=== PATIENT | male | born 1935 | race Caucasian/White ===

== ENCOUNTER → 2016-06-11 | Outpatient (CLI) | payer OTHER, MEDICARE ==
[~2016-06-11] MED LIST: AMLO2.5T PO; ASPCH81 PO; ASPI81TA28 PO; ATOR10TA82 PO; LOSA50TA6 PO; METO25TA56 PO; MULT-190 PO; MULT-506 PO; NTRGSL/4 UT; PRLSR20 PO; RANO500T PO
[2016-06-11 09:46] LABS: BASO % 0.3 %; BASO ABS # 0.02 K/uL (0-0.2); COMPLETE YES; EOS % 2.5 %; HEMATOCRIT 41.1 % (42-52); IG% 0.2 %; LYMPH % 32.2 %; LYMPH ABS # 2.05 K/uL (1.2-3.4); MEAN CELL VOLUME 92.4 fL (80-100); MEAN CORPUSCULAR HEMOGLOBIN 32.4 pg (25-34); MEAN PLATELET VOLUME 9.3 fL (7.4-10.4); MONO % 12.7 %; NEUT % 52.1 %; PLATELET COUNT 185 K/uL (130-400); RED BLOOD COUNT 4.45 M/uL (4.7-6.1); WHITE BLOOD COUNT 6.37 K/uL (4.8-10.8)
[2016-06-11 10:20] LABS: AST/SGOT 15 U/L (15-37); BLOOD UREA NITROGEN 14 mg/dl (7-18); BUN/CREATININE RATIO 14.7 (10-20); CALCIUM 8.8 mg/dl (8.5-10.1); CARBON DIOXIDE 28 mmol/L (21-32); CHLORIDE 103 mmol/L (98-107); CREATININE 0.96 mg/dl (0.60-1.40); GLUCOSE 106 mg/dl (70-99); POTASSIUM 3.8 mmol/L (3.5-5.1); SODIUM 138 mmol/L (136-145)
[2016-06-11 10:25] LABS: ALT/SGPT 24 U/L (12-78); CHOLESTEROL 110 mg/dl (0-200); CHOLESTEROL/HDL RATIO 2.1; HDL CHOLESTEROL 53 mg/dl; LDL CHOLESTEROL CALCULATED 33 mg/dl; TRIGLYCERIDES 120 mg/dl (0-150); VERY LOW DENSITY LIPOPROT CALC 24 mg/dl
--- NOTE | 2016-06-17 11:50 | CODING QUERY MEDICAL NECESSITY ---
SUPPORTING DIAGNOSIS NEEDED A supporting diagnosis is required for the test/procedure performed on this patient in order for us to be reimbursed by the patient's insurance. Please provide a supporting diagnosis for the following test/procedure listed below next to the test name along with your signature. *If there is no additional diagnosis for this patient that would support the following test/procedure please document that below next to the test/procedure. Test(s)/Procedure(s) that require a supporting diagnosis: DOS 06/11 * PSA DIAGNOSIS: Provider Signature: Date: Thank you Amanda Orellana Health Information Management Once completed, please kindly fax back to [phone] For questions please call [phone]
== END | disposition home or self-care (01) ==
LOC: C.LAB 07:56
PROVIDERS: ATTEND Urology
DX: R39.9 Unspecified symptoms and signs involving the genitourinary system (principal); K22.70 Barrett's esophagus without dysplasia; E78.00 Pure hypercholesterolemia, unspecified; R73.9 Hyperglycemia, unspecified; N40.1 Benign prostatic hyperplasia with lower urinary tract symptoms; R97.20 Elevated prostate specific antigen [PSA]

== ENCOUNTER → 2016-12-06 | Outpatient (CLI) | payer OTHER, MEDICARE ==
[~2016-12-06] MED LIST changes: -ASPI81TA28 PO; -ATOR10TA82 PO; +ATOR10TA88 PO; -RANO500T PO
== END | disposition home or self-care (01) ==
LOC: C.LAB1850 12:28
PROVIDERS: ATTEND Urology
DX: R39.9 Unspecified symptoms and signs involving the genitourinary system (principal)

== ENCOUNTER → 2016-12-07 | Outpatient (CLI) | payer OTHER, MEDICARE ==
[2016-12-07 09:11] LABS: BASO % 0.3 %; BASO ABS # 0.02 K/uL (0-0.2); COMPLETE YES; EOS % 2.3 %; HEMATOCRIT 42.5 % (42-52); IG% 0.2 %; LYMPH % 31.4 %; LYMPH ABS # 2.05 K/uL (1.2-3.4); MEAN CELL VOLUME 91.8 fL (80-100); MEAN CORPUSCULAR HGB CONC 34.8 g/dl (32-36); MONO % 10.4 %; NEUT % 55.4 %; PLATELET COUNT 174 K/uL (130-400); RED BLOOD COUNT 4.63 M/uL (4.7-6.1); WHITE BLOOD COUNT 6.53 K/uL (4.8-10.8)
[2016-12-07 09:41] LABS: ALT/SGPT 21 U/L (12-78); AST/SGOT 16 U/L (15-37); BLOOD UREA NITROGEN 10 mg/dl (7-18); BUN/CREATININE RATIO 10.6 (10-20); CALCIUM 8.9 mg/dl (8.5-10.1); CARBON DIOXIDE 28 mmol/L (21-32); CHLORIDE 104 mmol/L (98-107); CHOLESTEROL 108 mg/dl (0-200); CREATININE 0.95 mg/dl (0.60-1.40); GLUCOSE 106 mg/dl (70-99); POTASSIUM 4.1 mmol/L (3.5-5.1); SODIUM 138 mmol/L (136-145); TRIGLYCERIDES 156 mg/dl (0-150); VERY LOW DENSITY LIPOPROT CALC 31 mg/dl
[2016-12-07 09:45] LABS: CHOLESTEROL/HDL RATIO 2.4; HDL CHOLESTEROL 45 mg/dl; LDL CHOLESTEROL CALCULATED 32 mg/dl
== END | disposition home or self-care (01) ==
LOC: C.LAB 08:18
PROVIDERS: ATTEND Internal Medicine Cardiovascular Disease
DX: K22.70 Barrett's esophagus without dysplasia (principal); R73.9 Hyperglycemia, unspecified; I25.10 Atherosclerotic heart disease of native coronary artery without angina pectoris

== ENCOUNTER → 2017-03-06 | Outpatient (CLI) | payer OTHER, MEDICARE ==
[~2017-03-06] MED LIST changes: -AMLO2.5T PO; -ASPCH81 PO; +ASPI81TA28 PO; +ATOR10TA82 PO; -ATOR10TA88 PO; +RANO500T PO
== END | disposition home or self-care (01) ==
LOC: C.PATHSPEC 17:10
PROVIDERS: ATTEND Urology
DX: C61 Malignant neoplasm of prostate (principal)

== ENCOUNTER → 2017-03-27 | Outpatient (CLI) | payer OTHER, MEDICARE ==
--- NOTE | 2017-03-27 13:43 | DIAGNOSTIC IMAGING REPORT ---
WHOLE BODY BONE SCAN HISTORY: Abnormal prostate MRI. C61 Malignant neoplasm of prostate RADIOTRACER: 26.9 mCi Tc-99m MDP STUDY/IMAGES: Planar anterior and posterior whole body imaging was performed 3 hours following the intravenous administration of radiotracer. COMPARISON: Prostate MRI 12/25/2016. Left femur radiograph 06/29/2015. FINDINGS: Mild radiotracer uptake seen at the shoulders, sternoclavicular joints, left wrist, hips, lumbosacral junction and right knee favor degenerative change. Mild radiotracer uptake seen within the distal right fibula and tibia which may be due to old trauma. No suspicious areas of radiotracer uptake seen within the axial or appendicular skeleton to suggest metastatic disease. Specifically, no abnormal radiotracer uptake seen within the left ischial tuberosity. IMPRESSION: No suspicious areas of radiotracer uptake seen within the axial or appendicular skeleton to suggest metastatic disease. Electronically signed by: Cirilo Suarez M.D. 03/27/2017 1:41 PM Dictated Date/Time: 03/27/2017 1:37 PM
== END | disposition home or self-care (01) ==
LOC: C.NUCL 09:31
PROVIDERS: ATTEND Urology
DX: C61 Malignant neoplasm of prostate (principal)

== ENCOUNTER → 2017-04-29 | Outpatient (CLI) | payer OTHER, MEDICARE ==
[2017-04-29 09:41] LABS: ALT/SGPT 26 U/L (12-78); AST/SGOT 18 U/L (15-37); BLOOD UREA NITROGEN 11 mg/dl (7-18); CALCIUM 8.7 mg/dl (8.5-10.1); CARBON DIOXIDE 28 mmol/L (21-32); CHOLESTEROL 94 mg/dl (0-200); CREATININE 1.01 mg/dl (0.60-1.40); GLUCOSE 102 mg/dl (70-99); POTASSIUM 3.8 mmol/L (3.5-5.1); SODIUM 136 mmol/L (136-145)
[2017-04-29 09:45] LABS: LDL CHOLESTEROL CALCULATED 30 mg/dl
[2017-04-29 10:30] LABS: HEMOGLOBIN A1C 5.4 % (4.5-5.6)
== END | disposition home or self-care (01) ==
LOC: C.LAB 08:10
PROVIDERS: ATTEND Internal Medicine
DX: E78.00 Pure hypercholesterolemia, unspecified (principal); R73.9 Hyperglycemia, unspecified

== ENCOUNTER → 2017-06-24 | Outpatient (CLI) | payer OTHER, MEDICARE ==
[~2017-06-24] MED LIST changes: +CALC500C70 PO
[2017-06-24 09:52] LABS: ALT/SGPT 29 U/L (12-78); AST/SGOT 21 U/L (15-37); BLOOD UREA NITROGEN 15 mg/dl (7-18); CALCIUM 8.5 mg/dl (8.5-10.1); CARBON DIOXIDE 28 mmol/L (21-32); CHOLESTEROL 118 mg/dl (0-200); CREATININE 0.95 mg/dl (0.60-1.40); GLUCOSE 101 mg/dl (70-99); SODIUM 135 mmol/L (136-145)
[2017-06-24 09:56] LABS: LDL CHOLESTEROL CALCULATED 44 mg/dl
[2017-06-24 10:07] LABS: HEMOGLOBIN A1C 5.7 % (4.5-5.6)
== END | disposition home or self-care (01) ==
LOC: C.LAB 08:23
PROVIDERS: ATTEND Internal Medicine Cardiovascular Disease
DX: I25.10 Atherosclerotic heart disease of native coronary artery without angina pectoris (principal); R73.9 Hyperglycemia, unspecified

== ENCOUNTER → 2017-09-25 | Outpatient (CLI) | payer OTHER, MEDICARE ==
[~2017-09-25] MED LIST changes: +CPR500 PO; +LEUP1INJ15 INJ; +TAMS0.4C38 PO
[2017-09-25 10:22] LABS: ALT/SGPT 33 U/L (12-78); AST/SGOT 27 U/L (15-37); BLOOD UREA NITROGEN 16 mg/dl (7-18); CARBON DIOXIDE 27 mmol/L (21-32); CHOLESTEROL 130 mg/dl (0-200); CREATININE 0.87 mg/dl (0.60-1.40); GLUCOSE 91 mg/dl (70-99); LDL CHOLESTEROL CALCULATED 54 mg/dl; POTASSIUM 3.9 mmol/L (3.5-5.1); SODIUM 135 mmol/L (136-145)
== END | disposition home or self-care (01) ==
LOC: C.LAB 08:01
PROVIDERS: ATTEND Internal Medicine
DX: C61 Malignant neoplasm of prostate (principal)

== ENCOUNTER → 2017-09-26 | Outpatient (CLI) | payer OTHER, MEDICARE ==
[2017-09-26 10:59] VITALS: BP 128/64; PULSE 60; TEMP 36.7; O2SAT 96
--- NOTE | 2017-10-20 10:09 | CODING QUERY NO DIAGNOSIS ---
: 1935 TREATMENT RENDERED WITHOUT A DIAGNOSIS To promote full compliance with coding requirements relating to patient care, physician participation is requested in all cases of special education educational assistant uncertainty. Please assist us with providing a diagnosis/symptom for the test(s) below: A diagnosis/symptom was not documented on your Order. A valid diagnosis/symptom is required to bill all insurances. Please remember that we are unable to code a diagnosis of rule out, probable, possible, questionable, or suspected. Tests that require a diagnosis due to no documentation in [facility] DOS: 09/26/17 Est patient visit DIAGNOSIS: Provider Signature: Date: Thank you Vanessa Escamilla [facility] Health Information Management Once completed, please kindly fax back to [phone] For questions please call [phone]
== END | disposition home or self-care (01) ==
LOC: C.ONC 10:36
PROVIDERS: ATTEND Physician Assistant Medical
DX: C61 Malignant neoplasm of prostate (principal)

== ENCOUNTER → 2017-10-09 | Outpatient (CLI) | payer OTHER, MEDICARE ==
[~2017-10-09] MED LIST changes: -CPR500 PO; +GADAVIST IV PRN; -TAMS0.4C38 PO
--- NOTE | 2017-10-09 08:46 | DIAGNOSTIC IMAGING REPORT ---
BRAIN COMBO CLINICAL HISTORY: R25.1 [id number] COMPARISON STUDY: No previous studies for comparison. TECHNIQUE: Utilizing a 1.5 Glo magnet and dedicated coil, multiplanar, multiecho imaging of the brain was performed pre and postcontrast administration. IV administration of 8 mL of Gadavist contrast was uneventful. FINDINGS: Diffusion images are considered negative for an acute ischemic insult. Findings of generalized cerebellar as well as cerebral atrophy. There are findings of chronic small vessel change throughout both cerebral hemispheres. There is a small dural based nodule consistent with a meningioma overlying the right frontoparietal region. This creates no significant mass effect is of doubtful significance. Is considered an incidental finding. Sella and parasellar regions are unremarkable. No abnormal parenchymal enhancement. The internal artery canals are symmetric. IMPRESSION: 1. Atrophy. 2. Moderate chronic small vessel change. 3. 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 4. No acute process. The above report was generated using voice recognition software. It may contain grammatical, syntax or spelling errors. Electronically signed by: Keyshawn Begum M.D. 10/09/2017 8:44 AM Dictated Date/Time: 10/09/2017 8:37 AM
== END | disposition home or self-care (01) ==
LOC: C.MRI 07:37
PROVIDERS: ATTEND Physician Assistant
DX: G20 Parkinson's disease (principal); G25.1 Drug-induced tremor; G31.9 Degenerative disease of nervous system, unspecified

== ENCOUNTER 2020-08-14 19:05 | Inpatient (IN) ==
--- NOTE | 2020-08-14 19:01 | Emergency Department Note ---
Impression & Plan Stroke-like symptoms, Hyponatremia ED Provider Note NAME: JOÃO BAIG AGE: 85 SEX: M : 1935 ARRIVES VIA: Ambulance INFORMANT: Patient, ED PROVIDER(S): Roly Pop MD Chief Complaint: Strokelike symptoms HPI: I did receive a prehospital phone call due to concern for strokelike symptoms. The patient reportedly last seen well around 2 PM as the patient stated "he did not feel quite right." The noticed that he had some slurred slurred speech and some left-sided facial droop that began between 5 and 6 PM. Patient has had no recent falls or trauma. Patient denies any fevers chills. The patient has had some difficulty with speech. No known falls. Patient had a normal BSG and vitals prior to arrival. No prior history of stroke. The patient states he does occasionally drink beer but none recently. No tobacco use. Patient does have prior history of carotid endarterectomy. Denies any chest pains or shortness of breath. Patient not had any nausea or vomiting. ROS: See HPI for pertinent positives and negatives. A total of 10 systems were reviewed and otherwise negative. Past medical history: See below Surgical history: See below Social history: See below Physical Exam: GENERAL: Well appearing, well nourished, NAD, non-toxic. EYE EXAM: Normal conjunctiva. PERRL, no anisocoria and EOM's grossly intact w/o pain. OROPHARYNX: Moist mucus membranes. Grossly normal dentition. No exudate, posterior pharynx is clear, no tonsillar/uvular deviation or swelling. No cervical adenopathy, no submental, submandibular, or sublingual swelling. NECK: Supple, no nuchal rigidity, no adenopathy, non-tender. No signs of meningismus. FROM of the neck with good chin to chest and neck extension. No stridor. LUNGS: Clear to auscultation. Normal chest wall mechanics. HEART: NSR, no MRG. ABDOMEN: Abdomen soft, non-tender, normo-active bowel sounds, no masses, no rebound or guarding. BACK: No CVA TTP. SKIN: No rashes and no bruising. UPPER EXTREMITIES: Upper extremities are grossly normal. LOWER EXTREMITIES: Grossly normal, no edema. NEURO EXAM: A&O x3, cranial nerves II-XII grossly intact with exception of dysarthria, slurred speech, moves all 4 extremities on command w/o issue. [id number], no drift, no sensory deficits. Differential diagnoses: Infection, dehydration, metabolic abnormality, hypo/hyperglycemia, electrolyte disturbance, anemia, hypoxia, cardiac sources, intracerebral event, toxicologic, neurologic, as well as other pathologies. Course: Patient was seen and evaluated the bedside. Full history physical exam was performed. EKG interpreted by me Normal sinus rhythm, rate of 73, normal intervals, normal axis, no ST changes or T WI. Imaging Studies: See below Cardiac monitoring: An order was placed for continuous cardiac monitoring. The monitor shows a rate of 73 with sinus rhythm. MDM: Patient was seen due to concern for strokelike symptoms. Blood work was obtained and a code stroke was initiated. I did convey the initial exam to Dr. Galindo with telestroke. Dr. Galindo also noted after the assessment that the patient was having difficulty with writing complete sentences and did have trouble with basic arithmetic. His symptoms did seem to wax and wane.He was evaluated by telestroke. Recommendations were to keep head of bed at 30 degrees or lower, Plavix load 300 mg along with baby aspirin and subsequent 75 daily Plavix. Also recommended 2 g of mag and IV fluids. MRI was ordered. EKG unremarkable. Blood work unremarkable. CT head and CT angiography's of the head neck negative. Very slight hyponatremia and hypocalcemia. Covid negative. The patient's last known well was 2:00 after discussion with the on-call [facility] neurologist. No TPA given. I did speak the on-call hospitalist and patient was admitted to the medicine service by Dr. Graf. Past Med/Surg History Medical History (Updated 08/14/20 @ 23:12 by Roly Pop MD) Arteriosclerosis of carotid artery Barretts esophagus Benign prostatic hyperplasia with elevated prostate specific antigen (PSA) HTN (hypertension) Hypercholesterolemia Parkinsons disease Parotiditis Prediabetes Right knee pain Tremor Surgical History History of surgery Cyst/tumor removal on neck S/P hemorrhoidectomy Family History Father Heart disease Hypertension Myocardial infarction Mother Heart disease Cancer Breast cancer Brother Diabetes Prostate cancer Denies family history of Ovarian cancer Colorectal cancer Social History Smoking Status: Unknown if ever smoked Hx Alcohol Use: Yes Hx Substance Use: No Preferred Language: Pashto marital status: Current Living Situation: Spouse current occupational status: retired Feels Safe at Home: Yes Dental Care, Regularly: Yes Physical Activity Frequency: 5-6 Times per Week Physical Activity Frequency Comment: walk Seatbelt Use: always Sunscreen Use: Yes Allergies Allergies Allergy/AdvReac Type Severity Reaction Status Date / Time No Known Allergies Allergy Verified 08/14/20 19:33 Home Meds Home Medications Medication Instructions Recorded Confirmed multivitamin 1 tab PO DAILY 08/21/18 08/14/20 psyllium seed (sugar) oral powder 1.5 tsp PO DAILY gm 09/16/18 08/14/20 calcium carbonate 600 mg calcium 1,200 mg PO DAILY tab 12/22/18 08/14/20 (1,500 mg) tablet cholecalciferol (vitamin D3) 50 2,000 units PO DAILY cap 12/22/18 08/14/20 mcg (2,000 unit) capsule nitroglycerin 0.4 mg sublingual 0.4 mg SL Q5M PRN #1 tab 12/22/18 08/14/20 tablet aspirin 81 mg PO DAILY 08/14/20 08/14/20 diclofenac sodium 2 g TOPICAL BID 08/14/20 08/14/20 metoprolol tartrate 12.5 mg PO BID 08/14/20 08/14/20 Previous Rx's Medication Instructions Recorded omeprazole 20 mg capsule,delayed 20 mg PO DAILY #90 cap 02/26/19 release valsartan 80 mg tablet 80 mg PO DAILY #90 tab 10/19/19 atorvastatin 10 mg tablet 10 mg PO QPM #90 tab 10/25/19 carbidopa 25 mg-levodopa 100 mg 1.5 tab PO TID 90 Days #405 tab 04/10/20 tablet celecoxib 100 mg capsule 100 mg PO DAILY #30 cap 08/10/20 doxycycline monohydrate 100 mg 100 mg PO BID #42 tab 08/14/20 tablet Results & Data (ED) Vital Signs Vital Signs - 24 hr 08/14/20 19:15 08/14/20 19:24 08/14/20 19:30 Temperature 36.5 C Temperature Source Oral Pulse Rate 74 74 Pulse Rate from SpO2 Sensor 73 73 Respiratory Rate 20 17 Respiratory Effort / Characteristics Non-Labored Spontaneous Respiratory Depth Normal Blood Pressure 174/90 H 179/93 H Blood Pressure Mean 118 121 Pulse Oximetry 96 94 97 Oxygen Delivery Method Room Air Room Air Room Air Sepsis Recent Fever Within 48 Hours No Sepsis New/Unexplained Change in Mental Status Yes Sepsis Action Taken by Nursing No Action Required 08/14/20 19:42 08/14/20 20:00 08/14/20 20:15 Temperature Temperature Source Pulse Rate 74 73 74 Pulse Rate from SpO2 Sensor 74 72 74 Respiratory Rate 16 21 17 Respiratory Effort / Characteristics Respiratory Depth Blood Pressure 172/83 H 186/80 H 174/96 H Blood Pressure Mean 112 115 122 Pulse Oximetry 98 98 97 Oxygen Delivery Method Room Air Room Air Room Air Sepsis Recent Fever Within 48 Hours Sepsis New/Unexplained Change in Mental Status Sepsis Action Taken by Nursing 08/14/20 20:30 08/14/20 20:45 08/14/20 22:24 Temperature Temperature Source Pulse Rate 70 71 71 Pulse Rate from SpO2 Sensor 70 72 71 Respiratory Rate 19 16 17 Respiratory Effort / Characteristics Respiratory Depth Blood Pressure 170/79 H 174/98 H 171/88 H Blood Pressure Mean 109 123 115 Pulse Oximetry 98 96 99 Oxygen Delivery Method Room Air Room Air Room Air Sepsis Recent Fever Within 48 Hours Sepsis New/Unexplained Change in Mental Status Sepsis Action Taken by Nursing 08/14/20 22:30 08/14/20 22:48 Temperature Temperature Source Pulse Rate 72 79 Pulse Rate from SpO2 Sensor 72 79 Respiratory Rate 19 16 Respiratory Effort / Characteristics Respiratory Depth Blood Pressure 170/96 H 163/62 H Blood Pressure Mean 120 95 Pulse Oximetry 97 98 Oxygen Delivery Method Room Air Room Air Sepsis Recent Fever Within 48 Hours Sepsis New/Unexplained Change in Mental Status Sepsis Action Taken by Skilled Nursing Medications Current Medication List: was personally reviewed by me Laboratory Data Attestation: I reviewed the patient's lab results. Result diagrams: 08/14/20 19:28 08/14/20 19:28 Lab Results 08/14/20 08/14/20 08/14/20 Range/Units 19:28 19:28 19:28 WBC 4.92 (4.8-10.8) K/uL RBC 3.94 L (4.7-6.1) M/uL Hgb 12.1 L (14.0-18.0) g/dL Hct 35.5 L (42-52) % MCV 90.1 (80-100) fL MCH 30.7 (25-34) pg MCHC 34.1 (32-36) g/dL RDW Std Deviation 44.6 (36.4-46.3) fL RDW Coeff of Peyton 13.5 (11.5-14.5) % Plt Count 174 (130-400) K/uL MPV 8.4 (7.4-10.4) fL Immature Gran % (Auto) 0.0 % Neut % (Auto) 59.8 % Lymph % (Auto) 25.6 % Pope % (Auto) 12.0 % Eos % (Auto) 2.4 % Baso % (Auto) 0.2 % Neut # (Auto) 2.94 (1.4-6.5) K/uL Lymph # (Auto) 1.26 (1.2-3.4) K/uL Pope # (Auto) 0.59 (0.11-0.59) K/uL Eos # (Auto) 0.12 (0-0.5) K/uL Baso # (Auto) 0.01 (0-0.2) K/uL Immature Gran # (Auto) 0.00 (0.00-0.02) K/uL PT 10.9 (9.0-12.0) Seconds INR 1.1 (0.9-1.1) APTT 25.6 (21.0-31.0) Seconds PTT Ratio 1.0 Sodium 135 L (136-145) mmol/L Potassium 3.8 (3.5-5.1) mmol/L Chloride 101 (98-107) mmol/L Carbon Dioxide 27 (21-32) mmol/L Anion Gap 7.0 (3-11) BUN 13 (7-18) mg/dl Creatinine 0.81 (0.6-1.4) mg/dl Est Cr Clr Drug Dosing 62.1 ml/min Est GFR ( Amer) 94.6 ml/min Est GFR (Non-Af Amer) 81.6 ml/min BUN/Creatinine Ratio 15.8 (10-20) Glucose 88 (70-99) mg/dl Calcium 8.4 L (8.5-10.1) mg/dl Magnesium 2.2 (1.8-2.4) mg/dl Total Bilirubin 0.6 (0.2-1) mg/dl AST 15 (15-37) U/L ALT 12 (12-78) U/L Alkaline Phosphatase 77 (45-117) U/L Troponin I < 0.015 (0-0.045) ng/ml Total Protein 7.5 (6.4-8.2) gm/dl Albumin 3.4 (3.4-5.0) gm/dl Globulin 4.1 H (2.5-4.0) gm/dl Albumin/Globulin Ratio 0.8 L (0.9-2) COVID-19 Eval Order SARS-CoV-2 (PCR) (Negative) 08/14/20 08/14/20 Range/Units 20:55 20:55 WBC (4.8-10.8) K/uL RBC (4.7-6.1) M/uL Hgb (14.0-18.0) g/dL Hct (42-52) % MCV (80-100) fL MCH (25-34) pg MCHC (32-36) g/dL RDW Std Deviation (36.4-46.3) fL RDW Coeff of Peyton (11.5-14.5) % Plt Count (130-400) K/uL MPV (7.4-10.4) fL Immature Gran % (Auto) % Neut % (Auto) % Lymph % (Auto) % Pope % (Auto) % Eos % (Auto) % Baso % (Auto) % Neut # (Auto) (1.4-6.5) K/uL Lymph # (Auto) (1.2-3.4) K/uL Pope # (Auto) (0.11-0.59) K/uL Eos # (Auto) (0-0.5) K/uL Baso # (Auto) (0-0.2) K/uL Immature Gran # (Auto) (0.00-0.02) K/uL PT (9.0-12.0) Seconds INR (0.9-1.1) APTT (21.0-31.0) Seconds PTT Ratio Sodium (136-145) mmol/L Potassium (3.5-5.1) mmol/L Chloride (98-107) mmol/L Carbon Dioxide (21-32) mmol/L Anion Gap (3-11) BUN (7-18) mg/dl Creatinine (0.6-1.4) mg/dl Est Cr Clr Drug Dosing ml/min Est GFR ( Amer) ml/min Est GFR (Non-Af Amer) ml/min BUN/Creatinine Ratio (10-20) Glucose (70-99) mg/dl Calcium (8.5-10.1) mg/dl Magnesium (1.8-2.4) mg/dl Total Bilirubin (0.2-1) mg/dl AST (15-37) U/L ALT (12-78) U/L Alkaline Phosphatase (45-117) U/L Troponin I (0-0.045) ng/ml Total Protein (6.4-8.2) gm/dl Albumin (3.4-5.0) gm/dl Globulin (2.5-4.0) gm/dl Albumin/Globulin Ratio (0.9-2) COVID-19 Eval Order Covid19 at [facility] SARS-CoV-2 (PCR) NEGATIVE (Negative) Administered Medications Discontinued Medications Clopidogrel Bisulfate (Clopidogrel Bisulfate 300 Mg Tab) 300 mg PO NOW STA Stop: 08/14/20 20:36 Last Admin: 08/14/20 20:55 Dose: 300 mg Documented by: [id number] Magnesium Sulfate/Dextrose (Magnesium Sulfate / D5w) 1 gm in 100 mls @ 50 mls/hr IV Q2H STA Stop: 08/14/20 22:34 Last Admin: 08/14/20 21:40 Dose: 50 mls/hr Documented by: [id number] Infusion: 08/14/20 21:40 Dose: 0 mls/hr Documented by: [id number] Admin: 08/14/20 19:51 Dose: 50 mls/hr Documented by: [id number] Magnesium Sulfate/Dextrose (Magnesium Sulfate 1gm / D5w Bag) Confirm Administered Dose 1 gm IV .[employer] ONE Stop: 08/14/20 19:51 Last Admin: 08/14/20 21:25 Dose: Not Given Documented by: [id number] Imaging Data Radiologist's Impression: Head CT 08/14/20 18:59 CT SCAN OF THE BRAIN WITHOUT IV CONTRAST CLINICAL HISTORY: Strokelike symptoms. COMPARISON STUDY: MRI of the brain dated 10/09/2017. TECHNIQUE: Unenhanced axial CT scan of the brain is performed from the vertex to the skull base. A dose lowering technique was utilized adhering to the principles of ALARA. FINDINGS: Brain parenchyma: There are age-related involutional changes noting mild subcortical and periventricular microangiopathic change. There is no hemorrhage, mass effect, or evidence of acute territorial ischemia by CT criteria. A 9 mm meningioma along the right convexity seen on image #24 is unchanged from 2018. Rojo-white matter differentiation is preserved. No extra-axial fluid collection is seen. Ventricles, sulci, cisterns: Prominent secondary to involutional change. Intracranial vasculature: There is atherosclerotic calcification of the cavernous carotid arteries. Calvarium: Unremarkable. Sinuses and mastoids: The paranasal sinuses are clear. The mastoid air cells are well pneumatized. Orbits: The bony orbits are grossly intact. There are bilateral ocular lens implants. IMPRESSION: There is no hemorrhage, mass effect, or evidence of acute territorial ischemia by CT criteria. ACT 112: Negative or not required by law. Electronically signed by: Madhav Hernandez M.D. 08/14/2020 7:19 PM Head CTA 08/14/20 18:59 CT ANGIOGRAM OF THE BRAIN; CT ANGIOGRAM OF THE NECK CLINICAL HISTORY: Strokelike symptoms. COMPARISON STUDY: Unenhanced CT of the brain performed concurrently on 08/14/2020. MRI of the brain dated 10/09/2017. TECHNIQUE: Following the IV administration of 119 of Optiray 320, CT angiogram of the head and neck was performed from the aortic arch to the vertex. Images are reviewed in the axial, sagittal, and coronal planes. 3-D MIPS images are created and assessed. IV contrast was administered without complication. All measurements were calculated based on NASCET criteria. A dose lowering technique was utilized adhering to the principles of ALARA. CT DOSE: 1218.93 mGy.cm FINDINGS: Brain parenchyma: There is age-related involutional changes noting mild subcortical and periventricular microangiopathic disease. There is no hemorrhage, mass effect, or evidence of acute territorial ischemia by CT criteria. A 9 mm meningioma along the right convexity is unchanged dating back to 2018. No additional enhancing lesion is suggested on these angiographic phase images. The ventricles, sulci, and cisterns are prominent secondary to involutional change. Rojo-white matter differentiation is preserved. No extra- axial fluid collection is seen. Thoracic aorta: There is atherosclerotic calcification of the thoracic aorta. Visualized portions of the thoracic aorta are normal in caliber. The aortic arch demonstrates standard 3-vessel anatomy. Right carotid arterial system: The right common carotid artery is widely patent, as are the right internal and external carotid arteries. Mild plaque is noted in the carotid bulb. Left carotid arterial system: The left common carotid artery is widely patent, as are the left internal and external carotid arteries. Minimal plaque is seen in the carotid bulb. Vertebral arteries: The vertebral arteries are widely patent bilaterally and codominant. Subclavian arteries: Widely patent bilaterally. Intracranial vasculature: There is atherosclerotic calcification of the cavernous carotid arteries. The internal carotid arteries are patent at the skull base, as are the anterior and middle cerebral arteries bilaterally. The vertebrobasilar system and posterior cerebral arteries are widely patent. The vertebral arteries are codominant. There is no aneurysm, high-grade stenosis, or focal vessel cut off seen throughout the intracranial circulation. Jugular veins: Patent bilaterally. Dural sinuses: Patent. Lung apices: Partially visualized upper lobe lung parenchyma appears clear. Soft tissues: The visualized pharyngeal soft tissues are normal in appearance noting angiographic phase technique. The oropharyngeal airway appears widely patent. The salivary and thyroid glands are normal in appearance. No cervical lymphadenopathy is seen. Skeletal structures: The skeletal structures are osteopenic. The calvarium appears intact. The cervical spine is maintained noting multilevel spondylosis. No lytic or blastic lesion is seen. Hemangiomas are noted in the bodies of T1 and T3. Orbits: The bony orbits are intact. There are bilateral ocular lens implants. Postoperative change is noted in the right orbit. Sinuses and mastoids: A subcentimeter retention cyst is noted in the left maxillary antrum. Trace mucosal thickening within the right maxillary sinus. The remaining paranasal sinuses are clear. The mastoid air cells are well pneumatized. IMPRESSION: 1. There is no evidence of hemorrhage, mass effect, or evidence of acute t erritorial ischemia noting angiographic phase technique. 2. Unremarkable CT angiogram of the brain. 3. Unremarkable CT angiogram of the neck. ACT 112: Negative or not required by law. Electronically signed by: Madhav Hernandez M.D. 08/14/2020 7:41 PM Neck CTA 08/14/20 18:59 CT ANGIOGRAM OF THE BRAIN; CT ANGIOGRAM OF THE NECK CLINICAL HISTORY: Strokelike symptoms. COMPARISON STUDY: Unenhanced CT of the brain performed concurrently on 08/14/2020. MRI of the brain dated 10/09/2017. TECHNIQUE: Following the IV administration of 119 of Optiray 320, CT angiogram of the head and neck was performed from the aortic arch to the vertex. Images are reviewed in the axial, sagittal, and coronal planes. 3-D MIPS images are created and assessed. IV contrast was administered without complication. All measurements were calculated based on NASCET criteria. A dose lowering technique was utilized adhering to the principles of ALARA. CT DOSE: 1218.93 mGy.cm FINDINGS: Brain parenchyma: There is age-related involutional changes noting mild subcortical and periventricular microangiopathic disease. There is no hemorrhage, mass effect, or evidence of acute territorial ischemia by CT criteria. A 9 mm meningioma along the right convexity is unchanged dating back to 2018. No additional enhancing lesion is suggested on these angiographic phase images. The ventricles, sulci, and cisterns are prominent secondary to involutional change. Rojo-white matter differentiation is preserved. No extra- axial fluid collection is seen. Thoracic aorta: There is atherosclerotic calcification of the thoracic aorta. Vi sualized portions of the thoracic aorta are normal in caliber. The aortic arch demonstrates standard 3-vessel anatomy. Right carotid arterial system: The right common carotid artery is widely patent, as are the right internal and external carotid arteries. Mild plaque is noted in the carotid bulb. Left carotid arterial system: The left common carotid artery is widely patent, as are the left internal and external carotid arteries. Minimal plaque is seen in the carotid bulb. Vertebral arteries: The vertebral arteries are widely patent bilaterally and codominant. Subclavian arteries: Widely patent bilaterally. Intracranial vasculature: There is atherosclerotic calcification of the cavernous carotid arteries. The internal carotid arteries are patent at the skull base, as are the anterior and middle cerebral arteries bilaterally. The vertebrobasilar system and posterior cerebral arteries are widely patent. The vertebral arteries are codominant. There is no aneurysm, high-grade stenosis, or focal vessel cut off seen throughout the intracranial circulation. Jugular veins: Patent bilaterally. Dural sinuses: Patent. Lung apices: Partially visualized upper lobe lung parenchyma appears clear. Soft tissues: The visualized pharyngeal soft tissues are normal in appearance noting angiographic phase technique. The oropharyngeal airway appears widely patent. The salivary and thyroid glands are normal in appearance. No cervical lymphadenopathy is seen. Skeletal structures: The skeletal structures are osteopenic. The calvarium appears intact. The cervical spine is maintained noting multilevel spondylosis. No lytic or blastic lesion is seen. Hemangiomas are noted in the bodies of T1 and T3. Orbits: The bony orbits are intact. There are bilateral ocular lens implants. Postoperative change is noted in the right orbit. Sinuses and mastoids: A subcentimeter retention cyst is noted in the left maxillary antrum. Trace mucosal thickening within the right maxillary sinus. The remaining paranasal sinuses are clear. The mastoid air cells are well pneumatized. IMPRESSION: 1. There is no evidence of hemorrhage, mass effect, or evidence of acute territorial ischemia noting angiographic phase technique. 2. Unremarkable CT angiogram of the brain. 3. Unremarkable CT angiogram of the neck. ACT 112: Negative or not required by law. Electronically signed by: Madhav Hernandez M.D. 08/14/2020 7:41 PM Discharge Plan Visit Data Chief Complaint: Stroke Alert Stated Complaint: STROKE ED Provider: Roly Pop Discharge Problem: Stroke-like symptoms, Hyponatremia Forms Stand Alone Forms: My [facility] [employer] Prescriptions Prescriptions: No Action Metamucil (sugar) powder 1.5 tsp PO DAILY RF: 0 omeprazole 20 mg capsule,delayed release(DR/EC) 20 mg PO DAILY Qty: 90 RF: 3 valsartan 80 mg tablet 80 mg PO DAILY Qty: 90 RF: 3 atorvastatin 10 mg tablet 10 mg PO QPM Qty: 90 RF: 3 carbidopa-levodopa 25-100 mg tablet 1.5 tab PO TID 90 Days Qty: 405 RF: 1 doxycycline monohydrate 100 mg tablet 100 mg PO BID Qty: 42 RF: 0 celecoxib [Celebrex] 100 mg capsule 100 mg PO DAILY Qty: 30 RF: 1 multivitamin tablet 1 tab PO DAILY RF: 0 calcium carbonate 600 mg calcium (1,500 mg) tablet 1,200 mg PO DAILY RF: 0 cholecalciferol (vitamin D3) 2,000 unit capsule 2,000 units PO DAILY RF: 0 nitroglycerin 0.4 mg tablet, sublingual 0.4 mg SL Q5M PRN (Reason: chest pain) Qty: 1 RF: 0 aspirin 81 mg Tablet,Delayed Release (Dr/Ec) 81 mg PO DAILY RF: 0 metoprolol tartrate 25 mg tablet 12.5 mg PO BID RF: 0 diclofenac sodium 1 % gel 2 g topical BID RF: 0
--- NOTE | 2020-08-14 19:21 | CT Scan Report ---
CT SCAN OF THE BRAIN WITHOUT IV CONTRAST CLINICAL HISTORY: Strokelike symptoms. COMPARISON STUDY: MRI of the brain dated 10/09/2017. TECHNIQUE: Unenhanced axial CT scan of the brain is performed from the vertex to the skull base. A do se lowering technique was utilized adhering to the principles of ALARA. FINDINGS: Brain parenchyma: There are age-related involutional changes noting mild subcortical and periventric ular microangiopathic change. There is no hemorrhage, mass effect, or evidence of acute territorial i schemia by CT criteria. A 9 mm meningioma along the right convexity seen on image #24 is unchanged fr om 2018. Rojo-white matter differentiation is preserved. No extra-axial fluid collection is seen. Ventricles, sulci, cisterns: Prominent secondary to involutional change. Intracranial vasculature: There is atherosclerotic calcification of the cavernous carotid arteries. Calvarium: Unremarkable. Sinuses and mastoids: The paranasal sinuses are clear. The mastoid air cells are well pneumatized. Orbits: The bony orbits are grossly intact. There are bilateral ocular lens implants. IMPRESSION: There is no hemorrhage, mass effect, or evidence of acute territorial ischemia by CT crit noel. ACT 112: Negative or not required by law. Electronically signed by: Madhav Hernandez M.D. 08/14/2020 7:19 PM
[2020-08-14 19:36] LABS: Basophils # (auto) 0.01 K/uL (0-0.2); Basophils % (auto) 0.2 %; Eosinophils # (auto) 0.12 K/uL (0-0.5); Eosinophils % (auto) 2.4 %; Hematocrit (blood only) 35.5 % (42-52); Hemoglobin 12.1 g/dL (14.0-18.0); Lymphocytes # (auto) 1.26 K/uL (1.2-3.4); Lymphocytes % (auto) 25.6 %; Mean Corpuscular Hemoglobin 30.7 pg (25-34); Mean Corpuscular Hgb Conc 34.1 g/dL (32-36); Mean Corpuscular Volume 90.1 fL (80-100); Mean Platelet Volume 8.4 fL (7.4-10.4); Monocytes # (auto) 0.59 K/uL (0.11-0.59); Neutrophils # (auto) 2.94 K/uL (1.4-6.5); Neutrophils % (auto) 59.8 %; Platelet Count 174 K/uL (130-400); RDW Coefficient of Variation 13.5 % (11.5-14.5); RDW Standard Deviation 44.6 fL (36.4-46.3); Red Blood Count 3.94 M/uL (4.7-6.1); White Blood Count 4.92 K/uL (4.8-10.8)
--- NOTE | 2020-08-14 19:42 | CT Scan Report ---
CT ANGIOGRAM OF THE BRAIN; CT ANGIOGRAM OF THE NECK CLINICAL HISTORY: Strokelike symptoms. COMPARISON STUDY: Unenhanced CT of the brain performed concurrently on 08/14/2020. MRI of the brain d ated 10/09/2017. TECHNIQUE: Following the IV administration of 119 of Optiray 320, CT angiogram of the head and neck w as performed from the aortic arch to the vertex. Images are reviewed in the axial, sagittal, and mahin nal planes. 3-D MIPS images are created and assessed. IV contrast was administered without complicati on. All measurements were calculated based on NASCET criteria. A dose lowering technique was utilize d adhering to the principles of ALARA. CT DOSE: 1218.93 mGy.cm FINDINGS: Brain parenchyma: There is age-related involutional changes noting mild subcortical and periventricul ar microangiopathic disease. There is no hemorrhage, mass effect, or evidence of acute territorial is chemia by CT criteria. A 9 mm meningioma along the right convexity is unchanged dating back to 2018. No additional enhancing lesion is suggested on these angiographic phase images. The ventricles, sulci , and cisterns are prominent secondary to involutional change. Rojo-white matter differentiation is p reserved. No extra-axial fluid collection is seen. Thoracic aorta: There is atherosclerotic calcification of the thoracic aorta. Visualized portions of the thoracic aorta are normal in caliber. The aortic arch demonstrates standard 3-vessel anatomy. Right carotid arterial system: The right common carotid artery is widely patent, as are the right int ernal and external carotid arteries. Mild plaque is noted in the carotid bulb. Left carotid arterial system: The left common carotid artery is widely patent, as are the left undergraduate internship al and external carotid arteries. Minimal plaque is seen in the carotid bulb. Vertebral arteries: The vertebral arteries are widely patent bilaterally and codominant. Subclavian arteries: Widely patent bilaterally. Intracranial vasculature: There is atherosclerotic calcification of the cavernous carotid arteries. T he internal carotid arteries are patent at the skull base, as are the anterior and middle cerebral ar teries bilaterally. The vertebrobasilar system and posterior cerebral arteries are widely patent. The vertebral arteries are codominant. There is no aneurysm, high-grade stenosis, or focal vessel cut of f seen throughout the intracranial circulation. Jugular veins: Patent bilaterally. Dural sinuses: Patent. Lung apices: Partially visualized upper lobe lung parenchyma appears clear. Soft tissues: The visualized pharyngeal soft tissues are normal in appearance noting angiographic pha se technique. The oropharyngeal airway appears widely patent. The salivary and thyroid glands are nor mal in appearance. No cervical lymphadenopathy is seen. Skeletal structures: The skeletal structures are osteopenic. The calvarium appears intact. The cervic al spine is maintained noting multilevel spondylosis. No lytic or blastic lesion is seen. Hemangiomas are noted in the bodies of T1 and T3. Orbits: The bony orbits are intact. There are bilateral ocular lens implants. Postoperative change is noted in the right orbit. Sinuses and mastoids: A subcentimeter retention cyst is noted in the left maxillary antrum. Trace muc osal thickening within the right maxillary sinus. The remaining paranasal sinuses are clear. The mast oid air cells are well pneumatized. IMPRESSION: 1. There is no evidence of hemorrhage, mass effect, or evidence of acute territorial ischemia noting angiographic phase technique. 2. Unremarkable CT angiogram of the brain. 3. Unremarkable CT angiogram of the neck. ACT 112: Negative or not required by law. Electronically signed by: Madhav Hernandez M.D. 08/14/2020 7:41 PM
[2020-08-14 19:48] LABS: INR 1.1 (0.9-1.1); Partial Thromboplastin Time 25.6 Seconds (21.0-31.0); Prothrombin Time 10.9 Seconds (9.0-12.0)
[2020-08-14] MEDS ORDERED: MAGNESIUM SULFATE 1GM / D5W BAG IV ONE (19:50)
[2020-08-14] MEDS: MAGNESIUM SULFATE / D5W 1 GM/100 ML BAG IV STA ×2 (19:51→21:40)
[2020-08-14 19:58] LABS: Alanine Aminotransferase 12 U/L (12-78); Albumin Level 3.4 gm/dl (3.4-5.0); Aspartate Aminotransferase 15 U/L (15-37); BUN Creatinine Ratio 15.8 (10-20); Blood Urea Nitrogen 13 mg/dl (7-18); Calcium 8.4 mg/dl (8.5-10.1); Carbon Dioxide 27 mmol/L (21-32); Chloride 101 mmol/L (98-107); Creatinine Clr Calc Pharmacy 62.1 ml/min; Est GFR (African American) 94.6 ml/min; Est GFR (Non-African American) 81.6 ml/min; Glucose 88 mg/dl (70-99); Magnesium 2.2 mg/dl (1.8-2.4); Potassium 3.8 mmol/L (3.5-5.1); Sodium 135 mmol/L (136-145)
[2020-08-14 20:03] LABS: Albumin Globulin Ratio 0.8 (0.9-2); Alkaline Phosphatase 77 U/L (45-117); Bilirubin,Total 0.6 mg/dl (0.2-1); Globulin 4.1 gm/dl (2.5-4.0); Total Protein 7.5 gm/dl (6.4-8.2); Troponin I < 0.015 ng/ml (0-0.045)
[2020-08-14] MEDS ORDERED: CLOPIDOGREL BISULFATE 300 MG TAB PO STA (20:35)
--- NOTE | 2020-08-14 22:52 | History & Physical Report ---
Date of Service August 14, 2020 Assessment & Plan Admission and Anticipated Discharge Date Admission Date: 85 yo M w/ pMHx. of atherosclerosis of carotid arteries, Cordova esophagus, prostate cancer, congenital hearing loss and Parkinson disease presents with slurred speech and expressive aphagia. admit med/surg with telemetry Stroke like symptoms with expressive aphasia, word finding difficulty Was evaluated for lyme although this presentation does not seem consistent with neuro lyme (encephalopathy) and testing was negative on western blot testing (the testing indicates that potentially other spirochetes triggering the initial + IgG titer) CT head: no hemorrhage, mass effect or acute tertiary ischemia CTA head and neck: with no ischemia or mass effect seen MRI head w/o contrast: with imaging with mass consistent with meningioma ([id number]) no acute infarction, does have chronic microvascular ischemic changes EKG: with PAC's and incomplete RBBB - stroke protocol initiated, telestroke from [facility] saw the patient - loaded with Plavix 300mg and will continue with ASA and Plavix 75 mg going forward - HOB elevated to 30 degrees - given 2 g magnesium - NSAID's held - switched Omeprazole to Famotidine - Atorvastatin increased from 10 mg - 40 mg - neuro consult placed - allow for permissive hypertension - held antihypertensives - will check A1c with AM labs HTN - Metoprolol and Valsartan held to allow for permissive HTN - consider restarting BP medications as we transition to a normotensive goal Parkinson disease, mild progressive Follows with Dr. Jeronimo - continue home Carbidopa - levodopa CAD ecg with RBB and new PAC's - ECHO ordered - on telemetry Cordova esophagus - held Omeprazole in the setting of plavix - ordered Famotidine BID IV Code: DNR/DNI Diet: passed dysphagia screen, diet added DVT: SCD's History of Present Illness Chief Complaint: slurring speech Primary Care Provider: Kiet Mabry MD [place] is a 85-year-old male with a past medical history of HTN, HLD, atherosclerosis of the carotid artery s/p bilateral endarterectomy Jan 2010, non obstructive CAD with 30-40% at mid and distal LAD, prostate cancer, Parkinson disease, congenital hearing deficit of the left ear here for stroke like symptoms. His helped to give the story. They had family visiting from [place] and his last known well was 2PM. he was somewhat confused and "absent" with guests at that time. At 5PM he called his primary doctor and she ( and provider on the phone) noted that he was slurring his speech, this is an addendum on her note in the chart. The called the ambulance and they were transported to the ER. A stroke alert was called and telehealth had seen the patient. He has a history of cigar use in the past no current tobacco use. He has not had any fall or trauma recently. He had previously had swelling of his hands along with some redness that was evaluated for lyme disease. Initial titers were IgG positive IgM negative, with follow up western blot showing negative IgG and IgM with some reactive bands. This could indicate an early infection with the IgM reactive bands or another spirochete infection per the western blot results. His Etta noted that he was still having some trouble with speaking. Ramy walton Allergy/AdvReac Type Severity Reaction Status Date / Time No Known Allergies Allergy Verified 08/14/20 19:33 Home Medications Medication Instructions Recorded Confirmed Type multivitamin 1 tab PO DAILY 08/21/18 08/14/20 History psyllium seed (sugar) oral powder 1.5 tsp PO DAILY gm 09/16/18 08/14/20 History calcium carbonate 600 mg calcium 1,200 mg PO DAILY tab 12/22/18 08/14/20 History (1,500 mg) tablet cholecalciferol (vitamin D3) 50 2,000 units PO DAILY cap 12/22/18 08/14/20 History mcg (2,000 unit) capsule nitroglycerin 0.4 mg sublingual 0.4 mg SL Q5M PRN #1 tab 12/22/18 08/14/20 History tablet valsartan 80 mg tablet 80 mg PO DAILY #90 tab 10/19/19 08/14/20 Rx carbidopa 25 mg-levodopa 100 mg 1.5 tab PO TID 90 Days #405 tab 04/10/20 08/14/20 Rx tablet celecoxib 100 mg capsule 100 mg PO DAILY #30 cap 08/10/20 08/14/20 Rx aspirin 81 mg PO DAILY 08/14/20 08/14/20 History diclofenac sodium 2 g TOPICAL BID 08/14/20 08/14/20 History metoprolol tartrate 12.5 mg PO BID 08/14/20 08/14/20 History atorvastatin 40 mg PO QAM 30 Days #30 tab 08/15/20 Rx clopidogrel 75 mg PO QAM 30 Days #30 tab 08/15/20 Rx doxycycline hyclate 100 mg PO BID 28 Days #56 tab 08/15/20 Rx Past Med/Surg History Medical History (Updated 08/15/20 @ 15:02 by Antoinette Billy DO) Arteriosclerosis of carotid artery Barretts esophagus Benign prostatic hyperplasia with elevated prostate specific antigen (PSA) HTN (hypertension) Hypercholesterolemia Parkinsons disease Parotiditis Prediabetes Right knee pain TIA (transient ischemic attack) Tremor Surgical History History of surgery Cyst/tumor removal on neck S/P hemorrhoidectomy Family History Father Heart disease Hypertension Myocardial infarction Mother Heart disease Cancer Breast cancer Brother Diabetes Prostate cancer Denies family history of Ovarian cancer Colorectal cancer Social History Smoking Status: Former smoker Second Hand Exposure: No; Hx Alcohol Use: Yes Alcohol type: beer and wine Hx Substance Use: No Preferred Language: [place] Communication Ability: Effective 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 Beliefs That Will Affect Care: None marital status: Current Living Situation: Spouse current occupational status: retired Feels Safe at Home: Yes Dental Care, Regularly: Yes Physical Activity Frequency: 5-6 Times per Week Physical Activity Frequency Comment: walk Seatbelt Use: always Sunscreen Use: Yes Assistive Devices: Glasses and Hearing Aid - Left Review of Systems Review of Systems: Constitutional: denies fevers, chills, nausea, vomiting admit fatigue, weight loss Head: denies trauma, vision changes recently admits some confusion Neuro.: denies focal weakness admits slurring of speech ENT: denies stuffiness, sneezing, sore throat Cardiac: denies chest pain, palpitations Pulm.: denies chest pain, palpitations GI: admits some diarrhea : denies urgency, dysuria, frequency Physical Exam Constitutional: well developed and well nourished; no acute distress Eyes: PERRL, conjunctivae normal, anicteric sclerae ENMT: Ears: + hearing impairment (- right sided congenital hearing deficit) Nose: + external nose abnormality Mouth: no lip abnormality Throat: uvula midline Neck: normal visual inspection Respiratory: normal respiratory effort, lungs clear to auscultation Cardiovascular: RRR, no murmur, no edema Gastrointestinal (Abdomen): Inspection/Auscultation: abdomen normal to inspection and normal bowel sounds; abdomen not distended Musculoskeletal: no cyanosis or clubbing, extremities motor strength 5/5 Skin: no rashes, warm and dry Neurologic: CN's II-XI intact bilaterally (- with the exception of hearing deficit in right ear that is congenital) Speech / Cognition: + expressive aphasia (- word finding difficulty) Motor/Sensory: no tremor Psychiatric: Orientation: alert Eye Contact: good eye contact Speech: no pressured speech Affect: euthymic affect Results & Data Results & Data ([facility]) Vital Signs (Past 12 Hours) Vital Signs Temp Pulse Resp BP Pulse Ox 08/14/20 22:24 71 17 171/88 H 99 08/14/20 20:45 71 16 174/98 H 96 08/14/20 20:30 70 19 170/79 H 98 08/14/20 20:15 74 17 174/96 H 97 08/14/20 20:00 73 21 186/80 H 98 08/14/20 19:42 74 16 172/83 H 98 08/14/20 19:30 74 17 179/93 H 97 08/14/20 19:24 74 20 174/90 H 94 08/14/20 19:15 36.5 C 96 CBC Results Results Complete Blood Count Results: RBC 4.10 M/uL (4.7-6.1) L 08/15/20 WBC 6.23 K/uL (4.8-10.8) 08/15/20 Hgb 12.4 g/dL (14.0-18.0) L 08/15/20 Hct 37.7 % (42-52) L 08/15/20 Plt Count 200 K/uL (130-400) 08/15/20 Chemistry (BMP) Results BMP Results: Sodium 136 mmol/L (136-145) 08/15/20 Potassium 3.8 mmol/L (3.5-5.1) 08/15/20 Chloride 105 mmol/L (98-107) 08/15/20 BUN 8 mg/dl (7-18) 08/15/20 Creatinine 0.74 mg/dl (0.6-1.4) 08/15/20 Glucose 102 mg/dl (70-99) H 08/15/20 Supervising Physician Co-Signing Physician Notes Attending addendum: I have physically seen this patient, have supervised the medical residents activities, and agree with the H&P unless as otherwise noted. Assessment and Plan: CVA/expressive aphasia/word finding difficulty- Stroke without TPA protocol order set [facility] [place] recommending Plavix 300 mg loading dose and aspirin 81 mg and Plavix 75 mg daily going forward Holding NSAIDs and omeprazole Change atorvastatin from 10 to 40 mg daily for high-dose statin benefit Consult PT/OT/speech/neurology Order complete echocardiogram Permissive hypertension Check hemoglobin A1c and fasting lipid panel CAD/hypertension- Hold for losartan and adjust dose of metoprolol to allow for permissive hypertension Remaining orders and notations as noted Resident Activity Tracking Resident Involvement: Resident Care Provided Care Provided: Adult Hospital Medicine
[2020-08-14] MEDS ORDERED: PHARMACIST DISCHARGE MED REC CONSULT PRN (23:34)
[2020-08-14] MEDS ORDERED: POLYETHYLENE (MIRALAX) 17 GM PACK PO PRN (23:34)
[2020-08-14] MEDS: ACETAMINOPHEN 325 MG TAB PO PRN (23:56)
--- NOTE | 2020-08-15 06:55 | Magnetic Resonance Report ---
MRI OF THE BRAIN WITHOUT CONTRAST CLINICAL HISTORY: stroke like symptoms SLURRED SPEECH. COMPARISON STUDY: Noncontrast head CT dated 08/14/2020, MRI the brain dated 10/09/2017 FINDINGS: Sagittal T1, axial diffusion, proton density and T2 weighted axial, coronal FLAIR, and axial T1-weigh uday images were acquired. There is a 1 cm right frontal convexity extra-axial mass consistent with a small meningioma. This rem ain similar to the prior study. Axial diffusion-weighted images reveal no evidence of acute or subacute infarction. There is no evidence of ventricular dilatation. Proton density T2-weighted and FLAIR images reveal scattered foci of increased T2 signal within the w fina matter, likely on a small vessel basis. There is stable increased T2 and FLAIR signal within the posterior aspect of the corpus callosum. There are no abnormal flow voids. IMPRESSION: 1. No acute intracranial findings 2. No evidence of acute or subacute infarction 3. Right frontal convexity 1 cm extra-axial dural based mass consistent with a meningioma ACT 112: Negative or not required by law. Electronically signed by: Daron Uriostegui M.D. 08/15/2020 6:54 AM
[2020-08-15] MEDS: CARBIDOPA/LEVODOPA 25/100MG TAB PO SCH ×2 (08:29→14:17)
[2020-08-15] MEDS: ACETAMINOPHEN 325 MG TAB PO PRN (08:35)
[2020-08-15 08:48] LABS: Basophils # (auto) 0.02 K/uL (0-0.2); Basophils % (auto) 0.3 %; Eosinophils % (auto) 1.6 %; Hematocrit (blood only) 37.7 % (42-52); Hemoglobin 12.4 g/dL (14.0-18.0); Lymphocytes % (auto) 17.7 %; Mean Corpuscular Hemoglobin 30.2 pg (25-34); Mean Corpuscular Hgb Conc 32.9 g/dL (32-36); Mean Platelet Volume 8.4 fL (7.4-10.4); Monocytes # (auto) 0.77 K/uL (0.11-0.59); Monocytes % (auto) 12.4 %; Neutrophils # (auto) 4.24 K/uL (1.4-6.5); Platelet Count 200 K/uL (130-400); RDW Coefficient of Variation 13.7 % (11.5-14.5); RDW Standard Deviation 46.2 fL (36.4-46.3); White Blood Count 6.23 K/uL (4.8-10.8)
[2020-08-15] MEDS ORDERED: FAMOTIDINE 20 MG in SYRINGE 3 ML IV SCH (09:00)
[2020-08-15] MEDS ORDERED: ATORVASTATIN 40 MG TAB PO SCH (09:00)
[2020-08-15] MEDS ORDERED: ASPIRIN 81 MG ECTAB PO SCH (09:00)
[2020-08-15] MEDS ORDERED: CLOPIDOGREL BISULFATE 75 MG TAB PO SCH (09:00)
[2020-08-15 09:16] LABS: BUN Creatinine Ratio 11.3 (10-20); Calcium 8.2 mg/dl (8.5-10.1); Creatinine Clr Calc Pharmacy 64.5 ml/min; Est GFR (African American) 98.2 ml/min; Est GFR (Non-African American) 84.7 ml/min; Potassium 3.8 mmol/L (3.5-5.1)
--- NOTE | 2020-08-15 09:45 | Neurology Consultation ---
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 He does have some subtle difficulty with speech fluency this morning but is not grossly aphasic or dysarthric. Thorough neuro imaging including CT of the head, CT angiography of the head and neck, and brain MRI are negative for any acute process or significant vascular lesion. He does have a chronic right frontal meningioma which is likely incidental. At this point, I agree with the addition of Plavix 75 mg to this patient's medication regimen. May continue aspirin 81 mg/day for the next 3 weeks but would then discontinue at that time in favor of Plavix monotherapy. However, patient symptoms are not clearly related to stroke or TIA. Stroke would seem to be excluded on the basis of his unremarkable brain MRI. Given the multiple positive IgG and single positive IgM bands on Lyme Western blot I think it would be reasonable to treat this patient for presumed early Lyme disease. Would consider giving him a few doses of IV Rocephin followed by standard doxycycline therapy. Consider evaluation for Lyme coinfection organisms as well. 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 Would not recommend a lumbar puncture at this time. History of Present Illness Reason for Consultation: Stroke symptoms Requesting Physician: Lance Jc MD Attending Physician: Moreno Lowe DO History of Present Illness The patient is an 85-year-old male who has been following with me in neurology clinic for mild to moderate idiopathic left twila-Parkinson's disease which began about 3 years ago. I did not make any adjustments to his Sinemet at his last appointment with me this past February. He presented to the emergency department yesterday for further evaluation of slurred speech and left facial droop that began last night between 5 and 6 PM. He did have a telestroke consultation with a specialist at [facility] who noted some mild cognitive difficulties including sentence completion and completion and trouble with simple arithmetic. Symptoms seem to wax and wane. He was loaded with Plavix and subsequently prescribed Plavix 75 mg/day. TPA was not administered. A CT of the head was negative for hemorrhage or acute process. CT angiography of the head and neck were unremarkable. A follow-up brain MRI was negative for acute findings, no evidence of acute or subacute stroke. There is an incidental right frontal convexity meningioma measuring about 1 cm in size which have been noted on previous imaging from 2018 as well. I reviewed the images as well as the radiologist's interpretation of these tests and agree. The patient was taking aspirin 81 mg/day and atorvastatin 10 mg/day as an outpatient. Low-dose aspirin has been continued in addition to Plavix 75 mg/day (recently added). The atorvastatin dosage has been increased to 40 mg/day. He has been complaining of some joint pain and swelling affecting the hands. A recent Lyme Western blot was potentially consistent with early Lyme, not conclusive. Patient's PCP had contacted the patient last night to discuss his Lyme results with plan to potentially start him on doxycycline. He was noted to be jumbling his words at that time and his was instructed to contact 911 to have the patient evaluated urgently in the emergency department. Allergies Allergy/AdvReac Type Severity Reaction Status Date / Time No Known Allergies Allergy Verified 08/14/20 19:33 Home Medications Medication Instructions Recorded Confirmed Type multivitamin 1 tab PO DAILY 08/21/18 08/14/20 History psyllium seed (sugar) oral powder 1.5 tsp PO DAILY gm 09/16/18 08/14/20 History calcium carbonate 600 mg calcium 1,200 mg PO DAILY tab 12/22/18 08/14/20 History (1,500 mg) tablet cholecalciferol (vitamin D3) 50 2,000 units PO DAILY cap 12/22/18 08/14/20 History mcg (2,000 unit) capsule nitroglycerin 0.4 mg sublingual 0.4 mg SL Q5M PRN #1 tab 12/22/18 08/14/20 History tablet omeprazole 20 mg capsule,delayed 20 mg PO DAILY #90 cap 02/26/19 08/14/20 Rx release valsartan 80 mg tablet 80 mg PO DAILY #90 tab 10/19/19 08/14/20 Rx atorvastatin 10 mg tablet 10 mg PO QPM #90 tab 10/25/19 08/14/20 Rx carbidopa 25 mg-levodopa 100 mg 1.5 tab PO TID 90 Days #405 tab 04/10/20 08/14/20 Rx tablet celecoxib 100 mg capsule 100 mg PO DAILY #30 cap 08/10/20 08/14/20 Rx aspirin 81 mg PO DAILY 08/14/20 08/14/20 History diclofenac sodium 2 g TOPICAL BID 08/14/20 08/14/20 History doxycycline monohydrate 100 mg 100 mg PO BID #42 tab 08/14/20 08/14/20 Rx tablet metoprolol tartrate 12.5 mg PO BID 08/14/20 08/14/20 History Patient History Medical History Arteriosclerosis of carotid artery Barretts esophagus Benign prostatic hyperplasia with elevated prostate specific antigen (PSA) HTN (hypertension) Hypercholesterolemia Parkinsons disease Parotiditis Prediabetes Right knee pain Tremor Surgical History History of surgery Cyst/tumor removal on neck S/P hemorrhoidectomy Family History Father Heart disease Hypertension Myocardial infarction Mother Heart disease Cancer Breast cancer Brother Diabetes Prostate cancer Denies family history of Ovarian cancer Colorectal cancer Social History Smoking Status: Former smoker Second Hand Exposure: No; Do You Dip or Chew Tobacco: No; Hx Alcohol Use: Yes Alcohol type: beer and wine Hx Substance Use: No Preferred Language: Sinhala Communication Ability: Effective 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 Beliefs That Will Affect Care: None marital status: Current Living Situation: Spouse current occupational status: retired Other Information That Helps Us Care for You: No Feels Safe at Home: Yes Safety Concerns: Feels Safe At This Time Dental Care, Regularly: Yes Physical Activity Frequency: 5-6 Times per Week Physical Activity Frequency Comment: walk Seatbelt Use: always Sunscreen Use: Yes Assistive Devices: Glasses and Hearing Aid - Left Review of Systems Constitutional: no fever and no chills Eyes: no blind spots and no diplopia Ear, Nose, Mouth, Throat: no hearing loss Respiratory: no cough and no dyspnea Cardiovascular: no chest pain and no palpitations Gastrointestinal: no nausea and no vomiting Genitourinary: no dysuria Musculoskeletal: + joint pain Integumentary: no rash and no lesions Neurologic: as per Subjective / HPI Psychiatric: no depression and no anxiety Hematologic / Lymphatic: no easy bleeding and no easy bruising Exam (Neuro) Constitutional: well developed and well nourished; no acute distress Eyes: normal visual leo by confrontation, PERRL, normal accommodation and EOM intact bilaterally; no fundoscopic abnormality, no nystagmus and no papilledema Cardiovascular: Vessels: normal carotid upstroke; no carotid bruit Neurologic: Oriented to:: Person, Place and Time Memory: Short Term Intact and Remote Intact Attention: Span Intact and Concentration Intact Language: Naming Objects and Repeating Phrases Speech Fluency: Dysfluency; negative Dysarthria Speech Aphasia: negative Aphasia Fund of Knowledge: Current Events, Past History and Vocabulary Cranial Nerves: Normal II (Visual leo full to confrontation, visual acuity normal), III, IV, (Pupils equal round reactive to light and accommodation, eye movements normal), V (Facial sensation intact), VII (There is no facial droop or weakness), VIII (Hearing intact), IX, X (Palate elevates to midline), XI (Shoulder shrug intact) and XII (Tongue protrudes to midline) Motor Strength: Normal Lower Extremities and Normal Upper Extremities; negative Pronator Drift Motor Tone: Normal Lower Extremities and Normal Upper Extremities Muscle Bulk/Involuntary Movements: Pill Rolling Tremor and Action Tremor; negative Muscle Atrophy Sensation: Light Touch Intact, Pain/Temperature Intact, Vibration Intact and Proprioception Intact Coordination: Normal; negative Dysdiadochokinesia, Finger-Nose Abnormal and Heel-Gramajo Abnormal Deep Tendon Reflexes: Rt Triceps: 2+, Lt Triceps: 2+, Rt Biceps: 2+, Lt Biceps: 2+, Rt Brachioradialis: 2+, Lt Brachioradialis: 2+, Rt Patellar: 2+, Lt Patellar: 2+, Rt Ankle: 1+ and Lt Ankle : 1+ Special Tests: negative Babinski Present Details: Gait not tested in context of patient's current neurological status. Results & Data ([facility]) Vital Signs (Past 12 Hours) Vital Signs Temp Pulse Pulse Resp BP BP BP 08/15/20 07:43 37.2 C 63 18 155/65 H 08/15/20 03:26 37 C 62 16 157/72 H 08/15/20 00:41 71 06/22/21 00:17 37.1 C 71 18 187/84 H 08/14/20 23:45 37.1 C 71 18 187/84 H 08/14/20 22:48 79 16 163/62 H 08/14/20 22:30 72 19 170/96 H 08/14/20 22:24 71 17 171/88 H Pulse Ox 08/15/20 07:43 97 08/15/20 03:26 97 08/15/20 00:41 08/15/20 00:17 99 08/14/20 23:45 99 08/14/20 22:48 98 08/14/20 22:30 97 08/14/20 22:24 99 Laboratory Results WBC 6.23, hemoglobin 12.4, hematocrit 37.7, platelet count 200, sodium 136, potassium 3.8, BUN 8, creatinine 0.74, glucose 102, calcium 8.2, magnesium 2.2, AST 15, ALT 12, troponin less than 0.015, triglycerides 85, cholesterol 93, LDL 23, VLDL 17, HDL 53, vitamin B12 297, vitamin D 36.0, TSH 1.480, Lyme Western blot reveals 3 reactive IgG bands and 1 reactive IgM band. Diagnostic Findings CT of the head, CT angiography of the head and neck, and brain MRI are as described in history of present illness. I reviewed the images as well as the radiologist's interpretation of these tests. Coding Level of Care Code 47207 Initial In Care Lvl 3 Diagnoses Stroke-like symptoms R29.90 Parkinsons disease G20 Lyme disease A69.20
[2020-08-15 10:50] LABS: Estimated Average Glucose 114 mg/dl; Hemoglobin A1C 5.6 % (4.5-5.6)
--- NOTE | 2020-08-15 14:33 | XCELERA ---
[id number]
[2020-08-15 15:01] VITALS: TEMP 97.7; O2SAT 99
--- NOTE | 2020-08-15 15:06 | Discharge Summary ---
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 His helped to give the story. They had family visiting from [place] and his last known well was 2PM. he was somewhat confused and "absent" with guests at that time. At 5PM he called his primary doctor and she ( and provider on the phone) noted that he was slurring his speech, this is an addendum on her note in the chart. The called the ambulance and they were transported to the ER. A stroke alert was called and telehealth had seen the patient. He has a history of cigar use in the past no current tobacco use. He has not had any fall or trauma recently. He had previously had swelling of his hands along with some redness that was evaluated for lyme disease. Initial titers were IgG positive IgM negative, with follow up western blot showing negative IgG and IgM with some reactive bands. This could indicate an early infection with the IgM reactive bands or another spirochete infection per the western blot results. His Etta noted that he was still having some trouble with speaking. Admission Exam Per Admitting Provider Constitutional: well developed and well nourished; no acute distress Eyes: PERRL, conjunctivae normal, anicteric sclerae ENMT: Ears: + hearing impairment (- right sided congenital hearing deficit) Nose: + external nose abnormality Mouth: no lip abnormality Throat: uvula midline Neck: normal visual inspection Respiratory: normal respiratory effort, lungs clear to auscultation Cardiovascular: RRR, no murmur, no edema Gastrointestinal (Abdomen): Inspection/Auscultation: abdomen normal to inspection and normal bowel sounds; abdomen not distended Musculoskeletal: no cyanosis or clubbing, extremities motor strength 5/5 Skin: no rashes, warm and dry Neurologic: CN's II-XI intact bilaterally (- with the exception of hearing deficit in right ear that is congenital) Speech / Cognition: + expressive aphasia (- word finding difficulty) Motor/Sensory: no tremor Psychiatric: Orientation: alert Eye Contact: good eye contact Speech: no pressured speech Affect: euthymic affect Principal Diagnosis TIA Discharge Exam GENERAL: No acute distress. Vital signs reviewed as above. EYES: PERRLA. EOMI. Anicteric sclerae. HENT: Moist mucous membranes. RESPIRATORY: Clear to auscultation bilaterally. No wheezing, rales, or rhonchi. CARDIOVASCULAR: Regular rate and rhythm. No murmurs. ABDOMEN: Soft, non-tender and non-distended. Normal bowel sounds. EXTREMITIES: No edema. Non-tender. SKIN: Warm, dry. No rashes or lesions. NEUROLOGIC: A/O x3. No focal neurological deficits. CN II-XII grossly intact. PSYCHIATRIC: Cooperative. Appropriate mood and affect. Discharge Data Allergies Allergy/AdvReac Type Severity Reaction Status Date / Time No Known Allergies Allergy Verified 08/14/20 19:33 Consultations 08/14/20 21:16 ED Decision to Admit Stat 08/14/20 23:34 Consult Neurology Routine Ordered Studies 08/14/20 18:59 CT angio head w con Stat CT angio neck with con Stat CT head/brain wo con Stat 08/14/20 20:35 MR brain wo con Stat Hospital Course (1) TIA (transient ischemic attack): 85 yo M w/ pMHx. of atherosclerosis of carotid arteries, Cordova esophagus, prostate cancer, congenital hearing loss and Parkinson disease presents with slurred speech and expressive aphasia. TIA - Presented with slurred speech; symptoms now resolved - CT head: no hemorrhage, mass effect or acute tertiary ischemia - CTA head and neck: with no ischemia or mass effect seen - MRI head w/o contrast: with imaging with mass consistent with meningioma ([id number]) no acute infarction, does have chronic microvascular ischemic changes - EKG: with PAC's and incomplete RBBB - Stroke protocol initiated, telestroke from [facility] saw the patient - Patient loaded with Plavix 300mg in ED and will continue with ASA and Plavix 75 mg going forward. Recommend ASA and Plavix x3 weeks, then Plavix as monotherapy. - Received 2 g Mag - Atorvastatin increased from 10 mg to 40 mg. Continue Atorvastatin 40mg po qAM as outpatient. 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 Jeronimo - continue home Carbidopa - levodopa CAD - ecg with RBB and new PAC's - ECHO 08/15: LVEF 60-65%; no regional wall motion abnormalities; mild tricuspid regurgitation; injection of contrast documented no interatrial shunt Cordova esophagus - held Omeprazole in the setting of plavix; switched to famotidine (2) Lyme disease: (3) HTN (hypertension): (4) Parkinsons disease: (5) Barretts esophagus: Total Time Total Time Spent Total Time Spent (In Minutes): >30 Discharge Plan Discharge Items Patient Disposition: Home - Self-Care Reason For Visit: STROKE SYMPTOMS Discharge Diagnosis: TIA Activity: Resume your previous activity Non-emergency contact: Primary Care Provider Call non-emergency contact if: you have any medication questions Follow-up/Referrals: Kiet Mabry MD [Primary Care Provider] - 08/25/20 11:20 am () Diet: Regular Addtl Attending Provider Instructions: You were admitted after an episode of difficulty with speech. You have been diagnosed with a TIA (transient ischemic attack), which is a mini-stroke. You have done well and your symptoms have improved. Additionally, you were evaluated by a neurologist during your hospitalization. The following changes have been made to your medication regimen: 1. While in the hospital, you were started on an antiplatelet called Plavix. Continue Plavix 75mg by mouth once a day. 2. Continue the Aspirin 81mg by mouth once a day for the next 3 weeks. You can then stop taking the Aspirin (09/05/20). 3. Your cholesterol medication, atorvastatin, has been increased to Atorvastatin 40mg by mouth every morning. Due to the testing for Lyme disease and your joint pain in the hands, we are starting you on treatment for Lyme disease. Please take the doxycycline 100mg by mouth twice a day for 4 weeks. You should follow up with your primary care doctor in 2-3 days. Return to the ED if you have any worsening symptoms including CP, SOB, difficulty with speech, weakness, or facial droop. Pending Studies at Discharge: No Stand-Alone Forms: My [employer], Smoking Cessation Medications and DC Order Prescriptions: New clopidogrel 75 mg Tablet 75 mg PO QAM 30 Days Qty: 30 RF: 0 atorvastatin 40 mg Tablet 40 mg PO QAM 30 Days Qty: 30 RF: 0 doxycycline hyclate 100 mg tablet 100 mg PO BID 28 Days Qty: 56 RF: 0 Continued Metamucil (sugar) powder 1.5 tsp PO DAILY RF: 0 valsartan 80 mg tablet 80 mg PO DAILY Qty: 90 RF: 3 carbidopa-levodopa 25-100 mg tablet 1.5 tab PO TID 90 Days Qty: 405 RF: 1 celecoxib [Celebrex] 100 mg capsule 100 mg PO DAILY Qty: 30 RF: 1 multivitamin tablet 1 tab PO DAILY RF: 0 calcium carbonate 600 mg calcium (1,500 mg) tablet 1,200 mg PO DAILY RF: 0 cholecalciferol (vitamin D3) 2,000 unit capsule 2,000 units PO DAILY RF: 0 nitroglycerin 0.4 mg tablet, sublingual 0.4 mg SL Q5M PRN (Reason: chest pain) Qty: 1 RF: 0 aspirin 81 mg Tablet,Delayed Release (Dr/Ec) 81 mg PO DAILY RF: 0 metoprolol tartrate 25 mg tablet 12.5 mg PO BID RF: 0 diclofenac sodium 1 % gel 2 g topical BID RF: 0 Discontinued atorvastatin 10 mg tablet 10 mg PO QPM Qty: 90 RF: 3 doxycycline monohydrate 100 mg tablet 100 mg PO BID Qty: 42 RF: 0 Discharge Orders: Discharge Order (Routine); Ordered 08/15/20 Ordered By: Romulo Garcia Admission Data Admit Date/Time: 08/14/20 22:49 Attending Provider: Moreno Lowe Admit Provider: Lance Jc Primary Care Provider: Kiet Mabry Other Providers: Ramsey Lock ; Arden Jeronimo Other Interventions: Discharge Summary Assessment (RN) Last Done: 08/15/20 15:47 Supervising Physician Co-Signing Physician Notes I personally examined the patient and verified all villa points of history and exam, discussed case, and agree with decision making with Dr Bilyl. Speech better, feeling back to basically normal, notes that he has some ongoing memory issues, but on further questioning it sounds like these been going on for months if not longer. His hands first started bothering him back in April. Vitals noted, in general he is awake and alert pleasant no distress. HEENT normocephalic atraumatic mucous membranes moist. Breathing unlabored no accessory muscle use good effort. Skin no rashes no pallor or icterus. Neuro shows no focal deficits. Strokelike symptomsslurred speech that has now resolved. Certainly has high risk for intracranial vascular diseaseagree with aspirin and Plavix overlap for 3 weeks and then Plavix alone. Increase atorvastatin to at least moderate intensity statin dosing (40 mg), stable for discharge to home. Lifestyle change outlined extensivelyit seems that he exercises quite well, but eating habits could be improved on a good bit according to the . Hand/knuckle swellinghis timeline of when his symptoms started would make his Lyme screen possibly a true positivecertainly the IgM bands would not indicate any kind of acute Lyme at this point, but given that his symptoms started about 3 months ago, one would not expect much residual IgM at this point anyway. Discussed with him that it is not extremely clear that he has Lyme arthritis, but given that [place] in an endemic area it is certainly quite plausible. After shared decision-making discussions, we opted to to treat as though this is Lyme arthritis empiricallydoxycycline risks benefits side effects outlined. 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 Stable for home, otherwise as above. Resident Activity Tracking Resident Involvement: Resident Care Provided Care Provided: Adult Hospital Medicine
--- NOTE | 2020-08-15 15:11 | Electrocardiogram Report ---
Test Reason : Blood Pressure : / mmHG Vent. Rate : 073 BPM Atrial Rate : 073 BPM P-R Int : 182 ms QRS Dur : 108 ms QT Int : 402 ms P-R-T Axes : 061 045 037 degrees QTc Int : 442 ms Sinus rhythm with Premature atrial complexes Incomplete right bundle branch block Borderline ECG When compared with ECG of 14-AUG-2017 16:03, Premature atrial complexes are now Present Confirmed by Kiet Herrmann ([id number]) on 08/15/2020 3:11:24 PM Referred By: Klalie Vasquez Confirmed By:Kiet Herrmann
[2020-08-15] MEDS ORDERED: STROKE PATIENT DISCHARGE STA (15:43)
[2020-08-15 15:50] VITALS: BP 187/84; PULSE 65
--- NOTE | 2020-08-15 16:46 | Pharmacy Report ---
Pharmacist Stroke Counseling - Date of Service August 15, 2020 - Scope: Pharmacy has been consulted to provide medication discharge counseling for this patient admitted with [ischemic stroke] [hemorrhagic stroke] [transient ischemic attack] as per the Pharmacist Discharge Counseling for Stroke Patients Herman quintanilla - Medications on Discharge: Home Medications Medication Instructions Recorded Confirmed multivitamin 1 tab PO DAILY 08/21/18 08/14/20 psyllium seed (sugar) oral powder 1.5 tsp PO DAILY gm 09/16/18 08/14/20 calcium carbonate 600 mg calcium 1,200 mg PO DAILY tab 12/22/18 08/14/20 (1,500 mg) tablet cholecalciferol (vitamin D3) 50 2,000 units PO DAILY cap 12/22/18 08/14/20 mcg (2,000 unit) capsule nitroglycerin 0.4 mg sublingual 0.4 mg SL Q5M PRN #1 tab 12/22/18 08/14/20 tablet aspirin 81 mg PO DAILY 08/14/20 08/14/20 diclofenac sodium 2 g TOPICAL BID 08/14/20 08/14/20 metoprolol tartrate 12.5 mg PO BID 08/14/20 08/14/20 Medication Instructions Recorded valsartan 80 mg tablet 80 mg PO DAILY #90 tab 10/19/19 carbidopa 25 mg-levodopa 100 mg 1.5 tab PO TID 90 Days #405 tab 04/10/20 tablet celecoxib 100 mg capsule 100 mg PO DAILY #30 cap 08/10/20 atorvastatin 40 mg PO QAM 30 Days #30 tab 08/15/20 clopidogrel 75 mg PO QAM 30 Days #30 tab 08/15/20 doxycycline hyclate 100 mg PO BID 28 Days #56 tab 08/15/20 - Action: The above medications, specifically ones for stroke treatment/prophylaxis, have been reviewed in detail with the patient and/or patient client representative(s) prior to discharge. This includes indication, common adverse reactions, drug interactions, and medication administration. Medication counseling has been employed using the teach-back method to ensure understanding. - Outcome: The patient and/or patient client representative(s) have demonstrated understanding of the medications. Additional comments: Spoke with patient regarding medication changes on discharge. Reviewed that atorvastatin dose will be increasing to 40 mg daily, and that plavix and doxycycline were added to medication list. Talked about monitoring for any increase in bruising/bleeding with plavix. Patient aware to continue aspirin/plavix combo x 3 weeks then stop aspirin. Reports only taking celebrex daily as needed. He reports no longer taking omeprazole. I will take off medication on home list. Told him if he were to start new medications OTC to consult [facility] for drug interactions. No other questions from patient. Thank you for allowing pharmacy to be involved in the care of this patient. Pl ease call [phone] with any additional questions
--- NOTE | 2020-08-15 18:19 | Billing Data ---
Date of Service August 15, 2020 Coding Level of Care Code D/C Day Management >30 mins
--- NOTE | 2020-08-15 21:01 | Billing Data ---
Date of Service August 15, 2020 Coding Level of Care Code 30608 Initial Inpt Care Lvl 3
== END 2020-08-15 17:23 | disposition home or self-care (01) | DRG 69 ==
LOC: ED 19:05 → 2N 22:49 → SUATTDRO 22:49 → 2N 23:13
DX: F80.1 Expressive language disorder; K22.70 Barrett's esophagus without dysplasia; I49.1 Atrial premature depolarization; R29.810 Facial weakness; G45.9 Transient cerebral ischemic attack, unspecified; I10 Essential (primary) hypertension; Z66 Do not resuscitate; A69.23 Arthritis due to Lyme disease; I25.10 Atherosclerotic heart disease of native coronary artery without angina pectoris; G20 Parkinson's disease; E78.5 Hyperlipidemia, unspecified; Z87.891 Personal history of nicotine dependence; I45.10 Unspecified right bundle-branch block; H90.5 Unspecified sensorineural hearing loss; R47.81 Slurred speech; Z79.82 Long term (current) use of aspirin; Z79.899 Other long term (current) drug therapy

== ENCOUNTER 2021-07-01 07:37 | Inpatient (IN) ==
[2021-07-01] MEDS ORDERED: SODIUM CHLORIDE 0.9% 1000ML 1,000 ML IV ONE ×2 (07:45)
--- NOTE | 2021-07-01 07:49 | Emergency Department Note ---
Impression & Plan Severe sepsis, Left upper lobe pneumonia, Altered mental status ED Provider Note Name: JOÃO BAIG Age: 86 Sex: M Arrives Via: Ambulance Informant: Patient (poor historian) EMS and nursing ED Provider : Bartolo Kaur MD Chief Complaint: Weakness Impression: As per impressions above Medical Decision Makin-year-old gentleman arrives to the hospital for evaluation of altered mental status. Patient with a history of Parkinson's with those usually ambulatory and interactive. Rapid worsening over the last 24 hours of mental status. On arrival he is quite septic appearing and is febrile. He is dry dehydrated and altered. Lungs are quite poor he has no abdominal tenderness to palpation and he is dehydrated. Septic work-up initiated with blood cultures and lactic acid obtained and then empiric antibiotics. Given his previous issues he was given Zosyn and Vanco with concern that this is pulmonary related. Chest x-ray does reveal some left upper lobe infiltrates which may be the cause of this. Initial white blood cell count is normal with a moderately elevated CRP. Findings consistent for severe sepsis without septic shock. He was given 2 L IV fluids for resuscitation with improvement in his appearance and some improvement in his mental status. He is not quite to his baseline though. Repeat vital exams no improvement in hydration vitals stable. Hospitalist was consulted for further management. Patient without any reported falls or trauma has no evidence of injury to his head neck or other areas. I not think neuroimaging is indicated emergently may be required for further work-up depending on patient's course. Prior Medical Record and Triage/Nursing Notes reviewed by Me Additional history obtained from chart Differentials:Viral syndrome, otitis, pharyngitis, pneumonia, influenza, meningitis, urinary tract infection, sepsis, bacteremia, as well as other pathologies. Vital Signs: reviewed and remarkable for no significant abnormalities Interventions: Normal saline 2 L bolus IV, Zosyn 4.5 g IV, Vanco IV, Tylenol IV Labs:Reviewed and remarkable for elevated CRP, mildly elevated troponin Imagin view chest x-ray left upper lobe infiltrate as per radiologist read see below EKG:Per My Interpretation: Indication sepsis: NSR 89bpm, qtc 438. No Ectopy. No Ischemia. Compared to EKG 08/14/2020, no significant changes. Cardiac/Tele Monitoring: Cardiac Monitoring: An Order was placed for continuous cardiac monitoring. The monitor shows a rate of 80with a normal sinus rhythm. Consults:Hospitalist Plan: Disposition:Hospitalization. Condition: Fair History of Present Illness:86-year-old gentleman arrives via EMS for worsening confusion. Patient usually awake and ambulates without difficulty though over the last 24 hours seemed more tired than usual. This morning he was essentially unresponsive for . She notes his Parkinson's tremor had worsened. Called EMS for evaluation and they brought him here for management. Vitals in route were stable. Patient was given no medications prior to arrival. No further information available as patient is confused and altered. ROS: Unable to obtain due to altered mental status Past Medical History:See Below Past Surgical History:See Below Family History:See Below Social History:See Below Home Medications:See Below Allergies:No known drug allergies Vitals:Blood Pressure: 164/77, Pulse 90, RR 20, T 38.8 C, O2 97% on RA Physical Exam: GENERAL: Patient is unwell and septic appearing EYES: No scleral icterus, unremarkable pupils. ENT: Mucous membranes dry, no nasal congestion. NECK: No masses appreciated, nomeningismus, trachea is midline. RESPIRATORY: Lung sounds bilaterally, tachypnea CARDIOVASCULAR: Tachycardia.No murmurs, rubs, gallops appreciated. GASTROINTESTINAL: Abdomen soft, non-tender, no peritonitis.Bowel sounds positive.No masses appreciated. BACK: No midline tenderness, no CVA tenderness EXTREMITIES: Cachectic, tremulous moving all extremities NEUROLOGIC: Alert and oriented, no acute motor or sensory deficits, no focal weakness, cranial nerves grossly intact. SKIN: Dehydrated poor turgor skin. No rash, no jaundice, no diaphoresis. GCS: 13 ED Course: Times/Reassessments: Patient arrived to ER via EMS altered and sent appearing. Septic work-up initiated with labs and and cultures obtained. He was given 2 L IV fluids for bolus and is quite dehydrated and for septic management. He was given empiric antibiotics. Patient admitted to hospitalist for further management. Critical Care: I have personally spent 37 minutes of critical care time in the direct management of this patient. Acute septicemia requiring resuscitation and rapid management. This was a life/limb threatening event. This 37 minutes is in excess of all separately billable procedures. Bartolo Kaur MD Past Med/Surg History Medical History Arteriosclerosis of carotid artery Barretts esophagus Benign prostatic hyperplasia with elevated prostate specific antigen (PSA) HTN (hypertension) Hypercholesterolemia Parkinsons disease Parotiditis Prediabetes Right knee pain TIA (transient ischemic attack) Tremor Surgical History History of surgery S/P hemorrhoidectomy Family History Father Heart disease Hypertension Myocardial infarction Mother Heart disease Cancer Breast cancer Brother Diabetes Prostate cancer Denies family history of Ovarian cancer Colorectal cancer Social History Smoking Status: Unknown if ever smoked Second Hand Exposure: No; Hx Alcohol Use: Yes Alcohol type: beer and wine Hx Substance Use: No Preferred Language: Cymraes Communication Ability: Effective Visual Impairment: No Limitations Hearing Ability: Use of Hearing Aid Cell Lead Required: No Beliefs That Will Affect Care: None marital status: Current Living Situation: Spouse current occupational status: retired Feels Safe at Home: Yes Childhood Exposure to Second-Hand Smoke: No Dental Care, Regularly: Yes Physical Activity Frequency: Daily Physical Activity Frequency Comment: walk Seatbelt Use: always Sunscreen Use: Yes Assistive Devices: None Allergies Allergies Allergy/AdvReac Type Severity Reaction Status Date / Time No Known Allergies Allergy Verified 06/21/21 08:50 Home Meds Home Medications Medication Instructions Recorded Confirmed multivitamin 1 tab PO DAILY 08/21/18 06/21/21 psyllium seed (sugar) oral powder 1.5 tsp PO DAILY gm 09/16/18 06/21/21 (Metamucil (sugar)) calcium carbonate 600 mg calcium 1,200 mg PO DAILY tab 12/22/18 06/21/21 (1,500 mg) tablet prednisone 5 mg tablet 5 mg PO DAILY tab 04/10/21 06/21/21 Previous Rx's Medication Instructions Recorded metoprolol tartrate 25 mg tablet 12.5 mg PO BID #90 tab 12/18/20 nitroglycerin 0.4 mg sublingual 0.4 mg SL Q5M PRN #1 tab 12/19/20 tablet atorvastatin 40 mg tablet 40 mg PO QAM 30 Days #90 tab 01/22/21 clopidogrel 75 mg tablet 75 mg PO QAM #90 tab 01/29/21 carbidopa 25 mg-levodopa 100 mg 1.5 tab PO TID 90 Days #405 tab 03/02/21 tablet valsartan 80 mg tablet 80 mg PO DAILY #90 tab 06/11/21 Results & Data (ED) Laboratory Data Result diagrams: 07/03/21 07:07 07/03/21 07:07 Lab Results 07/01/21 07/01/21 07/01/21 Range/Units 08:07 08:07 08:07 WBC 6.12 (4.8-10.8) K/uL RBC 4.25 L (4.7-6.1) M/uL Hgb 13.8 L (14.0-18.0) g/dL Hct 40.3 L (42-52) % MCV 94.8 (80-100) fL MCH 32.5 (25-34) pg MCHC 34.2 (32-36) g/dL RDW Std Deviation 45.6 (36.4-46.3) fL RDW Coeff of [place] 13.1 (11.5-14.5) % Plt Count 111 L (130-400) K/uL MPV 9.0 (7.4-10.4) fL Immature Gran % (Auto) 0.2 % Neut % (Auto) 81.7 % Lymph % (Auto) 9.6 % [place] % (Auto) 8.3 % Eos % (Auto) 0.0 % Baso % (Auto) 0.2 % Neut # (Auto) 5.00 (1.4-6.5) K/uL Lymph # (Auto) 0.59 L (1.2-3.4) K/uL [place] # (Auto) 0.51 (0.11-0.59) K/uL Eos # (Auto) 0.00 (0-0.5) K/uL Baso # (Auto) 0.01 (0-0.2) K/uL Immature Gran # (Auto) 0.01 (0.00-0.02) K/uL Sodium 132 L (136-145) mmol/L Potassium 3.9 (3.5-5.1) mmol/L Chloride 98 (98-107) mmol/L Carbon Dioxide 26 (21-32) mmol/L Anion Gap 8 (3-11) BUN 14 (6-23) mg/dl Creatinine 0.83 (0.6-1.4) mg/dl Est Cr Clr Drug Dosing 57.4 ml/min Est GFR ( Amer) 93.0 ml/min Est GFR (Non-Af Amer) 80.2 ml/min BUN/Creatinine Ratio 16.9 (10-20) Glucose 127 H (70-99(Fasting)) mg/dl Lactate (0.4-2.0) mmol/L Calcium 8.8 (8.5-10.1) mg/dl Magnesium 1.9 (1.7-2.4) mg/dl Total Bilirubin 1.4 H (0.2-1.0) mg/dl Direct Bilirubin 0.2 (0-0.2) mg/dl AST 27 (13-39) U/L ALT 26 (7-52) U/L Alkaline Phosphatase 51 (34-104) U/L Troponin I High Sens 31.6 H (0-20) pg/ml C-Reactive Protein (0-0.5) mg/dl Total Protein 7.2 (6.0-8.3) gm/dl Albumin 4.2 (3.4-5.0) gm/dl Lipase 7 L (11-82) U/L Procalcitonin 0.05 (0-0.5) ng/ml Urine Color Urine Appearance (Clear) Urine pH (4.5-7.5) Ur Specific [place] (1.000-1.030) Urine Protein (Negative) Urine Glucose (UA) (Negative) Urine Ketones (Negative) Urine Blood (Negative) Urine Nitrite (Negative) Urine Bilirubin (Negative) Urine Urobilinogen (Negative) Ur Leukocyte Esterase (Negative) Urine WBC (Auto) (0-5) /hpf Urine RBC (Auto) (0-4) /hpf U Hyaline Cast (Auto) (0-5) /lpf U Epithel Cells (Auto) (0-5) /lpf Urine Bacteria (Auto) (Negative) SARS-CoV-2 (PCR) (Negative) Influenza Type A (PCR) (Neg) Influenza Type B (PCR) (Neg) RSV (RT-PCR) (Neg) 07/01/21 07/01/21 07/01/21 Range/Units 08:07 08:07 08:31 WBC (4.8-10.8) K/uL RBC (4.7-6.1) M/uL Hgb (14.0-18.0) g/dL Hct (42-52) % MCV (80-100) fL MCH (25-34) pg MCHC (32-36) g/dL RDW Std Deviation (36.4-46.3) fL RDW Coeff of [place]ey[place] (11.5-14.5) % Plt Count (130-400) K/uL MPV (7.4-10.4) fL Immature Gran % (Auto) % Neut % (Auto) % Lymph % (Auto) % [place] % (Auto) % Eos % (Auto) % Baso % (Auto) % Neut # (Auto) (1.4-6.5) K/uL Lymph # (Auto) (1.2-3.4) K/uL [place] # (Auto) (0.11-0.59) K/uL Eos # (Auto) (0-0.5) K/uL Baso # (Auto) (0-0.2) K/uL Immature Gran # (Auto) (0.00-0.02) K/uL Sodium (136-145) mmol/L Potassium (3.5-5.1) mmol/L Chloride (98-107) mmol/L Carbon Dioxide (21-32) mmol/L Anion Gap (3-11) BUN (6-23) mg/dl Creatinine (0.6-1.4) mg/dl Est Cr Clr Drug Dosing ml/min Est GFR ( Amer) ml/min Est GFR (Non-Af Amer) ml/min BUN/Creatinine Ratio (10-20) Glucose (70-99(Fasting)) mg/dl Lactate 1.2 (0.4-2.0) mmol/L Calcium (8.5-10.1) mg/dl Magnesium (1.7-2.4) mg/dl Total Bilirubin (0.2-1.0) mg/dl Direct Bilirubin (0-0.2) mg/dl AST (13-39) U/L ALT (7-52) U/L Alkaline Phosphatase (34-104) U/L Troponin I High Sens (0-20) pg/ml C-Reactive Protein 2.48 H (0-0.5) mg/dl Total Protein (6.0-8.3) gm/dl Albumin (3.4-5.0) gm/dl Lipase (11-82) U/L Procalcitonin (0-0.5) ng/ml Urine Color Yellow Urine Appearance Clear (Clear) Urine pH 8.0 H (4.5-7.5) Ur Specific [place] 1.017 (1.000-1.030) Urine Protein Trace H (Negative) Urine Glucose (UA) Negative (Negative) Urine Ketones 1+ H (Negative) Urine Blood 2+ H (Negative) Urine Nitrite Negative (Negative) Urine Bilirubin Negative (Negative) Urine Urobilinogen Negative (Negative) Ur Leukocyte Esterase Negative (Negative) Urine WBC (Auto) 0 (0-5) /hpf Urine RBC (Auto) >30 H (0-4) /hpf U Hyaline Cast (Auto) 0 (0-5) /lpf U Epithel Cells (Auto) 5-10 H (0-5) /lpf Urine Bacteria (Auto) Negative (Negative) SARS-CoV-2 (PCR) (Negative) Influenza Type A (PCR) (Neg) Influenza Type B (PCR) (Neg) RSV (RT-PCR) (Neg) 07/01/21 Range/Units 09:05 WBC (4.8-10.8) K/uL RBC (4.7-6.1) M/uL Hgb (14.0-18.0) g/dL Hct (42-52) % MCV (80-100) fL MCH (25-34) pg MCHC (32-36) g/dL RDW Std Deviation (36.4-46.3) fL RDW Coeff of [place]ey[place] (11.5-14.5) % Plt Count (130-400) K/uL MPV (7.4-10.4) fL Immature Gran % (Auto) % Neut % (Auto) % Lymph % (Auto) % [place] % (Auto) % Eos % (Auto) % Baso % (Auto) % Neut # (Auto) (1.4-6.5) K/uL Lymph # (Auto) (1.2-3.4) K/uL [place] # (Auto) (0.11-0.59) K/uL Eos # (Auto) (0-0.5) K/uL Baso # (Auto) (0-0.2) K/uL Immature Gran # (Auto) (0.00-0.02) K/uL Sodium (136-145) mmol/L Potassium (3.5-5.1) mmol/L Chloride (98-107) mmol/L Carbon Dioxide (21-32) mmol/L Anion Gap (3-11) BUN (6-23) mg/dl Creatinine (0.6-1.4) mg/dl Est Cr Clr Drug Dosing ml/min Est GFR ( Amer) ml/min Est GFR (Non-Af Amer) ml/min BUN/Creatinine Ratio (10-20) Glucose (70-99(Fasting)) mg/dl Lactate (0.4-2.0) mmol/L Calcium (8.5-10.1) mg/dl Magnesium (1.7-2.4) mg/dl Total Bilirubin (0.2-1.0) mg/dl Direct Bilirubin (0-0.2) mg/dl AST (13-39) U/L ALT (7-52) U/L Alkaline Phosphatase (34-104) U/L Troponin I High Sens (0-20) pg/ml C-Reactive Protein (0-0.5) mg/dl Total Protein (6.0-8.3) gm/dl Albumin (3.4-5.0) gm/dl Lipase (11-82) U/L Procalcitonin (0-0.5) ng/ml Urine Color Urine Appearance (Clear) Urine pH (4.5-7.5) Ur Specific [place] (1.000-1.030) Urine Protein (Negative) Urine Glucose (UA) (Negative) Urine Ketones (Negative) Urine Blood (Negative) Urine Nitrite (Negative) Urine Bilirubin (Negative) Urine Urobilinogen (Negative) Ur Leukocyte Esterase (Negative) Urine WBC (Auto) (0-5) /hpf Urine RBC (Auto) (0-4) /hpf U Hyaline Cast (Auto) (0-5) /lpf U Epithel Cells (Auto) (0-5) /lpf Urine Bacteria (Auto) (Negative) SARS-CoV-2 (PCR) NEGATIVE (Negative) Influenza Type A (PCR) Negative (Neg) Influenza Type B (PCR) Negative (Neg) RSV (RT-PCR) Negative (Neg) Administered Medications Alprazolam (Alprazolam 0.25 Mg Tablet) 0.25 mg PO Q8H PRN PRN Reason: shaking or anxiety Stop: 08/01/21 10:21 Last Admin: 07/02/21 10:47 Dose: 0.25 mg Documented by: [id number] Carbidopa/Levodopa (Carbidopa/Levodopa 25/100mg Tab) 1.5 tab PO TID [facility] Stop: 07/31/21 13:59 Last Admin: 07/03/21 09:51 Dose: 1.5 tab Documented by: [id number] Admin: 07/02/21 20:22 Dose: 1.5 tab Documented by: [id number] Admin: 07/02/21 13:48 Dose: 1.5 tab Documented by: [id number] Admin: 07/02/21 08:08 Dose: 1.5 tab Documented by: [id number] Admin: 07/01/21 20:00 Dose: 1.5 tab Documented by: [id number] Admin: 07/01/21 15:10 Dose: 1.5 tab Documented by: [id number] Clopidogrel Bisulfate (Clopidogrel Bisulfate 75 Mg Tab) 75 mg PO QAM [facility] Stop: 08/01/21 08:59 Last Admin: 07/03/21 09:52 Dose: 75 mg Documented by: [id number] Admin: 07/02/21 08:09 Dose: 75 mg Documented by: [id number] Heparin Sodium (Porcine) (Heparin Sod 5,000 Unit/0.5 Ml Vial) 5,000 units SQ Q12 [facility] Stop: 07/31/21 20:59 Last Admin: 07/01/21 20:00 Dose: 5,000 units Documented by: [id number] Doxycycline Hyclate 100 mg/ (Dextrose) 110 mls @ 50 mls/hr IV Q12 [facility]; Protocol Stop: 07/16/21 10:44 Last Infusion: 07/03/21 13:16 Dose: 0 mls/hr Documented by: [id number] Admin: 07/03/21 10:45 Dose: 50 mls/hr Documented by: [id number] Infusion: 07/02/21 22:32 Dose: 0 mls/hr Documented by: [id number] Admin: 07/02/21 20:22 Dose: 50 mls/hr Documented by: [id number] Infusion: 07/02/21 12:52 Dose: 0 mls/hr Documented by: [id number] Admin: 07/02/21 10:47 Dose: 50 mls/hr Documented by: [id number] Metoprolol Tartrate (Metoprolol Tartrate 25 Mg Tab) 12.5 mg PO BID NIR Stop: 07/31/21 11:23 Last Admin: 07/03/21 09:52 Dose: 12.5 mg Documented by: [id number] Admin: 07/02/21 20:23 Dose: 12.5 mg Documented by: [id number] Admin: 07/02/21 08:09 Dose: 12.5 mg Documented by: [id number] Admin: 07/01/21 20:00 Dose: 12.5 mg Documented by: [id number] Admin: 07/01/21 13:41 Dose: Not Given Documented by: [id number] Prednisone (Prednisone 10 Mg Tablet) 10 mg PO DAILY NIR Stop: 08/02/21 08:59 Last Admin: 07/03/21 09:53 Dose: 10 mg Documented by: [id number] Psyllium Hydrophilic Mucilloid (Psyllium 58.6% Powder Packet) 1 pkt PO DAILY NIR Stop: 07/31/21 12:29 Last Admin: 07/03/21 09:53 Dose: 1 pkt Documented by: [id number] Admin: 07/02/21 08:10 Dose: 1 pkt Documented by: [id number] Admin: 07/01/21 13:42 Dose: Not Given Documented by: [id number] Valsartan (Valsartan 80 Mg Tab) 80 mg PO QAM NIR Stop: 08/01/21 10:44 Last Admin: 07/03/21 09:53 Dose: 80 mg Documented by: [id number] Admin: 07/02/21 10:47 Dose: 80 mg Documented by: [id number] Discontinued Medications Hydrocortisone Sodium Succinate (Hydrocortisone Sod Succinate 100 Mg/2 Ml Vial) 100 mg IV NOW STA Stop: 07/01/21 09:50 Last Admin: 07/01/21 10:15 Dose: 100 mg Documented by: [id number] Sodium Chloride (Nss 1000ml) 1,000 mls @ 999 mls/hr IV .Q1H1M ONE Stop: 07/01/21 08:45 Last Infusion: 07/01/21 09:26 Dose: 0 mls/hr Documented by: [id number] Admin: 07/01/21 08:13 Dose: 999 mls/hr Documented by: [id number] Sodium Chloride (Nss 1000ml) 1,000 mls @ 999 mls/hr IV .Q1H1M ONE Stop: 07/01/21 08:45 Last Infusion: 07/01/21 09:26 Dose: 0 mls/hr Documented by: [id number] Admin: 07/01/21 08:13 Dose: 999 mls/hr Documented by: [id number] Acetaminophen (Ofirmev) 1,000 mg in 100 mls @ 400 mls/hr IV NOW STA Stop: 07/01/21 08:18 Last Infusion: 07/01/21 08:28 Dose: 0 mls/hr Documented by: [id number] Admin: 07/01/21 08:13 Dose: 400 mls/hr Documented by: [id number] Piperacillin Sod/Tazobactam Sod (Zosyn) 4.5 gm in 120 mls @ 240 mls/hr IV NOW ONE Stop: 07/01/21 09:16 Last Infusion: 07/01/21 09:27 Dose: 0 mls/hr Documented by: [id number] Admin: 07/01/21 08:56 Dose: 240 mls/hr Documented by: [id number] Vancomycin HCl 1,250 mg/ (Sodium Chloride) 525 mls @ 200 mls/hr IV NOW ONE Stop: 07/01/21 11:24 Last Infusion: 07/01/21 12:18 Dose: 0 mls/hr Documented by: [id number] Admin: 07/01/21 09:03 Dose: 200 mls/hr Documented by: [id number] Ceftriaxone Sodium 2,000 mg/ (Dextrose) 70 mls @ 100 mls/hr IV DAILY NIR; Protocol Stop: 07/04/21 08:59 Last Infusion: 07/02/21 09:20 Dose: 0 mls/hr Documented by: [id number] Admin: 07/02/21 08:38 Dose: 100 mls/hr Documented by: [id number] Lactated Ringer's (Lr) 1,000 mls @ 100 mls/hr IV .Q10H NIR Stop: 07/01/21 21:23 Last Infusion: 07/01/21 22:59 Dose: 0 mls/hr Documented by: [id number] Admin: 07/01/21 12:58 Dose: 100 mls/hr Documented by: [id number] Hydrocortisone Sodium (Succinate 50 mg/ Syringe) 1 mls @ 4 mls/min IV Q8H NIR Stop: 07/03/21 02:00 Last Admin: 07/03/21 01:01 Dose: 4 mls/min Documented by: [id number] Admin: 07/02/21 17:35 Dose: 4 mls/min Documented by: [id number] Admin: 07/02/21 10:47 Dose: 4 mls/min Documented by: [id number] Admin: 07/02/21 01:25 Dose: 4 mls/min Documented by: [id number] Admin: 07/01/21 17:25 Dose: 4 mls/min Documented by: [id number] Potassium Chloride (Potassium Chloride Crtab 20 Meq Tabcr) 40 meq PO NOW STA Stop: 07/02/21 08:02 Last Admin: 07/02/21 08:39 Dose: 40 meq Documented by: [id number] Discharge Plan Visit Data Chief Complaint: Fever ED Provider: Bartolo Kuar Discharge Problem: Severe sepsis, Left upper lobe pneumonia, Altered mental status Patient Disposition: Admitted As Inpatient Discharge Instructions Interventions: ED Discharge Assessment Last Done: 07/01/21 10:55
[2021-07-01] MEDS ORDERED: ACETAMINOPHEN 1,000 MG/100 ML VIAL IV STA (08:04)
--- NOTE | 2021-07-01 08:22 | XRay Report ---
XR chest 1V portable CLINICAL HISTORY: fever, confusion, weakness COMPARISON STUDY: Chest radiograph August 14, 2018. FINDINGS: Lung volumes are mildly diminished. No pneumothorax or pleural effusion is noted. Mild biba silar opacities are present. There may be minimal left upper lung opacity. No evidence for pulmonary edema. Cardiomediastinal silhouette is unremarkable. IMPRESSION: Mild bibasilar opacities and possible mild left upper lung opacity. The findings may ref lect an infectious process. Radiographic follow-up is recommended to ensure resolution ACT 112: Negative or not required by law. Electronically signed by: Sree Monterroso M.D. 07/01/2021 8:21 AM
[2021-07-01 08:35] LABS: Basophils # (auto) 0.01 K/uL (0-0.2); Basophils % (auto) 0.2 %; Hematocrit (blood only) 40.3 % (42-52); Hemoglobin 13.8 g/dL (14.0-18.0); Immature Granulocytes # (auto) 0.01 K/uL (0.00-0.02); Immature Granulocytes % (auto) 0.2 %; Lymphocytes # (auto) 0.59 K/uL (1.2-3.4); Lymphocytes % (auto) 9.6 %; Mean Corpuscular Hemoglobin 32.5 pg (25-34); Mean Corpuscular Hgb Conc 34.2 g/dL (32-36); Mean Corpuscular Volume 94.8 fL (80-100); Monocytes # (auto) 0.51 K/uL (0.11-0.59); Monocytes % (auto) 8.3 %; Neutrophils % (auto) 81.7 %; Platelet Count 111 K/uL (130-400); RDW Coefficient of Variation 13.1 % (11.5-14.5); RDW Standard Deviation 45.6 fL (36.4-46.3); Red Blood Count 4.25 M/uL (4.7-6.1); White Blood Count 6.12 K/uL (4.8-10.8)
[2021-07-01 08:47] LABS: Albumin Level 4.2 gm/dl (3.4-5.0); BUN Creatinine Ratio 16.9 (10-20); Bilirubin Direct 0.2 mg/dl (0-0.2); Bilirubin,Total 1.4 mg/dl (0.2-1.0); Calcium 8.8 mg/dl (8.5-10.1); Creatinine Clr Calc Pharmacy 57.4 ml/min; Est GFR (Non-African American) 80.2 ml/min; Magnesium 1.9 mg/dl (1.7-2.4); Potassium 3.9 mmol/L (3.5-5.1); Total Protein 7.2 gm/dl (6.0-8.3)
[2021-07-01] MEDS ORDERED: VANCOMYCIN CONSULT ACTIVE PRN (08:47)
[2021-07-01] MEDS ORDERED: PIPERACILLIN/TAZOBACTAM 4.5 GM/120 ML BAG IV ONE (08:47)
[2021-07-01] MEDS ORDERED: VANCOMYCIN HCL 1,250 MG in SODIUM CHLORIDE 0.9% 500 ML IV ONE (08:47)
[2021-07-01] MEDS ORDERED: PIPERACILL/TAZOBAC CONSULT ACTIVE PRN (08:47)
[2021-07-01 08:50] LABS: Appearance Urine Clear (Clear); Bacteria Urine Automated Negative (Negative); Bilirubin Urine Negative (Negative); Blood Urine 2+ (Negative); Cast Urine Automated 0 /lpf (0-5); Color Urine Yellow; Glucose Urine UA Negative (Negative); Ketones Urine 1+ (Negative); Leukocyte Esterase Urine Negative (Negative); Nitrite Urine Negative (Negative); RBC Urine Automated >30 /hpf (0-4); Specific Gravity Urine 1.017 (1.000-1.030); Urobilinogen Urine Negative (Negative); WBC Urine Automated 0 /hpf (0-5)
[2021-07-01 08:50] LABS: Troponin I High Sensitivity 31.6 pg/ml (0-20)
[2021-07-01 08:54] LABS: Protein Urine Trace (Negative)
[2021-07-01] MEDS ORDERED: HYDROCORTISONE SOD SUCCINATE 100 MG/2 ML VIAL IV STA (09:49)
[2021-07-01 10:06] LABS: Influenza A virus by PCR Negative (Neg); Influenza B virus by PCR Negative (Neg); RSV by PCR Negative (Neg); SARS CoV2 RNA(COVID-19) InHosp NEGATIVE (Negative)
--- NOTE | 2021-07-01 10:20 | History & Physical Report ---
Date of Service July 01, 2021 Assessment & Plan (1) Metabolic encephalopathy: Plan: Patient presents in an altered state we can only describe this may be an infectious etiology due to the rapid onset. There are some minor changes on chest x-ray and initially he was described as pneumonia however he does not have leukocytosis or productive cough nor an abnormal auscultative exam. Subsequently we will check a urine culture blood cultures are obtained we will de-escalate antibiotics to Rocephin. Patient does have a distant history of Lyme. Additionally the patient does take steroids he could be in a steroid deficient state he will be given pulse dose hydrocortisone. Patient also has a history of meningioma that was discovered during a TIA work- up in 2020 an MRI scan of his brain will be repeated as the meningioma cannot be seen on CT Once these etiologies are evaluated the patient likely will be screened for PT OT and speech. We will have the nurses do a bedside screening exam however he was able to speak to me and had normal palate elevation during oral examination I believe he can take medications at likely diet (2) Parkinsons disease: Plan: Patient be continued on the Sinemet (3) HTN (hypertension): Plan: Patient be continued on his metoprolol his valsartan will be held (4) Hyponatremia: Plan: Patient has mild hyponatremia will see if this persists he has been given large volume of crystalloid here in the ER he does have a history of the same I do not believe is significant enough to cause his mental status changes (5) DVT prophylaxis: Plan: Heparin abuse for DVT prevention Plan: Patient is a DNR History of Present Illness Primary Care Provider: Kiet Mabry MD 86-year-old male who is a history of parkinsonism and recently had a TIA evaluation in 2020. Reportedly is in his normal state of health when this morning he was slightly more confused and less responsive to his . Patient typically administers his own medications and can do his own activities of daily living according to the . This morning he was incontinent of stool was confused and lethargic was brought into the emergency department. Initial concern was possibly of an infectious etiology he was volume resuscitated with crystalloid and given vancomycin and Zosyn therapy. On my evaluation the patient was lethargic but was able to speak he does exhibit physical signs and symptoms of Parkinson's disease with classic facies stiff movements and difficulty speaking. Despite his difficulty speaking the says he typically does not have any swallowing issues at home however he did miss his Parkinson medication this morning which may explain some of his behavior to me. Emergency physicians felt he may have pneumonia however he does not have a leukocytosis and his x-ray is only with very mild changes a dditionally he has no coughing and his pulmonary examination is not consistent with pneumonia. Patient has a history of a meningioma that was discovered during his last TIA evaluation we will proceed with collecting additional urine cultures to the blood cultures that were sent COVID influenza and RSV are pending patient will be transition from the above antibiotics to Rocephin once a day for 48 hours until we get cultures back. Patient is chronically on steroids he will be given stress dose hydrocortisone and additional liter of fluid. I spoke to the and she confirms he is a DNR at this time Allergies Allergy/AdvReac Type Severity Reaction Status Date / Time No Known Allergies Allergy Verified 06/21/21 08:50 Home Medications Medication Instructions Recorded Confirmed Type multivitamin 1 tab PO DAILY 08/21/18 06/21/21 History psyllium seed (sugar) oral powder 1.5 tsp PO DAILY gm 09/16/18 06/21/21 History (Metamucil (sugar)) calcium carbonate 600 mg calcium 1,200 mg PO DAILY tab 12/22/18 06/21/21 History (1,500 mg) tablet metoprolol tartrate 25 mg tablet 12.5 mg PO BID #90 tab 12/18/20 06/21/21 Rx nitroglycerin 0.4 mg sublingual 0.4 mg SL Q5M PRN #1 tab 12/19/20 06/21/21 Rx tablet atorvastatin 40 mg tablet 40 mg PO QAM 30 Days #90 tab 01/22/21 06/21/21 Rx clopidogrel 75 mg tablet 75 mg PO QAM #90 tab 01/29/21 06/21/21 Rx carbidopa 25 mg-levodopa 100 mg 1.5 tab PO TID 90 Days #405 tab 03/02/21 06/21/21 Rx tablet prednisone 5 mg tablet 5 mg PO DAILY tab 04/10/21 06/21/21 History valsartan 80 mg tablet 80 mg PO DAILY #90 tab 06/11/21 06/21/21 Rx Past Med/Surg History Medical History (Updated 07/01/21 @ 10:17 by Franki Schneider MD) Arteriosclerosis of carotid artery Barretts esophagus Benign prostatic hyperplasia with elevated prostate specific antigen (PSA) HTN (hypertension) Hypercholesterolemia Parkinsons disease Parotiditis Prediabetes Right knee pain TIA (transient ischemic attack) Tremor Surgical History History of surgery Cyst/tumor removal on neck S/P hemorrhoidectomy Family History Father Heart disease Hypertension Myocardial infarction Mother Heart disease Cancer Breast cancer Brother Diabetes Prostate cancer Denies family history of Ovarian cancer Colorectal cancer Social History Smoking Status: Never smoker Second Hand Exposure: No; Hx Alcohol Use: Yes Alcohol type: beer and wine Hx Substance Use: No Preferred Language: Indonesian Communication Ability: Effective Visual Impairment: No Limitations Hearing Ability: 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 Beliefs That Will Affect Care: None marital status: Current Living Situation: Spouse current occupational status: retired Feels Safe at Home: Yes Childhood Exposure to Second-Hand Smoke: No Dental Care, Regularly: Yes Physical Activity Frequency: Daily Physical Activity Frequency Comment: walk Seatbelt Use: always Sunscreen Use: Yes Assistive Devices: Glasses and Hearing Aid - Left Review of Systems Review of Systems: Mild distress and fatigue patient falls asleep easily no headache, no visual changes no speech or swallowing issues exhibit some pressured speech but according to no choking or coughing when eating no chest pain, pressure or palpitations no shortness of breath, cough or wheezes no abdominal pain, nausea or vomiting, has some incontinence of stool no dysuria, hematuria or frequency no focal joint pain or swelling no back pain, CVA tenderness or radicular pain no bruising, bleeding or rashes no focal signs of weakness or numbness or altered sensation does have some rigidity to movement and expressionless facies consistent with Parkinson's disease no complaints of anxiety or depression.. Physical Exam Physical Exam: The patient appeared well nourished and normally developed.he has a demarcus complexion Vital signs as documented. Head exam is normocephalic atraumatic Neck is without JVD, thyromegaly, or carotid bruits. Lungs are clear to auscultation, no focal loss of breath sounds Cardiac exam, Rhythm is regular.. No murmurs, rubs or gallops. Abdominal exam reveals normal bowel sounds, soft non tender, no masses Extremities are nonedematous and both pedal pulses are present Neurologic exam is alert and oriented, does have pressured speech and rigidity of movement Skin is without bruises or rashes Psychologically is without concerns for anxiety or depression.. Results & Data Results & Data ([facility]) Vital Signs (Past 12 Hours) Vital Signs Temp Pulse Resp BP Pulse Ox 07/01/21 09:30 73 14 113/58 L 98 07/01/21 09:07 99.1 F 07/01/21 09:00 78 22 136/65 99 07/01/21 08:34 85 22 142/85 H 100 07/01/21 07:50 101.8 F H 97 H 20 164/77 H 97 Diagnostic Findings Chest X-Ray 07/01/21 07:45 XR chest 1V portable CLINICAL HISTORY: fever, confusion, weakness COMPARISON STUDY: Chest radiograph August 14, 2018. FINDINGS: Lung volumes are mildly diminished. No pneumothorax or pleural effusion is noted. Mild bibasilar opacities are present. There may be minimal left upper lung opacity. No evidence for pulmonary edema. Cardiomediastinal silhouette is unremarkable. IMPRESSION: Mild bibasilar opacities and possible mild left upper lung opacity. The findings may reflect an infectious process. Radiographic follow-up is recommended to ensure resolution ACT 112: Negative or not required by law. Electronically signed by: Sree Monterroso M.D. 07/01/2021 8:21 AM ECG Additional Comments: Normal sinus rhythm without acute ST or T wave changes Code Status & VTE Plan Code Status DNR according to VTE Prophylaxis Plan VTE Prophylaxis will be ordered: Yes PG Care Time/CCT Total # of Minutes Spent Total Time Spent with Patient: Total time spent is greater than 50% in coordination of care (as documented) at patient's floor/unit and/or counseling patient: Coding Level of Care Code 53727 Initial Inpt Care Lvl 3 Diagnoses Parkinsons disease G20 HTN (hypertension) I10 Hyponatremia E87.1 Metabolic encephalopathy G93.41 DVT prophylaxis Z29.9
[2021-07-01] MEDS ORDERED: ONDANSETRON INJ 2 MG/ML 2 ML VIAL IV PRN (11:24)
[2021-07-01] MEDS ORDERED: LACTATED RINGER'S 1,000 ML IV SCH (11:24)
--- NOTE | 2021-07-01 12:08 | Magnetic Resonance Report ---
MRI OF THE BRAIN WITHOUT CONTRAST CLINICAL HISTORY: Altered mental status h/o tia and frontal meningioma COMPARISON STUDY: Head CT, CTA of the head and MRI of the brain August 14, 2020. TECHNIQUE: Utilizing a 1.5 Glo magnet and dedicated coil, multiplanar, multiecho imaging of the bra in was performed without IV contrast. FINDINGS: There are no foci of restricted diffusion to suggest acute infarct. No acute intracranial h emorrhage, midline shift or mass effect is present. A 1 cm extra-axial lesion overlying the right fro ntal lobe is unchanged since prior MRI of August 14, 2020. Appearance of the brain is unchanged. Modera te atrophy is noted. Mild white matter T2 hyperintense foci are unchanged and suggest small vessel di sease. Calvarial signal is normal. There are tiny air-fluid levels within the bilateral maxillary sin uses as well as mild mucosal thickening within the ethmoid and sphenoid sinuses. No acute orbital abn ormality is identified. There is no mastoid fluid. IMPRESSION: 1. No acute intracranial findings. 2. No change in appearance of the brain since MRI of August 14, 2020. Moderate atrophy and mild small v essel disease. 3. No change in a 1 cm meningioma overlying the right frontal lobe. ACT 112: Negative or not required by law. Electronically signed by: Sere Monterroso M.D. 07/01/2021 12:06 PM
[2021-07-01] MEDS: METOPROLOL TARTRATE 25 MG TAB PO SCH ×2 (13:41→20:00)
[2021-07-01] MEDS: PSYLLIUM or GUAR GUM FIBER POWDER PACKET PO SCH (13:42)
[2021-07-01] MEDS: CARBIDOPA/LEVODOPA 25/100MG TAB PO SCH ×2 (15:10→20:00)
[2021-07-01] MEDS: HYDROCORTISONE SOD 50 MG in SYRINGE 0 ML IV SCH (17:25)
[2021-07-01] MEDS ORDERED: HYDROCORTISONE SOD SUCCINATE 100 MG/2 ML VIAL IV SCH (18:00)
[2021-07-01] MEDS ORDERED: HEPARIN SOD 5,000 UNIT/0.5 ML VIAL SQ SCH (21:00)
[2021-07-02] MEDS: HYDROCORTISONE SOD 50 MG in SYRINGE 0 ML IV SCH ×3 (01:25→17:35)
--- NOTE | 2021-07-02 06:09 | Electrocardiogram Report ---
Test Reason : Blood Pressure : / mmHG Vent. Rate : 089 BPM Atrial Rate : 089 BPM P-R Int : 182 ms QRS Dur : 090 ms QT Int : 360 ms P-R-T Axes : 065 061 056 degrees QTc Int : 438 ms Poor data quality, interpretation may be adversely affected Normal sinus rhythm Normal ECG When compared with ECG of 14-AUG-2020 19:32, Premature atrial complexes are no longer Present Confirmed by Loc Robertson ([id number]) on 07/02/2021 6:09:37 AM Referred By: REFERRED SELF Confirmed By:Loc Robertson
[2021-07-02 07:37] LABS: Hematocrit (blood only) 39.3 % (42-52); Hemoglobin 13.5 g/dL (14.0-18.0); Mean Corpuscular Hemoglobin 32.4 pg (25-34); Mean Corpuscular Hgb Conc 34.4 g/dL (32-36); Mean Corpuscular Volume 94.2 fL (80-100); RDW Coefficient of Variation 13.2 % (11.5-14.5); RDW Standard Deviation 45.6 fL (36.4-46.3); Red Blood Count 4.17 M/uL (4.7-6.1); White Blood Count 4.42 K/uL (4.8-10.8)
[2021-07-02 07:57] LABS: BUN Creatinine Ratio 21.9 (10-20); Calcium 8.3 mg/dl (8.5-10.1); Est GFR (Non-African American) 84.6 ml/min; Potassium 3.4 mmol/L (3.5-5.1)
[2021-07-02] MEDS ORDERED: POTASSIUM CHLORIDE CRTAB 20 MEQ TABCR PO STA (08:01)
--- NOTE | 2021-07-02 08:01 | Hospitalist Progress Note ---
Date of Service July 02, 2021 Assessment & Plan (1) Metabolic encephalopathy: Plan: Patient presents in an altered state we can only describe this may be an infectious etiology due to the rapid onset. There are some minor changes on chest x-ray and initially he was described as pneumonia however he does not have leukocytosis or productive cough nor an abnormal auscultative exam. Patient does have a distant history of Lyme. On admission antibiotics changed to Doxycycline as now with dropping wbc and platelets did test for anaplasmosis and babesia, and preliminary showing inclusions consistent wtih anaplasmosis urine culture and blood cultures pending Additionally the patient does take chronic daily steroids currently on pulse dose hydrocortisone. now improved will transition po prednisone 07/03/21 Patient also has a history of meningioma that was discovered during a TIA work- up in 2020 an MRI scan of his brain shows no change, progression or new findings Once improved will consult PT OT and speech. (2) Parkinsons disease: Plan: Patient be continued on the Sinemet (3) HTN (hypertension): Plan: Patient be continued on his metoprolol his valsartan will be restarted (4) Hyponatremia: Plan: Patient has mild hyponatremia will see if this persists he has been given large volume of crystalloid here in the ER he does have a history of the same I do not believe is significant enough to cause his mental status changes (5) DVT prophylaxis: Plan: due to low platelets will hold heparin sc Plan: Patient is a DNR Admission and Anticipated Discharge Date Admission Date: July 01, 2021 Subjective pt is more awake and alert, he is more shakey, was found to have leukocytosis and thrombocytopenia, 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 Review of Systems Review of Systems: Mild distress and fatigue patient falls asleep easily no headache, no visual changes no speech or swallowing issues exhibit some pressured speech but according to no choking or coughing when eating no chest pain, pressure or palpitations no shortness of breath, cough or wheezes no abdominal pain, nausea or vomiting, has some incontinence of stool no dysuria, hematuria or frequency no focal joint pain or swelling no back pain, CVA tenderness or radicular pain no bruising, bleeding or rashes no focal signs of weakness or numbness or altered sensation does have some rigidity to movement and expressionless facies consistent with Parkinson's disease no complaints of anxiety or depression.. Physical Exam Physical Exam: The patient appeared well nourished and normally developed.he has a demarcus complexion Vital signs as documented. Head exam is normocephalic atraumatic Neck is without JVD, thyromegaly, or carotid bruits. Lungs are clear to auscultation, no focal loss of breath sounds Cardiac exam, Rhythm is regular.. No murmurs, rubs or gallops. Abdominal exam reveals normal bowel sounds, soft non tender, no masses Extremities are nonedematous and both pedal pulses are present Neurologic exam is alert and oriented, does have pressured speech and rigidity of movement Skin is without bruises or rashes Psychologically is without concerns for anxiety or depression.. Results & Data Results & Data ([facility]) Vital Signs (Past 12 Hours) Vital Signs Temp Pulse Pulse Resp BP Pulse Ox 07/02/21 07:07 71 07/02/21 06:43 99.1 F 72 20 171/82 H 96 07/02/21 03:14 98.2 F 73 20 172/82 H 96 07/01/21 22:56 97.9 F 68 20 158/77 H 97 07/01/21 22:18 66 PG Care Time/CCT Total # of Minutes Spent Total Time Spent with Patient: Total time spent is greater than 50% in coordination of care (as documented) at patient's floor/unit and/or counseling patient: Coding Level of Care Code 17618 Subseq Hosp Care Lvl 3 Diagnoses Metabolic encephalopathy G93.41 Parkinsons disease G20 HTN (hypertension) I10 Hyponatremia E87.1 DVT prophylaxis Z29.9
[2021-07-02 08:04] LABS: Platelet Count 70 K/uL (130-400); Platelet Estimate Decreased (Normal)
[2021-07-02] MEDS: CARBIDOPA/LEVODOPA 25/100MG TAB PO SCH ×3 (08:08→20:22)
[2021-07-02] MEDS: CLOPIDOGREL BISULFATE 75 MG TAB PO SCH (08:09)
[2021-07-02] MEDS: METOPROLOL TARTRATE 25 MG TAB PO SCH ×2 (08:09→20:23)
[2021-07-02] MEDS: PSYLLIUM or GUAR GUM FIBER POWDER PACKET PO SCH (08:10)
[2021-07-02] MEDS ORDERED: cefTRIAXone SODIUM 2,000 MG in DEXTROSE 5% 50 ML IV SCH (09:00)
[2021-07-02 09:54] LABS: Lyme Ab IgG w/WB Rflx Positive (Negative); Lyme Ab IgM w/WB Rflx Equivocal (Negative)
[2021-07-02] MEDS ORDERED: ALPRAZolam 0.25 MG TABLET PO PRN (10:22)
[2021-07-02 10:27] LABS: Anaplasmosis Smear(Rpt to DOH) Pos for Anaplasma
[2021-07-02] MEDS: VALSARTAN 80 MG TAB PO SCH (10:47)
[2021-07-02] MEDS: DOXYCYCLINE HYCLATE 100 MG in DEXTROSE 5% 100 ML IV SCH ×2 (10:47→20:22)
[2021-07-03] MEDS: HYDROCORTISONE SOD 50 MG in SYRINGE 0 ML IV SCH (01:01)
[2021-07-03 07:58] LABS: Hematocrit (blood only) 36.4 % (42-52); Hemoglobin 12.4 g/dL (14.0-18.0); Mean Corpuscular Hemoglobin 31.9 pg (25-34); Mean Corpuscular Hgb Conc 34.1 g/dL (32-36); Mean Corpuscular Volume 93.6 fL (80-100); RDW Coefficient of Variation 13.3 % (11.5-14.5); RDW Standard Deviation 45.3 fL (36.4-46.3); Red Blood Count 3.89 M/uL (4.7-6.1); White Blood Count 3.11 K/uL (4.8-10.8)
[2021-07-03 08:19] LABS: Mean Platelet Volume 10.7 fL (7.4-10.4); Platelet Count 51 K/uL (130-400)
[2021-07-03 09:13] LABS: BUN Creatinine Ratio 23.6 (10-20); Calcium 8.2 mg/dl (8.5-10.1); Creatinine Clr Calc Pharmacy 66.9 ml/min; Est GFR (African American) 98.6 ml/min; Est GFR (Non-African American) 85.1 ml/min; Potassium 3.6 mmol/L (3.5-5.1)
[2021-07-03] MEDS: CARBIDOPA/LEVODOPA 25/100MG TAB PO SCH ×3 (09:51→20:04)
[2021-07-03] MEDS: CLOPIDOGREL BISULFATE 75 MG TAB PO SCH (09:52)
[2021-07-03] MEDS: METOPROLOL TARTRATE 25 MG TAB PO SCH ×2 (09:52→20:04)
[2021-07-03] MEDS: PSYLLIUM or GUAR GUM FIBER POWDER PACKET PO SCH (09:53)
[2021-07-03] MEDS: VALSARTAN 80 MG TAB PO SCH (09:53)
[2021-07-03] MEDS: predniSONE 10 MG TABLET PO SCH (09:53)
[2021-07-03] MEDS: DOXYCYCLINE HYCLATE 100 MG in DEXTROSE 5% 100 ML IV SCH (10:45)
[2021-07-03] MEDS: DOXYCYCLINE HYCLATE 100 MG CAP PO SCH (20:04)
--- NOTE | 2021-07-03 20:13 | Hospitalist Progress Note ---
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 Cont doxy - convert IV to PO. Total 14 days of Rx. Lyme screen +; awaiting Western Blot results. Overall he is doing much better. Gave [facility] handout. Discussed tick prevention in detail. Anticipate low platelets & low wbc will resolve next 2-3 days with doxycycline. (2) Leukopenia: Plan: 2nd #1. CBC am. (3) Thrombocytopenia: Plan: 2nd to #1. Should resolve next few days. CBC am. (4) Metabolic encephalopathy: Plan: 2nd to #1. Resolved. MS back to baseline. MRI brain neg for acute CVA or other process. (5) Parkinsons disease: Plan: No issues. Cont sinemet. (6) HTN (hypertension): Plan: Cont metoprolol. Can resume valsartan at d/c. (7) Hyponatremia: Plan: 132 at presentation. Improved s/p IV fluids. repeat bmp am. (8) DVT prophylaxis: Plan: due to low platelets will hold heparin SC (9) Meningioma: Plan: 1cm. no change in size from previous MRI. f/u with neurology for routine surveillance. Plan: chronic prednisone use -- specific dx for such?? updated pt's by phone passed PT eval home next 1-2 days Admission and Anticipated Discharge Date Admission Date: July 01, 2021 Subjective patient "feeling great" asks when he can go home appetite is normal energy is normal did well with PT today has no headache, myalgias, or fevers/chills Review of Systems Review of Systems: gen - no fevers, chills, anorexia, malaise cv - no cp pulm - no cough or dyspnea GI - no nausea or emesis Physical Exam Physical Exam: gen - looks great, sitting in chair, telling stories about his jobs over the years mouth - geographic tongue, MMM neck - no JVD heart - RRR, s1 s2, no murmur lungs - CTA b/l abd - soft NT ND BS+; no HSM ext - no edema, pulses 2+ b/l Results & Data Results & Data ([facility]) Vital Signs (Past 12 Hours) Vital Signs Temp Pulse Pulse Resp BP Pulse Ox 07/03/21 19:21 36.7 C 67 18 132/67 99 07/03/21 16:06 36.4 C L 66 17 138/57 L 99 07/03/21 15:27 66 07/03/21 11:20 36.5 C 75 19 127/66 98 Laboratory Results Laboratory Results - last 24 hr 07/03/21 07/03/21 07:07 07:07 WBC 3.11 L RBC 3.89 L Hgb 12.4 L Hct 36.4 L MCV 93.6 MCH 31.9 MCHC 34.1 RDW Std Deviation 45.3 RDW Coeff of Peyton 13.3 Plt Count 51 L MPV 10.7 H Sodium 134 L Potassium 3.6 Chloride 101 Carbon Dioxide 25 Anion Gap 8 BUN 17 Creatinine 0.72 Est Cr Clr Drug Dosing 66.9 Est GFR ( Amer) 98.6 Est GFR (Non-Af Amer) 85.1 BUN/Creatinine Ratio 23.6 H Glucose 117 H Calcium 8.2 L PG Care Time/CCT Total # of Minutes Spent Total Time Spent with Patient: Total time spent is greater than 50% in coordination of care (as documented) at patient's floor/unit and/or counseling patient: Coding Level of Care Code 81974 Subseq Hosp Care Lvl 2 Diagnoses Metabolic encephalopathy G93.41 Parkinsons disease G20 HTN (hypertension) I10 Hyponatremia E87.1 DVT prophylaxis Z29.9 Anaplasmosis A77.49 Leukopenia D72.819 Thrombocytopenia D69.6 Meningioma D32.9
[2021-07-04 03:11] LABS: 18KDIGG Band REACTIVE; 23KDIGG Band NON-REACTIVE; 23KDIGM Band REACTIVE; 28KDIGG Band NON-REACTIVE; 30KDIGG Band NON-REACTIVE; 39KDIGG Band REACTIVE; 39KDIGM Band NON-REACTIVE; 41KDIGG Band REACTIVE; 41KDIGM Band NON-REACTIVE; 45KDIGG Band NON-REACTIVE; 58KDIGG Band REACTIVE; 66KDIGG Band NON-REACTIVE; 93KDIGG Band NON-REACTIVE; Lyme Antibodies, WB IgG NEGATIVE (NEGATIVE); Lyme Antibodies, WB IgM NEGATIVE (NEGATIVE)
[2021-07-04 06:00] LABS: Hematocrit (blood only) 37.3 % (42-52); Hemoglobin 12.8 g/dL (14.0-18.0); Mean Corpuscular Hemoglobin 31.8 pg (25-34); Mean Corpuscular Hgb Conc 34.3 g/dL (32-36); Mean Corpuscular Volume 92.6 fL (80-100); Mean Platelet Volume 10.1 fL (7.4-10.4); Platelet Count 67 K/uL (130-400); RDW Coefficient of Variation 13.1 % (11.5-14.5); RDW Standard Deviation 44.9 fL (36.4-46.3); Red Blood Count 4.03 M/uL (4.7-6.1); White Blood Count 4.97 K/uL (4.8-10.8)
[2021-07-04 06:23] LABS: Calcium 8.1 mg/dl (8.5-10.1); Creatinine Clr Calc Pharmacy 70.7 ml/min; Est GFR (African American) 100.9 ml/min; Est GFR (Non-African American) 87.1 ml/min; Potassium 3.3 mmol/L (3.5-5.1)
[2021-07-04] MEDS ORDERED: POTASSIUM CHLORIDE CRTAB 20 MEQ TABCR PO STA (07:11)
[2021-07-04 07:54] VITALS: TEMP 98.1
[2021-07-04] MEDS: CLOPIDOGREL BISULFATE 75 MG TAB PO SCH (08:53)
[2021-07-04] MEDS: CARBIDOPA/LEVODOPA 25/100MG TAB PO SCH ×2 (08:53→14:16)
[2021-07-04] MEDS: DOXYCYCLINE HYCLATE 100 MG CAP PO SCH (08:54)
[2021-07-04] MEDS: METOPROLOL TARTRATE 25 MG TAB PO SCH (08:54)
[2021-07-04] MEDS: VALSARTAN 80 MG TAB PO SCH (08:55)
[2021-07-04] MEDS: PSYLLIUM or GUAR GUM FIBER POWDER PACKET PO SCH (08:55)
[2021-07-04] MEDS: predniSONE 10 MG TABLET PO SCH (08:55)
--- NOTE | 2021-07-04 11:39 | Discharge Summary ---
Date of Service date of admission - July 01, 2021 date of discharge - July 04, 2021 Admission HPI Per Admitting Provider 86-year-old male who is a history of parkinsonism and recently had a TIA evaluation in 2020. Reportedly is in his normal state of health when this morning he was slightly more confused and less responsive to his . Patient typically administers his own medications and can do his own activities of daily living according to the . This morning he was incontinent of stool was confused and lethargic was brought into the emergency department. Initial concern was possibly of an infectious etiology he was volume resuscitated with crystalloid and given vancomycin and Zosyn therapy. On my evaluation the patient was lethargic but was able to speak he does exhibit physical signs and symptoms of Parkinson's disease with classic facies stiff movements and difficulty speaking. Despite his difficulty speaking the says he typically does not have any swallowing issues at home however he did miss his Parkinson medication this morning which may explain some of his behavior to me. Emergency physicians felt he may have pneumonia however he does not have a leukocytosis and his x-ray is only with very mild changes additionally he has no coughing and his pulmonary examination is not consistent with pneumonia. Patient has a history of a meningioma that was discovered during his last TIA evaluation we will proceed with collecting additional urine cultures to the blood cultures that were sent COVID influenza and RSV are pending patient will be transition from the above antibiotics to Rocephin once a day for 48 hours until we get cultures back. Patient is chronically on steroids he will be given stress dose hydrocortisone and additional liter of fluid. I spoke to the and she confirms he is a DNR at this time. Principal Diagnosis Anaplasmosis Tick-borne Infection Metabolic Encephalopathy 2nd to Anaplasmosis Discharge Exam gen - looks great, sitting in chair mouth - geographic tongue, MMM neck - no JVD heart - RRR, s1 s2, no murmur lungs - CTA b/l abd - soft NT ND BS+; no HSM ext - no edema, pulses 2+ b/l Discharge Data Allergies Allergy/AdvReac Type Severity Reaction Status Date / Time No Known Allergies Allergy Verified 06/21/21 08:50 Consultations PT, OT Ordered Studies Chest X-Ray 07/01/21 07:45 XR chest 1V portable CLINICAL HISTORY: fever, confusion, weakness COMPARISON STUDY: Chest radiograph August 14, 2018. FINDINGS: Lung volumes are mildly diminished. No pneumothorax or pleural effusion is noted. Mild bibasilar opacities are present. There may be minimal left upper lung opacity. No evidence for pulmonary edema. Cardiomediastinal silhouette is unremarkable. IMPRESSION: Mild bibasilar opacities and possible mild left upper lung opacity. The findings may reflect an infectious process. Radiographic follow-up is recommended to ensure resolution ACT 112: Negative or not required by law. Electronically signed by: Sree Monterroso M.D. 07/01/2021 8:21 AM Brain MRI 07/01/21 10:04 MRI OF THE BRAIN WITHOUT CONTRAST CLINICAL HISTORY: Altered mental status h/o tia and frontal meningioma COMPARISON STUDY: Head CT, CTA of the head and MRI of the brain August 14, 2020. TECHNIQUE: Utilizing a 1.5 Glo magnet and dedicated coil, multiplanar, multiecho imaging of the brain was performed without IV contrast. FINDINGS: There are no foci of restricted diffusion to suggest acute infarct. No acute intracranial hemorrhage, midline shift or mass effect is present. A 1 cm extra-axial lesion overlying the right frontal lobe is unchanged since prior MRI of August 14, 2020. Appearance of the brain is unchanged. Moderate atrophy is noted. Mild white matter T2 hyperintense foci are unchanged and suggest small vessel disease. Calvarial signal is normal. There are tiny air-fluid levels within the bilateral maxillary sinuses as well as mild mucosal thickening within the ethmoid and sphenoid sinuses. No acute orbital abnormality is identified. There is no mastoid fluid. IMPRESSION: 1. No acute intracranial findings. 2. No change in appearance of the brain since MRI of August 14, 2020. Moderate atrophy and mild small vessel disease. 3. No change in a 1 cm meningioma overlying the right frontal lobe. ACT 112: Negative or not required by law. Electronically signed by: Sree Monterroso M.D. 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 His clinical presentation & labs were also consistent with Anaplasmosis infection. Last documented fever was on day of admission, 07/01/21. He was treated with IV then PO doxycycline with clinical improvement and resolution of his fever. He will receive a total 14-day course of doxycycline. Leukopenia resolved prior to discharge. He had moderate-severe thrombocytopenia with lowest platelet level of ~50 from his infection. Platelet count ajay to 67 on day of discharge. He never had transaminitis. Prior to discharge he was eating well, drinking adequately, and ambulating independently. Gave [facility] handout on Anaplasmosis. Discussed tick prevention in detail. Anticipate low platelets will resolve within the next 2-3 days with doxycycline. I recommended a repeat CBC with diff and BMP in 48 hours post-discharge to ensure ongoing normalization of labs. (2) Positive Lyme disease serology: Lyme screen was positive. Western blot was dispatched & returned with positive IgG and 4 IgG sub-bands positive. I suspect this is reflective of old Lyme infection as he has had previous Lyme disease. If there is some element of chronic Lyme, however, the 14-day course of doxycycline for Anaplasmosis should be adequate. But, again, I suspect he does not have active Lyme disease at this time. (3) Leukopenia: 2nd #1. Resolved prior to discharge. (4) Thrombocytopenia: 2nd to #1. Should resolve next few days after discharge. CBC to be checked 48 hours post-discharge. Discharge platelet level was 67. I did NOT discontinue his plavix but advised NO USE of NSAIDs at home. (5) Metabolic encephalopathy: 2nd to #1. Resolved. Mental status returned back to baseline with Rx of his tick-borne infection. MRI brain negative for acute CVA or other process. (6) Parkinsons disease: No issues while here. Cont sinemet. Ambulating without difficulty at time of discharge. (7) HTN (hypertension): Cont metoprolol. Cont valsartan. (8) Hyponatremia: 132 at presentation. Improved s/p IV fluids. Na level was 135 on day of discharge. (9) Meningioma: 1cm. no change in size from previous MRI. f/u with [facility] neurology for routine surveillance. (10) Inflammatory arthropathy: Follows with [facility], [facility]. On chronic prednisone for such 5mg/day. Received stress-dose steroids while here but will resume his usual 5mg/day at discharge. (11) Cognitive impairment: Patient's voiced concerns that he has developed such in the last year. He has scheduled follow-up with [facility]rology in July 2021 for his Parkinson's. The memory issue can be addressed then. He may be developing cognitive impairment in the setting of his Parkinson's. passed PT evaluation and cleared for home with his Total Time Total Time Spent Total Time Spent (In Minutes): 40 Discharge Plan Discharge Items Patient Disposition: Home - Self-Care Reason For Visit: Confusion Discharge Diagnosis: 1. Anaplasmosis Tick-borne Infection - improving 2. Confusion due to #1 - resolved 3. Low platelets - due to #1 - improving 4. Low white blood cell count - due to #1 - resolved Activity: As commented below Activity Comment: Gradually increase your activities over the next 3-5 days Non-emergency contact: Primary Care Provider Call non-emergency contact if: you have any medication questions, your symptoms worsen and you have a fever Follow-up/Referrals: Kiet Mabry MD [Primary Care Provider] - (Due to staffing shortages, your appointment is being made with Dr. Whitehead at [facility].) Adeel Whitehead DO [Physician] - 07/11/21 9:20 am Diet: Regular Ambulatory Orders: Basic Metabolic Panel (Routine) Timeframe: 20210706 Location: Determined by Patient Ordered By: Kamran Zhong Complete Blood Count with Diff (Timed) Timeframe: 20210706 Location: Determined by Patient Ordered By: Kamran Zhong Addtl Attending Provider Instructions: Mr Light, You were hospitalized at [facility] after developing confusion at your home. Upon arrival to [facility] you were dehydrated and there was concern for infection. It ultimately was discovered that you had a tick-borne illness called "Anaplasmosis." It is NOT the same as Lyme disease. MRI brain did NOT show a stroke. You have a small, benign growth in the brain called a "meningioma." It is 1cm in size. Dr Jeronimo can continue to follow this. Anaplasmosis is easily treated with doxycycline antibiotic and symptoms begin to resolve within 2-3 days of start of the antibiotic. This illness clears fully and does not lead to chronic illness or long-term side effects. It is transmitted by the same type of tick as Lyme disease ("deer ticks"). Many individuals develop low platelets and low white blood cell count from Anaplasmosis. As the illness resolves the platelets return to normal and the white count normalizes. Your white count has normalized and your platelets are rising as expected. Recommendations - 1. see handouts on Anaplasmosis and "tick facts" 2. antibiotic - * doxycycline 100mg twice daily for 23 more doses (11.5 days) * take your first dose TONIGHT * doxycycline can cause heartburn; thus, I am prescribing a 2-week course of antacid (see below) * doxycycline can also cause a rash if you get a lot of sun exposure while taking the antibiotic; thus, over the next 2 weeks, please use sunscreen liberally and cover up while outside 3. your lyme testing shows evidence of OLD lyme infection 4. to help protect your stomach from the doxycycline antibiotic take pantoprazole 40mg once daily for 14 days; start this TODAY 5. continue your prednisone 5mg daily as previous; start this back TOMORROW 6. after spending time in your yard be sure to do a full head to toe "tick check". This is important to avoid future infections from ticks. Be sure to look at your scalp, behind the ears, groin, armpits, etc. The smallest ticks (the size of a pencil tip) tend to have the greatest risk of carryinig infection. When spending long periods of time outside try to wear long sleeves and pants. 7. you will need repeat blood work THIS 07/06/21, to recheck your platelets. You can have this blood work drawn at the [facility] office for your convenience. 8. Ok to take tylenol for aches/pains. HOWEVER, while your platelets are low, please do NOT take aspirin, motrin, ibuprofen, naprosyn, or alleve. 9. ok to take walks but avoid activities that increase your chances of bleeding (while the platelets are mildly low). Avoid use of power tools, climbing ladders, etc. The platelets should normalize over the next few days as the anaplasmosis infection fully resolves. Follow-up - see Dr Mabry ~[address] Jeronimo, your neurologist, on 08/15/21 as previously scheduled Return to [facility] if - * you have fevers over 100 degrees * you have recurrent confusion * you have severe diarrhea * you develop rash * you have bleeding from any location * any other concerns It was our pleasure to care for you at [facility]! Continue to feel better, Dr Zhong Pending Studies at Discharge: No Stand-Alone Forms: [facility] [employer], Smoking Cessation Medications and DC Order Prescriptions: New doxycycline hyclate 100 mg Capsule 100 mg PO BID Qty: 23 RF: 0 pantoprazole [Protonix] 40 mg tablet,delayed release (DR/EC) 40 mg PO QAM 14 Days Qty: 14 RF: 0 Continued Metamucil (sugar) powder 1.5 tsp PO DAILY RF: 0 metoprolol tartrate 25 mg tablet 12.5 mg PO BID Qty: 90 RF: 3 atorvastatin 40 mg tablet 40 mg PO QAM 30 Days Qty: 90 RF: 3 clopidogrel 75 mg tablet 75 mg PO QAM Qty: 90 RF: 3 valsartan 80 mg tablet 80 mg PO DAILY Qty: 90 RF: 3 nitroglycerin 0.4 mg tablet, sublingual 0.4 mg SL Q5M PRN (Reason: chest pain) Qty: 1 RF: 0 carbidopa-levodopa 25-100 mg tablet 1.5 tab PO TID 90 Days Qty: 405 RF: 1 multivitamin tablet 1 tab PO DAILY RF: 0 calcium carbonate 600 mg calcium (1,500 mg) tablet 1,200 mg PO DAILY RF: 0 prednisone 5 mg tablet 5 mg PO DAILY RF: 0 Discharge Orders: Discharge Order (Routine); Ordered 07/04/21 Ordered By: Kamran Huizar/Other Patient Handouts: Anaplasmosis, ED Tick Facts Admission Data Admit Date/Time: 07/01/21 09:47 Attending Provider: Kamran Zhong Admit Provider: Franki Schneider Primary Care Provider: Kiet Mabry Other Providers: Franki Schneider Other Interventions: Discharge Summary Assessment (RN) Last Done: 07/04/21 15:34 Coding Level of Care Code D/C DAY MANAGEMENT >30 MINS Diagnoses Anaplasmosis A77.49 Leukopenia D72.819 Thrombocytopenia D69.6 Metabolic encephalopathy G93.41 Parkinsons disease G20 HTN (hypertension) I10 Hyponatremia E87.1 Meningioma D32.9 Positive Lyme disease serology R76.8 Inflammatory arthropathy M19.90 Cognitive impairment R41.89
[2021-07-04 11:43] VITALS: O2SAT 100
[2021-07-04 16:13] VITALS: BP 146/70; PULSE 70
[2021-07-04 17:36] LABS: Babesia microti DNA Not Detected (Not Detected)
== END 2021-07-04 16:36 | disposition home or self-care (01) | DRG 867 ==
LOC: ED 07:37 → SUATTDRO 09:47 → 2W 09:47

== ENCOUNTER 2022-09-21 16:57 | Inpatient (IN) ==
--- NOTE | 2022-09-21 18:12 | Emergency Department Note ---
Impression & Plan Generalized weakness, Lyme borreliosis, Acute febrile illness, Thrombocytopenia ED Provider Note Name: JOÃO BAIG Age: 87 Sex: M Arrives Via: Walk-In Informant: Patient, ED Provider: Bartolo Kaur MD Chief Complaint: Weakness Impression: As per impressions above Medical Decision Making: Pleasant 87-year-old gentleman with a history of Parkinson's arrives for migue luation of gradually worsening weakness over the last 5 days. On arrival he is having either rigors or his significant worsening of his Parkinson's. As he looks ill blood cultures lactate and sepsis work-up was initiated. Laboratory work-up remarkable for mildly low white blood cell count, mildly low platelets mildly elevated bilirubin and positive IgG and equivocal IgM for Lyme disease. He also is having some left hip pain with unremarkable x-rays of the left hip. He has full range of motion of the hip no evidence of erythema over it and I do not suspect it is septic at this time. Patient was empirically given IV Rocephin along with some IV fluids. I will note he is not severe sepsis or septic shock at time of hospitalization. His lactic acid is good he is not hypotensive. Patient does appear much improved after some IV fluids however given his generalized weakness his risk of fall and then developing further fevers I do feel that hospitalization would be indicated. and he are on board with this plan. Hospitalist consulted for further management. After discussion with hospitalist they will add in doxycycline for possible anaplasmosis coverage given his history. Patient has a soft abdomen I do not suspect we need to do a CT abdomen/pelvis at this time. He has no neurodeficits other than just generalized weakness and with infectious findings I do not feel that neuroimaging is necessary at this time. He has no headache or nuchal rigidity or findings of meningitis thus we will hold off on LP. Prior Medical Record and Triage/Nursing Notes reviewed by Me External chart reviewed including previous hospitalization discharge summary records Differentials:Viral syndrome, Lyme, anaplasmosis, tickborne NOS, COVID, pneumonia, influenza, meningitis, urinary tract infection, sepsis, bacteremia, as well as other pathologies. Vital Signs: reviewed and remarkable for febrile Interventions: Normal saline bolus 1 L IV, Rocephin 2 g IV Labs:Reviewed and remarkable for as per MDM. Labs in ER reviewed by me Imagin view chest x-ray as per my interpretation no infiltrate, no effusion, no enlarged cardiac border. 2 view left hip with 1 view pelvis x-ray as per my interpretation no fracture, no dislocation. There is some arthritic changes throughout. EKG:As per my interpretation indication sepsis. Patient with a sinus rhythm at 86 bpm and a first-degree AV block with a VT of 224. He has a right bundle branch block. There is no ectopy or overt ischemia. When compared to July 01, 2021 EKG no significant changes. Cardiac/Tele Monitoring: Cardiac Monitoring: An Order was placed for continuous cardiac monitoring. The monitor shows a rate of 80 with a normal sinus rhythm. Consults:Reviewed with Dr. Hernandez of hospitalist who will bring in for further management Plan: Disposition:Hospitalization. Condition: Fair History of Present Illness:87-year-old gentleman arrives for evaluation of fatigue and weakness. Over the last week he has had progressive weakness. He has been unable to ambulate for the last few days. He usually walks for several hours a day but has been too tired and exhausted to do so. Over the last week he is also developed worsening left hip discomfort. He has multiple joint pains and aches but the left hip is most prominent. He denies any recent falls, trauma, injuries. Denies any nausea, vomiting, chest pain, shortness of breath, abdominal pain, back pain, urinary/bowel symptoms or other concerning signs or symptoms. notes that he seems a bit more confused than his baseline but he does have some Parkinson's and mild dementia. No recent antibiotics. He had some mild loose stool earlier today but this resolved. No known tick bites but does spend significant mount of times outside. Past History:TIA, cognitive decline, Parkinson's, CAD, hypertension, hypercholesterolemia, prostate cancer post surgery, prediabetes Home Medications:See Below Allergies:See Below Vitals:Blood Pressure: 157/76, Pulse 78, RR 20, T 37.2C, O2 99% on RA Physical Exam: GENERAL: Patient is tired and unwell appearing and in moderate distress. Patient is mildly confused but answering all questions EYES: No scleral icterus, unremarkable pupils. ENT: Mucous membranes dry, no nasal congestion. RESPIRATORY: No dyspnea. Clear to auscultation and equal bilaterally. No wheeze, no rhonchi. CARDIOVASCULAR: Regular rate and rhythm.No murmurs, rubs, gallops appreciated. GASTROINTESTINAL: Abdomen soft, non-tender, no peritonitis.Bowel sounds positive.No masses appreciated. EXTREMITIES: Normal motion all extremities, no cyanosis, no edema. Vague anterior left hip tenderness to palpation no pain with range of motion of the left hip. NEUROLOGIC: Alert and oriented, no focal neurologic deficits. He has diffuse tremors querry Parkinson's versus rigors. SKIN: No rash, no jaundice, no diaphoresis. PSYCH: Appropriate GCS: 15 ED Course: Times/Reassessments: Multiple repeat evaluations of patient throughout his stay. Blood pressure remained stable and he does not appear overtly septic. He did appear to improve with some IV fluids however given generalized weakness I feel hospitalization is indicated especially given the development of fever while here Bartolo Kaur MD Past Med/Surg History Medical History Arteriosclerosis of carotid artery Barretts esophagus Benign prostatic hyperplasia with elevated prostate specific antigen (PSA) HTN (hypertension) Hypercholesterolemia Parkinsons disease Parotiditis Prediabetes Right knee pain Severe sepsis Thrombocytopenia TIA (transient ischemic attack) Tremor Surgical History History of surgery S/P hemorrhoidectomy Family History Father Heart disease Hypertension Myocardial infarction Mother Heart disease Cancer Breast cancer Brother Diabetes Prostate cancer Denies family history of Ovarian cancer Colorectal cancer Social History Smoking Status: Former smoker Second Hand Exposure: No; Do You Dip or Chew Tobacco: No; Hx Alcohol Use: Yes Alcohol type: beer and wine Alcohol Intake Frequency: 4 or More x per/Week Alcohol Intake Frequency Comment: 1 drink per day Hx Substance Use: No Preferred Language: Croatian Communication Ability: Effective Visual Impairment: No Limitations Hearing Ability: Use of Hearing Aid Airplane Rental Clerk Required: No Beliefs That Will Affect Care: None marital status: Current Living Situation: Spouse current occupational status: retired 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 Feels Safe at Home: Yes Childhood Exposure to Second-Hand Smoke: No Diet: regular Dental Care, Regularly: Yes Physical Activity Frequency: Daily Physical Activity Frequency Comment: walk Seatbelt Use: always Sunscreen Use: Yes Assistive Devices: Glasses and Hearing Aid - Left Allergies Allergies Allergy/AdvReac Type Severity Reaction Status Date / Time No Known Allergies Allergy Verified 09/21/22 18:02 Home Meds Home Medications Medication Instructions Recorded Confirmed multivitamin 1 tab PO DAILY 08/21/18 09/21/22 psyllium seed (sugar) oral powder 1.5 tsp PO DAILY 09/16/18 09/21/22 (Metamucil (sugar) oral powder) calcium carbonate 600 mg calcium 1,200 mg PO DAILY 12/22/18 09/21/22 (1,500 mg) tablet omega-3 fatty acids 1,000 mg 2,000 mg PO DAILY 09/21/22 09/21/22 capsule vitamins A,C,F-flie-qaskzo 2,148 1 tab PO DAILY 09/21/22 09/21/22 mcg-113 mg-45 mg-17.4 mg tablet (PreserVision AREDS) Previous Rx's Medication Instructions Recorded nitroglycerin 0.4 mg sublingual 0.4 mg sublingual Q5M PRN chest 12/19/20 tablet pain #1 tab clopidogrel 75 mg tablet 75 mg PO QAM #90 tabs 12/24/21 atorvastatin 40 mg tablet 40 mg PO QAM 30 days #90 tabs 02/08/22 metoprolol tartrate 25 mg tablet 12.5 mg PO BID #90 tabs 03/11/22 prednisone 5 mg tablet 5 mg PO DAILY #90 tabs 04/01/22 valsartan 80 mg tablet 80 mg PO DAILY #90 tabs 07/08/22 carbidopa 25 mg-levodopa 100 mg 1.5 tab PO QID 90 days #540 tabs 08/15/22 tablet Results & Data (ED) Vital Signs Vital Signs - 24 hr 09/21/22 17:06 09/21/22 17:34 09/21/22 19:31 Temperature 37.2 C Temperature Source Temporal Artery Scan Pulse Rate 77 78 76 Pulse Rate [Apical] Pulse Rate from SpO2 Sensor Pulse Rhythm Regular Pulse Rhythm [Apical] Pulse Strength [Apical] Respiratory Rate 20 22 Respiratory Effort / Characteristics Non-Labored Spontaneous Respiratory Depth Normal Blood Pressure 157/76 H Blood Pressure [Right Arm] Blood Pressure Mean 103 Blood Pressure Mean [Right Arm] Pulse Oximetry 99 96 Oxygen Delivery Method Room Air Room Air Sepsis Recent Fever Within 48 Hours No Sepsis New/Unexplained Change in Mental Status N/A Sepsis Action Taken by Nursing No Action Required 09/21/22 19:31 09/21/22 21:59 09/21/22 19:00 Temperature 38.7 C H Temperature Source Oral Pulse Rate 83 Pulse Rate [Apical] 77 Pulse Rate from SpO2 Sensor Pulse Rhythm Pulse Rhythm [Apical] Regular Pulse Strength [Apical] Normal Respiratory Rate 22 22 Respiratory Effort / Characteristics Non-Labored Respiratory Depth Normal Blood Pressure Blood Pressure [Right Arm] 157/76 H Blood Pressure Mean Blood Pressure Mean [Right Arm] 103 Pulse Oximetry 96 Oxygen Delivery Method Room Air Sepsis Recent Fever Within 48 Hours Sepsis New/Unexplained Change in Mental Status Sepsis Action Taken by Nursing 09/21/22 19:30 09/21/22 20:00 09/21/22 20:30 Temperature Temperature Source Pulse Rate 76 83 93 H Pulse Rate [Apical] Pulse Rate from SpO2 Sensor 82 Pulse Rhythm Pulse Rhythm [Apical] Pulse Strength [Apical] Respiratory Rate 20 22 22 Respiratory Effort / Characteristics Respiratory Depth Blood Pressure 157/76 H Blood Pressure [Right Arm] Blood Pressure Mean 103 Blood Pressure Mean [Right Arm] Pulse Oximetry 96 96 97 Oxygen Delivery Method Sepsis Recent Fever Within 48 Hours Sepsis New/Unexplained Change in Mental Status Sepsis Action Taken by Nursing 09/21/22 21:00 09/21/22 21:30 09/21/22 22:00 Temperature Temperature Source Pulse Rate 90 90 99 H Pulse Rate [Apical] Pulse Rate from SpO2 Sensor Pulse Rhythm Pulse Rhythm [Apical] Pulse Strength [Apical] Respiratory Rate 17 16 16 Respiratory Effort / Characteristics Respiratory Depth Blood Pressure Blood Pressure [Right Arm] Blood Pressure Mean Blood Pressure Mean [Right Arm] Pulse Oximetry 97 96 Oxygen Delivery Method Sepsis Recent Fever Within 48 Hours Sepsis New/Unexplained Change in Mental Status Sepsis Action Taken by Nursing 09/21/22 22:30 09/21/22 23:00 09/21/22 23:30 Temperature Temperature Source Pulse Rate 93 H 84 74 Pulse Rate [Apical] Pulse Rate from SpO2 Sensor 93 H Pulse Rhythm Pulse Rhythm [Apical] Pulse Strength [Apical] Respiratory Rate 19 20 22 Respiratory Effort / Characteristics Respiratory Depth Blood Pressure Blood Pressure [Right Arm] Blood Pressure Mean Blood Pressure Mean [Right Arm] Pulse Oximetry 97 Oxygen Delivery Method Sepsis Recent Fever Within 48 Hours Sepsis New/Unexplained Change in Mental Status Sepsis Action Taken by Nursing 09/22/22 00:00 Temperature Temperature Source Pulse Rate 72 Pulse Rate [Apical] Pulse Rate from SpO2 Sensor Pulse Rhythm Pulse Rhythm [Apical] Pulse Strength [Apical] Respiratory Rate Respiratory Effort / Characteristics Respiratory Depth Blood Pressure Blood Pressure [Right Arm] Blood Pressure Mean Blood Pressure Mean [Right Arm] Pulse Oximetry Oxygen Delivery Method Sepsis Recent Fever Within 48 Hours Sepsis New/Unexplained Change in Mental Status Sepsis Action Taken by Nursing Laboratory Data 09/21/22 18:21 09/21/22 18:21 Lab Results 09/21/22 09/21/22 09/21/22 Range/Units 18:21 18:21 18:21 WBC 4.25 L (4.8-10.8) K/ul RBC 4.37 L (4.70-6.10) M/uL Hgb 14.1 (14.0-18.0) g/dl Hct 40.5 L (42.0-52.0) % MCV 92.7 (80.0-100.0) fL MCH 32.3 (25.0-34.0) pg MCHC 34.8 (32.0-36.0) g/dL RDW Std Deviation 43.1 (36.4-46.3) fL RDW Coeff of [place]ey[place] 12.7 (11.5-14.5) % Plt Count 112 L (130-400) K/uL MPV 8.8 L (9.4-12.4) fL Immature Gran % (Auto) 0.2 % Neut % (Auto) 75.6 % Lymph % (Auto) 9.2 % Dare % (Auto) 14.8 % Eos % (Auto) 0.0 % Baso % (Auto) 0.2 % Neut # (Auto) 3.21 (1.40-6.50) K/uL Lymph # (Auto) 0.39 L (1.2-3.4) K/uL Dare # (Auto) 0.63 H (0.11-0.59) K/uL Eos # (Auto) 0.00 (0-0.50) K/uL Baso # (Auto) 0.01 (0-0.2) K/uL Immature Gran # (Auto) 0.01 (0.01-0.20) K/uL Sodium 132 L (136-145) mmol/L Potassium 4.3 (3.5-5.1) mmol/L Chloride 98 (98-107) mmol/L Carbon Dioxide 26 (21-32) mmol/L Anion Gap 8 (3-11) BUN 17 (6-23) mg/dl Creatinine 1.00 (0.6-1.4) mg/dl Est Cr Clr Drug Dosing Not Reportable Est GFR ( Amer) 78.6 ml/min Est GFR (Non-Af Amer) 67.8 ml/min BUN/Creatinine Ratio 17.0 (10-20) Glucose 105 H (70-99(Fasting)) mg/dl POC Glucose (70-99) mg/dl Lactate (0.4-2.0) mmol/L Calcium 9.1 (8.6-10.3) mg/dl Magnesium 2.0 (1.7-2.4) mg/dl Total Bilirubin 1.2 H (0.2-1.0) mg/dl Direct Bilirubin 0.2 (0-0.2) mg/dl AST 20 (13-39) U/L ALT 5 L (7-52) U/L Alkaline Phosphatase 51 (34-104) U/L Troponin I High Sens 9.1 (0-20) pg/ml Total Protein 7.8 (6.0-8.3) gm/dl Albumin 4.5 (3.4-5.0) gm/dl Procalcitonin 0.07 (0-0.5) ng/ml Urine Color Urine Appearance (Clear) Urine pH (4.5-7.5) Ur Specific [place] (1.000-1.030) Urine Protein (Negative) Urine Glucose (UA) (Negative) Urine Ketones (Negative) Urine Blood (Negative) Urine Nitrite (Negative) Urine Bilirubin (Negative) Urine Urobilinogen (Negative) Ur Leukocyte Esterase (Negative) Urine WBC (Auto) (0-5) /hpf Urine RBC (Auto) (0-4) /hpf U Hyaline Cast (Auto) (0-5) /lpf U Epithel Cells (Auto) (0-5) /lpf Urine Bacteria (Auto) (Negative) Anaplasma Smear See Comment Lyme Disease IgG Ab (Negative) Lyme Disease IgM Ab (Negative) SARS-CoV-2, RNA, NAAT (NEGATIVE) 09/21/22 09/21/22 09/21/22 Range/Units 18:21 19:25 19:36 WBC (4.8-10.8) K/ul RBC (4.70-6.10) M/uL Hgb (14.0-18.0) g/dl Hct (42.0-52.0) % MCV (80.0-100.0) fL MCH (25.0-34.0) pg MCHC (32.0-36.0) g/dL RDW Std Deviation (36.4-46.3) fL RDW Coeff of Peyton (11.5-14.5) % Plt Count (130-400) K/uL MPV (9.4-12.4) fL Immature Gran % (Auto) % Neut % (Auto) % Lymph % (Auto) % Dare % (Auto) % Eos % (Auto) % Baso % (Auto) % Neut # (Auto) (1.40-6.50) K/uL Lymph # (Auto) (1.2-3.4) K/uL Dare # (Auto) (0.11-0.59) K/uL Eos # (Auto) (0-0.50) K/uL Baso # (Auto) (0-0.2) K/uL Immature Gran # (Auto) (0.01-0.20) K/uL Sodium (136-145) mmol/L Potassium (3.5-5.1) mmol/L Chloride (98-107) mmol/L Carbon Dioxide (21-32) mmol/L Anion Gap (3-11) BUN (6-23) mg/dl Creatinine (0.6-1.4) mg/dl Est Cr Clr Drug Dosing Est GFR ( Amer) ml/min Est GFR (Non-Af Amer) ml/min BUN/Creatinine Ratio (10-20) Glucose (70-99(Fasting)) mg/dl POC Glucose 96 (70-99) mg/dl Lactate (0.4-2.0) mmol/L Calcium (8.6-10.3) mg/dl Magnesium (1.7-2.4) mg/dl Total Bilirubin (0.2-1.0) mg/dl Direct Bilirubin (0-0.2) mg/dl AST (13-39) U/L ALT (7-52) U/L Alkaline Phosphatase (34-104) U/L Troponin I High Sens (0-20) pg/ml Total Protein (6.0-8.3) gm/dl Albumin (3.4-5.0) gm/dl Procalcitonin (0-0.5) ng/ml Urine Color Urine Appearance (Clear) Urine pH (4.5-7.5) Ur Specific [place] (1.000-1.030) Urine Protein (Negative) Urine Glucose (UA) (Negative) Urine Ketones (Negative) Urine Blood (Negative) Urine Nitrite (Negative) Urine Bilirubin (Negative) Urine Urobilinogen (Negative) Ur Leukocyte Esterase (Negative) Urine WBC (Auto) (0-5) /hpf Urine RBC (Auto) (0-4) /hpf U Hyaline Cast (Auto) (0-5) /lpf U Epithel Cells (Auto) (0-5) /lpf Urine Bacteria (Auto) (Negative) Anaplasma Smear Lyme Disease IgG Ab Positive A (Negative) Lyme Disease IgM Ab Equivocal A (Negative) SARS-CoV-2, RNA, NAAT NEGATIVE (NEGATIVE) 09/21/22 09/21/22 Range/Units 19:37 20:09 WBC (4.8-10.8) K/ul RBC (4.70-6.10) M/uL Hgb (14.0-18.0) g/dl Hct (42.0-52.0) % MCV (80.0-100.0) fL MCH (25.0-34.0) pg MCHC (32.0-36.0) g/dL RDW Std Deviation (36.4-46.3) fL RDW Coeff of Peyton (11.5-14.5) % Plt Count (130-400) K/uL MPV (9.4-12.4) fL Immature Gran % (Auto) % Neut % (Auto) % Lymph % (Auto) % Dare % (Auto) % Eos % (Auto) % Baso % (Auto) % Neut # (Auto) (1.40-6.50) K/uL Lymph # (Auto) (1.2-3.4) K/uL Dare # (Auto) (0.11-0.59) K/uL Eos # (Auto) (0-0.50) K/uL Baso # (Auto) (0-0.2) K/uL Immature Gran # (Auto) (0.01-0.20) K/uL Sodium (136-145) mmol/L Potassium (3.5-5.1) mmol/L Chloride (98-107) mmol/L Carbon Dioxide (21-32) mmol/L Anion Gap (3-11) BUN (6-23) mg/dl Creatinine (0.6-1.4) mg/dl Est Cr Clr Drug Dosing Est GFR ( Amer) ml/min Est GFR (Non-Af Amer) ml/min BUN/Creatinine Ratio (10-20) Glucose (70-99(Fasting)) mg/dl POC Glucose (70-99) mg/dl Lactate 1.0 (0.4-2.0) mmol/L Calcium (8.6-10.3) mg/dl Magnesium (1.7-2.4) mg/dl Total Bilirubin (0.2-1.0) mg/dl Direct Bilirubin (0-0.2) mg/dl AST (13-39) U/L ALT (7-52) U/L Alkaline Phosphatase (34-104) U/L Troponin I High Sens (0-20) pg/ml Total Protein (6.0-8.3) gm/dl Albumin (3.4-5.0) gm/dl Procalcitonin (0-0.5) ng/ml Urine Color Yellow Urine Appearance Clear (Clear) Urine pH 7.5 (4.5-7.5) Ur Specific [place] 1.017 (1.000-1.030) Urine Protein Negative (Negative) Urine Glucose (UA) Negative (Negative) Urine Ketones Trace H (Negative) Urine Blood Trace H (Negative) Urine Nitrite Negative (Negative) Urine Bilirubin Negative (Negative) Urine Urobilinogen Negative (Negative) Ur Leukocyte Esterase Negative (Negative) Urine WBC (Auto) 1-5 (0-5) /hpf Urine RBC (Auto) 10-30 H (0-4) /hpf U Hyaline Cast (Auto) 0 (0-5) /lpf U Epithel Cells (Auto) 10-20 H (0-5) /lpf Urine Bacteria (Auto) Negative (Negative) Anaplasma Smear Lyme Disease IgG Ab (Negative) Lyme Disease IgM Ab (Negative) SARS-CoV-2, RNA, NAAT (NEGATIVE) Administered Medications Doxycycline Hyclate 100 mg/ (Dextrose) 110 mls @ 50 mls/hr IV ONE STA Stop: 09/22/22 01:19 Last Admin: 09/21/22 23:35 Dose: 50 mls/hr Documented By: LASHONDA Discontinued Medications Acetaminophen (Acetaminophen 500 Mg Tab) 1,000 mg PO NOW STA Stop: 09/21/22 22:00 Last Admin: 09/21/22 22:15 Dose: 1,000 mg Documented By: CASSIE Sodium Chloride (Nss 1000ml) 1,000 mls @ 999 mls/hr IV .Q1H1M NIR Stop: 09/21/22 19:15 Last Infusion: 09/21/22 21:49 Dose: 0 mls/hr Documented By: Admin: 09/21/22 20:14 Dose: 999 mls/hr Documented By: CASSIE Ceftriaxone Sodium (Rocephin) 2,000 mg in 70 mls @ 140 mls/hr IV NOW STA Stop: 09/21/22 21:02 Last Infusion: 09/21/22 21:48 Dose: 0 mls/hr Documented By: Admin: 09/21/22 21:10 Dose: 140 mls/hr Documented By: CASSIE Imaging Data Radiologist's Impression: Chest X-Ray 09/21/22 18:08 SINGLE VIEW CHEST CLINICAL HISTORY: Sepsis. FINDINGS: 2 AP, portable, upright chest radiographs are compared to study dated 07/01/2021. The examination is degraded by portable technique and patient rotation. The heart is mildly enlarged noting atherosclerotic calcification of the thoracic aorta. The pulmonary vasculature is noncongested. Chronic interstitial thickening is similar to previous. There are left basilar opacities. No large pleural effusion or pneumothorax is seen. The skeletal structures are osteopenic. The bony thorax is grossly intact. IMPRESSION: 1. Cardiomegaly without radiographic evidence of congestive failure. 2. Left basilar opacities could represent scarring/atelectasis versus a mild pneumonitis. Clinical correlation will be required and radiographic follow-up to resolution is recommended. ACT 112: Negative or not required by law. Electronically signed by: Madhav Hernandez M.D. 09/21/2022 7:33 PM Hip/Pelvis X-Ray 09/21/22 18:08 SINGLE VIEW PELVIS; 2 VIEWS LEFT HIP CLINICAL HISTORY: Left hip pain. FINDINGS: An AP view of the pelvis with AP and frog-leg views of the left hip are obtained. Comparison is made to study dated 06/29/2015. The skeletal structures are osteopenic. There is no radiographic evidence of acute fracture involving the hips or bony pelvis. Mild arthritic change is seen in the hips. There is mild degenerative sclerosis of the sacroiliac joints. Enthesophytes arise from the anterior superior iliac spines. Lumbosacral spondylosis is partially imaged. Metallic implants are noted in the prostate gland. Phleboliths are seen in the pelvis. There is advanced atherosclerotic calcification of the femoral arteries. IMPRESSION: No acute bony abnormality is identified. Electronically signed by: Madhav Hernandez M.D. 09/21/2022 7:39 PM Discharge Plan Visit Data Chief Complaint: Altered Mental Status Stated Complaint: PAIN LEFT HIP, INCREASED CONFUSION ED Provider: Bartolo Kaur Discharge Problem: Generalized weakness, Lyme borreliosis, Acute febrile illness, Thrombocytopenia Forms Stand Alone Forms: [facility] [place] Prescriptions Prescriptions: No Action Metamucil (sugar) powder 1.5 tsp PO DAILY clopidogrel 75 mg tablet 75 mg PO QAM Qty: 90 3RF atorvastatin 40 mg tablet 40 mg PO QAM 30 Days Qty: 90 3RF metoprolol tartrate 25 mg tablet 12.5 mg PO BID Qty: 90 3RF Rx Instructions: TAKE ONE-HALF TABLET BY MOUTH 2 TIMES DAILY prednisone 5 mg tablet 5 mg PO DAILY Qty: 90 1RF valsartan 80 mg tablet 80 mg PO DAILY Qty: 90 3RF nitroglycerin 0.4 mg tablet, sublingual 0.4 mg SL Q5M PRN (Reason: chest pain) Qty: 1 0RF multivitamin tablet 1 tab PO DAILY calcium carbonate 600 mg calcium (1,500 mg) tablet 1,200 mg PO DAILY carbidopa-levodopa 25-100 mg tablet 1.5 tab PO QID 90 Days Qty: 540 3RF omega-3 fatty acids 1,000 mg Capsule 2,000 mg PO DAILY PreserVision AREDS 2,148 mcg-113 mg-45 mg-17.4mg Tablet 1 tab PO DAILY Referrals Referrals: ProKiet MD [Primary Care Provider] -
[2022-09-21] MEDS ORDERED: SODIUM CHLORIDE 0.9% 1000ML 1,000 ML IV SCH (18:15)
[2022-09-21 19:03] LABS: Basophils # (auto) 0.01 K/uL (0-0.2); Basophils % (auto) 0.2 %; Hematocrit (blood only) 40.5 % (42.0-52.0); Hemoglobin 14.1 g/dl (14.0-18.0); Immature Granulocytes # (auto) 0.01 K/uL (0.01-0.20); Immature Granulocytes % (auto) 0.2 %; Lymphocytes # (auto) 0.39 K/uL (1.2-3.4); Lymphocytes % (auto) 9.2 %; Mean Corpuscular Hemoglobin 32.3 pg (25.0-34.0); Mean Corpuscular Hgb Conc 34.8 g/dL (32.0-36.0); Mean Corpuscular Volume 92.7 fL (80.0-100.0); Mean Platelet Volume 8.8 fL (9.4-12.4); Monocytes # (auto) 0.63 K/uL (0.11-0.59); Monocytes % (auto) 14.8 %; Neutrophils # (auto) 3.21 K/uL (1.40-6.50); Neutrophils % (auto) 75.6 %; Platelet Count 112 K/uL (130-400); RDW Coefficient of Variation 12.7 % (11.5-14.5); RDW Standard Deviation 43.1 fL (36.4-46.3); Red Blood Count 4.37 M/uL (4.70-6.10); White Blood Count 4.25 K/ul (4.8-10.8)
[2022-09-21 19:11] LABS: Alanine Aminotransferase 5 U/L (7-52); Albumin Level 4.5 gm/dl (3.4-5.0); Alkaline Phosphatase 51 U/L (34-104); Anion Gap 8 (3-11); Aspartate Aminotransferase 20 U/L (13-39); Bilirubin Direct 0.2 mg/dl (0-0.2); Bilirubin,Total 1.2 mg/dl (0.2-1.0); Blood Urea Nitrogen 17 mg/dl (6-23); Calcium 9.1 mg/dl (8.6-10.3); Carbon Dioxide 26 mmol/L (21-32); Chloride 98 mmol/L (98-107); Est GFR (African American) 78.6 ml/min; Est GFR (Non-African American) 67.8 ml/min; Glucose 105 mg/dl (70-99(Fasting)); Potassium 4.3 mmol/L (3.5-5.1); Sodium 132 mmol/L (136-145); Total Protein 7.8 gm/dl (6.0-8.3)
[2022-09-21 19:17] LABS: Troponin I High Sensitivity 9.1 pg/ml (0-20)
--- NOTE | 2022-09-21 19:34 | XRay Report ---
SINGLE VIEW CHEST CLINICAL HISTORY: Sepsis. FINDINGS: 2 AP, portable, upright chest radiographs are compared to study dated 07/01/2021. The examina tion is degraded by portable technique and patient rotation. The heart is mildly enlarged noting ath erosclerotic calcification of the thoracic aorta. The pulmonary vasculature is noncongested. Chronic interstitial thickening is similar to previous. There are left basilar opacities. No large pleural ef fusion or pneumothorax is seen. The skeletal structures are osteopenic. The bony thorax is grossly in tact. IMPRESSION: 1. Cardiomegaly without radiographic evidence of congestive failure. 2. Left basilar opacities could represent scarring/atelectasis versus a mild pneumonitis. Clinical co rrelation will be required and radiographic follow-up to resolution is recommended. ACT 112: Negative or not required by law. Electronically signed by: Madhav Hernandez M.D. 09/21/2022 7:33 PM
--- NOTE | 2022-09-21 19:40 | XRay Report ---
SINGLE VIEW PELVIS; 2 VIEWS LEFT HIP CLINICAL HISTORY: Left hip pain. FINDINGS: An AP view of the pelvis with AP and frog-leg views of the left hip are obtained. Compariso n is made to study dated 06/29/2015. The skeletal structures are osteopenic. There is no radiographic e vidence of acute fracture involving the hips or bony pelvis. Mild arthritic change is seen in the hip s. There is mild degenerative sclerosis of the sacroiliac joints. Enthesophytes arise from the anteri or superior iliac spines. Lumbosacral spondylosis is partially imaged. Metallic implants are noted in the prostate gland. Phleboliths are seen in the pelvis. There is advanced atherosclerotic calcificat ion of the femoral arteries. IMPRESSION: No acute bony abnormality is identified. Electronically signed by: Madhav Hernandez M.D. 09/21/2022 7:39 PM
[2022-09-21 20:05] LABS: Lyme Ab IgG w/WB Rflx Positive (Negative); Lyme Ab IgM w/WB Rflx Equivocal (Negative)
[2022-09-21 20:18] LABS: Appearance Urine Clear (Clear); Bacteria Urine Automated Negative (Negative); Bilirubin Urine Negative (Negative); Blood Urine Trace (Negative); Cast Urine Automated 0 /lpf (0-5); Color Urine Yellow; Glucose Urine UA Negative (Negative); Ketones Urine Trace (Negative); Leukocyte Esterase Urine Negative (Negative); Nitrite Urine Negative (Negative); Protein Urine Negative (Negative); Specific Gravity Urine 1.017 (1.000-1.030); Urobilinogen Urine Negative (Negative); pH Urine 7.5 (4.5-7.5)
[2022-09-21] MEDS ORDERED: cefTRIAXone SODIUM 2,000 MG/70 ML BAG IV STA (20:33)
--- NOTE | 2022-09-21 21:53 | History & Physical Report ---
Date of Service September 21, 2022 Assessment & Plan (1) Tick-borne disease: Plan: 87 yo male with PMHx parkinsons, HLD, CVA, HTN, inflammatory arthritis, and prostate cancer presents with fatigue and weakness. #Tick borne illness #1st degree heart block -presented with 1 wk worsening fatigue and weakness. Patient did spike a fever shortly after admission. Labs with leukopenia and thrombocytopenia. Anaplasmosis smear negative, DNA pending. Lyme IgG positive, IgM equivocal, western blot pending. EKG with new onset 1st degree heart block. Highly suspicious for anaplasmosis. Cannot exclude coinciding lyme especially with EKG findings. -CXR: left basilar opacities, may represent scarring/atelectasis versus a mild pneumonitis; procal neg -received rocephin in ED. Will switch to IV doxycycline. -blood cx pending -daily EKGs, monitor on tele -echo pending -monitor fever curve, tylenol prn -PT/OT #L hip pain, acute on chronic -Hip/pelvis XR: neg fx, mild arthritis changes in hips, mild degenerative sclerosis of SI joints -increased pain possibly 2/2 infection #Hyponatremia -Na 132 on admission. Suspect due to hypovolemia. Received 1L NSS in ED. Recheck bmp in am. #Blood in urine #Prostate cancer -urine RBC elevated however appears chronic. Without urinary symptoms. -follows with heme/onc and urology #Inflammatory arthritis, chronic -chronically on prednisone, alternates 2.5mg and 5mg daily -will stress dose prednisone 20mg daily for a few days with subsequent ween back to home dose #Parkinsons -cont. home sinemet #H/o CVA -cont. home plavix #HLD -cont. home statin #HTN -cont. home metoprolol, valsartan DVT ppx: lovenox FEN/GI: HH Code Status: conditional ([facility] only) Dispo: PCU (2) Parkinsons disease: (3) Prostate cancer: (4) HTN (hypertension): (5) Hypercholesterolemia: (6) Inflammatory arthropathy: (7) Cognitive impairment: History of Present Illness Chief Complaint: fatigue, weakness Primary Care Provider: Kiet Mabry MD 87 yo male with PMHx parkinsons, HLD, CVA, HTN, inflammatory arthritis, and prostate cancer presents with fatigue and weakness. at bedside. 1 week ago patient started developing worsening fatigue and generalized weakness most specifically in his left hip. Denies fevers, headache, chest pain, shortness of breath, abdominal pain, nausea, vomiting, diarrhea, constipation, dysuria. He is typically very active despite his Parkinson's and walks daily around his neighborhood but has had some difficulty over the past week. 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 does note a potential tick site behind his left ear however denies any obvious rashes or erythema migrans. Allergies Allergy/AdvReac Type Severity Reaction Status Date / Time No Known Allergies Allergy Verified 09/21/22 18:02 Home Medications Medication Instructions Recorded Confirmed Type multivitamin 1 tab PO DAILY 08/21/18 09/21/22 History psyllium seed (sugar) oral powder 1.5 tsp PO DAILY 09/16/18 09/21/22 History (Metamucil (sugar) oral powder) calcium carbonate 600 mg calcium 1,200 mg PO DAILY 12/22/18 09/21/22 History (1,500 mg) tablet nitroglycerin 0.4 mg sublingual 0.4 mg sublingual Q5M PRN chest 12/19/20 09/21/22 Rx tablet pain #1 tab clopidogrel 75 mg tablet 75 mg PO QAM #90 tabs 12/24/21 09/21/22 Rx atorvastatin 40 mg tablet 40 mg PO QAM 30 days #90 tabs 02/08/22 09/21/22 Rx metoprolol tartrate 25 mg tablet 12.5 mg PO BID #90 tabs 03/11/22 09/21/22 Rx prednisone 5 mg tablet 5 mg PO DAILY #90 tabs 04/01/22 09/21/22 Rx valsartan 80 mg tablet 80 mg PO DAILY #90 tabs 07/08/22 09/21/22 Rx carbidopa 25 mg-levodopa 100 mg 1.5 tab PO QID 90 days #540 tabs 08/15/22 09/21/22 Rx tablet omega-3 fatty acids 1,000 mg 2,000 mg PO DAILY 09/21/22 09/21/22 History capsule vitamins A,C,I-rqew-hvfhhu 2,148 1 tab PO DAILY 09/21/22 09/21/22 History mcg-113 mg-45 mg-17.4 mg tablet (PreserVision AREDS) Past Med/Surg History Medical History Arteriosclerosis of carotid artery Barretts esophagus Benign prostatic hyperplasia with elevated prostate specific antigen (PSA) HTN (hypertension) Hypercholesterolemia Parkinsons disease Parotiditis Prediabetes Right knee pain Severe sepsis Thrombocytopenia TIA (transient ischemic attack) Tremor Surgical History History of surgery S/P hemorrhoidectomy Family History Father Heart disease Hypertension Myocardial infarction Mother Heart disease Cancer Breast cancer Brother Diabetes Prostate cancer Denies family history of Ovarian cancer Colorectal cancer Social History Smoking Status: Former smoker Second Hand Exposure: No; Do You Dip or Chew Tobacco: No; Hx Alcohol Use: Yes Alcohol type: beer and wine Alcohol Intake Frequency: 4 or More x per/Week Alcohol Intake Frequency Comment: 1 drink per day Hx Substance Use: No Preferred Language: Serbian Communication Ability: Effective Visual Impairment: No Limitations Hearing Ability: Use of Hearing Aid Citrus [employer] Packer Required: No Beliefs That Will Affect Care: None marital status: Current Living Situation: Spouse current occupational status: retired 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 AOx3. Baseline mild dementia. Slow speaking. Vitals as above. HEENT: No scleral injection or discharge. Moist mucous membranes. Neck: Supple without lymphadenopathy or thyromegaly. Trachea midline. Lungs: Clear to auscultation bilaterally with good effort. No wheezes/rales/rhonchi. Cardiac: Regular rate and rhythm. No murmurs. No extremity edema. 2+ distal peripheral pulses. Abdomen: Bowel sounds present. Soft, nontender, and nondistended.No guarding. No hepatosplenomegaly. MSK: No cyanosis or clubbing. Extremities motor strength 5/5. Skin: No abnormal rashes, warm, dry. Possible tick bite site behind left ear without presence of erythema migrans. Neurologic: no focal deficits. PERRL. Results & Data Results & Data Vital Signs (Past 12 Hours) Vital Signs Temp Pulse Pulse Resp BP BP Pulse Ox 09/21/22 19:31 77 22 157/76 H 96 09/21/22 19:31 76 22 96 09/21/22 17:34 78 09/21/22 17:06 37.2 C 77 20 157/76 H 99 O2 Del Method 09/21/22 19:31 Room Air 09/21/22 19:31 Room Air 09/21/22 17:34 09/21/22 17:06 Room Air Laboratory Results Laboratory Results WBC 4.25 K/ul (4.8-10.8) L 09/21/22 18:21 RBC 4.37 M/uL (4.70-6.10) L 09/21/22 18:21 Hgb 14.1 g/dl (14.0-18.0) 09/21/22 18:21 Hct 40.5 % (42.0-52.0) L 09/21/22 18:21 MCV 92.7 fL (80.0-100.0) 09/21/22 18:21 MCH 32.3 pg (25.0-34.0) 09/21/22 18:21 MCHC 34.8 g/dL (32.0-36.0) 09/21/22 18:21 RDW Std Deviation 43.1 fL (36.4-46.3) 09/21/22 18:21 RDW Coeff of Peyton 12.7 % (11.5-14.5) 09/21/22 18:21 Plt Count 112 K/uL (130-400) L 09/21/22 18:21 MPV 8.8 fL (9.4-12.4) L 09/21/22 18:21 Immature Gran % (Auto) 0.2 % 09/21/22 18:21 Neut % (Auto) 75.6 % 09/21/22 18:21 Lymph % (Auto) 9.2 % 09/21/22 18:21 [place] % (Auto) 14.8 % 09/21/22 18:21 Eos % (Auto) 0.0 % 09/21/22 18:21 Baso % (Auto) 0.2 % 09/21/22 18:21 Neut # (Auto) 3.21 K/uL (1.40-6.50) 09/21/22 18:21 Lymph # (Auto) 0.39 K/uL (1.2-3.4) L 09/21/22 18:21 [place] # (Auto) 0.63 K/uL (0.11-0.59) H 09/21/22 18:21 Eos # (Auto) 0.00 K/uL (0-0.50) 09/21/22 18:21 Baso # (Auto) 0.01 K/uL (0-0.2) 09/21/22 18:21 Immature Gran # (Auto) 0.01 K/uL (0.01-0.20) 09/21/22 18:21 Sodium 132 mmol/L (136-145) L 09/21/22 18:21 Potassium 4.3 mmol/L (3.5-5.1) 09/21/22 18:21 Chloride 98 mmol/L (98-107) 09/21/22 18:21 Carbon Dioxide 26 mmol/L (21-32) 09/21/22 18:21 Anion Gap 8 (3-11) 09/21/22 18:21 BUN 17 mg/dl (6-23) 09/21/22 18:21 Creatinine 1.00 mg/dl (0.6-1.4) 09/21/22 18:21 Est Cr Clr Drug Dosing Not Reportable 09/21/22 18:21 Est GFR ( Amer) 78.6 ml/min 09/21/22 18:21 Est GFR (Non-Af Amer) 67.8 ml/min 09/21/22 18:21 BUN/Creatinine Ratio 17.0 (10-20) 09/21/22 18:21 Glucose 105 mg/dl (70-99(Fasting)) H 09/21/22 18:21 POC Glucose 96 mg/dl (70-99) 09/21/22 19:25 Lactate 1.0 mmol/L (0.4-2.0) 09/21/22 19:37 Calcium 9.1 mg/dl (8.6-10.3) 09/21/22 18:21 Magnesium 2.0 mg/dl (1.7-2.4) 09/21/22 18:21 Total Bilirubin 1.2 mg/dl (0.2-1.0) H 09/21/22 18:21 Direct Bilirubin 0.2 mg/dl (0-0.2) 09/21/22 18:21 AST 20 U/L (13-39) 09/21/22 18:21 ALT 5 U/L (7-52) L 09/21/22 18:21 Alkaline Phosphatase 51 U/L (34-104) 09/21/22 18:21 Troponin I High Sens 9.1 pg/ml (0-20) 09/21/22 18:21 Total Protein 7.8 gm/dl (6.0-8.3) 09/21/22 18:21 Albumin 4.5 gm/dl (3.4-5.0) 09/21/22 18:21 Procalcitonin 0.07 ng/ml (0-0.5) 09/21/22 18:21 Urine Color Yellow 09/21/22 20:09 Urine Appearance Clear (Clear) 09/21/22 20:09 Urine pH 7.5 (4.5-7.5) 09/21/22 20:09 Ur Specific Thayne 1.017 (1.000-1.030) 09/21/22 20:09 Urine Protein Negative (Negative) 09/21/22 20:09 Urine Glucose (UA) Negative (Negative) 09/21/22 20:09 Urine Ketones Trace (Negative) H 09/21/22 20:09 Urine Blood Trace (Negative) H 09/21/22 20:09 Urine Nitrite Negative (Negative) 09/21/22 20:09 Urine Bilirubin Negative (Negative) 09/21/22 20:09 Urine Urobilinogen Negative (Negative) 09/21/22 20:09 Ur Leukocyte Esterase Negative (Negative) 09/21/22 20:09 Urine WBC (Auto) 1-5 /hpf (0-5) 09/21/22 20:09 Urine RBC (Auto) 10-30 /hpf (0-4) H 09/21/22 20:09 U Hyaline Cast (Auto) 0 /lpf (0-5) 09/21/22 20:09 U Epithel Cells (Auto) 10-20 /lpf (0-5) H 09/21/22 20:09 Urine Bacteria (Auto) Negative (Negative) 09/21/22 20:09 Anaplasma Smear See Comment 09/21/22 18:21 Lyme Disease IgG Ab Positive (Negative) A 09/21/22 18:21 Lyme Disease IgM Ab Equivocal (Negative) A 09/21/22 18:21 SARS-CoV-2, RNA, NAAT NEGATIVE (NEGATIVE) 09/21/22 19:36 Impressions Chest X-Ray 09/21/22 18:08 SINGLE VIEW CHEST CLINICAL HISTORY: Sepsis. FINDINGS: 2 AP, portable, upright chest radiographs are compared to study dated 07/01/2021. The examination is degraded by portable technique and patient rotation. The heart is mildly enlarged noting atherosclerotic calcification of the thoracic aorta. The pulmonary vasculature is noncongested. Chronic interstitial thickening is similar to previous. There are left basilar opacities. No large pleural effusion or pneumothorax is seen. The skeletal structures are osteopenic. The bony thorax is grossly intact. IMPRESSION: 1. Cardiomegaly without radiographic evidence of congestive failure. 2. Left basilar opacities could represent scarring/atelectasis versus a mild pneumonitis. Clinical correlation will be required and radiographic follow-up to resolution is recommended. ACT 112: Negative or not required by law. Electronically signed by: Madhav Hernandez M.D. 09/21/2022 7:33 PM Hip/Pelvis X-Ray 09/21/22 18:08 SINGLE VIEW PELVIS; 2 VIEWS LEFT HIP CLINICAL HISTORY: Left hip pain. FINDINGS: An AP view of the pelvis with AP and frog-leg views of the left hip are obtained. Comparison is made to study dated 06/29/2015. The skeletal structures are osteopenic. There is no radiographic evidence of acute fracture involving the hips or bony pelvis. Mild arthritic change is seen in the hips. There is mild degenerative sclerosis of the sacroiliac joints. Enthesophytes arise from the anterior superior iliac spines. Lumbosacral spondylosis is partially imaged. Metallic implants are noted in the prostate gland. Phleboliths are seen in the pelvis. There is advanced atherosclerotic calcification of the femoral arteries. IMPRESSION: No acute bony abnormality is identified. Electronically signed by: Madhav Hernandez M.D. 09/21/2022 7:39 PM Code Status & VTE Plan VTE Prophylaxis Plan VTE Prophylaxis will be ordered: Yes Supervising Physician Co-Signing Physician Notes I personally examined the patient and verified all villa points of history and exam, discussed case, and agree with decision making with Dr. Phan with the following additions/exceptions: S-this patient is an 87-year-old male who presents to the ER with 1 week of fatigue, left hip pain, and generalized weakness. Found to again be positive for Lyme IgG and equivocal for Lyme IgM. Also with leukopenia and thrombocytopenia. He had a fever in the ER and was dehydrated. History and ROS reviewed otherwise as above O- Vitals reviewed Gen: Drowsy but wakes up and answers questions appropriately, NAD HEENT: Anicteric sclerae, EOMI CV: RRR no mgr nl S1S2 Pulm: Positive rhonchi left middle lung field, cleared with deep inspiration, otherwise clear Abd: +BS soft NT ND no masses or hernias Ext: No edema, 2+ DP pulses Skin: No rashes, warm/dry Neuro: Full strength throughout CBC, CMP, magnesium, troponin, procalcitonin, urinalysis all reviewed Anaplasma smear and Lyme titer reviewed ECG reviewed with first-degree AV block X-rays of hip and chest reviewed [id number] male here with tickborne infection and fever with generalized weakness and left hip pain, likely Lyme disease +/- anaplasmosis given thrombocytopenia and leukopenia along with fevers and positive Lyme titer -Admit and start on doxycycline -Echocardiogram ordered given new first-degree AV block and Lyme disease -Continue other home medications as before Plan otherwise outlined as above Resident Activity Tracking Resident Involvement: Resident Care Provided Care Provided: Adult Hospital Medicine
[2022-09-21] MEDS ORDERED: ACETAMINOPHEN 500 MG TAB PO STA (21:59)
[2022-09-21] MEDS ORDERED: DOXYCYCLINE HYCLATE 100 MG in DEXTROSE 5% 100 ML IV STA (23:08)
[2022-09-22] MEDS ORDERED: CARBIDOPA/LEVODOPA 25/100MG TAB PO ONE (00:54)
[2022-09-22] MEDS ORDERED: predniSONE 20 MG TAB PO STA (00:57)
--- NOTE | 2022-09-22 01:56 | Billing Data ---
Date of Service September 21, 2022 Coding Level of Care Code 25150 INT INP/OBS CARE
[2022-09-22] MEDS ORDERED: ONDANSETRON 4 MG OD TAB PO PRN (02:18)
[2022-09-22] MEDS ORDERED: POLYETHYLENE (MIRALAX) 17 GM PACK PO PRN (02:18)
[2022-09-22] MEDS ORDERED: ACETAMINOPHEN 325 MG TAB PO PRN (02:18)
[2022-09-22] MEDS ORDERED: NITROGLYCERIN SL 0.4 MG/TAB TAB SL PRN (02:18)
[2022-09-22] MEDS: ENOXAPARIN INJ 40 MG/0.4 ML SYR SQ SCH (03:52)
[2022-09-22 06:00] LABS: Basophils # (auto) 0.01 K/uL (0-0.2); Basophils % (auto) 0.2 %; Hematocrit (blood only) 40.5 % (42.0-52.0); Hemoglobin 14.1 g/dl (14.0-18.0); Immature Granulocytes # (auto) 0.02 K/uL (0.01-0.20); Immature Granulocytes % (auto) 0.4 %; Lymphocytes # (auto) 0.34 K/uL (1.2-3.4); Lymphocytes % (auto) 7.3 %; Mean Corpuscular Hemoglobin 31.8 pg (25.0-34.0); Mean Corpuscular Hgb Conc 34.8 g/dL (32.0-36.0); Mean Corpuscular Volume 91.2 fL (80.0-100.0); Monocytes # (auto) 0.42 K/uL (0.11-0.59); Neutrophils # (auto) 3.88 K/uL (1.40-6.50); Neutrophils % (auto) 83.1 %; Platelet Count 102 K/uL (130-400); RDW Coefficient of Variation 12.6 % (11.5-14.5); RDW Standard Deviation 41.5 fL (36.4-46.3); Red Blood Count 4.44 M/uL (4.70-6.10); White Blood Count 4.67 K/ul (4.8-10.8)
[2022-09-22 06:10] LABS: Albumin Globulin Ratio 1.2 (0.9-2); Albumin Level 4.1 gm/dl (3.4-5.0); BUN Creatinine Ratio 16.3 (10-20); C Reactive Protein 1.88 mg/dl (0-0.5); Calcium 8.7 mg/dl (8.6-10.3); Est GFR (African American) 93.8 ml/min; Est GFR (Non-African American) 80.9 ml/min; Globulin 3.4 gm/dl (2.5-4.0); Total Protein 7.5 gm/dl (6.0-8.3)
[2022-09-22] MEDS ORDERED: NON-FORMULARY MEDICATION (Vitamins A,C,E-Zinc-Copper [Preservision Areds] 2,148 mcg-113 mg PO SCH (09:00)
[2022-09-22] MEDS: CARBIDOPA/LEVODOPA 25/100MG TAB PO SCH ×4 (09:54→20:35)
[2022-09-22] MEDS: ATORVASTATIN 40 MG TAB PO SCH (09:55)
[2022-09-22] MEDS: VALSARTAN 80 MG TAB PO SCH (09:55)
[2022-09-22] MEDS: METOPROLOL TARTRATE 25 MG TAB PO SCH ×2 (09:55→20:34)
[2022-09-22] MEDS: predniSONE 20 MG TAB PO SCH (09:55)
[2022-09-22] MEDS: CLOPIDOGREL BISULFATE 75 MG TAB PO SCH (09:55)
[2022-09-22] MEDS: CALCIUM CARBONATE 1250MG TAB PO SCH (09:55)
[2022-09-22] MEDS: CEROVITE ADV FORMULA TAB PO SCH (09:56)
[2022-09-22] MEDS: OMEGA-3 (PURIFIED FISH OIL) 1 GM CAP PO SCH (09:56)
[2022-09-22] MEDS: PSYLLIUM or GUAR GUM FIBER POWDER PACKET PO SCH (09:56)
--- NOTE | 2022-09-22 11:14 | Electrocardiogram Report ---
Test Reason : Blood Pressure : / mmHG Vent. Rate : 086 BPM Atrial Rate : 086 BPM P-R Int : 224 ms QRS Dur : 110 ms QT Int : 354 ms P-R-T Axes : 094 063 049 degrees QTc Int : 423 ms Sinus rhythm with 1st degree A-V block Incomplete right bundle branch block Borderline ECG When compared with ECG of 01-JUL-2021 07:50, [place] interval has increased Incomplete right bundle branch block is present Confirmed by Chester Lopez ([id number]) on 09/22/2022 11:14:22 AM Referred By: REFERRED SELF Confirmed By:Chester Lopez
[2022-09-22] MEDS: DOXYCYCLINE HYCLATE 100 MG in DEXTROSE 5% 100 ML IV SCH (11:28)
--- NOTE | 2022-09-22 12:58 | Hospitalist Progress Note ---
Date of Service September 22, 2022 Assessment & Plan (1) Tick-borne disease: Plan: clinical presentation, labs, etc concerning for tick-borne disease and in particular anaplasmosis. other possibility is that of a viral process given the mild leukopenia and mild thrombocytopenia. 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 anaplasmosis DNA test is pending. Lyme Western Blot is pending. while awaiting confirmatory testing continue empiric doxycycline IV. can likely change to PO formulation tomorrow. if WBC count, platelet count, or clinical status worsen consider adding additional serologies including ehrlichia titer, mono/CMV/parvo testing, etc. repeat CBC in am. cont supportive care. 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) typically on alternating doses of prednisone 2.5mg and 5mg day to day at home currently on a small amount of stress dosing with prednisone 20mg daily cont 20mg/day today/tomorrow, then begin weaning thereafter no evidence of any inflammatory arthropathy flare at this time (7) Cognitive impairment: Plan: known diagnosis mental status intact today (8) Positive Lyme disease serology: Plan: patient has had Lyme disease in the past at this time it is unclear if he has recurrent Lyme infection or if Lyme screen positivity is indicative of old infection await Western blot he will continue on doxycycline for #1 regardless (9) Leukopenia: Plan: likely 2nd to #1 repeat cbc am (10) Thrombocytopenia: Plan: likely 2nd to #1 repeat cbc am (11) History of TIA (transient ischemic attack): Plan: noted cont plavix for secondary prevention (12) DVT prophylaxis: Plan: lovenox once daily (13) Hyponatremia: Plan: 2nd to volume depletion from infection improved s/p IV fluids he is now eating/drinking well stop IV fluids presenting Na level was 132 now 133 repeat BMP am cont stress dose steroids as noted above (14) Constipation: Plan: add miralax daily to his usual fiber supplement Plan updated by phone this evening await PT/OT gwendolyn suspect he will be ready for d/c in the next 1-2 days Admission and Anticipated Discharge Date Admission Date: September 21, 2022 Subjective patient feeling much better today body aches are improved no fever today no chills appetite improved energy increasing asks when he can go home feels a little constipated despite use of his daily fiber supplement denies cough or dyspnea tele overnight wnl staff report no major concerns he is fairly steady on his feet and his walking is quite good Review of Systems Review of Systems: gen - no further fever; no chills cv - no chest pain pulm - no dyspnea, no REYNA GI - no nausea/emesis/abd pain musculo - myalgias improved; left shoulder and left hip pain - chronic - pain is at baseline Physical Exam Physical Exam: gen - eating his meal, looks well mouth - MMM neck - no JVD heart - RRR, s1 s2, no murmur lungs - CTA b/l abd - soft NT ND BS+; no HSM ext - no edema, pulses 2+ b/l psych - a/o x 3 musculo - no active synovitis of any small or large joint; left hip with decreased passive ROM; left shoulder with mild crepitus with passive ROM Results & Data Results & Data Vital Signs (Past 12 Hours) Vital Signs Temp Pulse Pulse Pulse Resp BP Pulse Ox 09/22/22 11:01 36.7 C 77 18 161/72 H 99 09/22/22 08:03 69 09/22/22 07:22 36.9 C 74 22 150/72 H 96 09/22/22 03:44 36.6 C 67 18 133/64 98 09/22/22 02:28 37 C 69 18 127/60 98 O2 Del Method 09/22/22 11:01 Room Air 09/22/22 08:03 09/22/22 07:22 Room Air 09/22/22 03:44 Room Air 09/22/22 02:28 Room Air Laboratory Results Laboratory Results - last 24 hr 09/21/22 09/21/22 09/21/22 18:21 18:21 18:21 WBC 4.25 L RBC 4.37 L Hgb 14.1 Hct 40.5 L MCV 92.7 MCH 32.3 MCHC 34.8 RDW Std Deviation 43.1 RDW Coeff of Peyton 12.7 Plt Count 112 L MPV 8.8 L Immature Gran % (Auto) 0.2 Neut % (Auto) 75.6 Lymph % (Auto) 9.2 Lake % (Auto) 14.8 Eos % (Auto) 0.0 Baso % (Auto) 0.2 Neut # (Auto) 3.21 Lymph # (Auto) 0.39 L Lake # (Auto) 0.63 H Eos # (Auto) 0.00 Baso # (Auto) 0.01 Immature Gran # (Auto) 0.01 ESR Sodium 132 L Potassium 4.3 Chloride 98 Carbon Dioxide 26 Anion Gap 8 BUN 17 Creatinine 1.00 Est Cr Clr Drug Dosing Not Reportable Est GFR ( Amer) 78.6 Est GFR (Non-Af Amer) 67.8 BUN/Creatinine Ratio 17.0 Glucose 105 H POC Glucose Lactate Calcium 9.1 Magnesium 2.0 Total Bilirubin 1.2 H Direct Bilirubin 0.2 AST 20 ALT 5 L Alkaline Phosphatase 51 Total Creatine Kinase Troponin I High Sens 9.1 C-Reactive Protein Total Protein 7.8 Albumin 4.5 Globulin Albumin/Globulin Ratio Procalcitonin 0.07 TSH Urine Color Urine Appearance Urine pH Ur Specific [place] Urine Protein Urine Glucose (UA) Urine Ketones Urine Blood Urine Nitrite Urine Bilirubin Urine Urobilinogen Ur Leukocyte Esterase Urine WBC (Auto) Urine RBC (Auto) U Hyaline Cast (Auto) U Epithel Cells (Auto) Urine Bacteria (Auto) Anaplasma Smear See Comment A. phagocytophilum DNA Lyme Disease IgG Ab Lyme IgG (Western Blot) Lyme IgG 18 kDa Band Lyme IgG 23 kDa Band Lyme IgG 28 kDa Band Lyme IgG 30 kDa Band Lyme IgG 39 kDa Band Lyme IgG 41 kDa Band Lyme IgG 45 kDa Band Lyme IgG 58 kDa Band Lyme IgG 66 kDa Band Lyme IgG 93 kDa Band Lyme IgM Ab (WB) Lyme Disease IgM Ab Lyme IgM 23 kDa Band Lyme IgM 39 kDa Band Lyme IgM 41 kDa Band SARS-CoV-2, RNA, NAAT 09/21/22 09/21/22 09/21/22 18:21 18:21 19:25 WBC RBC Hgb Hct MCV MCH MCHC RDW Std Deviation RDW Coeff of Peyton Plt Count MPV Immature Gran % (Auto) Neut % (Auto) Lymph % (Auto) Lake % (Auto) Eos % (Auto) Baso % (Auto) Neut # (Auto) Lymph # (Auto) Lake # (Auto) Eos # (Auto) Baso # (Auto) Immature Gran # (Auto) ESR Sodium Potassium Chloride Carbon Dioxide Anion Gap BUN Creatinine Est Cr Clr Drug Dosing Est GFR ( Amer) Est GFR (Non-Af Amer) BUN/Creatinine Ratio Glucose POC Glucose 96 Lactate Calcium Magnesium Total Bilirubin Direct Bilirubin AST ALT Alkaline Phosphatase Total Creatine Kinase Troponin I High Sens C-Reactive Protein Total Protein Albumin Globulin Albumin/Globulin Ratio Procalcitonin TSH Urine Color Urine Appearance Urine pH Ur Specific [place] Urine Protein Urine Glucose (UA) Urine Ketones Urine Blood Urine Nitrite Urine Bilirubin Urine Urobilinogen Ur Leukocyte Esterase Urine WBC (Auto) Urine RBC (Auto) U Hyaline Cast (Auto) U Epithel Cells (Auto) Urine Bacteria (Auto) Anaplasma Smear A. phagocytophilum DNA Lyme Disease IgG Ab Positive A Lyme IgG (Western Blot) Pending Lyme IgG 18 kDa Band Pending Lyme IgG 23 kDa Band Pending Lyme IgG 28 kDa Band Pending Lyme IgG 30 kDa Band Pending Lyme IgG 39 kDa Band Pending Lyme IgG 41 kDa Band Pending Lyme IgG 45 kDa Band Pending Lyme IgG 58 kDa Band Pending Lyme IgG 66 kDa Band Pending Lyme IgG 93 kDa Band Pending Lyme IgM Ab (WB) Pending Lyme Disease IgM Ab Equivocal A Lyme IgM 23 kDa Band Pending Lyme IgM 39 kDa Band Pending Lyme IgM 41 kDa Band Pending SARS-CoV-2, RNA, NAAT 09/21/22 09/21/22 09/21/22 19:36 19:37 20:09 WBC RBC Hgb Hct MCV MCH MCHC RDW Std Deviation RDW Coeff of Peyton Plt Count MPV Immature Gran % (Auto) Neut % (Auto) Lymph % (Auto) Lake % (Auto) Eos % (Auto) Baso % (Auto) Neut # (Auto) Lymph # (Auto) Lake # (Auto) Eos # (Auto) Baso # (Auto) Immature Gran # (Auto) ESR Sodium Potassium Chloride Carbon Dioxide Anion Gap BUN Creatinine Est Cr Clr Drug Dosing Est GFR ( Amer) Est GFR (Non-Af Amer) BUN/Creatinine Ratio Glucose POC Glucose Lactate 1.0 Calcium Magnesium Total Bilirubin Direct Bilirubin AST ALT Alkaline Phosphatase Total Creatine Kinase Troponin I High Sens C-Reactive Protein Total Protein Albumin Globulin Albumin/Globulin Ratio Procalcitonin TSH Urine Color Yellow Urine Appearance Clear Urine pH 7.5 Ur Specific [place] 1.017 Urine Protein Negative Urine Glucose (UA) Negative Urine Ketones Trace H Urine Blood Trace H Urine Nitrite Negative Urine Bilirubin Negative Urine Urobilinogen Negative Ur Leukocyte Esterase Negative Urine WBC (Auto) 1-5 Urine RBC (Auto) 10-30 H U Hyaline Cast (Auto) 0 U Epithel Cells (Auto) 10-20 H Urine Bacteria (Auto) Negative Anaplasma Smear A. phagocytophilum DNA Lyme Disease IgG Ab Lyme IgG (Western Blot) Lyme IgG 18 kDa Band Lyme IgG 23 kDa Band Lyme IgG 28 kDa Band Lyme IgG 30 kDa Band Lyme IgG 39 kDa Band Lyme IgG 41 kDa Band Lyme IgG 45 kDa Band Lyme IgG 58 kDa Band Lyme IgG 66 kDa Band Lyme IgG 93 kDa Band Lyme IgM Ab (WB) Lyme Disease IgM Ab Lyme IgM 23 kDa Band Lyme IgM 39 kDa Band Lyme IgM 41 kDa Band SARS-CoV-2, RNA, NAAT NEGATIVE 09/22/22 09/22/22 09/22/22 04:57 04:57 04:57 WBC 4.67 L RBC 4.44 L Hgb 14.1 Hct 40.5 L MCV 91.2 MCH 31.8 MCHC 34.8 RDW Std Deviation 41.5 RDW Coeff of Peyton 12.6 Plt Count 102 L MPV 9.0 L Immature Gran % (Auto) 0.4 Neut % (Auto) 83.1 Lymph % (Auto) 7.3 Lake % (Auto) 9.0 Eos % (Auto) 0.0 Baso % (Auto) 0.2 Neut # (Auto) 3.88 Lymph # (Auto) 0.34 L Lake # (Auto) 0.42 Eos # (Auto) 0.00 Baso # (Auto) 0.01 Immature Gran # (Auto) 0.02 ESR 21 H Sodium Potassium Chloride Carbon Dioxide Anion Gap BUN Creatinine Est Cr Clr Drug Dosing Est GFR ( Amer) Est GFR (Non-Af Amer) BUN/Creatinine Ratio Glucose POC Glucose Lactate Calcium Magnesium Total Bilirubin Direct Bilirubin AST ALT Alkaline Phosphatase Total Creatine Kinase Troponin I High Sens C-Reactive Protein Total Protein Albumin Globulin Albumin/Globulin Ratio Procalcitonin TSH Urine Color Urine Appearance Urine pH Ur Specific [place] Urine Protein Urine Glucose (UA) Urine Ketones Urine Blood Urine Nitrite Urine Bilirubin Urine Urobilinogen Ur Leukocyte Esterase Urine WBC (Auto) Urine RBC (Auto) U Hyaline Cast (Auto) U Epithel Cells (Auto) Urine Bacteria (Auto) Anaplasma Smear A. phagocytophilum DNA Pending Lyme Disease IgG Ab Lyme IgG (Western Blot) Lyme IgG 18 kDa Band Lyme IgG 23 kDa Band Lyme IgG 28 kDa Band Lyme IgG 30 kDa Band Lyme IgG 39 kDa Band Lyme IgG 41 kDa Band Lyme IgG 45 kDa Band Lyme IgG 58 kDa Band Lyme IgG 66 kDa Band Lyme IgG 93 kDa Band Lyme IgM Ab (WB) Lyme Disease IgM Ab Lyme IgM 23 kDa Band Lyme IgM 39 kDa Band Lyme IgM 41 kDa Band SARS-CoV-2, RNA, NAAT 09/22/22 09/22/22 04:57 04:57 WBC RBC Hgb Hct MCV MCH MCHC RDW Std Deviation RDW Coeff of Peyton Plt Count MPV Immature Gran % (Auto) Neut % (Auto) Lymph % (Auto) Lake % (Auto) Eos % (Auto) Baso % (Auto) Neut # (Auto) Lymph # (Auto) Lake # (Auto) Eos # (Auto) Baso # (Auto) Immature Gran # (Auto) ESR Sodium 133 L Potassium 4.0 Chloride 101 Carbon Dioxide 23 Anion Gap 9 BUN 13 Creatinine 0.80 Est Cr Clr Drug Dosing 62.0 Est GFR ( Amer) 93.8 Est GFR (Non-Af Amer) 80.9 BUN/Creatinine Ratio 16.3 Glucose 138 H POC Glucose Lactate Calcium 8.7 Magnesium 2.0 Total Bilirubin 1.0 Direct Bilirubin AST 20 ALT 4 L Alkaline Phosphatase 46 Total Creatine Kinase 54 Troponin I High Sens C-Reactive Protein 1.88 H Total Protein 7.5 Albumin 4.1 Globulin 3.4 Albumin/Globulin Ratio 1.2 Procalcitonin TSH 0.747 Urine Color Urine Appearance Urine pH Ur Specific [place] Urine Protein Urine Glucose (UA) Urine Ketones Urine Blood Urine Nitrite Urine Bilirubin Urine Urobilinogen Ur Leukocyte Esterase Urine WBC (Auto) Urine RBC (Auto) U Hyaline Cast (Auto) U Epithel Cells (Auto) Urine Bacteria (Auto) Anaplasma Smear A. phagocytophilum DNA Lyme Disease IgG Ab Lyme IgG (Western Blot) Lyme IgG 18 kDa Band Lyme IgG 23 kDa Band Lyme IgG 28 kDa Band Lyme IgG 30 kDa Band Lyme IgG 39 kDa Band Lyme IgG 41 kDa Band Lyme IgG 45 kDa Band Lyme IgG 58 kDa Band Lyme IgG 66 kDa Band Lyme IgG 93 kDa Band Lyme IgM Ab (WB) Lyme Disease IgM Ab Lyme IgM 23 kDa Band Lyme IgM 39 kDa Band Lyme IgM 41 kDa Band SARS-CoV-2, RNA, NAAT PG Care Time/CCT Total # of Minutes Spent Total Time Spent with Patient: Total time spent is greater than 50% in coordination of care (as documented) at patient's floor/unit and/or counseling patient: Coding Level of Care Code 83344 SUB INP/OBS CARE 3/50MIN Diagnoses Tick-borne disease B88.2 Parkinsons disease G20 Prostate cancer C61 HTN (hypertension) I10 Hypercholesterolemia E78.00 Inflammatory arthropathy M19.90 Cognitive impairment R41.89 Positive Lyme disease serology R76.8 Leukopenia D72.819 Thrombocytopenia D69.6 History of TIA (transient ischemic attack) Z86.73 DVT prophylaxis Z29.9 Hyponatremia E87.1 Constipation K59.00
[2022-09-23] MEDS: DOXYCYCLINE HYCLATE 100 MG in DEXTROSE 5% 100 ML IV SCH ×2 (00:13→11:27)
[2022-09-23] MEDS: ENOXAPARIN INJ 40 MG/0.4 ML SYR SQ SCH (06:16)
[2022-09-23 06:30] LABS: Basophils # (auto) 0.01 K/uL (0-0.2); Basophils % (auto) 0.2 %; Eosinophils # (auto) 0.01 K/uL (0-0.50); Eosinophils % (auto) 0.2 %; Hematocrit (blood only) 37.3 % (42.0-52.0); Immature Granulocytes # (auto) 0.02 K/uL (0.01-0.20); Immature Granulocytes % (auto) 0.3 %; Mean Corpuscular Hemoglobin 31.9 pg (25.0-34.0); Mean Corpuscular Hgb Conc 34.9 g/dL (32.0-36.0); Mean Corpuscular Volume 91.4 fL (80.0-100.0); Mean Platelet Volume 9.1 fL (9.4-12.4); Monocytes # (auto) 1.21 K/uL (0.11-0.59); Monocytes % (auto) 19.5 %; Neutrophils # (auto) 3.64 K/uL (1.40-6.50); Neutrophils % (auto) 58.8 %; Platelet Count 125 K/uL (130-400); RDW Coefficient of Variation 12.6 % (11.5-14.5); Red Blood Count 4.08 M/uL (4.70-6.10); White Blood Count 6.19 K/ul (4.8-10.8)
[2022-09-23 06:43] LABS: BUN Creatinine Ratio 23.9 (10-20); Creatinine Clr Calc Pharmacy 50.4 ml/min; Est GFR (African American) 90.1 ml/min; Est GFR (Non-African American) 77.8 ml/min
[2022-09-23] MEDS: ATORVASTATIN 40 MG TAB PO SCH (08:55)
[2022-09-23] MEDS: CARBIDOPA/LEVODOPA 25/100MG TAB PO SCH ×3 (08:56→16:24)
[2022-09-23] MEDS: CLOPIDOGREL BISULFATE 75 MG TAB PO SCH (08:56)
[2022-09-23] MEDS: CALCIUM CARBONATE 1250MG TAB PO SCH (08:56)
[2022-09-23] MEDS: OMEGA-3 (PURIFIED FISH OIL) 1 GM CAP PO SCH (08:57)
[2022-09-23] MEDS: CEROVITE ADV FORMULA TAB PO SCH (08:57)
[2022-09-23] MEDS: METOPROLOL TARTRATE 25 MG TAB PO SCH (08:57)
[2022-09-23] MEDS: PSYLLIUM or GUAR GUM FIBER POWDER PACKET PO SCH (08:58)
[2022-09-23] MEDS: VALSARTAN 80 MG TAB PO SCH (08:58)
[2022-09-23] MEDS: predniSONE 20 MG TAB PO SCH (08:58)
[2022-09-23] MEDS ORDERED: POLYETHYLENE (MIRALAX) 17 GM PACK PO SCH (09:00)
[2022-09-23 12:14] VITALS: BP 93/53; TEMP 97.9; O2SAT 98
--- NOTE | 2022-09-23 16:42 | Discharge Summary ---
Date of Service September 23, 2022 Admission HPI Per Admitting Provider 87 yo male with PMHx parkinsons, HLD, CVA, HTN, inflammatory arthritis, and prostate cancer presents with fatigue and weakness. at bedside. 1 week ago patient started developing worsening fatigue and generalized weakness most specifically in his left hip. Denies fevers, headache, chest pain, shortness of breath, abdominal pain, nausea, vomiting, diarrhea, constipation, dysuria. He is typically very active despite his Parkinson's and walks daily around his neighborhood but has had some difficulty over the past week. 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 does note a potential tick site behind his left ear however denies any obvious rashes or erythema migrans. Principal Diagnosis weakness, possible lyme disease Discharge Exam The patient is awake, alert and oriented 3, well developed and well nourished, normocephalic and atraumatic, lying in bed and in no acute distress. HEENT--PERRL, EOMI, mucous membranes and oropharynx mildly dry Neck--supple. No JVD. No bruits. Thyroid normal, trachea midline, no ad enopathy. Heart--normal S1 and S2. No murmurs, rubs or gallops. Lungs--clear bilaterally, no respiratory distress, no accessory muscle use. Abdomen--normal bowel sounds and soft. Mild epigastric and left sided abdominal pain Extremities--no cyanosis or clubbing. No edema. Dermatologic--normal skin turgor, normal color, no abnormal lymph nodes, no rash. Neurologic--cranial nerves II through XII grossly intact. Rheumatologic--normal range of motion. Psychiatric--normal affect. Discharge Data Allergies Allergy/AdvReac Type Severity Reaction Status Date / Time No Known Allergies Allergy Verified 09/21/22 18:02 Hospital Course (1) Tick-borne disease: clinical presentation, labs, etc concerning for tick-borne disease and in particular anaplasmosis. other possibility is that of a viral process given the mild leukopenia and mild thrombocytopenia. 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 anaplasmosis DNA test is pending. Lyme Western Blot is pending. 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) typically on alternating doses of prednisone 2.5mg and 5mg day to day at home currently on a small amount of stress dosing with prednisone 20mg daily cont 20mg/day today/tomorrow, then begin weaning thereafter no evidence of any inflammatory arthropathy flare at this time (7) Cognitive impairment: known diagnosis mental status intact today (8) Positive Lyme disease serology: patient has had Lyme disease in the past at this time it is unclear if he has recurrent Lyme infection or if Lyme screen positivity is indicative of old infection await Western blot he will continue on doxycycline for #1 regardless (9) Leukopenia: likely 2nd to #1 repeat cbc am (10) Thrombocytopenia: likely 2nd to #1 repeat cbc am (11) History of TIA (transient ischemic attack): noted cont plavix for secondary prevention (12) DVT prophylaxis: lovenox once daily (13) Hyponatremia: 2nd to volume depletion from infection improved s/p IV fluids he is now eating/drinking well stop IV fluids presenting Na level was 132 now 133 repeat BMP am cont stress dose steroids as noted above (14) Constipation: add miralax daily to his usual fiber supplement Plan d/c home Total Time Total Time Spent Total Time Spent (In Minutes): 35 Discharge Plan Discharge Items Patient Disposition: Home - Self-Care Reason For Visit: FATIGUE, WEAKNESS Discharge Diagnosis: Fatigue, possible lyme disease Activity: Resume your previous activity Non-emergency contact: Primary Care Provider Call non-emergency contact if: you have any medication questions Follow-up/Referrals: Kiet Mabry MD [Primary Care Provider] - Diet: Regular Addtl Attending Provider Instructions: please follow up with your reguar PCP Pending Studies at Discharge: Yes Studies:: lyme western blot, anaplasmosis Stand-Alone Forms: [employer], Smoking Cessation Medications and DC Order Prescriptions: New doxycycline monohydrate 100 mg capsule 100 mg PO BID 10 Days Qty: 20 0RF Continued Metamucil (sugar) powder 1.5 tsp PO DAILY clopidogrel 75 mg tablet 75 mg PO QAM Qty: 90 3RF atorvastatin 40 mg tablet 40 mg PO QAM 30 Days Qty: 90 3RF metoprolol tartrate 25 mg tablet 12.5 mg PO BID Qty: 90 3RF Rx Instructions: TAKE ONE-HALF TABLET BY MOUTH 2 TIMES DAILY prednisone 5 mg tablet 5 mg PO DAILY Qty: 90 1RF valsartan 80 mg tablet 80 mg PO DAILY Qty: 90 3RF nitroglycerin 0.4 mg tablet, sublingual 0.4 mg SL Q5M PRN (Reason: chest pain) Qty: 1 0RF multivitamin tablet 1 tab PO DAILY calcium carbonate 600 mg calcium (1,500 mg) tablet 1,200 mg PO DAILY carbidopa-levodopa 25-100 mg tablet 1.5 tab PO QID 90 Days Qty: 540 3RF omega-3 fatty acids 1,000 mg Capsule 2,000 mg PO DAILY PreserVision AREDS 2,148 mcg-113 mg-45 mg-17.4mg Tablet 1 tab PO DAILY Discharge Orders: Discharge Order (Routine); Ordered 09/23/22 Ordered By: Tammy Wills Admission Data Admit Date/Time: 09/21/22 22:40 Attending Provider: Tammy Wills Admit Provider: Jh Phan Primary Care Provider: Kiet Mabry Coding Level of Care Code 72123 INP/OBS DISCH >30 MIN Diagnoses Tick-borne disease B88.2 Parkinsons disease G20 Prostate cancer C61 HTN (hypertension) I10 Hypercholesterolemia E78.00 Inflammatory arthropathy M19.90 Cognitive impairment R41.89 Positive Lyme disease serology R76.8 Leukopenia D72.819 Thrombocytopenia D69.6 History of TIA (transient ischemic attack) Z86.73 DVT prophylaxis Z29.9 Hyponatremia E87.1 Constipation K59.00 Time Spent (min) 35
[2022-09-23 16:46] VITALS: PULSE 69
--- NOTE | 2022-09-23 22:38 | Electrocardiogram Report ---
Test Reason : Blood Pressure : / mmHG Vent. Rate : 078 BPM Atrial Rate : 078 BPM P-R Int : 216 ms QRS Dur : 108 ms QT Int : 390 ms P-R-T Axes : 056 047 035 degrees QTc Int : 444 ms Sinus rhythm with 1st degree A-V block Premature atrial complexes Incomplete right bundle branch block Borderline ECG When compared with ECG of 21-SEP-2022 18:20, Premature atrial complexes are now Present Confirmed by Loc Robertson ([id number]) on 09/23/2022 10:37:42 PM Referred By: REFERRED SELF Confirmed By:Loc Robertson
[2022-09-24 17:13] LABS: 18KDIGG Band REACTIVE; 23KDIGG Band NON-REACTIVE; 23KDIGM Band REACTIVE; 28KDIGG Band NON-REACTIVE; 30KDIGG Band NON-REACTIVE; 39KDIGG Band REACTIVE; 39KDIGM Band NON-REACTIVE; 41KDIGG Band NON-REACTIVE; 41KDIGM Band NON-REACTIVE; 45KDIGG Band NON-REACTIVE; 58KDIGG Band REACTIVE; 66KDIGG Band NON-REACTIVE; 93KDIGG Band NON-REACTIVE; Lyme Antibodies, WB IgG NEGATIVE (NEGATIVE); Lyme Antibodies, WB IgM NEGATIVE (NEGATIVE)
--- NOTE | 2022-09-25 05:38 | Electrocardiogram Report ---
Test Reason : Blood Pressure : / mmHG Vent. Rate : 066 BPM Atrial Rate : 066 BPM P-R Int : 222 ms QRS Dur : 108 ms QT Int : 414 ms P-R-T Axes : 057 040 037 degrees QTc Int : 434 ms Sinus rhythm with 1st degree A-V block Incomplete right bundle branch block Borderline ECG When compared with ECG of 22-SEP-2022 09:06, Premature atrial complexes are no longer Present Confirmed by Loc Robertson ([id number] on 09/25/2022 5:38:07 AM Referred By: REFERRED SELF Confirmed By:Loc Robertson
== END 2022-09-23 18:16 | disposition home or self-care (01) | DRG 868 ==
LOC: ED 16:57 → SUATTDRO 22:40 → 4W 22:40
DX: Z86.73 Personal history of transient ischemic attack (TIA), and cerebral infarction without residual deficits; I10 Essential (primary) hypertension; Z85.46 Personal history of malignant neoplasm of prostate; A69.20 Lyme disease, unspecified; Z79.899 Other long term (current) drug therapy; E78.00 Pure hypercholesterolemia, unspecified; R31.9 Hematuria, unspecified; G89.29 Other chronic pain; G20 Parkinson's disease; Z97.4 Presence of external hearing-aid; Z79.02 Long term (current) use of antithrombotics/antiplatelets; K59.00 Constipation, unspecified; I44.0 Atrioventricular block, first degree; M25.552 Pain in left hip; Z87.891 Personal history of nicotine dependence; M00.9 Pyogenic arthritis, unspecified; E87.1 Hypo-osmolality and hyponatremia

== ENCOUNTER 2023-03-28 09:33 | Observation (INO) ==
--- NOTE | 2023-02-28 10:29 | PAT Medication Instructions ---
Medication Instructions Date of Service February 28, 2023 Home Medications Medication Instructions Recorded nitroglycerin 0.4 mg sublingual 0.4 mg sublingual Q5M PRN chest 12/19/20 tablet pain #1 tab carbidopa 25 mg-levodopa 100 mg 1.5 tab PO QID 90 days #540 tabs 08/15/22 tablet clopidogrel 75 mg tablet 75 mg PO QAM #90 tabs 11/26/22 atorvastatin 40 mg tablet 40 mg PO QAM 90 days #90 tabs 12/17/22 metoprolol tartrate 25 mg tablet 12.5 mg (1/2 x 25 mg) PO BID #90 01/28/23 tabs psyllium seed (sugar) oral powder (Metamucil (sugar) oral powder) 1.5 tsp PO DAILY nitroglycerin 0.4 mg sublingual tablet 0.4 mg sublingual Q5M PRN carbidopa 25 mg-levodopa 100 mg tablet 1.5 tab PO QID omega-3 fatty acids 1,000 mg capsule 2,000 mg PO QAM vitamins A,C,J-tfty-adyvdt 2,148 mcg-113 mg-45 mg-17.4 mg tablet (PreserVision AREDS) 1 tab PO QAM acetaminophen 325 mg capsule (Tylenol) 325 mg PO QID PRN clopidogrel 75 mg tablet 75 mg PO QAM atorvastatin 40 mg tablet 40 mg PO QAM denosumab 60 mg/mL subcutaneous syringe (Prolia) 60 mg subcut UD metoprolol tartrate 25 mg tablet 12.5 mg (1/2 x 25 mg) PO BID prednisone 5 mg tablet 5 mg PO QAM valsartan 40 mg tablet 40 mg PO QAM Continue as directed nitroglycerin 0.4 mg sublingual tablet 0.4 mg sublingual Q5M PRN(if needed) ASK your prescriber and surgeon denosumab 60 mg/mL subcutaneous syringe (Prolia) 60 mg subcut UD clopidogrel 75 mg tablet 75 mg PO QAM(in order for spinal or epidural anesthesia, Plavix needs to be stopped 7 days before surgery. Please check if okay with doctor that prescribes this to you) STOP taking 2 weeks before surgery (or as soon as possible if surgery is within 2 weeks) omega-3 fatty acids 1,000 mg capsule 2,000 mg PO QAM vitamins A,C,A-hnut-dxtbbe 2,148 mcg-113 mg-45 mg-17.4 mg tablet (PreserVision AREDS) 1 tab PO QAM DO NOT take the morning of surgery psyllium seed (sugar) oral powder (Metamucil (sugar) oral powder) 1.5 tsp PO DAILY valsartan 40 mg tablet 40 mg PO QAM Take morning of surgery With a small sip of water, OTHERWISE NOTHING TO EAT OR DRINK AFTER MIDNIGHT: carbidopa 25 mg-levodopa 100 mg tablet 1.5 tab PO QID acetaminophen 325 mg capsule (Tylenol) 325 mg PO QID PRN(if needed) atorvastatin 40 mg tablet 40 mg PO QAM metoprolol tartrate 25 mg tablet 12.5 mg (1/2 x 25 mg) PO BID prednisone 5 mg tablet 5 mg PO QAM Take evening before surgery carbidopa 25 mg-levodopa 100 mg tablet 1.5 tab PO QID metoprolol tartrate 25 mg tablet 12.5 mg (1/2 x 25 mg) PO BID acetaminophen 325 mg capsule (Tylenol) 325 mg PO QID PRN(if needed) Other Notes If you have any questions please call us at [phone] or [phone] or [phone] or [phone]
--- NOTE | 2023-03-04 09:50 | Anesthesiology Consultation ---
Date of Service March 04, 2023 Assessment & Plan (1) Encounter for pre-operative examination: Chart Review Chart Review: Acceptable Risk for Surgery (pending routine neuro appt ) and Patient seen in Pre Admission Testing - Awaiting routine neuro appt 03/26/23 ([place]) - Patient is NOT an OPJ candidate due to age and comorbidities (currently scheduled as 23 hour obs) - Patient stopping Plavix 7 days prior to surgery (approved by prescriber per patient) Per PAT appt on 03/04/23, no recent illness/disease exposures, illness related symptoms, or recent illness/disease positive tests. Will leave to surgeon's di scretion if preop Covid testing needed Patient seen by cardio 09/24/22= seen for follow up. Since last visit- patient stable. The patient is stable from cardiovascular standpoint. He demonstrates excellent control of his blood pressure and cholesterol values. He was commended on his walking program. Fortunately, his nonobstructive coronary artery disease remains quiescent his current medical regimen. Continue current meds- follow up in six months Teaching & Discussion Pre-Anesthesia Teaching/Discussion Notes: Instructed NPO after midnight before surgery,except medications with 15 cc of water. Medication instructions provided according to the PAT guidelines. History Surgery Operation Date: 03/28/23 11:00 Proposed Procedures p Left Anterior Total Hip Arthroplasty - Arden Rodriges DO Height/Weight Height: 5 ft 7 in Weight: 62.1 kg Allergies Allergy/AdvReac Type Severity Reaction Status Date / Time No Known Allergies Allergy Verified 02/27/23 15:03 Medications Home Medications Medication Instructions Recorded Confirmed Last Taken psyllium seed (sugar) oral powder 1.5 tsp PO DAILY 09/16/18 02/27/23 09/21/22 (Metamucil (sugar) oral powder) nitroglycerin 0.4 mg sublingual 0.4 mg sublingual Q5M PRN chest 12/19/20 02/27/23 Unknown tablet pain #1 tab carbidopa 25 mg-levodopa 100 mg 1.5 tab PO QID 90 days #540 tabs 08/15/22 02/27/23 09/21/22 12:00 tablet omega-3 fatty acids 1,000 mg 2,000 mg PO QAM 09/21/22 02/27/23 09/21/22 capsule vitamins A,C,S-hlhb-afrmsv 2,148 1 tab PO QAM 09/21/22 02/27/23 09/21/22 mcg-113 mg-45 mg-17.4 mg tablet (PreserVision AREDS) acetaminophen 325 mg capsule 325 mg PO QID PRN Pain 10/03/22 02/27/23 Unknown (Tylenol) clopidogrel 75 mg tablet 75 mg PO QAM #90 tabs 11/26/22 02/27/23 Unknown atorvastatin 40 mg tablet 40 mg PO QAM 90 days #90 tabs 12/17/22 02/27/23 Unknown denosumab 60 mg/mL subcutaneous 60 mg subcut UD 01/06/23 02/27/23 Unknown syringe (Prolia) metoprolol tartrate 25 mg tablet 12.5 mg (1/2 x 25 mg) PO BID #90 01/28/23 02/27/23 Unknown tabs prednisone 5 mg tablet 5 mg PO QAM 02/27/23 02/27/23 Unknown valsartan 40 mg tablet 40 mg PO QAM 02/27/23 02/27/23 Unknown Past Medical History Medical History (Updated 03/04/23 @ 12:47 by Yolis Rivera PA-C) Coronary artery arteriosclerosis Nonobstructive CAD (30-40% stenosis of mid and distal LAD) per 09/2022 cardio note Prostate cancer (~2006) s/p XRT Slow to wake up after anesthesia after one surgery TIA (transient ischemic attack) July 2020- TIA/CVA- hospitalized for 1 day for disorientation>no residual effects Arteriosclerosis of carotid artery - S/p staged right and left CEA Jan 2010 - Per 06/2022 carotid doppler- No evidence for a hemodynamically significant stenosis. Mild atherosclerotic plaque. 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 wallace History of esophagogastroduodenoscopy (EGD) Hx of colonoscopy Hx of bilateral cataract extraction History of tonsillectomy and adenoidectomy History of surgery Cyst/tumor removal on neck S/P hemorrhoidectomy Past Anesthesia History No Hx of Anesthesia Complications (with remote history of slow to wake with first CEA- no issues with subsequent surgeries ) and No Family Hx of Anesthesia Complications History of PONV No Hx of PONV and No Hx of Motion Sickness Social History Smoking Status: Former smoker tobacco type: cigars Do You Dip or Chew Tobacco: No Smoking End Date: over 30 years ago Hx Alcohol Use: Yes Alcohol type: beer and wine alcohol intake frequency: 0-2 drinks per day (1-2 glasses/day) Hx Substance Use: No substance use type: does not use Review of Systems - Unsure of snoring- no hx of sleep study Patient denies chest pain, shortness of breath, dyspnea on exertion, reflux, cough, wheezing, palpitations. No hx of seizures, MO. No hx of blood clots or blood transfusions Physical Exam Vital Signs VITALS BP 159/71 P 79 TEMP 97.9 SP02 98% RESP 16 Constitutional no acute distress ENMT Mouth: no TMJ clicking Thyromental Distance: > or= 3.5 Finger Breadths (3.5) Mallampati Class: I Removable bottom bridge Neck + limited neck extension (significant) Respiratory normal respiratory effort; no respiratory distress Auscultation: lungs clear to auscultation bilaterally; no wheezes Cardiovascular Rate/Rhythm: regular rate and regular rhythm Heart Sounds: no murmur Vessels: no carotid bruit Musculoskeletal Spine: no pain with cervical ROM Extremities: extremities normal to inspection Psychiatric Orientation: alert Lab Results Anesthesia Preop Results Results Anesthesia Widget: WBC 6.81 K/ul (4.8-10.8) 03/04/23 Hgb 12.9 g/dl (14.0-18.0) L 03/04/23 Hct 39.7 % (42.0-52.0) L 03/04/23 Plt 191 K/uL (130-400) 03/04/23 Na 137 mmol/L (136-145) 03/04/23 K 4.3 mmol/L (3.5-5.1) 03/04/23 Cl 103 mmol/L (98-107) 03/04/23 CO2 29 mmol/L (21-32) 03/04/23 BUN 17 mg/dl (6-23) 03/04/23 Creat 0.74 mg/dl (0.6-1.4) 03/04/23 Glucose Level 96 mg/dl (70-99(Fasting)) 03/04/23 PT 11.2 Seconds (9.0-12.0) 03/04/23 PTT 26 Seconds (21-31) 03/04/23 INR 1.0 (0.9-1.1) 03/04/23 Blood Type O Positive 03/04/23 Antibody Screen NEGATIVE 03/04/23 Testing Electrocardiogram Date: 09/23/22 Sinus rhythm with first-degree AV block at 66 bpm Incomplete right bundle branch block Chest X-Ray Date: 03/04/23 Findings: + NAD FINDINGS: No lines and tubes are seen. Calcified aortic knob is seen. The lungs are clear. No evidence of pleural effusion or pneumothorax. Echocardiogram Date: 09/22/22 EF: 60-65% LV Function: normal RWMA: + none Other Findings: + LVH (Mild/concentric) and + diastolic dysfunction (Grade 1) RVSP is normal Other Testing Carotid doppler 07/12/22= Antegrade flow is seen in the vertebral arteries. The external carotid arteries are patent. No evidence for a hemodynamically significant stenosis. Mild atherosclerotic plaque. Brain MRI 07/01/21= No acute intracranial findings. No change in appearance of the brain since MRI of August 14, 2020. Moderate atrophy and mild small vessel disease. No change in a 1 cm meningioma overlying the right frontal lobe. Neck/Head CTA 08/14/20= There is no evidence of hemorrhage, mass effect, or evidence of acute territorial ischemia noting angiographic phase technique. Unremarkable CT angiogram of the brain. Unremarkable CT angiogram of the neck.
--- NOTE | 2023-03-26 07:21 | History & Physical Report ---
Date of Service March 26, 2023 Assessment & Plan (1) Hip arthritis: We will proceed with a left anterior total of arthroplasty. Postoperatively he will be started on aspirin and Plavix for DVT prophylaxis. He will be kept overnight in the hospital for postop medical management. He plans to have fit for play at home upon discharge. History of Present Illness Chief Complaint: Osteoarthritis of the left hip. Primary Care Provider: Kiet Mabry MD Sincere is a pleasant 88-year-old male who has been dealing with chronic increasing left hip pain. 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 He has had injections of his left hip with no relief. He is really struggling with it. He lives in a house with his . He is unable to do yard work or simple work around the house. It is really debilitating for him. After failing extensive conservative treatment, he has elected to proceed with a left anterior total of arthroplasty. Allergies Allergy/AdvReac Type Severity Reaction Status Date / Time No Known Allergies Allergy Verified 02/27/23 15:03 Home Medications Medication Instructions Recorded Confirmed Type psyllium seed (sugar) oral powder 1.5 tsp PO DAILY 09/16/18 02/27/23 History (Metamucil (sugar) oral powder) nitroglycerin 0.4 mg sublingual 0.4 mg sublingual Q5M PRN chest 12/19/20 02/27/23 Rx tablet pain #1 tab carbidopa 25 mg-levodopa 100 mg 1.5 tab PO QID 90 days #540 tabs 08/15/22 02/27/23 Rx tablet omega-3 fatty acids 1,000 mg 2,000 mg PO QAM 09/21/22 02/27/23 History capsule vitamins A,C,Z-ciok-vtultr 2,148 1 tab PO QAM 09/21/22 02/27/23 History mcg-113 mg-45 mg-17.4 mg tablet (PreserVision AREDS) acetaminophen 325 mg capsule 325 mg PO QID PRN Pain 10/03/22 02/27/23 History (Tylenol) clopidogrel 75 mg tablet 75 mg PO QAM #90 tabs 11/26/22 02/27/23 Rx atorvastatin 40 mg tablet 40 mg PO QAM 90 days #90 tabs 12/17/22 02/27/23 Rx denosumab 60 mg/mL subcutaneous 60 mg subcut UD 01/06/23 02/27/23 History syringe (Prolia) metoprolol tartrate 25 mg tablet 12.5 mg (1/2 x 25 mg) PO BID #90 01/28/23 02/27/23 Rx tabs prednisone 5 mg tablet 5 mg PO QAM 02/27/23 02/27/23 History valsartan 40 mg tablet 40 mg PO QAM 02/27/23 02/27/23 History Past Med/Surg History Medical History Coronary artery arteriosclerosis Nonobstructive CAD (30-40% stenosis of mid and distal LAD) per 09/2022 cardio note Prostate cancer (~2006) s/p XRT Slow to wake up after anesthesia after one surgery TIA (transient ischemic attack) July 2020- TIA/CVA- hospitalized for 1 day for disorientation>no residual effects Arteriosclerosis of carotid artery - S/p staged right and left CEA Jan 2010 - Per 06/2022 carotid doppler- No evidence for a hemodynamically significant stenosis. Mild atherosclerotic plaque. 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 wallace History of esophagogastroduodenoscopy (EGD) Hx of colonoscopy Hx of bilateral cataract extraction History of tonsillectomy and adenoidectomy History of surgery Cyst/tumor removal on neck S/P hemorrhoidectomy Family History Father Heart disease Hypertension Myocardial infarction Mother Heart disease Cancer Breast cancer Brother Diabetes Prostate cancer Denies family history of Ovarian cancer Colorectal cancer Social History Smoking Status: Former smoker Tobacco Type: Cigars Second Hand Exposure: Yes (hx as child); Do You Dip or Chew Tobacco: No; Hx Alcohol Use: Yes Alcohol type: beer and wine Alcohol Intake Frequency: 4 or More x per/Week Alcohol Intake Frequency Comment: 1 drink per day Hx Substance Use: No Preferred Language: Maldivian Communication Ability: Effective Visual Impairment: No Limitations Hearing Ability: Use of Hearing Aid Byproducts Operator Required: No Beliefs That Will Affect Care: None marital status: Current Living Situation: Spouse current occupational status: retired 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 Physical Exam Physical examination of the left hip shows decreased range of motion. He has pain with forced internal and external rotation. Most of his pain is located in his groin. Constitutional WD/WN, vitals as above Eyes PERRL, conjunctivae normal, anicteric sclerae ENMT external ear and nose normal, oropharynx normal Neck trachea midline, no thyromegaly Respiratory normal respiratory effort Cardiovascular RRR, no murmur, no edema Gastrointestinal (Abdomen) normal bowel sounds, soft, nontender, no hepatosplenomegaly Psychiatric A+Ox3, euthymic affect Results & Data Results & Data Laboratory Results . Diagnostic Findings X-rays of the left hip and pelvis show advanced osteoarthritis with joint space narrowing, osteophyte formation, and jikg-sm-mugm articulation. PG Care Time/CCT Total # of Minutes Spent Total Time Spent with Patient: Total time spent is greater than 50% in coordination of care (as documented) at patient's floor/unit and/or counseling patient: Coding Level of Care Code None Diagnoses Hip arthritis M16.10
[~2023-03-28 09:33] MED LIST changes: -ASPI81TA28 PO; -ATOR10TA82 PO; +BUPIVACAINE 0.5 % 5 MG/1 ML PF 10ML VIAL ONE; -CALC500C70 PO; -GADAVIST IV PRN; -LEUP1INJ15 INJ; -LOSA50TA6 PO; -METO25TA56 PO; -MULT-190 PO; -MULT-506 PO; -NTRGSL/4 UT; -PRLSR20 PO; -RANO500T PO
[2023-03-28] MEDS: LR 500ML BOLUS, THEN 15ML/HR IV SCH (10:19)
[2023-03-28] MEDS: FAMOTIDINE 20 MG TAB PO SCH (10:20)
[2023-03-28] MEDS: ACETAMINOPHEN 500 MG TAB PO SCH ×2 (10:20→15:55)
[2023-03-28] MEDS: GABAPENTIN 300 MG CAP PO SCH (10:20)
[2023-03-28] MEDS: dexAMETHasone**PF** 10 MG/ML VIAL IV SCH (10:21)
[2023-03-28] MEDS: LR 60ML/HR IV SCH (10:21)
[2023-03-28] MEDS ORDERED: ATROPINE SULFATE 0.1 MG/ML 10ML SYR IV PRN (10:27)
[2023-03-28] MEDS ORDERED: ePHEDrine sulfate 50 MG/ML AMP IV PRN (10:27)
[2023-03-28] MEDS ORDERED: ONDANSETRON INJ 2 MG/ML 2 ML VIAL IV PRN ×2 (10:27→15:03)
[2023-03-28] MEDS ORDERED: fentaNYL citrate PF 100 MCG/2 ML VIAL IV PRN (10:27)
--- NOTE | 2023-03-28 10:28 | History & Physical Bridge Note ---
Date of Service March 28, 2023 History & Physical Bridge Note I have examined the patient, reviewed the History & Physical and in the interval since the performance of the History & Physical I have noted the following changes of clinical significance: no changes noted
[2023-03-28] MEDS ORDERED: MIDAZOLAM HCL 1 MG/ML 2ML VIAL ONE (11:11)
[2023-03-28] MEDS ORDERED: fentaNYL citrate PF 100 MCG/2 ML VIAL ONE (11:11)
[2023-03-28] MEDS: TRANEXAMIC ACID 1,000 MG **IV Pre-op IV SCH (11:21)
[2023-03-28] MEDS: ceFAZolin 2000MG 2,000 MG/15 ML SYR IV SCH ×2 (11:29→17:53)
[2023-03-28] MEDS: ROPIV 0.5% 246mg, Ketorolac 30mg, EPINEPHrine 0.5mg in NSS INFIL SCH (12:32)
--- NOTE | 2023-03-28 12:41 | Operative Report ---
PG Post Operative Report Pre & Post Diagnosis Operation Date: 03/28/23 11:00 Preoperative diagnosis: Primary osteoarthritis of the left hip Postoperative diagnosis: Primary osteoarthritis of the left hip I identified the patient and participated in the time-out.: Yes Procedure Operation Date: 03/28/23 11:00 Procedure: Left total hip arthroplasty Surgeon Arden Rodriges DO [employer] Technician Arden Díaz PA-C Estimated Blood Loss 200 Findings Consistent with Post-Op Diagnosis Specimens Left femoral head Description of Procedure Implants used I used a ZimmerBiomet total hip arthroplasty system with a size 5 standard offset Avenir Complete stem, a 52 mm G7 cup with a 25mm screw, an E1 polyethylene liner, a 36 mm ceramic head with a 0 neck. Sincere arrived at the hospital for the above procedure. He was seen in the preoperative holding area and the operative extremity was identified and signed. He was given a spinal anesthetic, a preoperative antibiotic, and TXA. He was then taken back to the operating room and laid on the table in the supine position. He was given basic sedation. The operative leg was secured to a Puristst leg positioner. The hip was then prepped and draped in sterile fashion. A timeout was done and the patient and the operative extremity was properly identified. An anterior approach was used. Dissection was taken down through the fascia and the tensor muscle belly was retracted laterally and the rectus was retracted medially. The circumflex vessels were identified and ligated. The capsule was then incised and tagged for later repair. The femoral neck was then cut and the femoral head was removed. The acetabulum was exposed. Time was spent doing a complete circumferential labral release. Sequential reaming of the acetabulum up to a size 51 reamer was done. Final reamings were done under fluoroscopy to ensure appropriate version. A Biomet 52 mm G7 cup was then impacted into place. A single 25 mm screw was placed. The E1 polyethylene liner was then snapped into place. Surrounding soft tissues were then injected with 100 cc of an orthopedic pain control cocktail. The proximal femur was then exposed. Sequential broaching up to a size 5 broach was done. Off that broach a size 36 head with a 0 neck was trialed. The hip was reduced and fluoroscopic images showed anatomic alignment of the implants in acceptable length. The broach was removed. The final size 5 standard offset Avenir Complete stem was then impacted into place. A ceramic 36 mm head with a 0 neck was then impacted onto the stem and the hip was reduced. Final fluoroscopic images showed anatomic alignment of the hip. The capsule was then closed with #1 Vicryl suture. A dilute betadyne lavage was then done for 3 minutes. The joint was then irrigated with normal saline solution. The fascia was closed with #1 PDS suture. Skin was closed with 2-0 Vicryl, feliciano, and a Silverlon dressing. He was then transferred to a hospital bed and taken to the post anesthesia care unit in stable condition. He tolerated the procedure well. Arden Díaz PA-C, was present for the entire procedure. He was critical for patient positioning, prepping, draping, retraction exposure, wound closure and application of sterile dressing. I attest to the content of the Intraoperative Record and any orders documented therein. Any exceptions are noted below.
--- NOTE | 2023-03-28 12:49 | Fluoroscopy Report ---
FL hip LT 1V CLINICAL HISTORY: Left anterior hip replacement. COMPARISON STUDY: None. FLUOROSCOPY TIME: 17 seconds FLUOROSCOPY IMAGES: 1 Ka,r: 1.0 mGy FINDINGS: There is a left total hip arthroplasty. Hardware appears intact. No fracture or dislocation . IMPRESSION: Fluoroscopic assistance as above. ACT 112: Negative or not required by law. Electronically signed by: Cirilo Suarez M.D. 03/28/2023 12:48 PM
[2023-03-28] MEDS ORDERED: PROPOFOL IV EMULSION 10 MG/ML 20 ML VIAL IV ONE (12:56)
[2023-03-28] MEDS ORDERED: LIDOCAINE 2% 2 ML VIAL/AMP(20MG/ML) INFIL ONE (12:56)
--- NOTE | 2023-03-28 13:25 | XRay Report ---
XR hip 1V LT w pelvis CLINICAL HISTORY: IN PACU - Post Surgical TECHNIQUE: 1 view of the left hip and single frontal view of the pelvis were obtained. Comparison: Comparison is made to hip radiograph 09/21/2022 FINDINGS: Patient is status post total hip arthroplasty with expected postsurgical changes including soft tissu e swelling and subcutaneous emphysema. IMPRESSION: Expected postoperative appearance status post placement of total hip arthroplasty. ACT 112: Negative or not required by law. Electronically signed by: Gunner Amezquita M.D. 03/28/2023 1:23 PM
[2023-03-28] MEDS: ORTHO JOINT ANESTHETIC ONE (13:45)
[2023-03-28] MEDS: TRANEXAMIC ACID 1,000 MG **IV Intra-op IV SCH (13:45)
--- NOTE | 2023-03-28 14:26 | Anesthesiology Progress Note ---
Date of Service March 28, 2023 Anesthesia Post Procedure Vital Signs Vital Signs: Temp Pulse Pulse Resp BP Pulse Ox O2 Del Method 03/28/23 14:25 71 13 143/74 H 98 Room Air 03/28/23 14:10 36.2 C L 74 12 125/73 98 Room Air 03/28/23 14:00 77 15 124/65 98 Room Air 03/28/23 13:50 76 20 108/63 99 Room Air 03/28/23 13:40 77 14 140/69 97 Room Air 03/28/23 13:30 76 13 130/64 99 Room Air 03/28/23 13:20 78 20 131/57 L 100 Oxymask 03/28/23 13:10 78 13 118/57 L 100 Oxymask 03/28/23 13:02 36.3 C L 80 19 106/53 L 100 Oxymask 03/28/23 10:03 36.4 C L 77 20 144/71 H 100 Room Air O2 Flow Rate 03/28/23 14:25 03/28/23 14:10 03/28/23 14:00 03/28/23 13:50 03/28/23 13:40 03/28/23 13:30 03/28/23 13:20 3 03/28/23 13:10 13 03/28/23 13:02 13 03/28/23 10:03 Pain Intensity Left Hip: Pain Intensity: 3 Transfer of Care Handoff Completed per policy Notes Mental Status: alert / awake / arousable Patient Amnestic to Procedure: Yes Nausea / Vomiting: adequately controlled Pain: adequately controlled Airway Patency, RR, SpO2: stable & adequate BP & HR: stable & adequate Hydration State: stable & adequate Neuraxial Anesthesia: was administered and sensory block is resolving Anesthetic Complications: no major complications apparent and Pt Satisfied with anesthetic care
[2023-03-28] MEDS ORDERED: HYDROmorphone INJ 0.5 MG/0.5 ML SYR IV PRN (15:03)
[2023-03-28] MEDS ORDERED: MAGNESIUM HYDROXIDE SUSP 30 ML UDC PO PRN (15:03)
[2023-03-28] MEDS ORDERED: METOCLOPRAMIDE HCL INJ 5 MG/ML 2 ML VIAL IV PRN (15:03)
[2023-03-28] MEDS ORDERED: NITROGLYCERIN SL 0.4 MG/TAB TAB SL PRN (15:03)
[2023-03-28] MEDS ORDERED: oxyCODONE HCL IR 5 MG TAB (IMMEDIATE RELEASE) PO PRN (15:03)
[2023-03-28] MEDS ORDERED: NALOXONE HCL 0.4 MG/1 ML VIAL/CARP IV PRN (15:03)
[2023-03-28] MEDS ORDERED: bisacodyL 10 MG SUPP PR PRN (15:03)
[2023-03-28] MEDS: SODIUM CHLORIDE 0.9% 1,000 ML IV SCH (15:13)
[2023-03-28] MEDS: CARBIDOPA/LEVODOPA 25/100MG TAB PO SCH ×2 (15:52→23:45)
[2023-03-28] MEDS: DOCUSATE SODIUM 100 MG CAP PO SCH (22:05)
[2023-03-28] MEDS: METOPROLOL TARTRATE 25 MG TAB PO SCH (22:05)
[2023-03-28] MEDS: SENNA 8.6 MG TAB PO SCH (22:08)
--- NOTE | 2023-03-29 07:51 | Orthopedic Progress Note ---
Date of Service March 29, 2023 Assessment & Plan (1) Status post left hip replacement: Overall he is doing fairly well. Will see how he does today with therapy when he gets out of bed for the first time. He is on aspirin for DVT prophylaxis. He is scheduled to have fit for play, there was house for home physical therapy. Case management will see him today. I spoke with the nurse. If he is slow with physical therapy and if the family wants an extra day in the hospital I am happy to keep him overnight tonight if necessary. If case management feels he would be better for discharge to a rehab facility then we can consider that as well. Will see how he does today with therapy and go from there. Subjective Sincere was seen and examined at bedside this morning. Overall he seems to be doing okay. He was a little bit forgetful this morning. He is not having much pain in the left hip. He has not been out of bed yet. He had no acute events overnight and has no other complaints.. Review of Systems All systems reviewed & are unremarkable except as noted in HPI & below. Physical Exam On physical examination of his left hip, the dressing is clean and dry. His leg is out full extension. He has active dorsiflexion plantarflexion of his left ankle.. Results & Data Results & Data Laboratory Results . Diagnostic Findings Postoperative x-rays of the left hip show the prosthesis to be in anatomic alignment without any evidence of fracture complication, or loosening.. PG Care Time/CCT Total # of Minutes Spent Total Time Spent with Patient: Total time spent is greater than 50% in coordination of care (as documented) at patient's floor/unit and/or counseling patient: Coding Level of Care Code 88342 Post Operative Follow-Up Diagnoses Status post left hip replacement Z96.642
[2023-03-29] MEDS: MULTIVITAMIN TAB PO SCH (08:10)
[2023-03-29] MEDS: ATORVASTATIN 40 MG TAB PO SCH (08:10)
[2023-03-29] MEDS: CEROVITE ADV FORMULA TAB PO SCH (08:11)
[2023-03-29] MEDS: CLOPIDOGREL BISULFATE 75 MG TAB PO SCH (08:11)
[2023-03-29] MEDS: predniSONE 5 MG TAB PO SCH (08:44)
[2023-03-29] MEDS: VALSARTAN 80 MG TAB PO SCH (08:44)
[2023-03-29] MEDS: ASPIRIN 81 MG ECTAB PO SCH (08:44)
--- NOTE | 2023-03-30 06:23 | Orthopedic Progress Note ---
Date of Service March 30, 2023 Assessment & Plan (1) Status post left hip replacement: Overall he is doing fairly well. He will be seen by physical therapy today for ambulation and range of motion exercises. If his cognitive his ability is improved today then he can be discharged home. If not, then we will keep him for an extra day. He is on aspirin for DVT prophylaxis. Major Post was seen and examined at bedside this morning. Overall is doing fairly well. Is not having much pain in the left hip. He did well yesterday with physical therapy but the therapist was a little concerned about his cognitive ability. His did not feel safe sending him home yesterday. He decided to stay an extra day. He is feeling much better today. He is hoping to return home with help from his neighbors.. Review of Systems All systems reviewed & are unremarkable except as noted in HPI & below. Physical Exam On physical examination of the left hip, the dressing is clean and dry. His legs out full extension. He has active dorsiflexion plantarflexion of his left ankle.. Results & Data Results & Data Laboratory Results . Diagnostic Findings . PG Care Time/CCT Total # of Minutes Spent Total Time Spent with Patient: Total time spent is greater than 50% in coordination of care (as documented) at patient's floor/unit and/or counseling patient: Coding Level of Care Code 62534 Post Operative Follow-Up Diagnoses Status post left hip replacement Z96.642
--- NOTE | 2023-03-30 06:25 | Discharge Summary ---
Date of Service March 30, 2023 Admission HPI (Per Admitting) Sincere is a pleasant 88-year-old male who has been dealing with chronic increasing left hip pain. 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 He has had injections of his left hip with no relief. He is really struggling with it. He lives in a house with his . He is unable to do yard work or simple work around the house. It is really debilitating for him. After failing extensive conservative treatment, he has elected to proceed with a left anterior total of arthroplasty. Admission Exam (Per Admitting) Physical examination of the left hip shows decreased range of motion. He has pain with forced internal and external rotation. Most of his pain is located in his groin. Principal Diagnosis Same as "Discharge Diagnosis" noted below under Discharge Instructions. Discharge Exam On physical examination of the left hip, the dressing is clean and dry. His legs out full extension. He has active dorsiflexion plantarflexion of his left ankle.. Discharge Data Procedures Performed Operation Date: 03/28/23 11:00 Actual Procedures p Left Anterior Total Hip Arthroplasty(Left) - Arden Rodriges DO Ordered Studies 03/28/23 FL hip LT 1V Routine Hospital Course (1) Status post left hip replacement: On March 28, 2023 Sincere arrived at [facility] and underwent a left hip replaced without complication. He had a spinal anesthetic. Postoperatively he was started on aspirin for DVT prophylaxis and transferred to the general orthopedic floors. His hospital course was uneventful. On postop day #1, his vital signs were stable and his pain was well-controlled. He was able to participate fairly well with physical therapy but there was a little concerned about his cognitive ability returning home. His did not feel safe taking care of him. On postop day #2 he improved. He worked well once again with physical therapy. He had therapy set up to come to his house. His neighbors could help him if he returns home. He did not want to go to a rehab facility. He was then discharged home. He will follow-up orthopedics in 2 weeks. PG Care Time/CCT Total # of Minutes Spent Total Time Spent with Patient: Total time spent is greater than 50% in coordination of care (as documented) at patient's floor/unit and/or counseling patient: Discharge Plan Discharge Items Patient Disposition: Home - Self-Care Reason For Visit: DJD Left Hip Discharge Diagnosis: Status post left hip replacement Activity: Per Instructions section Non-emergency contact: Surgeon Call non-emergency contact if: your wound has increased redness and your wound has increased drainage Follow-up/Referrals: Kiet Mabry MD [Primary Care Provider] - Diet: Regular Addtl Attending Provider Instructions: Activity and Therapy Recommendations: * If you are using [facility] then therapy will be provided at your home until they feel you have accomplished all of your goals. * If you are using [facility] then Physical Therapy will be provided until they feel you are ready to start Outpatient Physical Therapy. * If you are not using home therapy then Outpatient Physical Therapy should start about 3-5 days from your day of surgery. Therapy will last about 6-10 weeks * You were shown a series of exercises in the hospital. Do these exercises three times each day including the exercises you were shown in physical therapy. * Get up and walk several times each day.~ For the first four weeks, try not to stand or walk for more than one hour at a time. If you do stand or walk for more than one hour, you will not hurt anything, but your leg will likely swell.~~ * As you feel comfortable, you may change from the walker or crutches to a cane and~then to independent walking. Medications: * Narcotic You will likely be sent home from the hospital with a prescription for the narcotic pain medication that worked best throughout your stay. * Cefadroxil -take the antibiotic twice a day for 10 days to help prevent infection. * Aspirin Most patients will be required to take Aspirin 81mg twice a day for 6 weeks after surgery. This is obtained [id number] and a prescription is not necessary. Please take the aspirin twice a day in conjunction with the Plavix. * Other medications may be prescribed for specific circumstances. If you have any questions, please call the office at . * Resume previous home medications unless otherwise instructed TEDs/Elastic Stockings: The white elastic stockings help limit swelling and prevent blood clots from forming in your legs. The more you wear them, the more they work. Wear them for six weeks. Dressing Care: Leave the Silverlon dressing in place for 7 days. After 7 days you may remove the dressing. If the incision is not draining then you may leave the feliciano open to air. If there is a little bit of drainage or if the feliciano are getting stuck on your clothing then cover the incision with a dry dressing. The feliciano will be removed at your 2 week follow-up appointment. Showering: You may shower with the Silverlon dressing in place. Do not let the shower spray hit the dressing directly. Pat the Silverlon dressing dry. If the dressing becomes wet underneath, then simply remove the dressing. Keep the incision dry until you are 7 days out from the day of surgery. After 7 days you may remove the Silverlon dressing and shower with the feliciano exposed. Let soapy water run over the feliciano and pat them dry. Do not scrub or soak the incision. Things To Watch For: * Drainage from the incision site that occurs more than one week after your surgery. * Increased redness at the incision site. * Fever above 102 degrees Fahrenheit. * Unusual chest pain or shortness of breath. * Call [facility] at with any of the above problems Follow-Up Visit: Follow-up with Dr. Rodriges's PA (Arden Díaz) 2-3 weeks after your day of surgery. He will remove your feliciano and answer any questions. If you have any additional questions or concerns, Dr Rodriges is usually in the office at the same time and will be available An appointment was probably scheduled when you signed-up for surgery in the office. If you have any questions call Office Instructions: More detailed instructions as well as Frequently Asked Questions were provided in a folder by our office when you signed-up for surgery. Please review these instructions when you get home. If you have any further questions or concerns, please feel free to call the office at [phone] Pending Studies at Discharge: No Stand-Alone Forms: My [facility] Medications and DC Order Prescriptions: New aspirin [Adult Aspirin Regimen] 81 mg tablet,delayed release (DR/EC) 81 mg PO BID Qty: 84 0RF cefadroxil 500 mg capsule 500 mg PO BID 10 Days Qty: 20 0RF tramadol 50 mg tablet 50 mg PO Q6H PRN (Reason: pain) Qty: 30 0RF Continued Metamucil (sugar) powder 1.5 tsp PO DAILY clopidogrel 75 mg tablet 75 mg PO QAM Qty: 90 3RF atorvastatin 40 mg tablet 40 mg PO QAM 90 Days Qty: 90 3RF metoprolol tartrate 25 mg tablet 12.5 mg PO BID Qty: 90 3RF Rx Instructions: TAKE ONE-HALF TABLET BY MOUTH 2 TIMES DAILY nitroglycerin 0.4 mg tablet, sublingual 0.4 mg SL Q5M PRN (Reason: chest pain) Qty: 1 0RF Prolia 60 mg/mL syringe 60 mg subcut UD Patient Comments: Rx Instructions: every 6 months acetaminophen [Tylenol] 325 mg capsule 325 mg PO QID PRN (Reason: Pain) carbidopa-levodopa 25-100 mg tablet 1.5 tab PO QID 90 Days Qty: 540 3RF omega-3 fatty acids 1,000 mg Capsule 2,000 mg PO QAM PreserVision AREDS 2,148 mcg-113 mg-45 mg-17.4mg Tablet 1 tab PO QAM prednisone 5 mg tablet 5 mg PO QAM valsartan 40 mg tablet 40 mg PO QAM Discharge Orders: Discharge Order (Routine); Ordered 03/30/23 Ordered By: Arden Rodriges Admission Data Admit Date/Time: 03/28/23 13:01 Attending Provider: Arden Rodriges Admit Provider: Arden Rodriges Primary Care Provider: Kiet Mabry
[2023-03-30 07:55] VITALS: PULSE 74; RESP 16; TEMP 97.2; O2SAT 97
[2023-03-30 13:01] VITALS: BP 104/53
== END 2023-03-30 13:47 | disposition home or self-care (01) ==
LOC: ASU 09:33 → 3E 09:33

== ENCOUNTER 2023-06-10 11:40 | Inpatient (IN) ==
[2023-06-10] MEDS ORDERED: RAPID SEQUENCE INDUCTION BAG ONE (11:44)
--- NOTE | 2023-06-10 11:49 | Emergency Department Note ---
Impression & Plan Sepsis, Pneumonia, Acute hypoxemic respiratory failure, Leukocytosis, Non-ST elevation MN (NSTEMI), Elevated lactic acid level, Elevated procalcitonin, Elevated CK ED Provider Note HISTORY OF PRESENT ILLNESS: Patient is an 88-year-old male presenting with confusion and hypoxia. Patient's home health care nurse had called police for a welfare check, as they had not heard from the patient in a number of days. Police found the patient down on the ground laying on his back and right side. Patient was very confused and they called 911. On EMS arrival, the patient had fingerstick glucose of 109. His saturations were in the mid 80s on room air. He was placed on 15 L nonrebreather with saturations improving to the low 90s. On arrival to the ER, the patient is alert but confused. Unable to provide much in terms of history. ROS: as above PHYSICAL EXAM: Constitutional: Patient appears in no acute distress. HENT: Head: Normocephalic and atraumatic. Eyes: EOMI, PERRL Mouth/Throat: Mucous membranes moist. Neck: Trachea midline. Neck supple. Cardiovascular: Tachycardic with regular rhythm. No murmurs, rubs or gallops. Intact distal pulses. Pulmonary/Chest: Patient is tachypneic. Coarse breath sounds bilaterally. He is on 15 L nonrebreather. Abdominal: Abdomen soft, no tenderness, rebound or guarding. Back: No midline spinal tenderness, no paraspinal tenderness, no CVA tenderness. Musculoskeletal: No edema, tenderness or deformity noted. Skin: Warm and dry. Patient has beginnings of skin breakdown in his mid back and sacral region. Neurological: Alert but not answering questions. CN II-XII grossly intact MDM: - Vitals signs showed-hypoxia and tachycardia. Patient was placed on Karen hugger to warm him up. - History obtained via EMS, given patient's confusion. History as above. - Chronic conditions affecting care: HTN; HLD; BPH; Parkinson's disease; prostate cancer - Differential diagnoses include, but are not limited to: pneumonia; UTI; viral syndrome; PE; intra-abdominal traumatic injury; intracranial hemorrhage; CVA - Order placed for continuous cardiac monitoring. At this time, monitor showed rate of 94 bpm with normal sinus rhythm, per my interpretation. - External medical records reviewed. Orthopedics visit note dated 05/21/2023 was reviewed. Patient recently had a left hip replacement and was at the clinic for a follow-up appointment. - EKG interpreted by myself showed normal sinus rhythm. Rate tachycardic at 101 bpm. QT 382. No acute ischemic changes. - Laboratory workup interpreted by myself showed leukocytosis (WBC 16.27) with left shift; elevated troponin (43.3); stable electrolytes; elevated anion gap (12); elevated lactate (3.6 --> 2.8); elevated CK (2122); elevated procalcitonin (0.59) - Blood cultures obtained - CXR negative for pulmonary edema, per my interpretation. Radiology notes retrocardiac airspace opacity. - VBG shows respiratory acidosis (pH 7.25; PCO2 59) - CT head wo contrast negative for acute pathology. CT cervical spine wo contrast negative for acute injury - CT chest/abdomen/pelvis with IV contrast showed multifocal airspace consolidation, greatest in the left lung concerning for pneumonia. Noted to have a large amount of stool within the rectum. - Patient given 1L NS in ER. Given IV zosyn for empiric coverage. - I called and spoke with patient's son, as patient is very confused unable to answer his CODE STATUS. Son reports that patient is full code as of now until he can get patient's paperwork from the patient's house that expresses his wishes. - Patient was suctioned by respiratory therapist and had significant output of white-colored mucus. He was transition to high flow nasal cannula with saturations of 100%. - Discussion was had with case operator about patient's case and need for admission - Hospitalist consulted for admission [facility] and [facility]. ASSESSMENT AND PLAN: Diagnosis: sepsis; pneumonia; acute hypoxic respiratory failure; NSTEMI; elevated lactic acid; elevated CK; elevated procalcitonin; leukocytosis Plan: admit Past Med/Surg History Medical History Caregiver has difficulty performing caretaking Coronary artery arteriosclerosis Prostate cancer (~2006) Slow to wake up after anesthesia TIA (transient ischemic attack) Arteriosclerosis of carotid artery Barretts esophagus Benign prostatic hyperplasia with elevated prostate specific antigen (PSA) Hypercholesterolemia Parkinsons disease Tremor HTN (hypertension) Surgical History History of carotid endarterectomy History of esophagogastroduodenoscopy (EGD) Hx of colonoscopy Hx of bilateral cataract extraction History of tonsillectomy and adenoidectomy History of surgery S/P hemorrhoidectomy Family History Father Heart disease Hypertension Myocardial infarction Mother Heart disease Cancer Breast cancer Brother Diabetes Prostate cancer Denies family history of Ovarian cancer Colorectal cancer Social History Smoking Status: Unknown if ever smoked Tobacco Type: Cigars Second Hand Exposure: Yes (hx as child); Do You Dip or Chew Tobacco: No; Hx Alcohol Use: Yes Alcohol type: beer and wine Alcohol Intake Frequency: 4 or More x per/Week Alcohol Intake Frequency Comment: 1 drink per day Hx Substance Use: No Preferred Language: Macedonian Communication Ability: Effective Visual Impairment: No Limitations Hearing Ability: Use of Hearing Aid Addiction Medicine Physician Required: No Beliefs That Will Affect Care: None marital status: Current Living Situation: Spouse current occupational status: retired 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 Feels Safe at Home: Yes Childhood Exposure to Second-Hand Smoke: No Diet: regular Dental Care, Regularly: Yes Physical Activity Frequency: Daily Physical Activity Frequency Comment: walk Seatbelt Use: always Sunscreen Use: Yes Assistive Devices: Cane and Walker Allergies Allergies Allergy/AdvReac Type Severity Reaction Status Date / Time No Known Allergies Allergy Verified 06/10/23 13:32 Home Meds Home Medications Medication Instructions Recorded Confirmed psyllium seed (sugar) oral powder 1.5 tsp PO DAILY 09/16/18 06/10/23 (Metamucil (sugar) oral powder) omega-3 fatty acids 1,000 mg 2,000 mg PO QAM 09/21/22 06/10/23 capsule vitamins A,C,P-[id number]-[id number] 2,148 1 tab PO QAM 09/21/22 06/10/23 mcg-113 mg-45 mg-17.4 mg tablet (PreserVision AREDS) acetaminophen 325 mg capsule 325 mg PO QID PRN Pain 10/03/22 06/10/23 (Tylenol) denosumab 60 mg/mL subcutaneous 60 mg subcut UD 01/06/23 06/10/23 syringe (Prolia) prednisone 5 mg tablet 5 mg PO QAM 02/27/23 06/10/23 valsartan 40 mg tablet 40 mg PO QAM 02/27/23 06/10/23 Previous Rx's Medication Instructions Recorded nitroglycerin 0.4 mg sublingual 0.4 mg sublingual Q5M PRN chest 12/19/20 tablet pain #1 tab clopidogrel 75 mg tablet 75 mg PO QAM #90 tabs 11/26/22 atorvastatin 40 mg tablet 40 mg PO QAM 90 days #90 tabs 12/17/22 metoprolol tartrate 25 mg tablet 12.5 mg (1/2 x 25 mg) PO BID #90 01/28/23 tabs aspirin 81 mg tablet,delayed 81 mg PO BID #84 tabs 03/29/23 release (Adult Aspirin Regimen) tramadol 50 mg tablet 50 mg PO Q6H PRN pain #30 tabs 03/30/23 tramadol 50 mg tablet 50 mg PO Q6H PRN pain #30 tabs 04/18/23 carbidopa ER 50 mg-levodopa 200 mg 1 tab PO TID 90 days #270 tabs 05/29/23 tablet,extended release Results & Data (ED) Vital Signs Vital Signs - 24 hr 06/10/23 11:45 06/10/23 11:45 06/10/23 11:48 Temperature 34.0 C L Temperature Source Rectal Pulse Rate 99 H 109 H Pulse Rate [Forehead] Pulse Rate from SpO2 Sensor 99 H Respiratory Rate 22 27 H Respiratory Effort / Characteristics Non-Labored Respiratory Depth Normal Respiratory Pattern Regular Blood Pressure 106/75 Blood Pressure Mean 85 Pulse Oximetry 97 97 95 Oxygen Delivery Method Non-rebreather Non-rebreather Oxygen Flow Rate 15 15 Fraction of Inspired Oxygen Sepsis Recent Fever Within 48 Hours No Sepsis New/Unexplained Change in Mental Status N/A Sepsis Action Taken by Nursing Physician Notified 06/10/23 11:49 06/10/23 11:50 06/10/23 11:51 Temperature Temperature Source Mack Cath ( Temp Sensing) Pulse Rate 112 H Pulse Rate [Forehead] Pulse Rate from SpO2 Sensor Respiratory Rate Respiratory Effort / Characteristics Respiratory Depth Respiratory Pattern Blood Pressure Blood Pressure Mean Pulse Oximetry Oxygen Delivery Method Non-rebreather Oxygen Flow Rate 15 Fraction of Inspired Oxygen Sepsis Recent Fever Within 48 Hours Sepsis New/Unexplained Change in Mental Status Sepsis Action Taken by Nursing 06/10/23 11:55 06/10/23 11:55 06/10/23 12:00 Temperature Temperature Source Pulse Rate 99 H Pulse Rate [Forehead] Pulse Rate from SpO2 Sensor 118 H Respiratory Rate 21 Respiratory Effort / Characteristics Respiratory Depth Respiratory Pattern Blood Pressure 106/75 116/70 Blood Pressure Mean 86 99 Pulse Oximetry Oxygen Delivery Method Oxygen Flow Rate Fraction of Inspired Oxygen Sepsis Recent Fever Within 48 Hours Sepsis New/Unexplained Change in Mental Status Sepsis Action Taken by Nursing 06/10/23 12:00 06/10/23 12:03 06/10/23 12:03 Temperature 36.0 C L 36.0 C L Temperature Source Pulse Rate 101 H 98 H Pulse Rate [Forehead] Pulse Rate from SpO2 Sensor 126 H 96 H Respiratory Rate 26 H 21 Respiratory Effort / Characteristics Respiratory Depth Respiratory Pattern Blood Pressure 109/70 Blood Pressure Mean 90 Pulse Oximetry 95 Oxygen Delivery Method Non-rebreather Oxygen Flow Rate 15 Fraction of Inspired Oxygen Sepsis Recent Fever Within 48 Hours Sepsis New/Unexplained Change in Mental Status Sepsis Action Taken by Nursing 06/10/23 12:32 06/10/23 12:33 06/10/23 12:33 Temperature 36.3 C L 36.4 C L Temperature Source Pulse Rate Pulse Rate [Forehead] Pulse Rate from SpO2 Sensor 95 H 96 H Respiratory Rate Respiratory Effort / Characteristics Respiratory Depth Respiratory Pattern Blood Pressure 146/84 H Blood Pressure Mean 116 Pulse Oximetry 92 94 Oxygen Delivery Method Non-rebreather Oxygen Flow Rate 15 Fraction of Inspired Oxygen Sepsis Recent Fever Within 48 Hours Sepsis New/Unexplained Change in Mental Status Sepsis Action Taken by Nursing 06/10/23 12:45 06/10/23 12:45 06/10/23 13:00 Temperature 36.4 C L Temperature Source Pulse Rate 94 H Pulse Rate [Forehead] Pulse Rate from SpO2 Sensor 94 H Respiratory Rate 23 Respiratory Effort / Characteristics Respiratory Depth Respiratory Pattern Blood Pressure 117/88 123/70 Blood Pressure Mean 94 81 Pulse Oximetry 93 Oxygen Delivery Method Non-rebreather Oxygen Flow Rate 15 Fraction of Inspired Oxygen Sepsis Recent Fever Within 48 Hours Sepsis New/Unexplained Change in Mental Status Sepsis Action Taken by Nursing 06/10/23 13:00 06/10/23 13:15 06/10/23 13:15 Temperature 36.3 C L Temperature Source Pulse Rate 95 H Pulse Rate [Forehead] Pulse Rate from SpO2 Sensor 96 H Respiratory Rate 21 Respiratory Effort / Characteristics Respiratory Depth Respiratory Pattern Blood Pressure 131/70 131/70 Blood Pressure Mean 120 120 Pulse Oximetry 89 L Oxygen Delivery Method Non-rebreather Oxygen Flow Rate 15 Fraction of Inspired Oxygen Sepsis Recent Fever Within 48 Hours Sepsis New/Unexplained Change in Mental Status Sepsis Action Taken by Nursing 06/10/23 13:15 06/10/23 13:30 06/10/23 13:31 Temperature 36.4 C L 36.6 C Temperature Source Pulse Rate 95 H 94 H Pulse Rate [Forehead] Pulse Rate from SpO2 Sensor 95 H 94 H Respiratory Rate 21 22 Respiratory Effort / Characteristics Respiratory Depth Respiratory Pattern Blood Pressure 108/53 L Blood Pressure Mean 68 Pulse Oximetry 89 L 99 Oxygen Delivery Method Non-rebreather Oxygen Flow Rate 15 Fraction of Inspired Oxygen Sepsis Recent Fever Within 48 Hours Sepsis New/Unexplained Change in Mental Status Sepsis Action Taken by Nursing 06/10/23 13:31 06/10/23 13:35 06/10/23 13:45 Temperature 36.6 C 36.7 C Temperature Source Pulse Rate 94 H 99 H Pulse Rate [Forehead] 111 H Pulse Rate from SpO2 Sensor 94 H 98 H Respiratory Rate 20 22 20 Respiratory Effort / Characteristics Non-Labored Spontaneous Respiratory Depth Respiratory Pattern Blood Pressure Blood Pressure Mean Pulse Oximetry 99 93 99 Oxygen Delivery Method High Flow Nasal Cannula High Flow Nasal Cannula Oxygen Flow Rate 30 30 Fraction of Inspired Oxygen 60 60 Sepsis Recent Fever Within 48 Hours Sepsis New/Unexplained Change in Mental Status Sepsis Action Taken by Nursing 06/10/23 13:47 06/10/23 13:47 Temperature 36.7 C Temperature Source Pulse Rate 94 H Pulse Rate [Forehead] Pulse Rate from SpO2 Sensor 95 H Respiratory Rate 22 Respiratory Effort / Characteristics Respiratory Depth Respiratory Pattern Blood Pressure 100/47 L Blood Pressure Mean 71 Pulse Oximetry 100 Oxygen Delivery Method High Flow Nasal Cannula Oxygen Flow Rate 30 Fraction of Inspired Oxygen 50 Sepsis Recent Fever Within 48 Hours Sepsis New/Unexplained Change in Mental Status Sepsis Action Taken by Nursing Laboratory Data 06/10/23 11:54 06/10/23 11:54 Lab Results 06/10/23 06/10/23 06/10/23 Range/Units 11:45 11:54 11:58 WBC 16.27 H (4.8-10.8) K/ul RBC 5.43 (4.70-6.10) M/uL Hgb 16.2 (14.0-18.0) g/dl POC Hgb (14.0-18.0) g/dl Hct 49.6 (42.0-52.0) % POC Hct (42-52) % MCV 91.3 (80.0-100.0) fL MCH 29.8 (25.0-34.0) pg MCHC 32.7 (32.0-36.0) g/dL RDW Std Deviation 46.9 H (36.4-46.3) fL RDW Coeff of Peyton 13.9 (11.5-14.5) % Plt Count 213 (130-400) K/uL MPV 8.6 L (9.4-12.4) fL Immature Gran % (Auto) 0.3 % Neut % (Auto) 87.5 % Lymph % (Auto) 2.5 % Haines % (Auto) 9.5 % Eos % (Auto) 0.0 % Baso % (Auto) 0.2 % Neut # (Auto) 14.24 H (1.40-6.50) K/uL Lymph # (Auto) 0.40 L (1.20-3.40) K/uL Haines # (Auto) 1.55 H (0.11-0.59) K/uL Eos # (Auto) 0.00 (0.00-0.50) K/uL Baso # (Auto) 0.03 (0.00-0.20) K/uL Immature Gran # (Auto) 0.05 (0.01-0.20) K/uL PT 11.8 (9.0-12.0) Seconds INR 1.1 (0.9-1.1) VBG pH 7.25 L (7.36-7.41) VBG pCO2 59 H (38-50) mmHg VBG pO2 23 mmHg VBG HCO3 26 mmol/L VBG O2 Saturation < 60.0 % VBG Base Excess -2.8 mEq/L POC Sodium (135-144) mmol/L Sodium 136 (136-145) mmol/L POC Potassium (3.3-5.0) mmol/L Potassium 4.4 (3.5-5.1) mmol/L POC Chloride (101-112) mmol/L Chloride 100 (98-107) mmol/L Carbon Dioxide 24 (21-32) mmol/L POC Total CO2 (24-31) mmol/L Anion Gap 12 H (3-11) POC Anion Gap (16-25) mmol/L POC BUN (7-18) mg/dl BUN 29 H (6-23) mg/dl Creatinine 0.86 (0.6-1.4) mg/dl POC Creatinine (0.6-1.3) mg/dl Est Cr Clr Drug Dosing 46.4 ml/min Est GFR ( Amer) 90.4 ml/min Est GFR (Non-Af Amer) 78.0 ml/min BUN/Creatinine Ratio 33.7 H (10-20) Glucose 130 H (70-99(Fasting)) mg/dl POC Glucose 117 H (70-99) mg/dl POC Glucose (other) (70-99) mg/dl Lactate 3.6 H* (0.4-2.0) mmol/L Calcium 8.7 (8.6-10.3) mg/dl POC Ioniz Calcium [place] (1.12-1.32) mmol/l Magnesium 2.3 (1.7-2.4) mg/dl Total Bilirubin 2.2 H (0.2-1.0) mg/dl Direct Bilirubin TNP AST 86 H (13-39) U/L ALT 29 (7-52) U/L Alkaline Phosphatase 62 (34-104) U/L Total Creatine Kinase 3122 H (30-223) U/L Troponin I High Sens 43.3 H (0-20) pg/ml Total Protein 7.9 (6.0-8.3) gm/dl Albumin 4.6 (3.4-5.0) gm/dl Procalcitonin 0.59 H (0-0.5) ng/ml Urine Color Yellow Urine Appearance Clear (Clear) Urine pH 5.5 (4.5-7.5) Ur Specific [place] 1.020 (1.000-1.030) Urine Protein 2+ H (Negative) Urine Glucose (UA) Negative (Negative) Urine Ketones 1+ H (Negative) Urine Blood 1+ H (Negative) Urine Nitrite Negative (Negative) Urine Bilirubin Negative (Negative) Urine Urobilinogen Negative (Negative) Ur Leukocyte Esterase Negative (Negative) Urine WBC (Auto) 0-5 (0-5) /hpf Urine RBC (Auto) 0-2 (0-2) /hpf U Hyaline Cast (Auto) 0-2 (0-2) /lpf U Epithel Cells (Auto) 0-2 (0-2) /hpf Urine Bacteria (Auto) None Seen (None Seen) Blood Type Antibody Screen 06/10/23 06/10/23 06/10/23 Range/Units 12:00 12:03 13:43 WBC (4.8-10.8) K/ul RBC (4.70-6.10) M/uL Hgb (14.0-18.0) g/dl POC Hgb 17.7 (14.0-18.0) g/dl Hct (42.0-52.0) % POC Hct 52 (42-52) % MCV (80.0-100.0) fL MCH (25.0-34.0) pg MCHC (32.0-36.0) g/dL RDW Std Deviation (36.4-46.3) fL RDW Coeff of Peyton (11.5-14.5) % Plt Count (130-400) K/uL MPV (9.4-12.4) fL Immature Gran % (Auto) % Neut % (Auto) % Lymph % (Auto) % Haines % (Auto) % Eos % (Auto) % Baso % (Auto) % Neut # (Auto) (1.40-6.50) K/uL Lymph # (Auto) (1.20-3.40) K/uL Haines # (Auto) (0.11-0.59) K/uL Eos # (Auto) (0.00-0.50) K/uL Baso # (Auto) (0.00-0.20) K/uL Immature Gran # (Auto) (0.01-0.20) K/uL PT (9.0-12.0) Seconds INR (0.9-1.1) VBG pH (7.36-7.41) VBG pCO2 (38-50) mmHg VBG pO2 mmHg VBG HCO3 mmol/L VBG O2 Saturation % VBG Base Excess mEq/L POC Sodium 137 (135-144) mmol/L Sodium (136-145) mmol/L POC Potassium 4.5 (3.3-5.0) mmol/L Potassium (3.5-5.1) mmol/L POC Chloride 101 (101-112) mmol/L Chloride (98-107) mmol/L Carbon Dioxide (21-32) mmol/L POC Total CO2 26 (24-31) mmol/L Anion Gap (3-11) POC Anion Gap 16.0 (16-25) mmol/L POC BUN 33 H (7-18) mg/dl BUN (6-23) mg/dl Creatinine (0.6-1.4) mg/dl POC Creatinine 0.7 (0.6-1.3) mg/dl Est Cr Clr Drug Dosing ml/min Est GFR ( Amer) ml/min Est GFR (Non-Af Amer) ml/min BUN/Creatinine Ratio (10-20) Glucose (70-99(Fasting)) mg/dl POC Glucose (70-99) mg/dl POC Glucose (other) 130 H (70-99) mg/dl Lactate 2.8 H* (0.4-2.0) mmol/L Calcium (8.6-10.3) mg/dl POC Ioniz Calcium [place] 1.01 L (1.12-1.32) mmol/l Magnesium (1.7-2.4) mg/dl Total Bilirubin (0.2-1.0) mg/dl Direct Bilirubin 0.5 H AST (13-39) U/L ALT (7-52) U/L Alkaline Phosphatase (34-104) U/L Total Creatine Kinase (30-223) U/L Troponin I High Sens 52.8 H* (0-20) pg/ml Total Protein (6.0-8.3) gm/dl Albumin (3.4-5.0) gm/dl Procalcitonin (0-0.5) ng/ml Urine Color Urine Appearance (Clear) Urine pH (4.5-7.5) Ur Specific [place] (1.000-1.030) Urine Protein (Negative) Urine Glucose (UA) (Negative) Urine Ketones (Negative) Urine Blood (Negative) Urine Nitrite (Negative) Urine Bilirubin (Negative) Urine Urobilinogen (Negative) Ur Leukocyte Esterase (Negative) Urine WBC (Auto) (0-5) /hpf Urine RBC (Auto) (0-2) /hpf U Hyaline Cast (Auto) (0-2) /lpf U Epithel Cells (Auto) (0-2) /hpf Urine Bacteria (Auto) (None Seen) Blood Type O Positive Antibody Screen NEGATIVE Administered Medications Discontinued Medications Sodium Chloride (Nss) 1,000 mls @ 999 mls/hr IV .Q1H1M NIR Stop: 06/10/23 12:45 Last Infusion: 06/10/23 13:09 Dose: Infused Documented By: Admin: 06/10/23 12:02 Dose: 999 mls/hr Documented By: ROMINA Piperacillin Sod/Tazobactam Sod (Zosyn) 4.5 gm in 100 mls @ 200 mls/hr IV NOW ONE Stop: 06/10/23 12:51 Last Infusion: 06/10/23 13:09 Dose: Infused Documented By: Admin: 06/10/23 12:32 Dose: 200 mls/hr Documented By: ROMINA Lactated Ringer's (Lr) 750 mls @ 999 mls/hr IV .Q46M ONE Stop: 06/10/23 14:43 Last Admin: 06/10/23 14:04 Dose: 999 mls/hr Documented By: ROMINA Calcium Gluconate () 1,000 mg in 60 mls @ 240 mls/hr IV NOW STA Stop: 06/10/23 14:19 Last Infusion: 06/10/23 14:33 Dose: Infused Documented By: Admin: 06/10/23 14:18 Dose: 240 mls/hr Documented By: ROMINA Ioversol (Optiray 320 100ml) 89 ml IV ONCE ONE Stop: 06/10/23 12:35 Last Admin: 06/10/23 12:34 Dose: 89 ml Documented By: GIULIANA Imaging Data Radiologist's Impression: Abdomen/Pelvis CT 06/10/23 11:45 CT OF THE ABDOMEN AND PELVIS WITH CONTRAST CLINICAL HISTORY: found down; AMS COMPARISON STUDY: Pelvis and left hip radiograph March 28, 2023. TECHNIQUE: Following IV administration of 89 mL of Optiray, axial images of the abdomen and pelvis were obtained from the lung bases to the proximal femurs. Images were reviewed in the axial, sagittal, and coronal planes. IV contrast was administered without complication. Automated exposure control was utilized for the study. A dose lowering technique was utilized adhering to the principles of ALARA. FINDINGS: Please note that the chest CT will be reported separately. Alveolar opacities within the lower lungs could reflect pneumonia or aspiration pneumonitis. No pneumatosis, free air or portal venous gas is present. Lateral segment hepatic cyst is present. Several left renal cysts are present. No hydronephrosis. This study is mildly compromised by motion artifact. Spleen, adrenal glands and pancreas are unremarkable. There is no biliary or pancreatic ductal dilatation. A large amount of stool within the rectum is noted. There is colonic diverticulosis without evidence for acute diverticulitis. A Mack balloon within the bladder is noted. There are fiducial markers within the prostate. Left hip arthroplasty is intact. There are no acute fractures within the lumbar spine, pelvis or hips. IMPRESSION: 1. Lower lung airspace opacities suggestive of pneumonia or aspiration pneumonitis. 2. No acute process within the abdomen or pelvis. 3. Large amount of stool within the rectum. 4. Colonic diverticulosis. No evidence for acute diverticulitis. 5. No acute fractures. ACT 112: Negative or not required by law. Electronically signed by: Sree Monterroso M.D. 06/10/2023 12:[address] 06/10/23 11:[address] DOSE: HISTORY: found down; AMS TECHNIQUE: Multiaxial CT images of the cervical spine were performed and reformatted in the sagittal and coronal plane without the use of contrast. A dose lowering technique was utilized adhering to the principles of ALARA. COMPARISON: None. FINDINGS: No fractures. No subluxation. Prevertebral soft tissues and the C1-C2 interval are intact. No pneumothorax. The C4-C5 vertebral bodies are fused. Moderate disc space narrowing at C3-C4. Mild degenerative changes throughout the remaining cervical spine. IMPRESSION: No fractures within the cervical spine. ACT 112: Negative or not required by law. Electronically signed by: Cirilo Suarez M.D. 06/10/2023 1:[address] 06/10/23 11:45 CT SCAN OF THE CHEST WITH IV CONTRAST CLINICAL HISTORY: Change in mental status. Found down. COMPARISON STUDY: Chest x-ray dated 06/10/2023. TECHNIQUE: Following the IV administration of 89 cc of Optiray 320, CT scan of the thorax was performed from the thoracic inlet to the upper abdomen. Images are reviewed in the axial, sagittal, and coronal planes. IV contrast was administered without complication. A dose lowering technique was utilized adhering to the principles of ALARA. The examination is degraded by motion artifact, as well as by streak artifact from the arms which could not be elevated above the abdomen. FINDINGS: Thyroid: Imaged portions of the thyroid gland are normal in size and attenuation. Thoracic aorta: There is atherosclerotic calcification of the thoracic aorta, which is normal in caliber and demonstrates standard 3-vessel arch anatomy. No dissection is seen. Pulmonary vasculature: The pulmonary trunk is normal in caliber. There are no filling defects identified in the central pulmonary vessels to indicate pulmonary embolus. Note that this examination was not protocoled for evaluation of the pulmonary arteries. Heart: The heart is normal in size and without pericardial effusion. The coronary arteries are densely calcified. Lungs and pleural spaces: There is dense airspace consolidation at the left lung base. Mild patchy airspace consolidation is seen in the left upper lobe as well as in the right middle and lower lobes. There is no significant pleural effusion. No pneumothorax is seen. Secretions are noted in the trachea and central airways. Mediastinum: There is no mediastinal hematoma or lymphadenopathy. Ruth: Clear. Axillae: There is no axillary lymphadenopathy. Upper abdomen: There is a small hiatal hernia. A 1.6 cm left lobe hepatic cyst is incidentally noted. A 4 cm cyst arises from the left kidney. Skeletal structures: The skeletal structures are osteopenic. The bony thorax appears intact. There are several spinal hemangiomas. No lytic or blastic bony lesions are seen. 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 IMPRESSION: 1. There is multifocal airspace consolidation as above, greatest at the left lung base. The appearance is typical for pneumonia/aspiration pneumonitis. Clinical correlation will be required and radiographic follow-up to resolution is recommended. Follow-up radiographs should include both PA and lateral views. 2. There is no pleural effusion or pneumothorax. 3. Additional findings as above. ACT 112: Negative or not required by law. Electronically signed by: Madhav Hernandez M.D. 06/10/2023 1:09 PM Chest X-Ray 06/10/23 11:45 SINGLE VIEW CHEST CLINICAL HISTORY: Sepsis FINDINGS: An AP, portable, semierect chest radiograph is compared to study dated 03/04/2023. The examination is degraded by portable technique and patient rotation. The cardiomediastinal silhouette is top normal for projection noting atherosclerotic calcification of the thoracic aorta. Question retrocardiac air space opacities. The right lung is clear. No large pleural effusion or pneumothorax is seen. The skeletal structures are osteopenic. The bony thorax is grossly intact. IMPRESSION: 1. Question retrocardiac airspace opacities. This is not well assessed and clinical correlation required. If there is concern for pneumonia a dedicated PA and lateral examination is recommended. 2. The right lung is clear. ACT 112: Negative or not required by law. Electronically signed by: Madhav Hernandez M.D. 06/10/2023 12:[address] 06/10/23 11:45 CT SCAN OF THE BRAIN WITHOUT IV CONTRAST CLINICAL HISTORY: Change in mental status. COMPARISON STUDY: CT of the brain dated 08/14/2020. MRI of the brain dated 07/01/2021. TECHNIQUE: Unenhanced axial CT scan of the brain is performed from the vertex to the skull base. A dose lowering technique was utilized adhering to the principles of ALARA. CT DOSE: 2346.17 mGy.cm FINDINGS: Brain parenchyma: There is age-related involutional change noting mild subcortical and periventricular microangiopathic disease. There is no hemorrhage, mass effect, or evidence of acute territorial ischemia by CT criteria. 11 mm meningioma along the right convexity is unchanged from prior studies. Rojo-white matter differentiation is preserved. No extra-axial fluid collection is seen. Ventricles, sulci, cisterns: Prominent secondary to involutional change. Intracranial vasculature: There is atherosclerotic calcification of the cavernous carotid and vertebral arteries. Calvarium: The skeletal structures are osteopenic. No depressed calvarial fracture is seen. Soft tissues: Scalp contusions are seen posteriorly at the vertex bilaterally. Sinuses and mastoids: There is mild mucosal thickening ethmoid sinuses. The remaining paranasal sinuses are clear. The mastoid air cells are well pneumatized. Orbits: The bony orbits are grossly intact. There are bilateral ocular lens implants. IMPRESSION: 1. There is no hemorrhage, mass effect, or evidence of acute territorial ischemia by CT criteria. 2. Scalp contusions are seen posteriorly at the vertex. ACT 112: Negative or not required by law. Electronically signed by: Madhav Hernandez M.D. 06/10/2023 12:56 PM Discharge Plan Visit Data Chief Complaint: Altered Mental Status Stated Complaint: FALL ED Provider: Alix Vargas Discharge Problem: Sepsis, Pneumonia, Acute hypoxemic respiratory failure, Leukocytosis, Non-ST elevation MN (NSTEMI), Elevated lactic acid level, Elevated procalcitonin, Elevated CK Forms Stand Alone Forms: My [facility] Prescriptions Prescriptions: No Action Metamucil (sugar) powder 1.5 tsp PO DAILY clopidogrel 75 mg tablet 75 mg PO QAM Qty: 90 3RF atorvastatin 40 mg tablet 40 mg PO QAM 90 Days Qty: 90 3RF metoprolol tartrate 25 mg tablet 12.5 mg PO BID Qty: 90 3RF Rx Instructions: TAKE ONE-HALF TABLET BY MOUTH 2 TIMES DAILY tramadol 50 mg tablet 50 mg PO Q6H PRN (Reason: pain) Qty: 30 0RF nitroglycerin 0.4 mg tablet, sublingual 0.4 mg SL Q5M PRN (Reason: chest pain) Qty: 1 0RF Prolia 60 mg/mL syringe 60 mg subcut UD Patient Comments: Rx Instructions: every 6 months carbidopa-levodopa 50-200 mg tablet extended release 1 tab PO TID 90 Days Qty: 270 3RF Rx Instructions: divide evenly over waking hours acetaminophen [Tylenol] 325 mg capsule 325 mg PO QID PRN (Reason: Pain) omega-3 fatty acids 1,000 mg Capsule 2,000 mg PO QAM PreserVision AREDS 2,148 mcg-113 mg-45 mg-17.4mg Tablet 1 tab PO QAM prednisone 5 mg tablet 5 mg PO QAM valsartan 40 mg tablet 40 mg PO QAM aspirin [Adult Aspirin Regimen] 81 mg tablet,delayed release (DR/EC) 81 mg PO BID Qty: 84 0RF tramadol 50 mg tablet 50 mg PO Q6H PRN (Reason: pain) Qty: 30 0RF Referrals Referrals: Pro,Kiet Hernandez MD [Primary Care Provider] -
[2023-06-10] MEDS: SODIUM CHLORIDE 0.9% 1,000 ML IV SCH (12:02)
[2023-06-10 12:03] LABS: Base Excess VBG -2.8 mEq/L; HCO3 VBG 26 mmol/L; Oxygen Saturation VBG < 60.0 %; PCO2 VBG 59 mmHg (38-50); PO2 VBG 23 mmHg; pH VBG 7.25 (7.36-7.41)
--- NOTE | 2023-06-10 12:07 | XRay Report ---
SINGLE VIEW CHEST CLINICAL HISTORY: Sepsis FINDINGS: An AP, portable, semierect chest radiograph is compared to study dated 03/04/2023. The examin ation is degraded by portable technique and patient rotation. The cardiomediastinal silhouette is to p normal for projection noting atherosclerotic calcification of the thoracic aorta. Question retrocar diac air space opacities. The right lung is clear. No large pleural effusion or pneumothorax is seen. The skeletal structures are osteopenic. The bony thorax is grossly intact. IMPRESSION: 1. Question retrocardiac airspace opacities. This is not well assessed and clinical correlation requi red. If there is concern for pneumonia a dedicated PA and lateral examination is recommended. 2. The right lung is clear. ACT 112: Negative or not required by law. Electronically signed by: Madhav Hernandez M.D. 06/10/2023 12:06 PM
[2023-06-10 12:16] LABS: iSTAT Creatinine 0.7 mg/dl (0.6-1.3); iSTAT Hemoglobin 17.7 g/dl (14.0-18.0); iSTAT Ionized Calcium 1.01 mmol/l (1.12-1.32); iSTAT Potassium 4.5 mmol/L (3.3-5.0)
[2023-06-10 12:17] LABS: Basophils # (auto) 0.03 K/uL (0.00-0.20); Basophils % (auto) 0.2 %; Hematocrit (blood only) 49.6 % (42.0-52.0); Hemoglobin 16.2 g/dl (14.0-18.0); Immature Granulocytes # (auto) 0.05 K/uL (0.01-0.20); Immature Granulocytes % (auto) 0.3 %; Lymphocytes % (auto) 2.5 %; Mean Corpuscular Hemoglobin 29.8 pg (25.0-34.0); Mean Corpuscular Hgb Conc 32.7 g/dL (32.0-36.0); Mean Corpuscular Volume 91.3 fL (80.0-100.0); Mean Platelet Volume 8.6 fL (9.4-12.4); Monocytes # (auto) 1.55 K/uL (0.11-0.59); Monocytes % (auto) 9.5 %; Neutrophils # (auto) 14.24 K/uL (1.40-6.50); Neutrophils % (auto) 87.5 %; Platelet Count 213 K/uL (130-400); RDW Coefficient of Variation 13.9 % (11.5-14.5); RDW Standard Deviation 46.9 fL (36.4-46.3); Red Blood Count 5.43 M/uL (4.70-6.10); White Blood Count 16.27 K/ul (4.8-10.8)
[2023-06-10 12:19] LABS: Appearance Urine Clear (Clear); Bacteria Urine Automated None Seen (None Seen); Bilirubin Urine Negative (Negative); Blood Urine 1+ (Negative); Cast Urine Automated 0-2 /lpf (0-2); Color Urine Yellow; Epithelial Cell Urine Auto 0-2 /hpf (0-2); Glucose Urine UA Negative (Negative); Ketones Urine 1+ (Negative); Leukocyte Esterase Urine Negative (Negative); Nitrite Urine Negative (Negative); Protein Urine 2+ (Negative); RBC Urine Automated 0-2 /hpf (0-2); Urobilinogen Urine Negative (Negative); WBC Urine Automated 0-5 /hpf (0-5); pH Urine 5.5 (4.5-7.5)
[2023-06-10] MEDS: PIPERACILLIN/TAZOBACTAM 4.5 GM/100 ML BAG IV ONE (12:32)
[2023-06-10] MEDS: OPTIRAY 320 100ml IV ONE (12:34)
[2023-06-10 12:41] LABS: INR 1.1 (0.9-1.1); Prothrombin Time 11.8 Seconds (9.0-12.0)
--- NOTE | 2023-06-10 12:57 | CT Scan Report ---
CT SCAN OF THE BRAIN WITHOUT IV CONTRAST CLINICAL HISTORY: Change in mental status. COMPARISON STUDY: CT of the brain dated 08/14/2020. MRI of the brain dated 07/01/2021. TECHNIQUE: Unenhanced axial CT scan of the brain is performed from the vertex to the skull base. A do se lowering technique was utilized adhering to the principles of ALARA. CT DOSE: 2346.17 mGy.cm FINDINGS: Brain parenchyma: There is age-related involutional change noting mild subcortical and periventricula r microangiopathic disease. There is no hemorrhage, mass effect, or evidence of acute territorial isc hemia by CT criteria. 11 mm meningioma along the right convexity is unchanged from prior studies. Gra y-white matter differentiation is preserved. No extra-axial fluid collection is seen. Ventricles, sulci, cisterns: Prominent secondary to involutional change. Intracranial vasculature: There is atherosclerotic calcification of the cavernous carotid and vertebr al arteries. Calvarium: The skeletal structures are osteopenic. No depressed calvarial fracture is seen. Soft tissues: Scalp contusions are seen posteriorly at the vertex bilaterally. Sinuses and mastoids: There is mild mucosal thickening ethmoid sinuses. The remaining paranasal sinus es are clear. The mastoid air cells are well pneumatized. Orbits: The bony orbits are grossly intact. There are bilateral ocular lens implants. IMPRESSION: 1. There is no hemorrhage, mass effect, or evidence of acute territorial ischemia by CT criteria. 2. Scalp contusions are seen posteriorly at the vertex. ACT 112: Negative or not required by law. Electronically signed by: Madhav Hernandez M.D. 06/10/2023 12:56 PM
--- NOTE | 2023-06-10 12:57 | CT Scan Report ---
CT OF THE ABDOMEN AND PELVIS WITH CONTRAST CLINICAL HISTORY: found down; AMS COMPARISON STUDY: Pelvis and left hip radiograph March 28, 2023. TECHNIQUE: Following IV administration of 89 mL of Optiray, axial images of the abdomen and pelvis we re obtained from the lung bases to the proximal femurs. Images were reviewed in the axial, sagittal, and coronal planes. IV contrast was administered without complication. Automated exposure control wa s utilized for the study. A dose lowering technique was utilized adhering to the principles of ALARA . FINDINGS: Please note that the chest CT will be reported separately. Alveolar opacities within the lo wer lungs could reflect pneumonia or aspiration pneumonitis. No pneumatosis, free air or portal venou s gas is present. Lateral segment hepatic cyst is present. Several left renal cysts are present. No h ydronephrosis. This study is mildly compromised by motion artifact. Spleen, adrenal glands and pancre as are unremarkable. There is no biliary or pancreatic ductal dilatation. A large amount of stool wit hin the rectum is noted. There is colonic diverticulosis without evidence for acute diverticulitis. A Mack balloon within the bladder is noted. There are fiducial markers within the prostate. Left hip arthroplasty is intact. There are no acute fractures within the lumbar spine, pelvis or hips. IMPRESSION: 1. Lower lung airspace opacities suggestive of pneumonia or aspiration pneumonitis. 2. No acute process within the abdomen or pelvis. 3. Large amount of stool within the rectum. 4. Colonic diverticulosis. No evidence for acute diverticulitis. 5. No acute fractures. ACT 112: Negative or not required by law. Electronically signed by: Sree Monterroso M.D. 06/10/2023 12:55 PM
--- NOTE | 2023-06-10 13:04 | CT Scan Report ---
CERVICAL SPINE CT CT DOSE: HISTORY: found down; AMS TECHNIQUE: Multiaxial CT images of the cervical spine were performed and reformatted in the sagittal and coronal plane without the use of contrast. A dose lowering technique was utilized adhering to e principles of ALARA. COMPARISON: None. FINDINGS: No fractures. No subluxation. Prevertebral soft tissues and the C1-C2 interval are intact. No pneumothorax. The C4-C5 vertebral bodies are fused. Moderate disc space narrowing at C3-C4. Mild d egenerative changes throughout the remaining cervical spine. IMPRESSION: No fractures within the cervical spine. ACT 112: Negative or not required by law. Electronically signed by: Cirilo Suarez M.D. 06/10/2023 1:03 PM
--- NOTE | 2023-06-10 13:10 | CT Scan Report ---
CT SCAN OF THE CHEST WITH IV CONTRAST CLINICAL HISTORY: Change in mental status. Found down. COMPARISON STUDY: Chest x-ray dated 06/10/2023. TECHNIQUE: Following the IV administration of 89 cc of Optiray 320, CT scan of the thorax was perform ed from the thoracic inlet to the upper abdomen. Images are reviewed in the axial, sagittal, and mahin nal planes. IV contrast was administered without complication. A dose lowering technique was utilize d adhering to the principles of ALARA. The examination is degraded by motion artifact, as well as by streak artifact from the arms which could not be elevated above the abdomen. FINDINGS: Thyroid: Imaged portions of the thyroid gland are normal in size and attenuation. Thoracic aorta: There is atherosclerotic calcification of the thoracic aorta, which is normal in nayt reba and demonstrates standard 3-vessel arch anatomy. No dissection is seen. Pulmonary vasculature: The pulmonary trunk is normal in caliber. There are no filling defects identif ied in the central pulmonary vessels to indicate pulmonary embolus. Note that this examination was no t protocoled for evaluation of the pulmonary arteries. Heart: The heart is normal in size and without pericardial effusion. The coronary arteries are densel y calcified. Lungs and pleural spaces: There is dense airspace consolidation at the left lung base. Mild patchy ai rspace consolidation is seen in the left upper lobe as well as in the right middle and lower lobes. T here is no significant pleural effusion. No pneumothorax is seen. Secretions are noted in the trachea and central airways. Mediastinum: There is no mediastinal hematoma or lymphadenopathy. Ruth: Clear. Axillae: There is no axillary lymphadenopathy. Upper abdomen: There is a small hiatal hernia. A 1.6 cm left lobe hepatic cyst is incidentally noted. A 4 cm cyst arises from the left kidney. Skeletal structures: The skeletal structures are osteopenic. The bony thorax appears intact. 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 No lytic or blastic bony lesions are seen. 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 IMPRESSION: 1. There is multifocal airspace consolidation as above, greatest at the left lung base. The appearanc e is typical for pneumonia/aspiration pneumonitis. Clinical correlation will be required and radiogra [facility] follow-up to resolution is recommended. Follow-up radiographs should include both PA and lateral views. 2. There is no pleural effusion or pneumothorax. 3. Additional findings as above. ACT 112: Negative or not required by law. Electronically signed by: Madhav Hernandez M.D. 06/10/2023 1:09 PM
[2023-06-10 13:14] LABS: Alanine Aminotransferase 29 U/L (7-52); Albumin Level 4.6 gm/dl (3.4-5.0); Alkaline Phosphatase 62 U/L (34-104); Anion Gap 12 (3-11); Aspartate Aminotransferase 86 U/L (13-39); BUN Creatinine Ratio 33.7 (10-20); Bilirubin,Total 2.2 mg/dl (0.2-1.0); Blood Urea Nitrogen 29 mg/dl (6-23); Calcium 8.7 mg/dl (8.6-10.3); Carbon Dioxide 24 mmol/L (21-32); Chloride 100 mmol/L (98-107); Creatinine Clr Calc Pharmacy 46.4 ml/min; Est GFR (African American) 90.4 ml/min; Glucose 130 mg/dl (70-99(Fasting)); Magnesium 2.3 mg/dl (1.7-2.4); Potassium 4.4 mmol/L (3.5-5.1); Sodium 136 mmol/L (136-145); Total Protein 7.9 gm/dl (6.0-8.3); Troponin I High Sensitivity 43.3 pg/ml (0-20)
[2023-06-10 13:16] LABS: Creatine Kinase 3122 U/L (30-223)
--- NOTE | 2023-06-10 13:48 | History & Physical Report ---
Date of Service June 10, 2023 Assessment & Plan (1) Sepsis: Plan: -Admit to the PCU on tele and continuous pulse oximetry -Presented to the ED after being found down by police during wellness visit requested by home health nurse -Per ED staff, patient's was recently admitted to [facility], per patient's son, patient had been his normal self as of 06/07/23 >Had reportedly been busy running errands -Noted to be hypothermic at 34C, tachycardic at 111, hypoxic in the 's on RA, leukocytosis of 17 with neutrophil predominance of 14, with source being multifocal pneumonia likely with aspiration -Initial lactate of 3.6 -->2.8 after 1L NSS in the ED -S/P 1L NSS and one dose of Zosyn in the ED -Patient is still hypotensive at 100/47 after 1L NSS >Is on 5 mg Prednisone daily for inflammatory arthritis -Will give 750 cc LR bolus stat to complete his sepsis bolus -Will obtain stat random cortisol with 100 mg IV Hydrocortisone after >Continue Hydrocortisone at 50 mg IV q6h until stable -Start LR/D5W at 100 mL/hr x 2 bags after LR bolus is complete >If unable to resume PO intake after 2 bags maintenance fluids will need to continue -Will plan to continue with Zosyn for now and obtain MRSA swab -If MRSA swab is negative will continue with Zosyn >If positive will switch to Ceftriaxone, flagyl, and Vancomycin -Will follow full resp biofire, MRSA swab, and blood cultures -BL SCD's for DVT PPX at this time until we confirm he is not having active bleeding -NPO until evaluated by speech therapy -AM CBC, CMP, mag, PT/INR (2) Acute respiratory failure with hypoxia: Plan: -Was found to be hypoxic in the on RA by EMS -Currently stable and comfortable on HFNC at 30 L/min and 50% FiO2 -Intial VBG with pH of 7.25, pCO2 of 59, and pO2 of 23 -Likely due to his multifocal pneumonia/aspiration pneumonia noted on imaging -CT of the chest w/IV con was negative for other acute causes of hypoxia such as PE, pneumothorax, or effusion -Continue as needed O2 via HFNC, titrate to SpO2 at or above 92% -Incentive spirometry, flutter therapy -Antibiotics per sepsis plan -Will follow full resp biofire panel, MRSA swab, and will order sputum culture with gram stain -Will continue q4h VBG until patient is stable from a respiratory standpoint (3) Altered mental status: Plan: -Patient is currently alert but confused and unable to coherently communicate -His differential is broad at this time including metabolic encephalopathy from infection, hypothermia, hypoxia, dehydration, possible CVA/TIA, progression of his known neurologic disease -CT of the head/brain was negative for acute intracranial findings -Not stable enough at this time for MRI of the brain, if he does not improve with treatment of metabolic issues would consider MRI of the brain for further assessment -Fall precautions, aspiration precautions, PT/OT consults (4) Hypothermia: Plan: -Resolved -Initially presented with a temp of 34C >Likely a combination of sepsis and environmental due to be down on the ground for an unknown amount of time -Temp is now 36.7C per after being placed on juve huggar -Continue to monitor (5) Fall: Plan: -Unknown cause at this time -Patient was found down on the ground by police during well check -No acute trauma on extensive imaging in the ED -PT/OT consults, fall precuations (6) TIA (transient ischemic attack): Plan: -Previous TIA in January 2010 -S/P BL carotid endarterectomies in July of 2020 -Normally on aspirin 81 mg BID and 75 mg Daily of Plavix -Will plan to start rectal aspirin tomorrow am if he is stable from a bleeding standpoint -Resume Plavix when able (7) Elevated troponin: Plan: -Initial high sen trop elevated at 43 --> 52 on 2 hour repeat -No acute ECG changes -Likely due to demand due to his acute illness -Continue to monitor on tele -Will hold off on TTE at this time as he is without signs of congestive failure (8) Elevated CK: Plan: -Initial CK elevated at 3122 -Likely due to muscle breakdown from prolonged period of time on the ground -Renal and liver function are stable -Continue IV fluids until he can safely resum PO intake (9) Multifocal pneumonia: Plan: -See acute respiratory failure with hypoxia (10) Pressure injury of back, stage 1: Plan: -Mild erythema and skin breakdown of the thoracic back and sacrum -No current skin openings or sings of acute infection -Turn and position q2h -Will order low air loss mattress (11) Inflammatory arthropathy: Plan: -Normally on 5 mg Prednisone daily -Unsure of last dose at this time -Will start and continue IV Hydrocortisone for stress dosed steroids while acutely ill -Can resume PO prednisone when stable (12) Parkinsons disease: Plan: -Baseline tremors and left sided weakness noted -Will need to resume Carbidopa-Levodopa SELENA he can resume po intake -If unsafe to take PO intake after speech eval may have to place NG tube (13) HTN (hypertension): Plan: -Currently hypotensive at 100/47 -Holding metoprolol and Valsartan for now -Continue IV fluids and stress dosed steroids per sepsis plan Plan The patient was seen with and discussed with Dr. Max at the time of the admission History of Present Illness Chief Complaint: Found down at home, AMS, hypoxia Primary Care Provider: Kiet Mabry MD Sincere is a 88 yo male with PMHx moderate idiopathic Parkinsons, S/P left hip replacement with Dr. Rodriges on 03/28/23, non-obstructive CAD, HLD, previous TIA in January 2010, July 2020 s/p B/L endarterectomies, HTN, inflammatory arthritis, and prostate cancer who presented to the [facility] ED via EMS on 06/10/23 after Police found him on the ground, confused, during a well check visit. Per the ED staff, the patient's home health nurse was concerned for his well-being as she had not heard from or seen him in approximately 2 weeks. He was noted to alert but confused, hypoxic in the 80's on RA. Unsure how long he was down for but possibly the last 24 hours. On arrival to the ED he was still hypoxic at 89% on 15L NRB, tachycardic at 112, and hypothermic at 34C. Labs were significant for a leukocytosis of 16 with neutrophil predominance of 14, VBG pH of 7.25 with pCO2 of 59 and pO2 of 23, initial lactate of 3.6 --> 2.8 on repeat, AG of 12 with bicarb WNL, glucose WNL, total bili of 2.2 with AST of 2.2 but ALT/Alk phos WNL, CK of 3122, high sen trop of 43, procal of 0.59, and UA negative for signs of infection. CT of the head/brain shows posterior scalp contusion but was read as negative for acute intracranial findings. CT of the cervical spine was negative for acute findings. CT of the chest with IV con shows multifocal pneumonia with possible aspiration and negative for other acute findings such as PE or pneumothorax. And CT of the abd/pelvis with con showed a large amount of stool in the rectum but was otherwise negative for acute findings in the abd/pelvis. The patient was given 1L NSS and a dose of Zosyn prior to admission. The ED staff did speak with the Patient's son who is currently in [place] but will be traveling to [facility]. At this time the patient's son would like him to be full code until he arrives. The patient's is reportedly admitted at [facility]. At the time of the exam the patient was sitting in bed and alert but appears confused. He is mumbling with most of his speech incoherent. He is unable to give meaningful history at this time. Please refer to Dr. Max's attestation for any changes to the treatment plan Allergies Allergy/AdvReac Type Severity Reaction Status Date / Time No Known Allergies Allergy Verified 06/10/23 13:32 Home Medications Medication Instructions Recorded Confirmed Type psyllium seed (sugar) oral powder 1.5 tsp PO DAILY 09/16/18 06/10/23 History (Metamucil (sugar) oral powder) nitroglycerin 0.4 mg sublingual 0.4 mg sublingual Q5M PRN chest 12/19/20 06/10/23 Rx tablet pain #1 tab omega-3 fatty acids 1,000 mg 2,000 mg PO QAM 09/21/22 06/10/23 History capsule vitamins A,C,P-mcpj-bonygq 2,148 1 tab PO QAM 09/21/22 06/10/23 History mcg-113 mg-45 mg-17.4 mg tablet (PreserVision AREDS) acetaminophen 325 mg capsule 325 mg PO QID PRN Pain 10/03/22 06/10/23 History (Tylenol) clopidogrel 75 mg tablet 75 mg PO QAM #90 tabs 11/26/22 06/10/23 Rx atorvastatin 40 mg tablet 40 mg PO QAM 90 days #90 tabs 12/17/22 06/10/23 Rx denosumab 60 mg/mL subcutaneous 60 mg subcut UD 01/06/23 06/10/23 History syringe (Prolia) metoprolol tartrate 25 mg tablet 12.5 mg (1/2 x 25 mg) PO BID #90 01/28/23 06/10/23 Rx tabs prednisone 5 mg tablet 5 mg PO QAM 02/27/23 06/10/23 History valsartan 40 mg tablet 40 mg PO QAM 02/27/23 06/10/23 History aspirin 81 mg tablet,delayed 81 mg PO BID #84 tabs 03/29/23 06/10/23 Rx release (Adult Aspirin Regimen) tramadol 50 mg tablet 50 mg PO Q6H PRN pain #30 tabs 03/30/23 06/10/23 Rx tramadol 50 mg tablet 50 mg PO Q6H PRN pain #30 tabs 04/18/23 06/10/23 Rx carbidopa ER 50 mg-levodopa 200 mg 1 tab PO TID 90 days #270 tabs 05/29/23 06/10/23 Rx tablet,extended release Past Med/Surg History Medical History Caregiver has difficulty performing caretaking Coronary artery arteriosclerosis Prostate cancer (~2006) Slow to wake up after anesthesia TIA (transient ischemic attack) Arteriosclerosis of carotid artery Barretts esophagus Benign prostatic hyperplasia with elevated prostate specific antigen (PSA) Hypercholesterolemia Parkinsons disease Tremor HTN (hypertension) Surgical History History of carotid endarterectomy History of esophagogastroduodenoscopy (EGD) Hx of colonoscopy Hx of bilateral cataract extraction History of tonsillectomy and adenoidectomy History of surgery S/P hemorrhoidectomy Family History Father Heart disease Hypertension Myocardial infarction Mother Heart disease Cancer Breast cancer Brother Diabetes Prostate cancer Denies family history of Ovarian cancer Colorectal cancer Social History Smoking Status: Unknown if ever smoked Tobacco Type: Cigars Second Hand Exposure: Yes (hx as child); Do You Dip or Chew Tobacco: No; Hx Alcohol Use: Yes Alcohol type: beer and wine Alcohol Intake Frequency: 4 or More x per/Week Alcohol Intake Frequency Comment: 1 drink per day Hx Substance Use: No Preferred Language: Hebrew Communication Ability: Effective Visual Impairment: No Limitations Hearing Ability: Use of Hearing Aid Stem Roller Operator Required: No Beliefs That Will Affect Care: None marital status: Current Living Situation: Spouse current occupational status: retired 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 Feels Safe at Home: Yes Childhood Exposure to Second-Hand Smoke: No Diet: regular Dental Care, Regularly: Yes Physical Activity Frequency: Daily Physical Activity Frequency Comment: walk Seatbelt Use: always Sunscreen Use: Yes Assistive Devices: Cane and Walker Physical Exam Physical Exam: Physical Exam: General: Alert but confused, no acute distress, he is ill appearing HEENT: Normocephalic, bruising noted on the posterior scalp without crepitus on palpation, no scleral icterus, pupils around round, symmetrical, and reactive to light, dry mucus membranes, trachea midline, no thyromegaly Chest/Pulm: No respiratory distress, symmetrical chest expansion, rhonchi noted in the BL lower lung leo with right > left, CTA in the mid and upper lung leo Cardiac: tachycardic rate, regular rhythm, no murmurs noted Abdomen: Negative for ascites and bruising, normoactive bowel sounds, soft, non-tender to palpation throughout : Mack cath is currently in place, currently draining clear, yellow, urine Musculoskeletal: Patient with bruising on the posterior scalp and mild skin breakdown on the thoracic back and sacrum, otherwise no acute trauma noted Extremities: Radial, dorsalis pedis, and posterior tibial pulses are intact and symmetrical, no edema noted in the BL LE's Skin: As described above Neuro: Alert unable to answer orientation questions, patient with significant resting tremor due to hx of Parkinson's, baseline left sided weakness noted, no facial droop noted, patient unable to cooperate with CN, cerebellar, pronator drift testing Psych: No acute distress, alert but confused Results & Data Results & Data Vital Signs (Past 12 Hours) Vital Signs Temp Pulse Pulse Resp BP Pulse Ox O2 Del Method 06/10/23 13:35 111 H 22 93 High Flow Nasal Cannula 06/10/23 13:15 36.4 C L 95 H 21 89 L Non-rebreather 06/10/23 13:15 131/70 06/10/23 13:15 131/70 06/10/23 13:00 36.3 C L 95 H 21 89 L Non-rebreather 06/10/23 13:00 123/70 06/10/23 12:45 117/88 06/10/23 12:45 36.4 C L 94 H 23 93 Non-rebreather 06/10/23 12:33 146/84 H 06/10/23 12:33 36.4 C L 94 Non-rebreather 06/10/23 12:32 36.3 C L 92 06/10/23 12:03 36.0 C L 98 H 21 95 Non-rebreather 06/10/23 12:03 109/70 06/10/23 12:00 36.0 C L 101 H 26 H 06/10/23 12:00 116/70 06/10/23 11:55 106/75 06/10/23 11:55 99 H 21 06/10/23 11:51 112 H 06/10/23 11:49 Non-rebreather 06/10/23 11:48 109 H 27 H 95 06/10/23 11:45 97 Non-rebreather 06/10/23 11:45 34.0 C L 99 H 22 106/75 97 Non-rebreather O2 Flow Rate FiO2 06/10/23 13:35 30 60 06/10/23 13:15 06/10/23 13:15 06/10/23 13:15 06/10/23 13:00 06/10/23 13:00 06/10/23 12:45 06/10/23 12:45 06/10/23 12:33 06/10/23 12:33 06/10/23 12:32 06/10/23 12:03 06/10/23 12:03 06/10/23 12:00 06/10/23 12:00 06/10/23 11:55 06/10/23 11:55 06/10/23 11:51 06/10/23 11:49 15 06/10/23 11:48 06/10/23 11:45 06/10/23 11:45 15 Laboratory Results Abnormal lab results 06/10/23 06/10/23 06/10/23 Range/Units 11:45 11:54 11:58 WBC 16.27 H (4.8-10.8) K/ul RDW Std Deviation 46.9 H (36.4-46.3) fL MPV 8.6 L (9.4-12.4) fL Neut # (Auto) 14.24 H (1.40-6.50) K/uL Lymph # (Auto) 0.40 L (1.20-3.40) K/uL [place] # (Auto) 1.55 H (0.11-0.59) K/uL VBG pH 7.25 L (7.36-7.41) VBG pCO2 59 H (38-50) mmHg Anion Gap 12 H (3-11) POC BUN (7-18) mg/dl BUN 29 H (6-23) mg/dl BUN/Creatinine Ratio 33.7 H (10-20) Glucose 130 H (70-99(Fasting)) mg/dl POC Glucose 117 H (70-99) mg/dl POC Glucose (other) (70-99) mg/dl Lactate 3.6 H* (0.4-2.0) mmol/L POC Ioniz Calcium [place] (1.12-1.32) mmol/l Total Bilirubin 2.2 H (0.2-1.0) mg/dl Direct Bilirubin (0-0.2) mg/dl AST 86 H (13-39) U/L Total Creatine Kinase 3122 H (30-223) U/L Troponin I High Sens 43.3 H (0-20) pg/ml Procalcitonin 0.59 H (0-0.5) ng/ml Urine Protein 2+ H (Negative) Urine Ketones 1+ H (Negative) Urine Blood 1+ H (Negative) 06/10/23 06/10/23 Range/Units 12:03 13:43 WBC (4.8-10.8) K/ul RDW Std Deviation (36.4-46.3) fL MPV (9.4-12.4) fL Neut # (Auto) (1.40-6.50) K/uL Lymph # (Auto) (1.20-3.40) K/uL [place] # (Auto) (0.11-0.59) K/uL VBG pH (7.36-7.41) VBG pCO2 (38-50) mmHg Anion Gap (3-11) POC BUN 33 H (7-18) mg/dl BUN (6-23) mg/dl BUN/Creatinine Ratio (10-20) Glucose (70-99(Fasting)) mg/dl POC Glucose (70-99) mg/dl POC Glucose (other) 130 H (70-99) mg/dl Lactate 2.8 H* (0.4-2.0) mmol/L POC Ioniz Calcium [place] 1.01 L (1.12-1.32) mmol/l Total Bilirubin (0.2-1.0) mg/dl Direct Bilirubin 0.5 H (0-0.2) mg/dl AST (13-39) U/L Total Creatine Kinase (30-223) U/L Troponin I High Sens 52.8 H* (0-20) pg/ml Procalcitonin (0-0.5) ng/ml Urine Protein (Negative) Urine Ketones (Negative) Urine Blood (Negative) Diagnostic Findings Abnormal lab results 06/10/23 06/10/23 06/10/23 Range/Units 11:45 11:54 11:58 WBC 16.27 H (4.8-10.8) K/ul RDW Std Deviation 46.9 H (36.4-46.3) fL MPV 8.6 L (9.4-12.4) fL Neut # (Auto) 14.24 H (1.40-6.50) K/uL Lymph # (Auto) 0.40 L (1.20-3.40) K/uL [place] # (Auto) 1.55 H (0.11-0.59) K/uL VBG pH 7.25 L (7.36-7.41) VBG pCO2 59 H (38-50) mmHg Anion Gap 12 H (3-11) POC BUN (7-18) mg/dl BUN 29 H (6-23) mg/dl BUN/Creatinine Ratio 33.7 H (10-20) Glucose 130 H (70-99(Fasting)) mg/dl POC Glucose 117 H (70-99) mg/dl POC Glucose (other) (70-99) mg/dl Lactate 3.6 H* (0.4-2.0) mmol/L POC Ioniz Calcium [place] (1.12-1.32) mmol/l Total Bilirubin 2.2 H (0.2-1.0) mg/dl Direct Bilirubin (0-0.2) mg/dl AST 86 H (13-39) U/L Total Creatine Kinase 3122 H (30-223) U/L Troponin I High Sens 43.3 H (0-20) pg/ml Procalcitonin 0.59 H (0-0.5) ng/ml Urine Protein 2+ H (Negative) Urine Ketones 1+ H (Negative) Urine Blood 1+ H (Negative) 06/10/23 06/10/23 Range/Units 12:03 13:43 WBC (4.8-10.8) K/ul RDW Std Deviation (36.4-46.3) fL MPV (9.4-12.4) fL Neut # (Auto) (1.40-6.50) K/uL Lymph # (Auto) (1.20-3.40) K/uL [place] # (Auto) (0.11-0.59) K/uL VBG pH (7.36-7.41) VBG pCO2 (38-50) mmHg Anion Gap (3-11) POC BUN 33 H (7-18) mg/dl BUN (6-23) mg/dl BUN/Creatinine Ratio (10-20) Glucose (70-99(Fasting)) mg/dl POC Glucose (70-99) mg/dl POC Glucose (other) 130 H (70-99) mg/dl Lactate 2.8 H* (0.4-2.0) mmol/L POC Ioniz Calcium [place] 1.01 L (1.12-1.32) mmol/l Total Bilirubin (0.2-1.0) mg/dl Direct Bilirubin 0.5 H (0-0.2) mg/dl AST (13-39) U/L Total Creatine Kinase (30-223) U/L Troponin I High Sens 52.8 H* (0-20) pg/ml Procalcitonin (0-0.5) ng/ml Urine Protein (Negative) Urine Ketones (Negative) Urine Blood (Negative) ECG Additional Comments: Sinus tachycardia with incomplete RBBB Code Status & VTE Plan Code Status Full code VTE Prophylaxis Plan VTE Prophylaxis will be ordered: Yes Critical Care Time Critical Care Time: Yes Total Critical Care Time: 30 Supervising Physician Co-Signing Physician Notes Patient seen and examined, chart reviewed, case discussed with Livan Mary and I agree with the assessment and plan as above except as otherwise noted Labs and images reviewed 88yo M who had a welfare check from home health, son is currently in [place], 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 Police found on ground and called EMS. Hypothermic, pressure ulcers on the back, lungs coarse, on 15L --> HFNC post suction. Per son Full Code. Son can be reached at [phone], [place]. On ER assessment patient is hypoxic, Lungs are coarse, right greater than left and predominantly in the bases. Tachycardic, tremulous. Borderline hypotensive. Patient tracks with his eyes and is somewhat more alert than on arrival to the ER; however is not able to give any meaningful history. Does not grimace to abdominal palpation. Abdomen is soft. Mucous membranes are dry and cracked. Acute multifocal pneumonia with severe sepsis - CT shows multifocal airspace opacities consistent with multifocal pneumoni a/aspiration. - WBC 16, NLR 35, elevated procalcitonin, and hypoxic hypercapnic respiratory failure requiring high flow nasal cannula. - VBG 7.25/59/23/26, SpO2 normalized greater than 90 following high flow - Treat with broad-spectrum antibiotics if MRSA nares is negative will continue Zosyn, if positive will transition to cefepime/Flagyl/vancomycin. Continue high flow nasal cannula, VBG every 4 hours x 2. Lactate is elevated on admission, patient is with severe sepsis. Received 1 L NSS in ER. No history of heart failure, last EF 60 to 65% with grade 1 diastolic dysfunction, and no pulmonary edema seen on CT. Recommend completing 30 cc/kg sepsis resuscitation goal of 1626 cc. Additional 750 cc fluid bolus given, LR. Initial lactate 3.6 is beginning to downtrend, now 2.8; repeat at 4pm pending Following initial resuscitation antibiotics and supplemental oxygen patient is clinically improving with downtrending lactate and not requiring pressors. Will admit to PCU - Pt chronically on steroids, at risk of secondary AI. Cortisol pending, steroids given Pt found down - likely 2/[address] was performed with contrast and does not show any evidence of PE. Webber scan without fracture/solid organ injury. EKG repeated on hospitalist assessment, no acute ischemic changes. EKG baseline sinus rhythm with incomplete right bundle branch block. Troponin 43.3, repeat pending on admission. As patient was down for a prolonged period of time with relatively minimal troponin, troponin is likely reflective of demand ischemia Patient is not able to engage with strength/neurologic testing. CVA cannot be ruled out at this time; most likely etiology is his multifocal pneumonia with weakness. Patient is not stable enough for MRI and did not change his acute management. Plavix is held while n.p.o., patient shows no bleed on CT, patient has been temporarily switched to rectal aspirin until able to tolerate p.o. Rhabdomyolysis Patient found down on his back with pressure ulcers, prolonged period down with pneumonia as above Continue fluids as above Trend CK daily Creatinine 0.86. Trend daily. Parkinson's Resume carbidopa/levodopa when able to tolerate p.o. Patient has a history of left twila-Parkinson's disease with moderate to severe symptoms. - Also has history of TIA without CVA Cannot/show CVA, patient is not able to engage strength/sensory testing at time of admission. CThead is without acute findings, patient is not stable enough for an MRI at time of admission. Will treat multifocal pneumonia above and continue to reassess. Coronary artery arteriosclerosis, hypertension, hyperlipidemia S/p bilateral endarterectomies due to TIA History of mild exertional angina. Nonobstructive coronary disease on cath with 30 to 40% mid/distal LAD disease 09/2022 high sensitive troponin 43.3, repeat is pending EKG without acute ischemic change Chronic issues Gerd w/ Barretts esophagus: PPI stress prophylaxis BPH LUTS: Mack in place PG Care Time/CCT Total # of Minutes Spent Total Time Spent with Patient: Total time spent is greater than 50% in coordination of care (as documented) at patient's floor/unit and/or counseling patient: Critical Care Time: Yes Total Critical Care Time: 30 [place] [address] INT INP/OBS CARE 3/75MIN Patient Type Established History Comprehensive Exam Comprehensive Medical Decision Making High Complexity Diagnoses Sepsis A41.9 Acute respiratory failure with hypoxia J96.01 Altered mental status R40.1 Altered mental status type: stupor Hypothermia T68.XXXA Fall W19.XXXA TIA (transient ischemic attack) G45.9 Elevated troponin R79.89 Elevated CK R74.8 Multifocal pneumonia J18.9 Pressure injury of back, stage 1 L89.101 Inflammatory arthropathy M19.90 Parkinsons disease G20 HTN (hypertension) I10 Additional Codes Critical Care Time - Critical Care Time: Yes ([id number]) (3) Altered mental status Altered mental status type: stupor Qualified Code(s): R40.1 - Stupor
[2023-06-10] MEDS: LACTATED RINGER'S 750 ML IV ONE (14:04)
[2023-06-10] MEDS: CALCIUM GLUCONATE 1,000 MG/60 ML BAG IV STA (14:18)
[2023-06-10 14:21] LABS: Bilirubin Direct 0.5 mg/dl (0-0.2)
[2023-06-10 14:27] LABS: Troponin I High Sensitivity 52.8 pg/ml (0-20)
[2023-06-10 15:02] LABS: Adenovirus PCR Not Detected (NotDetected); Bordetella parapertussis PCR Not Detected (NotDetected); Bordetella pertussis PCR Not Detected (NotDetected); Chlamydia pneumoniae PCR Not Detected (NotDetected); Coronavirus 229E PCR Not Detected (NotDetected); Coronavirus CoV-2 (COVID19)PCR Not Detected (NotDetected); Coronavirus HKU1 PCR Not Detected (NotDetected); Coronavirus NL63 PCR Not Detected (NotDetected); Coronavirus OC43PCR Not Detected (NotDetected); Human Metapneumovirus PCR Not Detected (NotDetected); Influenza A PCR Not Detected (NotDetected); Influenza B PCR Not Detected (NotDetected); Mycoplasma pneumoniae PCR Not Detected (NotDetected); Parainfluenza Virus 1 PCR Not Detected (NotDetected); Parainfluenza Virus 2 PCR Not Detected (NotDetected); Parainfluenza Virus 3 PCR Not Detected (NotDetected); Parainfluenza Virus 4 PCR Not Detected (NotDetected); Respiratory Syncytial VirusPCR Not Detected (NotDetected); Rhinovirus/Enterovirus PCR Not Detected (NotDetected)
[2023-06-10] MEDS: D5W AND LACTATED RINGERS 1,000 ML IV SCH (15:11)
[2023-06-10] MEDS: PANTOprazole 40 MG in SYRINGE 0 ML IV ONE (15:14)
[2023-06-10] MEDS: HYDROCORTISONE SOD SUCCINATE 100 MG/2 ML VIAL IV STA (15:36)
[2023-06-10] MEDS: PIPERACILLIN/TAZOBACTAM 4.5 GM in DEXTROSE 5% MINI-B 100 ML IV SCH (16:45)
[2023-06-10 17:39] LABS: Base Excess VBG 2.5 mEq/L; HCO3 VBG 28 mmol/L; Oxygen Saturation VBG < 60.0 %; PCO2 VBG 45 mmHg (38-50); PO2 VBG < 20 mmHg
[2023-06-10] MEDS: HYDROCORTISONE SOD 50 MG in SYRINGE 0 ML IV SCH (19:37)
[2023-06-10] MEDS ORDERED: HYDROCORTISONE SOD SUCCINATE 100 MG/2 ML VIAL IV SCH (20:00)
[2023-06-10] MEDS: ACETAMINOPHEN 1,000 MG/100 ML VIAL IV PRN (20:06)
[2023-06-10 21:07] LABS: HCO3 VBG 27 mmol/L; Oxygen Saturation VBG < 60.0 %; PCO2 VBG 40 mmHg (38-50); PO2 VBG 32 mmHg; pH VBG 7.43 (7.36-7.41)
[2023-06-11 00:34] LABS: Base Excess VBG 4.2 mEq/L; HCO3 VBG 28 mmol/L; Oxygen Saturation VBG < 60.0 %; PCO2 VBG 40 mmHg (38-50); PO2 VBG 21 mmHg; pH VBG 7.46 (7.36-7.41)
[2023-06-11 07:34] LABS: Albumin Globulin Ratio 1.3 (0.9-2); Albumin Level 3.3 gm/dl (3.4-5.0); BUN Creatinine Ratio 31.2 (10-20); Bilirubin,Total 1.6 mg/dl (0.2-1.0); Calcium 8.1 mg/dl (8.6-10.3); Creatinine Clr Calc Pharmacy 51.8 ml/min; Est GFR (African American) 94.6 ml/min; Est GFR (Non-African American) 81.6 ml/min; Globulin 2.5 gm/dl (2.5-4.0); Magnesium 2.1 mg/dl (1.7-2.4); Potassium 3.8 mmol/L (3.5-5.1); Total Protein 5.8 gm/dl (6.0-8.3)
[2023-06-11 07:39] LABS: INR 1.2 (0.9-1.1); Prothrombin Time 12.7 Seconds (9.0-12.0)
[2023-06-11 07:44] LABS: Hematocrit (blood only) 36.3 % (42.0-52.0); Mean Corpuscular Hemoglobin 29.6 pg (25.0-34.0); Mean Corpuscular Hgb Conc 33.1 g/dL (32.0-36.0); Mean Corpuscular Volume 89.6 fL (80.0-100.0); Mean Platelet Volume 9.2 fL (9.4-12.4); Platelet Count 142 K/uL (130-400); RDW Standard Deviation 45.7 fL (36.4-46.3); Red Blood Count 4.05 M/uL (4.70-6.10); White Blood Count 11.57 K/ul (4.8-10.8)
[2023-06-11 08:12] LABS: Basophils # (auto) 0.02 K/uL (0.00-0.20); Basophils % (auto) 0.2 %; Immature Granulocytes # (auto) 0.03 K/uL (0.01-0.20); Immature Granulocytes % (auto) 0.3 %; Lymphocytes # (auto) 0.63 K/uL (1.20-3.40); Lymphocytes % (auto) 5.4 %; Monocytes # (auto) 0.57 K/uL (0.11-0.59); Monocytes % (auto) 4.9 %; Neutrophils # (auto) 10.32 K/uL (1.40-6.50); Neutrophils % (auto) 89.2 %
[2023-06-11] MEDS: ASPIRIN 300 MG SUPP PR SCH (09:15)
[2023-06-11 10:14] LABS: Troponin I High Sensitivity 47.2 pg/ml (0-20)
--- NOTE | 2023-06-11 10:35 | Electrocardiogram Report ---
Test Reason : Blood Pressure : / mmHG Vent. Rate : 101 BPM Atrial Rate : 101 BPM P-R Int : 164 ms QRS Dur : 094 ms QT Int : 382 ms P-R-T Axes : 074 078 070 degrees QTc Int : 495 ms Sinus tachycardia Incomplete right bundle branch block Borderline ECG When compared with ECG of 04-MAR-2023 10:23, Premature atrial complexes are no longer Present QT has lengthened Confirmed by Michael Mata ([id number]) on 06/11/2023 10:34:59 AM Referred By: REFERRED SELF Confirmed By:Wilfredo Mata
--- NOTE | 2023-06-11 10:48 | Hospitalist Progress Note ---
Date of Service June 11, 2023 Assessment & Plan (1) Sepsis: Plan: -Presented to the ED after being found down by police during wellness visit requested by home health nurse. Last know well from family 06/06 he was running errands, recently admited [facility]. -Noted to be hypothermic at 34C, tachycardic at 111, hypoxic in the 80's on RA --> was on Karen hugger and supplemental oxygen - Lactate 3.6 on admission, down to 1.7 after fluids (received sepsis bolus) - continue LR while NPO leukocytosis of 17 with neutrophil predominance of 14, with source being multifocal pneumonia likely with aspiration - continue Zosyn (first day 06/09), MRSA swab negative - Blood cultures: negative 24 hours - Resp biofire neg - Seen by SPIKE MACHINE FEEDER - did not pass swallow eval, keep NPO - possible video swallow study tomorrow -Patient is still hypotensive at 100/47 after 1L NSS and is on chronic prednisone 5mg daily for inflammatory arthritis - received hydrocortisone 100mg x1, and 50mg x4 - will transition to hydrocortisone 50mg qAM (2) Acute respiratory failure with hypoxia: Plan: -Was found to be hypoxic in the 80's on RA by EMS -Initial VBG with pH of 7.25, pCO2 of 59, and pO2 of 23 - was initially on HFNC, has weaned to 4L NC throughout the day - CT chest: multifocal airspace conslidations typical for pneumina/aspiration pneumonitis. no effusion or pneumothorax - Zosyn as above -Incentive spirometry, flutter therapy Improving (3) Altered mental status: Plan: -Patient is currently alert but confused and unable to coherently communicate -His differential is broad at this time including metabolic encephalopathy from infection, hypothermia, hypoxia, dehydration, possible CVA/TIA, progression of his known neurologic disease -CT of the head/brain was negative for acute intracranial findings - MRI brain ordered, pending PT/OT (4) TIA (transient ischemic attack): Plan: -Previous TIA in January 2010 -S/P BL carotid endarterectomies in July of 2020 -Normally on aspirin 81 mg BID and 75 mg Daily of Plavix -Will plan to start rectal aspirin tomorrow am if he is stable from a bleeding standpoint -Resume Plavix when able (5) Elevated troponin: Plan: -Initial high sen trop elevated at 43 --> 52 on 2 hour repeat -No acute ECG changes -Likely due to demand due to his acute illness and elevated CK (6) Elevated CK: Plan: -Initial CK elevated at 3122 -Likely due to muscle breakdown from prolonged period of time on the ground -Renal and liver function are stable -Continue IV fluids until he can safely resume PO intake AM CK (7) Pressure injury of back, stage 1: Plan: -Mild erythema and skin breakdown of the thoracic back and sacrum -No current skin openings or sings of acute infection -Turn and position q2h -Will order low air loss mattress (8) Inflammatory arthropathy: Plan: -Normally on 5 mg Prednisone daily -Unsure of last dose at this time - recieved stress dose steroids and will keep on IV until can tolerate PO -Can resume PO prednisone when stable (9) HTN (hypertension): Plan: -Holding metoprolol and Valsartan for now, resume when able to tolerate PO -Continue IV fluids and IV steroids (10) Hypothermia: Plan: -Resolved -Initially presented with a temp of 34C >Likely a combination of sepsis and environmental due to be down on the ground for an unknown amount of time -Continue to monitor Plan Dispo: continued inpatient stay DVT proh: SCD, chemical proh pending MRI Son updated by phone Admission and Anticipated Discharge Date Admission Date: June 10, 2023 Subjective Patient seen in ED C1B. He speaks with very mumbled words, difficult to understand. He is able to follow commands. Denies any pain. Does not recall falling, did not know he was in the hospital. 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 Review of Systems Review of Systems: All systems reviewed & are unremarkable except as noted in Subjective Physical Exam Physical Exam: General: NAD, VS as above HEENT: no facial droop, symmetric smile, MM dry Resp: normal respiratory effort, lungs clear to auscultation CV: RRR, no murmur, Abd: soft, mild generalized tenderness, no hepatosplenomegaly Extremities: Moves all extremities, no edema. no resting tremor Neuro: A&O x3, Skin: intact, no lesions noted Results & Data Results & Data Vital Signs (Past 12 Hours) Vital Signs Temp Pulse Pulse Resp Pulse Ox O2 Del Method O2 Flow Rate 06/11/23 07:04 72 06/11/23 06:47 75 16 100 High Flow Nasal Cannula 30 06/11/23 02:20 96 H 18 98 High Flow Nasal Cannula 30 06/10/23 23:40 81 06/10/23 23:35 High Flow Nasal Cannula 06/10/23 23:22 38.1 C H 90 16 97 High Flow Nasal Cannula 06/10/23 23:10 92 H 18 97 High Flow Nasal Cannula 30 FiO2 06/11/23 07:04 06/11/23 06:47 35 06/11/23 02:20 35 06/10/23 23:40 06/10/23 23:35 06/10/23 23:22 06/10/23 23:10 35 Laboratory Results CBC, chemistry, procal, vbg, trop Diagnostic Findings CT chest, cxr reviewed PG Care Time/CCT Total # of Minutes Spent Total Time Spent with Patient: Total time spent is greater than 50% in coordination of care (as documented) at patient's floor/unit and/or counseling patient: Coding Level of Care Code 88176 SUB INP/OBS CARE 3/50MIN Diagnoses Sepsis A41.9 Acute respiratory failure with hypoxia J96.01 Altered mental status R40.1 Altered mental status type: stupor TIA (transient ischemic attack) G45.9 Elevated troponin R79.89 Elevated CK R74.8 Pressure injury of back, stage 1 L89.101 Inflammatory arthropathy M19.90 HTN (hypertension) I10 Hypothermia T68.XXXA (3) Altered mental status Altered mental status type: stupor Qualified Code(s): R40.1 - Stupor
[2023-06-11] MEDS: PANTOprazole 40 MG in SYRINGE 0 ML IV SCH (11:28)
--- NOTE | 2023-06-11 18:10 | Magnetic Resonance Report ---
MRI OF THE BRAIN WITHOUT CONTRAST CLINICAL HISTORY: Altered mental status. r/o stroke COMPARISON STUDY: Head CT June 10, 2023. MRI the brain July 01, 2021. TECHNIQUE: Utilizing a 1.5 Glo magnet and dedicated coil, multiplanar, multiecho imaging of the bra in was performed without IV contrast. FINDINGS: There are no foci of restricted diffusion to suggest acute infarct. No acute intracranial h emorrhage, midline shift or mass effect is present. Ventricular system is stable. Basal cisterns are patent. There are no extra-axial collections. Flow-voids for the major intracranial vessels are prese nt. Prominence of extra-axial spaces is unchanged and due to atrophy. Mild white matter T2 hyperinten se foci are unchanged and suggest small vessel disease. A 1 cm extra-axial lesion overlying the right frontal lobe is unchanged. This represents a meningioma. The appearance of the brain is unchanged. IMPRESSION: No acute intracranial findings. ACT 112: Negative or not required by law. Electronically signed by: Sree Monterroso M.D. 06/11/2023 6:08 PM
[2023-06-11] MEDS: LACTATED RINGER'S 1,000 ML IV SCH (19:36)
[2023-06-11] MEDS: CARBIDOPA/LEVODOPA 50/200MG EXT REL TAB PO SCH (20:50)
[2023-06-12 06:50] LABS: Hematocrit (blood only) 33.1 % (42.0-52.0); Mean Corpuscular Hemoglobin 30.4 pg (25.0-34.0); Mean Corpuscular Hgb Conc 33.2 g/dL (32.0-36.0); Mean Corpuscular Volume 91.4 fL (80.0-100.0); Mean Platelet Volume 9.1 fL (9.4-12.4); Platelet Count 120 K/uL (130-400); RDW Coefficient of Variation 14.2 % (11.5-14.5); RDW Standard Deviation 47.8 fL (36.4-46.3); Red Blood Count 3.62 M/uL (4.70-6.10)
[2023-06-12 07:04] LABS: Albumin Globulin Ratio 1.3 (0.9-2); Albumin Level 3.1 gm/dl (3.4-5.0); BUN Creatinine Ratio 31.7 (10-20); Bilirubin,Total 1.3 mg/dl (0.2-1.0); Calcium 7.9 mg/dl (8.6-10.3); Creatinine Clr Calc Pharmacy 66.1 ml/min; Est GFR (African American) 102.7 ml/min; Est GFR (Non-African American) 88.6 ml/min; Globulin 2.4 gm/dl (2.5-4.0); Magnesium 2.1 mg/dl (1.7-2.4); Potassium 3.2 mmol/L (3.5-5.1); Total Protein 5.5 gm/dl (6.0-8.3)
[2023-06-12 07:17] LABS: Prothrombin Time 11.4 Seconds (9.0-12.0)
[2023-06-12 07:33] LABS: Basophils # (auto) 0.01 K/uL (0.00-0.20); Basophils % (auto) 0.1 %; Immature Granulocytes # (auto) 0.03 K/uL (0.01-0.20); Immature Granulocytes % (auto) 0.3 %; Lymphocytes # (auto) 0.39 K/uL (1.20-3.40); Lymphocytes % (auto) 4.3 %; Monocytes # (auto) 0.57 K/uL (0.11-0.59); Monocytes % (auto) 6.3 %
[2023-06-12] MEDS: POTASSIUM CHLORIDE / WTR 10 MEQ/100 ML PLCT IV SCH (09:24)
[2023-06-12] MEDS: ENOXAPARIN INJ 40 MG/0.4 ML SYR SQ SCH (10:56)
[2023-06-12] MEDS: HYDROCORTISONE SOD 50 MG in SYRINGE 0 ML IV SCH (10:57)
--- NOTE | 2023-06-12 15:08 | Hospitalist Progress Note ---
Date of Service June 12, 2023 Assessment & Plan (1) Sepsis: Plan: -Presented to the ED after being found down by police during wellness visit requested by home health nurse. Last know well from family 06/06 he was running errands, recently [facility]. -Noted to be hypothermic at 34C, tachycardic at 111, hypoxic in the 80's on RA --> was on Karen hugger and supplemental oxygen - Lactate 3.6 on admission, down to 1.7 after fluids (received sepsis bolus) - continue LR while NPO and with elevated CK leukocytosis of 17 with neutrophil predominance of 14, with source being multifocal pneumonia likely with aspiration - continue Zosyn (first day 06/09), MRSA swab negative -Add doxycycline for MRSA coverage (first day 06/11) - Blood cultures: negative 48 hours - Resp biofire neg -Patient is still hypotensive at 100/47 after 1L NSS and is on chronic prednisone 5mg daily for inflammatory arthritis - received hydrocortisone 100mg x1, and 50mg x4 - will transition to hydrocortisone 50mg qAM (2) Swallowing dysfunction: Plan: Patient failed bedside swallow study on 06/10, then failed video swallow study on 06/11. Last known food consumption was 06/06 -Discussed with RUCHING MACHINE OPERATOR likely combination of Parkinson's but likely exacerbated by weakness from current infection. Recommended supplemental nutrition -Will place NG tube, and start tube feeds. Discussed this with his son and he is agreeable -Consult to dietitian placed -Oral care every 4 hours (3) Acute respiratory failure with hypoxia: Plan: -Was found to be hypoxic in the 's on RA by EMS -Initial VBG with pH of 7.25, pCO2 of 59, and pO2 of 23 - was initially on HFNC, now stable on room air - CT chest: multifocal airspace conslidations typical for pneumina/aspiration pneumonitis. no effusion or pneumothorax - Zosyn as above -Incentive spirometry, flutter therapy Improving was weaned to room air today (4) Altered mental status: Plan: -His differential is broad at this time including metabolic encephalopathy from infection, hypothermia, hypoxia, dehydration, possible CVA/TIA, progression of his known neurologic disease -CT of the head/brain was negative for acute intracranial findings - MRI brain ordered: No acute findings, no stroke. Meningioma unchanged PT/OT (5) TIA (transient ischemic attack): Plan: -Previous TIA in January 2010 -S/P BL carotid endarterectomies in July of 2020 -Normally on aspirin 81 mg BID and 75 mg Daily of Plavix -Continue rectal aspirin -Resume Plavix when able, will attempt to put down NG tube in a.m. if patient is tolerating (6) Elevated troponin: Plan: -Initial high sen trop elevated at 43 --> 52 on 2 hour repeat -No acute ECG changes -Likely due to demand due to his acute illness and elevated CK (7) Elevated CK: Plan: -Initial CK elevated at 3122 -Likely due to muscle breakdown from prolonged period of time on the ground -Renal and liver function are stable -Continue IV fluids until he can safely resume PO intake Now down to 1130 AM CK (8) Pressure injury of back, stage 1: Plan: -Mild erythema and skin breakdown of the thoracic back and sacrum -No current skin openings or sings of acute infection -Turn and position q2h -Will order low air loss mattress (9) Inflammatory arthropathy: Plan: -Normally on 5 mg Prednisone daily -Unsure of last dose at this time - recieved stress dose steroids and will keep on IV until can tolerate PO -Can resume PO prednisone when stable (10) HTN (hypertension): Plan: -Holding metoprolol and Valsartan for now, resume when able to tolerate PO -Continue IV fluids and IV steroids Blood pressures have been mainly low normal Plan Dispo: continued inpatient stay DVT proh: Lovenox, will monitor platelet levels. Son updated at bedside and by phone Case discussed with RUCHING MACHINE OPERATOR Admission and Anticipated Discharge Date Admission Date: June 10, 2023 Subjective Patient seen in ED this morning, son present at bedside. Able to recount more of the story that he was working on his furnace down stairs (job not finished, tools laid out) and likely climbed upstairs to the kitchen area which is wear EMS found him, but unsure what day all of this occured. Patient more alert than prior days, complaining that he was hungry. Plan for Video swallow study today. Discussed swallow study results with RUCHING MACHINE OPERATOR, and did not go well, recommending artifical nutrition at this time. Called son to updated, discussed NG tube vs PPN - will trial NG tube with tube feeds at this time. Review of Systems Review of Systems: All systems reviewed & are unremarkable except as noted in Subjective Physical Exam Physical Exam: General: NAD, VS as above HEENT: no facial droop, symmetric smile, MM dry Resp: normal respiratory effort, lungs diminished in bases CV: RRR, no murmur, Abd: soft, mild generalized tenderness, no hepatosplenomegaly Extremities: Moves all extremities, no edema. no resting tremor but tremor with movement : underwood draining concentrated urine. Neuro: A&O x3, Results & Data Results & Data Vital Signs (Past 12 Hours) Vital Signs Pulse Resp BP Pulse Ox Pulse Ox O2 Del Method O2 Del Method 06/12/23 13:00 97 Room Air 06/12/23 07:09 71 06/12/23 04:00 72 16 107/57 L 98 Nasal Cannula Laboratory Results CBC, chemistry, CK and blood cultures reviewed. PG Care Time/CCT Total # of Minutes Spent Total Time Spent with Patient: Total time spent is greater than 50% in coordination of care (as documented) at patient's floor/unit and/or counseling patient: Coding Level of Care Code 49418 SUB INP/OBS CARE 3/50MIN Diagnoses Sepsis A41.9 Swallowing dysfunction R13.10 Acute respiratory failure with hypoxia J96.01 Altered mental status R40.1 Altered mental status type: stupor TIA (transient ischemic attack) G45.9 Elevated troponin R79.89 Elevated CK R74.8 Pressure injury of back, stage 1 L89.101 Inflammatory arthropathy M19.90 HTN (hypertension) I10 (4) Altered mental status Altered mental status type: stupor Qualified Code(s): R40.1 - Stupor
[2023-06-12] MEDS: DOXYCYCLINE HYCLATE 100 MG in DEXTROSE 5% MINI-B 100 ML IV SCH (15:45)
--- NOTE | 2023-06-12 16:05 | Fluoroscopy Report ---
MODIFIED BARIUM SWALLOW CLINICAL HISTORY: r/o aspiration COMPARISON STUDY: None. FLUOROSCOPY TIME: 47 seconds. Ka, r: 2.60 mGy. TECHNIQUE: A modified barium swallow was performed in conjunction with Speech Pathology. The patient ingested varying consistencies of barium containing material. Video fluoroscopy was performed. FINDINGS: There were multiple episodes of tracheal aspiration with thin liquids and nectar thick liqu ids. Premature spillage was noted. Epiglottic inversion was diminished. Moderate residuals within the vallecula and piriform sinuses were noted. IMPRESSION: 1. Impaired swallowing mechanism with multiple episodes of tracheal aspiration with thin liquids and nectar thick liquids. 2. Moderate residuals within the piriform sinuses and vallecula. 3. Full recommendations by Speech pathology to follow. ACT 112: Negative or not required by law. Electronically signed by: Sree Monterroso M.D. 06/12/2023 4:03 PM
--- NOTE | 2023-06-12 16:24 | XRay Report ---
SINGLE VIEW ABDOMEN CLINICAL HISTORY: Enteric tube placement. FINDINGS: AP, portable, upright view of the lower chest and upper abdomen is correlated with abdomina l CT dated 06/10/2023. An enteric tube has been placed. The tip projects below the diaphragm over the mid to distal stomach. There is no radiographic evidence of bowel obstruction. No intraperitoneal kyara e air is seen below the diaphragm. Residual enteric contrast is noted. There are no abnormal abdomina l calcifications. Airspace consolidation is seen at the lung bases. The skeletal structures are osteo penic and appear intact. There is moderate lumbosacral spondylosis IMPRESSION: 1. An enteric tube has been placed as above. 2. No bowel obstruction. 3. Bibasilar airspace consolidation is noted. Electronically signed by: Madhav Hernandez M.D. 06/12/2023 4:23 PM
[2023-06-12] MEDS ORDERED: FIBERSOURCE HN 1.2 CAL 1000 ML BAG NG SCH (16:45)
[2023-06-12] MEDS: TUBE FEEDING WATER FLUSH GT SCH (17:13)
[2023-06-12] MEDS: ASPIRIN 81 MG CHEW PO SCH (17:33)
[2023-06-12] MEDS: TUBE FEEDING WATER FLUSH NG SCH (17:33)
[2023-06-12] MEDS: THIAMINE HCL 200 MG in SODIUM CHLORIDE 0.9% 50 ML IV SCH (17:40)
[2023-06-13 05:16] LABS: Basophils # (auto) 0.01 K/uL (0.00-0.20); Basophils % (auto) 0.1 %; Eosinophils # (auto) 0.02 K/uL (0.00-0.50); Eosinophils % (auto) 0.2 %; Hematocrit (blood only) 35.3 % (42.0-52.0); Hemoglobin 11.8 g/dl (14.0-18.0); Immature Granulocytes # (auto) 0.08 K/uL (0.01-0.20); Immature Granulocytes % (auto) 0.8 %; Mean Corpuscular Hemoglobin 30.1 pg (25.0-34.0); Mean Corpuscular Hgb Conc 33.4 g/dL (32.0-36.0); Mean Corpuscular Volume 90.1 fL (80.0-100.0); Mean Platelet Volume 9.3 fL (9.4-12.4); Monocytes # (auto) 0.81 K/uL (0.11-0.59); Monocytes % (auto) 8.1 %; Neutrophils # (auto) 8.49 K/uL (1.40-6.50); Neutrophils % (auto) 84.8 %; Platelet Count 124 K/uL (130-400); RDW Coefficient of Variation 14.1 % (11.5-14.5); Red Blood Count 3.92 M/uL (4.70-6.10); White Blood Count 10.01 K/ul (4.8-10.8)
[2023-06-13 05:27] LABS: Albumin Globulin Ratio 1.1 (0.9-2); Albumin Level 3.1 gm/dl (3.4-5.0); BUN Creatinine Ratio 31.7 (10-20); Bilirubin,Total 1.1 mg/dl (0.2-1.0); Creatinine Clr Calc Pharmacy 69.4 ml/min; Est GFR (African American) 104.8 ml/min; Est GFR (Non-African American) 90.4 ml/min; Globulin 2.9 gm/dl (2.5-4.0); Potassium 3.1 mmol/L (3.5-5.1)
[2023-06-13] MEDS: bisacodyL 10 MG SUPP PR ONE (10:55)
[2023-06-13] MEDS: POTASSIUM CHLORIDE 20 MEQ/15 ML UDC PO SCH (10:55)
[2023-06-13] MEDS: METOPROLOL TARTRATE 25 MG TAB PO SCH (10:56)
[2023-06-13] MEDS: ATORVASTATIN 40 MG TAB PO SCH (10:57)
[2023-06-13] MEDS: CLOPIDOGREL BISULFATE 75 MG TAB PO SCH (10:58)
--- NOTE | 2023-06-13 12:52 | Hospitalist Progress Note ---
Date of Service June 13, 2023 Assessment & Plan (1) Sepsis: Plan: -Presented to the ED after being found down by police during wellness visit requested by home health nurse. Last know well from family 06/06 he was running errands, recently [facility]. -Noted to be hypothermic at 34C, tachycardic at 111, hypoxic in the 's on RA --> was on Karen hugger and supplemental oxygen - Lactate 3.6 on admission, down to 1.7 after fluids (received sepsis bolus) - continue LR while NPO and with elevated CK - CT A/P: no acute process, large amount of stool in rectum - no BM reported this admission, suppository given 06/12 - if no BM consider enema 06/13 leukocytosis of 17 with neutrophil predominance of 14, with source being multifocal pneumonia likely with aspiration - continue Zosyn (first day 06/09) - Add doxycycline for MRSA coverage (first day 06/11) - Blood cultures: negative 48 hours - Resp biofire neg -Patient was hypotensive at 100/47 after 1L NSS and is on chronic prednisone 5mg daily for inflammatory arthritis - received hydrocortisone 100mg x1, and 50mg x4 - will transition to hydrocortisone 50mg qAM until able to tolerate p.o. 06/12 Potassium 3.1 - replaced with 20meq TID x 3 elixir (2) Swallowing dysfunction: Plan: Patient failed bedside swallow study on 06/10, then failed video swallow study on 06/11. Last known food consumption was 06/06 -Discussed with WELL DRILL OPERATOR HELPER CABLE TOOL likely combination of Parkinson's but likely exacerbated by weakness from current infection. Recommended supplemental nutrition -Will place NG tube 06/12, and start tube feeds. Discussed this with his son and he is agreeable -Consult to dietitian placed -Oral care every 4 hours - Continue NG tube for now, however if swallowing function does not improve will need to discuss next steps (3) Acute respiratory failure with hypoxia: Plan: -Was found to be hypoxic in the s on RA by EMS -Initial VBG with pH of 7.25, pCO2 of 59, and pO2 of 23 - was initially on HFNC, now stable on room air - CT chest: multifocal airspace conslidations typical for pneumina/aspiration pneumonitis. no effusion or pneumothorax - Zosyn and doxycyline as above -Incentive spirometry, flutter therapy Stable on room air today (4) Altered mental status: Plan: -His differential is broad at this time including metabolic encephalopathy from infection, hypothermia, hypoxia, dehydration, possible CVA/TIA, progression of his known neurologic disease -CT of the head/brain was negative for acute intracranial findings - MRI brain ordered: No acute findings, no stroke. Meningioma unchanged PT/OT (5) Elevated CK: Plan: -Initial CK elevated at 3122 -Likely due to muscle breakdown from prolonged period of time on the ground -Renal and liver function are stable -Continue IV fluids until he can safely resume PO intake Now down to 1130 AM CK (6) TIA (transient ischemic attack): Plan: -Previous TIA in January 2010 -S/P BL carotid endarterectomies in July of 2020 -Normally on aspirin 81 mg BID and 75 mg Daily of Plavix - restarted 06/12 via NG tube (7) HTN (hypertension): Plan: -Hold Valsartan -Metoprolol resumed 06/12 (8) Elevated troponin: Plan: -Initial high sen trop elevated at 43 --> 52 on 2 hour repeat -No acute ECG changes -Likely due to demand due to his acute illness and elevated CK (9) Pressure injury of back, stage 1: Plan: -Mild erythema and skin breakdown of the thoracic back and sacrum -No current skin openings or sings of acute infection -Turn and position q2h -Will order low air loss mattress (10) Inflammatory arthropathy: Plan: -Normally on 5 mg Prednisone daily -Unsure of last dose at this time - recieved stress dose steroids and will keep on IV until can tolerate PO -Can resume PO prednisone when stable Plan Dispo: continued inpatient stay DVT proh: Lovenox, will monitor platelet levels. son updated by phone - discussed if swallowing function not improving by friday would have to reevaluate goals of care/prognosis Admission and Anticipated Discharge Date Admission Date: June 10, 2023 Subjective Patient in bed, is more awake today. Talks about how sick he is and how he fell and had to crawl up the stairs No pain currently, really no acute complaints Still is having difficulty with swallowing - seen by speech today, still NPO Tele SR 70s Review of Systems Review of Systems: All systems reviewed & are unremarkable except as noted in Subjective Physical Exam Physical Exam: General: NAD, VS as above Resp: normal respiratory effort, lungs diminished in bases. able to demonstrate use of flutter valve CV: RRR, no murmur, Abd: firm but nontender, no hepatosplenomegaly Extremities: Moves all extremities, no edema. no resting tremor but tremor with movement : underwood draining concentrated urine. Results & Data Results & Data Vital Signs (Past 12 Hours) Vital Signs Temp Pulse Pulse Resp BP BP Pulse Ox 06/13/23 08:32 06/13/23 08:27 36.4 C L 06/13/23 08:00 166/79 H 06/13/23 08:00 82 13 98 06/13/23 07:00 172/77 H 06/13/23 07:00 78 15 97 06/13/23 05:00 73 16 98 06/13/23 05:00 152/76 H 06/13/23 04:00 161/75 H 06/13/23 04:00 73 21 97 06/13/23 04:00 36.6 C 74 18 152/76 H 96 06/13/23 03:00 157/71 H 06/13/23 03:00 71 13 97 06/13/23 02:00 72 19 100 06/13/23 02:00 155/76 H 06/13/23 02:00 36.6 C 78 18 155/76 H 97 06/13/23 01:00 151/71 H 06/13/23 01:00 68 17 96 O2 Del Method 06/13/23 08:32 Room Air 06/13/23 08:27 06/13/23 08:00 06/13/23 08:00 Room Air 06/13/23 07:00 06/13/23 07:00 06/13/23 05:00 06/13/23 05:00 06/13/23 04:00 06/13/23 04:00 06/13/23 04:00 Room Air 06/13/23 03:00 06/13/23 03:00 06/13/23 02:00 06/13/23 02:00 06/13/23 02:00 Room Air 06/13/23 01:00 06/13/23 01:00 Laboratory Results CBC, chemistry, B12 levels reviewed PG Care Time/CCT Total # of Minutes Spent Total Time Spent with Patient: Total time spent is greater than 50% in coordination of care (as documented) at patient's floor/unit and/or counseling patient: Coding Level of Care Code 06787 SUB INP/OBS CARE 3/50MIN Diagnoses Sepsis A41.9 Swallowing dysfunction R13.10 Acute respiratory failure with hypoxia J96.01 Altered mental status R40.1 Altered mental status type: stupor Elevated CK R74.8 TIA (transient ischemic attack) G45.9 HTN (hypertension) I10 Elevated troponin R79.89 Pressure injury of back, stage 1 L89.101 Inflammatory arthropathy M19.90 (4) Altered mental status Altered mental status type: stupor Qualified Code(s): R40.1 - Stupor
[2023-06-13] MEDS: CARBIDOPA/LEVODOPA 25/100MG TAB PO SCH (14:24)
[2023-06-14 05:21] LABS: Basophils # (auto) 0.02 K/uL (0.00-0.20); Basophils % (auto) 0.2 %; Eosinophils # (auto) 0.03 K/uL (0.00-0.50); Eosinophils % (auto) 0.3 %; Hematocrit (blood only) 35.3 % (42.0-52.0); Hemoglobin 11.5 g/dl (14.0-18.0); Immature Granulocytes # (auto) 0.21 K/uL (0.01-0.20); Immature Granulocytes % (auto) 1.9 %; Lymphocytes # (auto) 0.61 K/uL (1.20-3.40); Lymphocytes % (auto) 5.5 %; Mean Corpuscular Hemoglobin 29.3 pg (25.0-34.0); Mean Corpuscular Hgb Conc 32.6 g/dL (32.0-36.0); Mean Corpuscular Volume 89.8 fL (80.0-100.0); Mean Platelet Volume 9.2 fL (9.4-12.4); Monocytes # (auto) 1.14 K/uL (0.11-0.59); Monocytes % (auto) 10.3 %; Neutrophils # (auto) 9.01 K/uL (1.40-6.50); Neutrophils % (auto) 81.8 %; Platelet Count 117 K/uL (130-400); RDW Coefficient of Variation 13.8 % (11.5-14.5); Red Blood Count 3.93 M/uL (4.70-6.10); White Blood Count 11.02 K/ul (4.8-10.8)
[2023-06-14 05:37] LABS: Albumin Globulin Ratio 1.1 (0.9-2); Bilirubin,Total 0.9 mg/dl (0.2-1.0); Calcium 8.1 mg/dl (8.6-10.3); Creatinine Clr Calc Pharmacy 87.1 ml/min; Est GFR (African American) 111.1 ml/min; Est GFR (Non-African American) 95.9 ml/min; Globulin 2.8 gm/dl (2.5-4.0); Potassium 3.5 mmol/L (3.5-5.1); Total Protein 5.8 gm/dl (6.0-8.3)
--- NOTE | 2023-06-14 12:05 | XRay Report ---
KUB CLINICAL HISTORY: Constipation. FINDINGS: An AP, portable, supine abdominal radiograph is compared to study dated 06/12/2023. Correlat ion is made with abdominal CT dated 06/10/2023. An enteric tube is unchanged in position. There is no bowel obstruction. Residual enteric contrast is noted in the left colon. There is minimal colonic fec al retention. A rectal temperature probe is in place. Metallic clips project over the prostate. No ab normal abdominal calcifications are seen. There are pelvic phleboliths. The skeletal structures are o steopenic and appear intact. There is moderate to advanced lumbosacral spondylosis. A left hip arthro plasty is in place. IMPRESSION: No acute abnormality is identified. Electronically signed by: Madhav Hernandez M.D. 06/14/2023 12:02 PM
--- NOTE | 2023-06-14 20:09 | Hospitalist Progress Note ---
Date of Service June 14, 2023 Assessment & Plan (1) Sepsis: Plan: -Presented to the ED after being found down by police during wellness visit requested by home health nurse. Last know well from family 06/06 he was running errands, recently admited [facility]. -Noted to be hypothermic at 34C, tachycardic at 111, hypoxic in the 80's on RA --> was on Karen hugger and supplemental oxygen - Lactate 3.6 on admission, down to 1.7 after fluids (received sepsis bolus) - continue LR while NPO and with elevated CK - CT A/P: no acute process, large amount of stool in rectum - no BM reported this admission, suppository given 06/12 - if no BM consider enema 06/13 leukocytosis of 17 with neutrophil predominance of 14, with source being multifocal pneumonia likely with aspiration - continue Zosyn (first day 06/09) - Add doxycycline for MRSA coverage (first day 06/11) - Blood cultures: negative 48 hours - Resp biofire neg -Patient was hypotensive at 100/47 after 1L NSS and is on chronic prednisone 5mg daily for inflammatory arthritis - received hydrocortisone 100mg x1, and 50mg x4 - will transition to hydrocortisone 50mg qAM until able to tolerate p.o. 06/12 Potassium 3.1 - replaced with 20meq TID x 3 elixir will reorder potassium on 06/13 (2) Swallowing dysfunction: Plan: Patient failed bedside swallow study on 06/10, then failed video swallow study on 06/11. Last known food consumption was 06/06 -Discussed with CAR RENTAL DELIVERER likely combination of Parkinson's but likely exacerbated by weakness from current infection. Recommended supplemental nutrition -Will place NG tube 06/12, and start tube feeds. Discussed this with his son and he is agreeable -Consult to dietitian placed -Oral care every 4 hours - Continue NG tube for now, however if swallowing function does not improve will need to discuss next steps \swallowing appears better on 06/13 continue NG tube for now (3) Acute respiratory failure with hypoxia: Plan: -Was found to be hypoxic in the s on RA by EMS -Initial VBG with pH of 7.25, pCO2 of 59, and pO2 of 23 - was initially on HFNC, now stable on room air - CT chest: multifocal airspace conslidations typical for pneumina/aspiration pneumonitis. no effusion or pneumothorax - Zosyn and doxycyline as above -Incentive spirometry, flutter therapy Stable on room air today (4) Altered mental status: Plan: -His differential is broad at this time including metabolic encephalopathy from infection, hypothermia, hypoxia, dehydration, possible CVA/TIA, progression of his known neurologic disease -CT of the head/brain was negative for acute intracranial findings - MRI brain ordered: No acute findings, no stroke. Meningioma unchanged PT/OT (5) Elevated CK: Plan: -Initial CK elevated at 3122 -Likely due to muscle breakdown from prolonged period of time on the ground -Renal and liver function are stable -Continue IV fluids until he can safely resume PO intake Now down to 1130 AM CK (6) TIA (transient ischemic attack): Plan: -Previous TIA in January 2010 -S/P BL carotid endarterectomies in July of 2020 -Normally on aspirin 81 mg BID and 75 mg Daily of Plavix - restarted 06/12 via NG tube (7) HTN (hypertension): Plan: -Hold Valsartan -Metoprolol resumed 06/12 (8) Elevated troponin: Plan: -Initial high sen trop elevated at 43 --> 52 on 2 hour repeat -No acute ECG changes -Likely due to demand due to his acute illness and elevated CK (9) Pressure injury of back, stage 1: Plan: -Mild erythema and skin breakdown of the thoracic back and sacrum -No current skin openings or sings of acute infection -Turn and position q2h -Will order low air loss mattress (10) Inflammatory arthropathy: Plan: -Normally on 5 mg Prednisone daily -Unsure of last dose at this time - recieved stress dose steroids and will keep on IV until can tolerate PO -Can resume PO prednisone when stable Plan Dispo: continued inpatient stay DVT proh: Lovenox, will monitor platelet levels. son updated by phone - discussed if swallowing function not improving by friday would have to reevaluate goals of care/prognosis Admission and Anticipated Discharge Date Admission Date: June 10, 2023 Subjective 88 yo male appears more awake and able to have discussion with son. Review of Systems Review of Systems: All systems reviewed & are unremarkable except as noted in HPI & below Physical Exam Physical Exam: General: NAD, VS as above Resp: normal respiratory effort, lungs diminished in bases. able to demonstrate use of flutter valve CV: RRR, no murmur, Abd: firm but nontender, no hepatosplenomegaly Extremities: Moves all extremities, no edema. no resting tremor but tremor with movement : underwood draining concentrated urine. PG Care Time/CCT Total # of Minutes Spent Total Time Spent with Patient: Total time spent is greater than 50% in coordination of care (as documented) at patient's floor/unit and/or counseling patient: Coding Level of Care Code 93903 SUB INP/OBS CARE 2/35MIN Diagnoses Sepsis A41.9 Swallowing dysfunction R13.10 Acute respiratory failure with hypoxia J96.01 Altered mental status R40.1 Altered mental status type: stupor Elevated CK R74.8 TIA (transient ischemic attack) G45.9 HTN (hypertension) I10 Elevated troponin R79.89 Pressure injury of back, stage 1 L89.101 Inflammatory arthropathy M19.90 (4) Altered mental status Altered mental status type: stupor Qualified Code(s): R40.1 - Stupor
[2023-06-14] MEDS: POTASSIUM CHLORIDE 20 MEQ/15 ML UDC PO STA (21:11)
[2023-06-15 07:50] LABS: Basophils # (auto) 0.01 K/uL (0.00-0.20); Basophils % (auto) 0.1 %; Eosinophils # (auto) 0.07 K/uL (0.00-0.50); Eosinophils % (auto) 0.6 %; Hematocrit (blood only) 35.7 % (42.0-52.0); Hemoglobin 11.8 g/dl (14.0-18.0); Immature Granulocytes # (auto) 0.28 K/uL (0.01-0.20); Immature Granulocytes % (auto) 2.4 %; Lymphocytes # (auto) 0.65 K/uL (1.20-3.40); Lymphocytes % (auto) 5.6 %; Mean Corpuscular Hemoglobin 29.5 pg (25.0-34.0); Mean Corpuscular Hgb Conc 33.1 g/dL (32.0-36.0); Mean Corpuscular Volume 89.3 fL (80.0-100.0); Mean Platelet Volume 9.1 fL (9.4-12.4); Monocytes # (auto) 1.37 K/uL (0.11-0.59); Monocytes % (auto) 11.8 %; Neutrophils # (auto) 9.22 K/uL (1.40-6.50); Neutrophils % (auto) 79.5 %; Platelet Count 142 K/uL (130-400); RDW Standard Deviation 45.8 fL (36.4-46.3)
[2023-06-15 07:54] LABS: Albumin Level 2.8 gm/dl (3.4-5.0); Bilirubin,Total 0.7 mg/dl (0.2-1.0); Creatinine Clr Calc Pharmacy 85.4 ml/min; Est GFR (African American) 111.1 ml/min; Est GFR (Non-African American) 95.9 ml/min; Globulin 2.7 gm/dl (2.5-4.0); Potassium 3.9 mmol/L (3.5-5.1); Total Protein 5.5 gm/dl (6.0-8.3)
--- NOTE | 2023-06-15 15:19 | XRay Report ---
XR chest 1V portable CLINICAL HISTORY: NG tube placement COMPARISON STUDY: Chest radiograph and chest CT June 10, 2023. FINDINGS: The tip of the nasogastric/feeding tube projects over the pylorus. There is no pneumothorax . Suspected small bilateral pleural effusions. Extensive perihilar and bibasilar opacities have progr essed. There is mild interstitial thickening. Cardiomediastinal silhouette is stable. IMPRESSION: 1. Tip of nasogastric/feeding tube projects over the pylorus. 2. Significant increase in bibasilar perihilar opacities suggestive of pneumonia or aspiration pneumo nitis. 3. Suspected small bilateral pleural effusions. 4. Interstitial thickening. This may reflect mild superimposed pulmonary edema. ACT 112: Negative or not required by law. Electronically signed by: Sree Monterroso M.D. 06/15/2023 3:17 PM
[2023-06-15] MEDS: PEPTAMEN 1.5 CAL 1,000 ML BAG NG SCH (18:13)
--- NOTE | 2023-06-15 20:30 | Hospitalist Progress Note ---
Date of Service June 15, 2023 Assessment & Plan (1) Sepsis: Plan: -Presented to the ED after being found down by police during wellness visit requested by home health nurse. Last know well from family 06/06 he was running errands, recently admited [facility]. -Noted to be hypothermic at 34C, tachycardic at 111, hypoxic in the s on RA --> was on Karen hugger and supplemental oxygen - Lactate 3.6 on admission, down to 1.7 after fluids (received sepsis bolus) - continue LR while NPO and with elevated CK - CT A/P: no acute process, large amount of stool in rectum - no BM reported this admission, suppository given 06/12 - if no BM consider enema 06/13 leukocytosis of 17 with neutrophil predominance of 14, with source being multifocal pneumonia likely with aspiration - continue Zosyn (first day 06/09) - Add doxycycline for MRSA coverage (first day 06/11) - Blood cultures: negative 48 hours - Resp biofire neg -Patient was hypotensive at 100/47 after 1L NSS and is on chronic prednisone 5mg daily for inflammatory arthritis - received hydrocortisone 100mg x1, and 50mg x4 - will transition to hydrocortisone 50mg qAM until able to tolerate p.o. 06/12 Potassium 3.1 - replaced with 20meq TID x 3 elixir Potassium at goal on 06/13 On 06/14 Patient's metabolic encephalopathy appears to be improving. Patient though did pull his NG tube by a few centimeters and this was reinserted back in place. Xray confirmed correct placement. (2) Swallowing dysfunction: Plan: Patient failed bedside swallow study on 06/10, then failed video swallow study on 06/11. Last known food consumption was 06/06 -Discussed with VACUUM CASTER likely combination of Parkinson's but likely exacerbated by weakness from current infection. Recommended supplemental nutrition -Will place NG tube 06/12, and start tube feeds. Discussed this with his son and he is agreeable -Consult to dietitian placed -Oral care every 4 hours - Continue NG tube for now, however if swallowing function does not improve will need to discuss next steps \swallowing appears better on 06/13 continue NG tube for now (3) Acute respiratory failure with hypoxia: Plan: -Was found to be hypoxic in the s on RA by EMS -Initial VBG with pH of 7.25, pCO2 of 59, and pO2 of 23 - was initially on HFNC, now stable on room air - CT chest: multifocal airspace conslidations typical for pneumina/aspiration pneumonitis. no effusion or pneumothorax - Zosyn and doxycyline as above -Incentive spirometry, flutter therapy Stable on room air today (4) Altered mental status: Plan: -His differential is broad at this time including metabolic encephalopathy from infection, hypothermia, hypoxia, dehydration, possible CVA/TIA, progression of his known neurologic disease -CT of the head/brain was negative for acute intracranial findings - MRI brain ordered: No acute findings, no stroke. Meningioma unchanged appears to be improving. PT/OT (5) Elevated CK: Plan: -Initial CK elevated at 3122 -Likely due to muscle breakdown from prolonged period of time on the ground -Renal and liver function are stable -Continue IV fluids until he can safely resume PO intake Now down to 1130 AM CK (6) TIA (transient ischemic attack): Plan: -Previous TIA in January 2010 -S/P BL carotid endarterectomies in July of 2020 -Normally on aspirin 81 mg BID and 75 mg Daily of Plavix - restarted 06/12 via NG tube (7) HTN (hypertension): Plan: -Hold Valsartan -Metoprolol resumed 06/12 (8) Elevated troponin: Plan: -Initial high sen trop elevated at 43 --> 52 on 2 hour repeat -No acute ECG changes -Likely due to demand due to his acute illness and elevated CK (9) Pressure injury of back, stage 1: Plan: -Mild erythema and skin breakdown of the thoracic back and sacrum -No current skin openings or sings of acute infection -Turn and position q2h -Will order low air loss mattress (10) Inflammatory arthropathy: Plan: -Normally on 5 mg Prednisone daily -Unsure of last dose at this time - recieved stress dose steroids and will keep on IV until can tolerate PO -Can resume PO prednisone when stable Plan Dispo: continued inpatient stay DVT proh: Lovenox, will monitor platelet levels. son updated by phone - discussed if swallowing function not improving by friday would have to reevaluate goals of care/prognosis Admission and Anticipated Discharge Date Admission Date: June 10, 2023 Subjective Patient reports no new symptoms. Review of Systems Review of Systems: All systems reviewed & are unremarkable except as noted in HPI & below Physical Exam Physical Exam: General: NAD, VS as above Resp: normal respiratory effort, lungs diminished in bases. able to demonstrate use of flutter valve CV: RRR, no murmur, Abd: firm but nontender, no hepatosplenomegaly Extremities: Moves all extremities, no edema. no resting tremor but tremor with movement : underwood draining concentrated urine. Results & Data Results & Data Vital Signs (Past 12 Hours) Vital Signs Temp Pulse Resp BP Pulse Ox O2 Del Method 06/15/23 19:00 36.4 C L 76 16 143/67 H 95 Room Air 06/15/23 15:16 36.7 C 77 18 137/69 94 Room Air 06/15/23 11:30 36.7 C 75 18 129/70 95 Room Air 06/15/23 09:59 80 PG Care Time/CCT Total # of Minutes Spent Total Time Spent with Patient: Total time spent is greater than 50% in coordination of care (as documented) at patient's floor/unit and/or counseling patient: Coding Level of Care Code 97716 SUB INP/OBS CARE 2/35MIN Diagnoses Sepsis A41.9 Swallowing dysfunction R13.10 Acute respiratory failure with hypoxia J96.01 Altered mental status R40.1 Altered mental status type: stupor Elevated CK R74.8 TIA (transient ischemic attack) G45.9 HTN (hypertension) I10 Elevated troponin R79.89 Pressure injury of back, stage 1 L89.101 Inflammatory arthropathy M19.90 (4) Altered mental status Altered mental status type: stupor Qualified Code(s): R40.1 - Stupor
--- NOTE | 2023-06-16 07:39 | XRay Report ---
KUB HISTORY: Confirm placement of NG tube COMPARISON: None. FINDINGS: The bowel gas pattern is unremarkable. There are no dilated loops of small bowel to suggest an obstruction. Nasogastric tube terminates in the proximal stomach. Small left pleural effusion an d left basilar densities. No pneumoperitoneum or pneumatosis. IMPRESSION: Nasogastric tube terminates in the proximal stomach. ACT 112: Negative or not required by law. Electronically signed by: Cirilo Suarez M.D. 06/16/2023 7:38 AM
--- NOTE | 2023-06-16 16:54 | Hospitalist Progress Note ---
Date of Service June 16, 2023 Assessment & Plan (1) Sepsis: Plan: -Presented to the ED after being found down by police during wellness visit requested by home health nurse. Last know well from family 06/06 he was running errands, recently adm[facility]. -Noted to be hypothermic at 34C, tachycardic at 111, hypoxic in the 's on RA --> was on Karen hugger and supplemental oxygen - Lactate 3.6 on admission, down to 1.7 after fluids (received sepsis bolus) - CT A/P: no acute process, large amount of stool in rectum - no BM reported this admission, suppository given 06/12 - bowels now moving leukocytosis of 17 with neutrophil predominance of 14, with source being multifocal pneumonia likely with aspiration - continue Zosyn (first day 06/09) - Add doxycycline for MRSA coverage (first day 06/11) - Blood cultures: negative 48 hours - Resp biofire neg -Patient was hypotensive at 100/47 after 1L NSS and is on chronic prednisone 5mg daily for inflammatory arthritis - received hydrocortisone 100mg x1, and 50mg x4 - will transition to hydrocortisone 50mg qAM until able to tolerate p.o. Has pulled out NG tube - but replaced and confirmed by Xray AM CBC BMP (2) Swallowing dysfunction: Plan: Patient failed bedside swallow study on 06/10, then failed video swallow study on 06/11. Last known food consumption was 06/06 -Discussed with POWDER BLENDER likely combination of Parkinson's but likely exacerbated by weakness from current infection. Recommended supplemental nutrition -Will place NG tube 06/12, and start tube feeds. Discussed this with his son and he is agreeable -Consult to dietitian placed -Oral care every 4 hours 06/15: Discussed with POWDER BLENDER, making improvements until today, feels like will have a better picture by Friday (3) Acute respiratory failure with hypoxia: Plan: -Was found to be hypoxic in the s on RA by EMS -Initial VBG with pH of 7.25, pCO2 of 59, and pO2 of 23 - was initially on HFNC, now stable on room air - CT chest: multifocal airspace conslidations typical for pneumina/aspiration pneumonitis. no effusion or pneumothorax - Zosyn and doxycyline as above -Incentive spirometry, flutter therapy Stable on room air today (4) Altered mental status: Plan: -His differential is broad at this time including metabolic encephalopathy from infection, hypothermia, hypoxia, dehydration, possible CVA/TIA, progression of his known neurologic disease -CT of the head/brain was negative for acute intracranial findings - MRI brain ordered: No acute findings, no stroke. Meningioma unchanged appears to be improving. PT/OT (5) Elevated CK: Plan: -Initial CK elevated at 3122 -Likely due to muscle breakdown from prolonged period of time on the ground -Renal and liver function are stable Resolved, IV fluids D/C (6) TIA (transient ischemic attack): Plan: -Previous TIA in January 2010 -S/P BL carotid endarterectomies in July of 2020 -Normally on aspirin 81 mg BID and 75 mg Daily of Plavix - restarted 06/12 via NG tube (7) HTN (hypertension): Plan: -Hold Valsartan -Metoprolol resumed 06/12 (8) Elevated troponin: Plan: -Initial high sen trop elevated at 43 --> 52 on 2 hour repeat -No acute ECG changes -Likely due to demand due to his acute illness and elevated CK (9) Pressure injury of back, stage 1: Plan: -Mild erythema and skin breakdown of the thoracic back and sacrum -No current skin openings or sings of acute infection -Turn and position q2h -Will order low air loss mattress (10) Inflammatory arthropathy: Plan: -Normally on 5 mg Prednisone daily -Unsure of last dose at this time - recieved stress dose steroids and will keep on IV until can tolerate PO -Can resume PO prednisone when stable Plan Dispo: continued inpatient stay DVT proh: Lovenox updated by phone, asked me to call eldest son, rohit, in regards to any decision making. LM for rohit - will attempt to call again tomorrow Admission and Anticipated Discharge Date Admission Date: June 10, 2023 Subjective Patient sitting up in bed, wanting to go home. denies acute complaints Review of Systems Review of Systems: All systems reviewed & are unremarkable except as noted in Subjective Physical Exam Physical Exam: General: NAD, VS as above Resp: normal respiratory effort, lungs diminished in bases CV: RRR, no murmur, Abd: soft, nontender, no hepatosplenomegaly Extremities: Moves all extremities, no edema. no resting tremor but tremor with movement : underwood draining yellow urine Results & Data Results & Data Vital Signs (Past 12 Hours) Vital Signs Temp Pulse Pulse Resp BP Pulse Ox O2 Del Method 06/16/23 15:38 36.6 C 83 20 127/62 95 Room Air 06/16/23 10:50 36.7 C 71 20 159/70 H 96 Room Air 06/16/23 10:25 73 06/16/23 07:26 Room Air 06/16/23 07:26 78 06/16/23 07:18 36.8 C 78 20 159/74 H 94 Room Air PG Care Time/CCT Total # of Minutes Spent Total Time Spent with Patient: Total time spent is greater than 50% in coordination of care (as documented) at patient's floor/unit and/or counseling patient: Coding Level of Care Code 29298 SUB INP/OBS CARE 2/35MIN Diagnoses Sepsis A41.9 Swallowing dysfunction R13.10 Acute respiratory failure with hypoxia J96.01 Altered mental status R40.1 Altered mental status type: stupor Elevated CK R74.8 TIA (transient ischemic attack) G45.9 HTN (hypertension) I10 Elevated troponin R79.89 Pressure injury of back, stage 1 L89.101 Inflammatory arthropathy M19.90 (4) Altered mental status Altered mental status type: stupor Qualified Code(s): R40.1 - Stupor
[2023-06-17 07:19] LABS: Basophils # (auto) 0.02 K/uL (0.00-0.20); Basophils % (auto) 0.2 %; Eosinophils # (auto) 0.12 K/uL (0.00-0.50); Eosinophils % (auto) 0.9 %; Hematocrit (blood only) 34.9 % (42.0-52.0); Hemoglobin 11.5 g/dl (14.0-18.0); Immature Granulocytes # (auto) 0.19 K/uL (0.01-0.20); Immature Granulocytes % (auto) 1.5 %; Lymphocytes % (auto) 7.7 %; Mean Corpuscular Hemoglobin 29.4 pg (25.0-34.0); Mean Corpuscular Volume 89.3 fL (80.0-100.0); Mean Platelet Volume 9.3 fL (9.4-12.4); Monocytes # (auto) 1.21 K/uL (0.11-0.59); Monocytes % (auto) 9.4 %; Neutrophils # (auto) 10.39 K/uL (1.40-6.50); Neutrophils % (auto) 80.3 %; Platelet Count 190 K/uL (130-400); RDW Standard Deviation 45.7 fL (36.4-46.3); Red Blood Count 3.91 M/uL (4.70-6.10); White Blood Count 12.93 K/ul (4.8-10.8)
[2023-06-17 07:35] LABS: BUN Creatinine Ratio 25.9 (10-20); Creatinine Clr Calc Pharmacy 77.7 ml/min; Est GFR (African American) 109.4 ml/min; Est GFR (Non-African American) 94.4 ml/min; Potassium 3.5 mmol/L (3.5-5.1)
[2023-06-17] MEDS: CARBIDOPA/LEVODOPA 25/100MG TAB NG SCH (10:47)
[2023-06-17] MEDS: ATORVASTATIN 40 MG TAB NG SCH (10:48)
[2023-06-17] MEDS: ASPIRIN 81 MG CHEW NG SCH (11:36)
--- NOTE | 2023-06-17 15:17 | Hospitalist Progress Note ---
Date of Service June 17, 2023 Assessment & Plan (1) Sepsis: Plan: -Presented to the ED after being found down by police during wellness visit requested by home health nurse. Last know well from family 06/06 he was running errands, recently admited [facility]. -Noted to be hypothermic at 34C, tachycardic at 111, hypoxic in the 80's on RA --> was on Karen hugger and supplemental oxygen - Lactate 3.6 on admission, down to 1.7 after fluids (received sepsis bolus) - CT A/P: no acute process, large amount of stool in rectum - no BM reported this admission, suppository given 06/12 - bowels now moving leukocytosis of 17 with neutrophil predominance of 14, with source being multifocal pneumonia likely with aspiration - continue Zosyn (first day 06/09) - Add doxycycline for MRSA coverage (first day 06/11) - Blood cultures: Negative, finalized. - Resp biofire neg -Patient was hypotensive at 100/47 after 1L NSS and is on chronic prednisone 5mg daily for inflammatory arthritis - received hydrocortisone 100mg x1, and 50mg x4 - will transition to hydrocortisone 50mg qAM until able to tolerate p.o. Has pulled out NG tube - but replaced and confirmed by Xray AM CBC BMP (2) Swallowing dysfunction: Plan: Patient failed bedside swallow study on 06/10, then failed video swallow study on 06/11. Last known food consumption was 06/06 -Discussed with FLOOR MOLDER likely combination of Parkinson's but likely exacerbated by weakness from current infection. Recommended supplemental nutrition -Will place NG tube 06/12, and start tube feeds. Discussed this with his son and he is agreeable -Consult to dietitian placed -Oral care every 4 hours 06/15: Discussed with FLOOR MOLDER, making improvements until today, feels like will have a better picture by Friday 06/16: Patient again not making improvements, FLOOR MOLDER reports worse than day prior more unlikely that patient is going to make a full recovery. -Discussed above information with son, Pepito who is the primary decision cam er. Does not think that a G-tube would be quality of life for his dad, but does not want to give up too early as he was doing well over the weekend. Agreed to continue with NG tube and tube feeds for now, and reevaluate again tomorrow. Will also check UA given worsening confusion, however did reiterate that unlike this is infected as he is still receiving 2 antibiotics. (3) Acute respiratory failure with hypoxia: Plan: -Was found to be hypoxic in the 80's on RA by EMS -Initial VBG with pH of 7.25, pCO2 of 59, and pO2 of 23 - was initially on HFNC, now stable on room air - CT chest: multifocal airspace conslidations typical for pneumina/aspiration pneumonitis. no effusion or pneumothorax - Zosyn and doxycyline as above -Incentive spirometry, flutter therapy Stable on room air today (4) Altered mental status: Plan: -His differential is broad at this time including metabolic encephalopathy from infection, hypothermia, hypoxia, dehydration, possible CVA/TIA, progression of his known neurologic disease -CT of the head/brain was negative for acute intracranial findings - MRI brain ordered: No acute findings, no stroke. Meningioma unchanged Worsening over the last 2 days, accompanied by worsening speech/swallowing function -Remains on antibiotics for pneumonia -UA without infection PT/OT (5) Elevated CK: Plan: -Initial CK elevated at 3122 -Likely due to muscle breakdown from prolonged period of time on the ground -Renal and liver function are stable Resolved, IV fluids D/C (6) TIA (transient ischemic attack): Plan: -Previous TIA in January 2010 -S/P BL carotid endarterectomies in July of 2020 -Normally on aspirin 81 mg BID and 75 mg Daily of Plavix - restarted 06/12 via NG tube (7) HTN (hypertension): Plan: -Hold Valsartan -Metoprolol resumed 06/12 (8) Elevated troponin: Plan: -Initial high sen trop elevated at 43 --> 52 on 2 hour repeat -No acute ECG changes -Likely due to demand due to his acute illness and elevated CK (9) Pressure injury of back, stage 1: Plan: -Mild erythema and skin breakdown of the thoracic back and sacrum -No current skin openings or sings of acute infection -Turn and position q2h -low air loss mattress (10) Inflammatory arthropathy: Plan: -Normally on 5 mg Prednisone daily -Unsure of last dose at this time - recieved stress dose steroids and will keep on IV until can tolerate PO -Can resume PO prednisone when stable Plan Dispo: continued inpatient stay DVT proh: Lovenox Goals of care discussed with Pepito via phone today. Detailed conversation above Discussed with FLOOR MOLDER at bedside Admission and Anticipated Discharge Date Admission Date: June 10, 2023 Subjective Patient seen earlier this morning, at this time who thought he was in the [facility] and that is where he slept last night. More confused than prior days. FLOOR MOLDER entered and I deferred my exam until later Revisited patient this afternoon and continues to be more confused. Unaware that he is in the hospital thinks that he needs to go upstairs also talks about getting in the shower. Is alert to himself and does know that it is 2023 He denies any pain currently does notice that he is coughing up/spitting out more saliva Review of Systems Review of Systems: All systems reviewed & are unremarkable except as noted in Subjective Physical Exam Physical Exam: General: NAD, VS as above Resp: normal respiratory effort, lungs diminished in bases CV: RRR, no murmur, Abd: soft, nontender, no hepatosplenomegaly Extremities: Moves all extremities, no edema. no resting tremor but tremor with movement : underwood draining yellow urine Results & Data Results & Data Vital Signs (Past 12 Hours) Vital Signs Temp Pulse Pulse Resp BP Pulse Ox O2 Del Method 06/17/23 13:32 73 06/17/23 11:24 36.4 C L 78 20 130/68 91 Room Air 06/17/23 08:25 36.8 C 77 20 154/68 H 94 Room Air 06/17/23 03:21 36.9 C 68 20 159/74 H 96 Room Air Laboratory Results CBC and chemistry reviewed PG Care Time/CCT Total # of Minutes Spent Total Time Spent with Patient: Total time spent is greater than 50% in coordination of care (as documented) at patient's floor/unit and/or counseling patient: Coding Level of Care Code 58983 SUB INP/OBS CARE 3/50MIN Diagnoses Sepsis A41.9 Swallowing dysfunction R13.10 Acute respiratory failure with hypoxia J96.01 Altered mental status R40.1 Altered mental status type: stupor Elevated CK R74.8 TIA (transient ischemic attack) G45.9 HTN (hypertension) I10 Elevated troponin R79.89 Pressure injury of back, stage 1 L89.101 Inflammatory arthropathy M19.90 (4) Altered mental status Altered mental status type: stupor Qualified Code(s): R40.1 - Allison
[2023-06-17 15:55] LABS: Appearance Urine Clear (Clear); Bacteria Urine Automated None Seen (None Seen); Bilirubin Urine Negative (Negative); Blood Urine 1+ (Negative); Cast Urine Automated 0-2 /lpf (0-2); Color Urine Yellow; Epithelial Cell Urine Auto 0-2 /hpf (0-2); Glucose Urine UA Negative (Negative); Ketones Urine Negative (Negative); Leukocyte Esterase Urine Negative (Negative); Nitrite Urine Negative (Negative); Protein Urine Negative (Negative); Specific Gravity Urine 1.015 (1.000-1.030); Urobilinogen Urine Negative (Negative); WBC Urine Automated 0-5 /hpf (0-5)
[2023-06-17] MEDS: ACETAMINOPHEN 1,000 MG/100 ML VIAL IV STA (20:45)
[2023-06-18 06:59] LABS: Basophils # (auto) 0.01 K/uL (0.00-0.20); Basophils % (auto) 0.1 %; Eosinophils # (auto) 0.19 K/uL (0.00-0.50); Eosinophils % (auto) 1.4 %; Hematocrit (blood only) 32.7 % (42.0-52.0); Hemoglobin 11.1 g/dl (14.0-18.0); Immature Granulocytes # (auto) 0.15 K/uL (0.01-0.20); Immature Granulocytes % (auto) 1.1 %; Lymphocytes # (auto) 1.19 K/uL (1.20-3.40); Lymphocytes % (auto) 8.7 %; Mean Corpuscular Hemoglobin 30.2 pg (25.0-34.0); Mean Corpuscular Hgb Conc 33.9 g/dL (32.0-36.0); Mean Corpuscular Volume 89.1 fL (80.0-100.0); Mean Platelet Volume 8.8 fL (9.4-12.4); Monocytes # (auto) 1.13 K/uL (0.11-0.59); Monocytes % (auto) 8.2 %; Neutrophils # (auto) 11.03 K/uL (1.40-6.50); Neutrophils % (auto) 80.5 %; Platelet Count 223 K/uL (130-400); RDW Coefficient of Variation 13.8 % (11.5-14.5); RDW Standard Deviation 45.3 fL (36.4-46.3); Red Blood Count 3.67 M/uL (4.70-6.10)
[2023-06-18 07:35] LABS: Creatinine Clr Calc Pharmacy 85.5 ml/min; Est GFR (African American) 112.9 ml/min; Est GFR (Non-African American) 97.4 ml/min; Magnesium 1.7 mg/dl (1.7-2.4); Phosphorus 2.4 mg/dl (2.5-4.9); Potassium 3.5 mmol/L (3.5-5.1)
--- NOTE | 2023-06-18 10:05 | XRay Report ---
XR chest 1V portable HISTORY: 88 years-old Male recheck PNA acute shortness of breath COMPARISON: 06/15/2023 TECHNIQUE: AP view of the chest FINDINGS: Distal tip of feeding tube projects over the gastric body. Cardiac silhouette is enlarged. Pulmonary vascular congestion with interstitial coarsening. Mild bibasilar and left midlung airspace opacities have slightly improved. Small pleural effusions. No pneumothorax. Bones appear grossly intact. IMPRESSION: 1. Cardiomegaly with pulmonary vascular congestion. 2. Small pleural effusions with mild improvement of the bibasilar and left midlung airspace opacities . 3. Distal tip of feeding tube projects over the gastric body. ACT 112: Negative or not required by law. The above report was generated using voice recognition software. It may contain grammatical, syntax o r spelling errors. Electronically signed by: Adonis Monson M.D. 06/18/2023 10:04 AM
--- NOTE | 2023-06-18 14:58 | Hospitalist Progress Note ---
Date of Service June 18, 2023 Assessment & Plan (1) Sepsis: Plan: -Presented to the ED after being found down by police during wellness visit requested by home health nurse. Last know well from family 06/06 he was running errands, recently adm[facility]. -Noted to be hypothermic at 34C, tachycardic at 111, hypoxic in the 80's on RA --> was on Karen hugger and supplemental oxygen - Lactate 3.6 on admission, down to 1.7 after fluids (received sepsis bolus) - CT A/P: no acute process, large amount of stool in rectum - no BM reported this admission, suppository given 06/12 - bowels now moving leukocytosis of 17 with neutrophil predominance of 14, with source being multifocal pneumonia likely with aspiration - completed course of Zosyn - Add doxycycline for MRSA coverage (first day 06/11) - Blood cultures: Negative, finalized. - Resp biofire neg -Patient was hypotensive at 100/47 after 1L NSS and is on chronic prednisone 5mg daily for inflammatory arthritis - received hydrocortisone 100mg x1, and 50mg x4 - will transition to hydrocortisone 50mg qAM --- dose decreased 06/17 to 20mg qAM to be closer to chronic dose Has pulled out NG tube - but replaced and confirmed by Xray (2) Swallowing dysfunction: Plan: Patient failed bedside swallow study on 06/10, then failed video swallow study on 06/11. Last known food consumption was 06/06 -Discussed with PATIENT SUPPORT SPECIALIST likely combination of Parkinson's but likely exacerbated by weakness from current infection. Recommended supplemental nutrition -Will place NG tube 06/12, and start tube feeds. Discussed this with his son and he is agreeable -Consult to dietitian placed -Oral care every 4 hours 06/15: Discussed with PATIENT SUPPORT SPECIALIST, making improvements until today, feels like will have a better picture by Friday 06/16: Patient again not making improvements, PATIENT SUPPORT SPECIALIST reports worse than day prior more unlikely that patient is going to make a full recovery. - will check UA for other possible source of confusion 06/17: patient again not making improvements with speech therapy, recommendations given for permissive aspiration if family and patient willing to accept. - discussed information with patient and son Pepito (separately) hesitant to give up too early. Have checked UA and chest x-ray and labs, no indication for increased confusion besides hospital delirium - were agreeable to palliative care consult, will continue tube feeds for now - did ask physical therapy to see the patient to determine how weak he is after being in bed for 8 days (3) Acute respiratory failure with hypoxia: Plan: -Was found to be hypoxic in the 80's on RA by EMS -Initial VBG with pH of 7.25, pCO2 of 59, and pO2 of 23 - was initially on HFNC, now stable on room air - CT chest: multifocal airspace conslidations typical for pneumina/aspiration pneumonitis. no effusion or pneumothorax - Zosyn and doxycyline as above -Incentive spirometry, flutter therapy Stable on room air today (4) Altered mental status: Plan: -His differential is broad at this time including metabolic encephalopathy from infection, hypothermia, hypoxia, dehydration, possible CVA/TIA, progression of his known neurologic disease -CT of the head/brain was negative for acute intracranial findings - MRI brain ordered: No acute findings, no stroke. Meningioma unchanged Worsening over the last 2 days, accompanied by worsening speech/swallowing function - seems to be waxing and waning -Remains on antibiotics for pneumonia -UA without infection - chest x-ray shows improving pneumonia PT/OT (5) Elevated CK: Plan: -Initial CK elevated at 3122 -Likely due to muscle breakdown from prolonged period of time on the ground -Renal and liver function are stable Resolved, IV fluids D/C (6) TIA (transient ischemic attack): Plan: -Previous TIA in January 2010 -S/P BL carotid endarterectomies in July of 2020 -Normally on aspirin 81 mg BID and 75 mg Daily of Plavix - restarted 06/12 via NG tube (7) HTN (hypertension): Plan: -Hold Valsartan -Metoprolol resumed 06/12 (8) Elevated troponin: Plan: -Initial high sen trop elevated at 43 --> 52 on 2 hour repeat -No acute ECG changes -Likely due to demand due to his acute illness and elevated CK (9) Pressure injury of back, stage 1: Plan: -Mild erythema and skin breakdown of the thoracic back and sacrum -No current skin openings or sings of acute infection -Turn and position q2h -low air loss mattress (10) Inflammatory arthropathy: Plan: -Normally on 5 mg Prednisone daily -Unsure of last dose at this time - recieved stress dose steroids and will keep on IV until can tolerate PO -Can resume PO prednisone when stable Plan Dispo: continued inpatient stay DVT proh: Lovenox Goals of care discussed with Pepito via phone today. Detailed conversation above Discussed with PATIENT SUPPORT SPECIALIST Admission and Anticipated Discharge Date Admission Date: June 10, 2023 Subjective Patient evaluated after lunch, he was more alert and oriented than prior days. He was able to engage in full conversation about the difficulty he is having to swallow and kind of what that possible neck steps are. he does not think that a G-tube sounds like something that he would want but he is not wanting to make final decision without talking to his family which is very understandable. he does state that he is comfortable currently and wonders why he cannot continue with the current plan send I discussed how we cannot just remain in the hospital with a tube down his nose. after my visit I called his son Pepito to inform him about the lack of progress with speech. Pepito states he is unsure if his dad was aspirating before as his mother spends more time with him. He does value the quality of life but is struggling with how the rest of Sincere's body still seems in good shape" does not want to give up too early". He would like to discuss with his daughter mother further but is agreeable to a palliative care consult Review of Systems Review of Systems: All systems reviewed & are unremarkable except as noted in Subjective Physical Exam Physical Exam: General: NAD, more alert and oriented todayVS as above Resp: normal respiratory effort, lungs diminished in bases CV: RRR, no murmur, Abd: soft, nontender, no hepatosplenomegaly Extremities: Moves all extremities, no edema. no resting tremor but tremor with movement : underwood draining yellow urine Results & Data Results & Data Vital Signs (Past 12 Hours) Vital Signs Temp Pulse Pulse Resp BP Pulse Ox O2 Del Method 06/18/23 13:41 Room Air 06/18/23 11:13 36.6 C 71 23 155/64 H 96 Room Air 06/18/23 07:48 36.5 C 92 H 22 169/77 H 92 Room Air 06/18/23 07:24 67 06/18/23 03:39 37.0 C 66 20 170/61 H 97 Room Air Laboratory Results CBC chemistry magnesium and phosphorus reviewed CRP and Pro-Darren reviewed Diagnostic Findings chest x-ray reviewed PG Care Time/CCT Total # of Minutes Spent Total Time Spent with Patient: Total time spent is greater than 50% in coordination of care (as documented) at patient's floor/unit and/or counseling patient: Coding Level of Care Code 61719 SUB INP/OBS CARE 3/50MIN Diagnoses Sepsis A41.9 Swallowing dysfunction R13.10 Acute respiratory failure with hypoxia J96.01 Altered mental status R40.1 Altered mental status type: stupor Elevated CK R74.8 TIA (transient ischemic attack) G45.9 HTN (hypertension) I10 Elevated troponin R79.89 Pressure injury of back, stage 1 L89.101 Inflammatory arthropathy M19.90 (4) Altered mental status Altered mental status type: stupor Qualified Code(s): R40.1 - Stupor
[2023-06-18] MEDS: FUROSEMIDE INJ 20 MG/2 ML VIAL IV ONE (16:19)
[2023-06-18] MEDS: MELATONIN 3 MG TAB PO PRN (20:05)
[2023-06-19 07:46] LABS: Basophils # (auto) 0.01 K/uL (0.00-0.20); Basophils % (auto) 0.1 %; Eosinophils # (auto) 0.22 K/uL (0.00-0.50); Eosinophils % (auto) 1.6 %; Hematocrit (blood only) 34.3 % (42.0-52.0); Hemoglobin 11.3 g/dl (14.0-18.0); Immature Granulocytes % (auto) 0.7 %; Lymphocytes # (auto) 1.17 K/uL (1.20-3.40); Lymphocytes % (auto) 8.8 %; Mean Corpuscular Hemoglobin 29.8 pg (25.0-34.0); Mean Corpuscular Hgb Conc 32.9 g/dL (32.0-36.0); Mean Corpuscular Volume 90.5 fL (80.0-100.0); Mean Platelet Volume 9.1 fL (9.4-12.4); Monocytes # (auto) 1.09 K/uL (0.11-0.59); Monocytes % (auto) 8.2 %; Neutrophils # (auto) 10.77 K/uL (1.40-6.50); Neutrophils % (auto) 80.6 %; Platelet Count 262 K/uL (130-400); RDW Coefficient of Variation 14.2 % (11.5-14.5); RDW Standard Deviation 46.7 fL (36.4-46.3); Red Blood Count 3.79 M/uL (4.70-6.10); White Blood Count 13.36 K/ul (4.8-10.8)
[2023-06-19 08:02] LABS: BUN Creatinine Ratio 29.2 (10-20); C Reactive Protein 3.03 mg/dl (0-0.5); Calcium 8.1 mg/dl (8.6-10.3); Est GFR (African American) 114.8 ml/min; Est GFR (Non-African American) 99.1 ml/min; Phosphorus 2.4 mg/dl (2.5-4.9); Potassium 3.8 mmol/L (3.5-5.1)
[2023-06-19] MEDS ORDERED: SODIUM PHOSPHATE 3 MMOL/1 ML INFUSION IV STA (08:33)
[2023-06-19] MEDS: HYDROCORTISONE SOD 20 MG in SYRINGE 0 ML IV SCH (09:27)
[2023-06-19] MEDS: SODIUM PHOSPHATE 12 MMOL in SODIUM CHLORIDE 0.9% 250 ML IV ONE (09:27)
--- NOTE | 2023-06-19 12:14 | Hospitalist Progress Note ---
Date of Service June 19, 2023 Assessment & Plan (1) Swallowing dysfunction: Plan: Patient failed bedside swallow study on 06/10, then failed video swallow study on 06/11. Last known food consumption was 06/06 -Discussed with DENTAL EQUIPMENT MECHANIC likely combination of Parkinson's but likely exacerbated by weakness from current infection. Recommended supplemental nutrition -Will place NG tube 06/12, and start tube feeds. Discussed this with his son and he is agreeable -Consult to dietitian placed -Oral care every 4 hours 06/15: Discussed with DENTAL EQUIPMENT MECHANIC, making improvements until today, feels like will have a better picture by Friday 06/16: Patient again not making improvements, DENTAL EQUIPMENT MECHANIC reports worse than day prior more unlikely that patient is going to make a full recovery. - will check UA for other possible source of confusion 06/17: patient again not making improvements with speech therapy, recommendations given for permissive aspiration if family and patient willing to accept. - discussed information with patient and son Pepito (separately) hesitant to give up too early. Have checked UA and chest x-ray and labs, no indication for increased confusion besides hospital delirium - were agreeable to palliative care consult, will continue tube feeds for now - did ask physical therapy to see the patient to determine how weak he is after being in bed for 8 days 06/18: Patient cognitive status continues to improve, asked DENTAL EQUIPMENT MECHANIC to see pt - Patient continues to aspirate, but was able to participate in therapy and follow commands better, DENTAL EQUIPMENT MECHANIC will continue to follow - Pallative plans to see patient 06/19 - Pepito updated stating dad has strong will to live, espeically if rest of body is able. Discussed guarded prognosis for return of swallowing function (2) Sepsis: Plan: -Presented to the ED after being found down by police during wellness visit requested by home health nurse. Last know well from family 06/06 he was running errands, recently admited [facility]. -Noted to be hypothermic at 34C, tachycardic at 111, hypoxic in the 80's on RA --> was on Karen hugger and supplemental oxygen - Lactate 3.6 on admission, down to 1.7 after fluids (received sepsis bolus) - CT A/P: no acute process, large amount of stool in rectum - no BM reported this admission, suppository given 06/12 - bowels now moving leukocytosis of 17 with neutrophil predominance of 14, with source being multi focal pneumonia likely with aspiration - completed course of Zosyn and doxycycline - Blood cultures: Negative, finalized. - Resp biofire neg -Patient was hypotensive at 100/47 after 1L NSS and is on chronic prednisone 5mg daily for inflammatory arthritis - received hydrocortisone 100mg x1, and 50mg x4 - will transition to hydrocortisone 50mg qAM --- dose decreased 06/17 to 20mg qAM to be closer to chronic dose Resolved, steroids however continue (3) Acute respiratory failure with hypoxia: Plan: -Was found to be hypoxic in the 80's on RA by EMS - initially requiring HFNC -Initial VBG with pH of 7.25, pCO2 of 59, and pO2 of 23 - CT chest: multifocal airspace conslidations typical for pneumina/aspiration pneumonitis. no effusion or pneumothorax - Completed Zosyn Resolved (4) Altered mental status: Plan: -His differential is broad at this time including metabolic encephalopathy from infection, hypothermia, hypoxia, dehydration, possible CVA/TIA, progression of his known neurologic disease -CT of the head/brain was negative for acute intracranial findings - MRI brain ordered: No acute findings, no stroke. Meningioma unchanged Worsening beginning of the week, accompanied by worsening speech/swallowing function - seems to be waxing and waning -Remains on antibiotics for pneumonia -UA without infection - chest x-ray shows improving pneumonia Mental status improving 06/17 and 06/18 PT/OT (5) Elevated CK: Plan: -Initial CK elevated at 3122 -Likely due to muscle breakdown from prolonged period of time on the ground -Renal and liver function are stable Resolved, IV fluids D/C (6) TIA (transient ischemic attack): Plan: -Previous TIA in January 2010 -S/P BL carotid endarterectomies in July of 2020 -Normally on aspirin 81 mg BID and 75 mg Daily of Plavix - restarted 06/12 via NG tube (7) HTN (hypertension): Plan: -Hold Valsartan -Metoprolol resumed 06/12 (8) Elevated troponin: Plan: -Initial high sen trop elevated at 43 --> 52 on 2 hour repeat -No acute ECG changes -Likely due to demand due to his acute illness and elevated CK (9) Pressure injury of back, stage 1: Plan: -Mild erythema and skin breakdown of the thoracic back and sacrum -No current skin openings or sings of acute infection -Turn and position q2h -low air loss mattress (10) Inflammatory arthropathy: Plan: -Normally on 5 mg Prednisone daily -Unsure of last dose at this time - recieved stress dose steroids Continue on IV eqivalent Hydrocortisone until able to resume PO Plan Dispo: continued inpatient stay DVT proh: Lovenox Goals of care discussed with Pepito via phone today. Detailed conversation above Discussed with DENTAL EQUIPMENT MECHANIC Admission and Anticipated Discharge Date Admission Date: June 10, 2023 Subjective Patient seen in bed, more alert than yesterday. Denies pain. Is questioning plan of care/next steps - discussed with patient that prognosis is guarded based on his ability to swallow. Will have speech eval today now that patient is not confused. Physical Exam Physical Exam: General: NAD, A&O x 3, very pleasant and appears improved from prior days VS as above Resp: normal respiratory effort, no adventitious sounds CV: RRR, no murmur, Abd: soft, nontender, no hepatosplenomegaly Extremities: Moves all extremities, no edema. no resting tremor but tremor with movement : underwood draining yellow urine Results & Data Results & Data Vital Signs (Past 12 Hours) Vital Signs Temp Pulse Resp BP Pulse Ox O2 Del Method 06/19/23 11:37 36.7 C 67 19 145/71 H 95 Room Air 06/19/23 07:28 36.7 C 71 22 153/69 H 95 Room Air 06/19/23 03:51 36.7 C 72 18 150/72 H 95 Room Air Laboratory Results CBC, chemistry, phos and CRP reviewed PG Care Time/CCT Total # of Minutes Spent Total Time Spent with Patient: Total time spent is greater than 50% in coordination of care (as documented) at patient's floor/unit and/or counseling patient: Coding Level of Care Code 51214 SUB INP/OBS CARE 3/50MIN Diagnoses Swallowing dysfunction R13.10 Sepsis A41.9 Acute respiratory failure with hypoxia J96.01 Altered mental status R40.1 Altered mental status type: stupor Elevated CK R74.8 TIA (transient ischemic attack) G45.9 HTN (hypertension) I10 Elevated troponin R79.89 Pressure injury of back, stage 1 L89.101 Inflammatory arthropathy M19.90 (4) Altered mental status Altered mental status type: stupor Qualified Code(s): R40.1 - Stupor
--- NOTE | 2023-06-20 12:09 | Palliative Care Consultation ---
Date of Consultation June 20, 2023 Assessment & Plan (1) Swallowing dysfunction: (2) Dyspnea and respiratory abnormalities: (3) Generalized weakness: (4) Tremor: (5) Advanced care planning/counseling discussion: Met with Mr. Light at bedside face to face for 20min; He would like to see how he does over the weekend and maybe have NGT removed. He is agreeable to rehab before returning home, ideally [facility] to be with his . He has been in his [employer] for over 25 years. 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 He states he and built their home 30+ years ago with mindful details to aging in place and it is his hope he can return to his home and live out his life there. He is open to some home health support after rehab, He feels he has good QOL right now and wants to keep going the way it has been. We discussed the role of pall med in PD as it progresses over time and how adv illness/serious illness conversations can be continued in the outpatient realm post dc, he was agreeable to this and noted he might want to have his son join us as well. Reviewed that he may not necessarily need [facility] but he would like the eval, if he is too well for rehab then he is open to returning home with VNS and home PT. He was not clear how much active support his family would be able to give but feels it is something that can be further discussed. (6) Palliative care by specialist: Met with pt/family. Provided overview of Palliative Medicine, a subspecialty that provides specialized medical care for people living with a serious illness by offering a focus on quality of life. Palliative Medicine is often conflated with hospice: I advised patient/family that Palliative and hospice can be partners but we are not the same. It is important to understand the difference so that we may be informed, and not afraid. Palliative Medicine works to improve QOL through reduction of symptom burden/more control over their illness, for both the patient and family. Palliative medicine clinicians are board certified, specially-trained and another member of the patient's medical care team. We often provide an extra layer of support because our care is based on the needs of the patient, not the prognosis; as such, it's appropriate at any age/advancing stage of a serious illness and can be provided along with curative treatment. Palliative Medicine clinicians are also trained in advanced communication methodologies, to facilitate complex discussions about advanced illness planning, which are needed to help assure that the treatment choices match the patient's goals, aka delivering Goal Concordant care. Finally, we discussed that hospice is a visiting nurse service that focuses on care delivered at the very end of life for patients with terminal illness, with life expectancy less than 6 month. (7) Fall: Encounter type: subsequent encounter Qualified Code(s): W19.XXXD - Unspecified fall, subsequent encounter Plan ACP discussion as noted above Will f/u OP Pall med Thank you for allowing us to participate in the ongoing care of this patient. Please don't hesitate to call or page with any additional concerns. Dr. Swapna Howell DNP Director, Palliative Care History of Present Illness Reason for Consultation: GOC, aspiration Attending Physician: Kamran Zhong MD History of Present Illness Per ED note 06/10/23: Sincere is a 88 yo male with PMHx moderate idiopathic Parkinson Disease, S/P left hip replacement with Dr. Rodriges on 03/28/23, non-obstructive CAD, HLD, previous TIA in January 2010, July 2020 s/p B/L endarterectomies, HTN, inflammatory arthritis, and prostate cancer who presented to the [facility] ED via EMS on 06/10/23 after Police found him on the ground, confused, during a well check visit. Per the ED staff, the patient's home health nurse was concerned for his well-being as she had not heard from or seen him in approximately 2 weeks. He was noted to alert but confused, hypoxic in the 80's on RA. Unsure how long he was down for but possibly the last 24 hours. On arrival to the ED he was still hypoxic at 89% on 15L NRB, tachycardic at 112, and hypothermic at 34C. Labs were significant for a leukocytosis of 16 with neutrophil predominance of 14, VBG pH of 7.25 with pCO2 of 59 and pO2 of 23, initial lactate of 3.6 --> 2.8 on repeat, AG of 12 with bicarb WNL, glucose WNL, total bili of 2.2 with AST of 2.2 but ALT/Alk phos WNL, CK of 3122, high sen trop of 43, procal of 0.59, and UA negative for signs of infection. CT of the head/brain shows posterior scalp contusion but was read as negative for acute intracranial findings. CT of the cervical spine was negative for acute findings. CT of the chest with IV con shows multifocal pneumonia with possible aspiration and negative for other acute findings such as PE or pneumothorax. And CT of the abd/pelvis with con showed a large amount of stool in the rectum but was otherwise negative for acute findings in the abd/pelvis. The patient was given 1L NSS and a dose of Zosyn prior to admission. The ED staff did speak with the Patient's son who is currently in [place] but will be traveling to [facility]. At this time the patient's son would like him to be full code until he arrives. The patient's is reportedly admitted at [facility]. At the time of the exam the patient was sitting in bed and alert but appears confused. He is mumbling with most of his speech incoherent. He is unable to give meaningful history at this time. Sincere has had worsening aspiration through this admission Treatment goals unclear but pt has verbalized preference to have continued escalation of care is admitted to [facility] He was able to walk around the unit several time with walker and accompanied by aide but did not need assist using walker Allergies Allergy/AdvReac Type Severity Reaction Status Date / Time No Known Allergies Allergy Verified 06/10/23 13:32 Home Medications Medication Instructions Recorded Confirmed Type psyllium seed (sugar) oral powder 1.5 tsp PO DAILY 09/16/18 06/10/23 History (Metamucil (sugar) oral powder) nitroglycerin 0.4 mg sublingual 0.4 mg sublingual Q5M PRN chest 12/19/20 06/10/23 Rx tablet pain #1 tab omega-3 fatty acids 1,000 mg 2,000 mg PO QAM 09/21/22 06/10/23 History capsule vitamins A,C,T-vrin-uwolfk 2,148 1 tab PO QAM 09/21/22 06/10/23 History mcg-113 mg-45 mg-17.4 mg tablet (PreserVision AREDS) acetaminophen 325 mg capsule 325 mg PO QID PRN Pain 10/03/22 06/10/23 History (Tylenol) clopidogrel 75 mg tablet 75 mg PO QAM #90 tabs 11/26/22 06/10/23 Rx atorvastatin 40 mg tablet 40 mg PO QAM 90 days #90 tabs 12/17/22 06/10/23 Rx denosumab 60 mg/mL subcutaneous 60 mg subcut UD 01/06/23 06/10/23 History syringe (Prolia) metoprolol tartrate 25 mg tablet 12.5 mg (1/2 x 25 mg) PO BID #90 01/28/23 06/10/23 Rx tabs prednisone 5 mg tablet 5 mg PO QAM 02/27/23 06/10/23 History valsartan 40 mg tablet 40 mg PO QAM 02/27/23 06/10/23 History aspirin 81 mg tablet,delayed 81 mg PO BID #84 tabs 03/29/23 06/10/23 Rx release (Adult Aspirin Regimen) tramadol 50 mg tablet 50 mg PO Q6H PRN pain #30 tabs 03/30/23 06/10/23 Rx tramadol 50 mg tablet 50 mg PO Q6H PRN pain #30 tabs 04/18/23 06/10/23 Rx carbidopa ER 50 mg-levodopa 200 mg 1 tab PO TID 90 days #270 tabs 05/29/23 06/10/23 Rx tablet,extended release Patient History Medical History (Updated 06/20/23 @ 22:34 by Swapna Howell, SILVIA) Palliative care by specialist Advanced care planning/counseling discussion Dyspnea and respiratory abnormalities Caregiver has difficulty performing caretaking Coronary artery arteriosclerosis Nonobstructive CAD (30-40% stenosis of mid and distal LAD) per 09/2022 cardio note Prostate cancer (~2006) s/p XRT Slow to wake up after anesthesia after one surgery TIA (transient ischemic attack) July 2020- TIA/CVA- hospitalized for 1 day for disorientation>no residual eff ects Arteriosclerosis of carotid artery - S/p staged right and left CEA Jan 2010 - Per 06/2022 carotid doppler- No evidence for a hemodynamically significant stenosis. Mild atherosclerotic plaque. Barretts esophagus controlled and stable Benign prostatic hyperplasia with elevated prostate specific antigen (PSA) Hypercholesterolemia Parkinsons disease Stable Tremor associated with Parkinsons disease - mostly in hands L>R HTN (hypertension) Surgical History History of carotid endarterectomy Staged rt/left (2009, [facility] w/dr. wallace History of esophagogastroduodenoscopy (EGD) Hx of colonoscopy Hx of bilateral cataract extraction History of tonsillectomy and adenoidectomy History of surgery Cyst/tumor removal on neck S/P hemorrhoidectomy Family History Father Heart disease Hypertension Myocardial infarction Mother Heart disease Cancer Breast cancer Brother Diabetes Prostate cancer Denies family history of Ovarian cancer Colorectal cancer Social History Smoking Status: Unknown if ever smoked Tobacco Type: Cigars Second Hand Exposure: Yes (hx as child); Do You Dip or Chew Tobacco: No; Hx Alcohol Use: No Hx Substance Use: No Preferred Language: Montserratian Communication Ability: Effective Communication Ability Comment: Patient impaired at this time Visual Impairment: No Limitations Hearing Ability: Use of Hearing Aid 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: No Beliefs That Will Affect Care: None marital status: Current Living Situation: Other Current Living Situation Comment: Typically c/ , at [facility] at this time, home alone current occupational status: retired 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 Feels Safe at Home: Yes Childhood Exposure to Second-Hand Smoke: No Diet: regular Dental Care, Regularly: Yes Physical Activity Frequency: Daily Physical Activity Frequency Comment: walk Seatbelt Use: always Sunscreen Use: Yes Assistive Devices: Walker Review of Systems Review of Systems: All systems reviewed & are unremarkable except as noted in Subjective Physical Exam Physical Exam: Resting in bed, semi reclined AAOx3 but will sometimes repeat himself (ex: he told me > 4 times "We built our home 35 yrs ago, it has wide doorways so we can get through with a wheelchair if needed." Bitemp wasting PERRLA Neck supple Frequent throat clearing +NGT with feedings mild inc resp effort, mild conversational dyspnea diminished breath sounds with few rhonchi, no wheeze irreg irreg HR s1s2, no jvd abd scaphoid, not tender, 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, wamr, scattered ecchymoses Results & Data Vital Signs (Past 12 Hours) Vital Signs Temp Pulse Resp BP Pulse Ox O2 Del Method 06/20/23 10:35 36.4 C L 69 18 131/71 97 Room Air 06/20/23 08:08 36.8 C 82 17 153/73 H 95 Room Air 06/20/23 03:39 36.5 C 69 18 149/66 H 95 Room Air Laboratory Results 06/19/23 06/18/23 06/18/23 Range/Units 07:14 10:07 06:39 WBC 13.36 H 13.70 H (4.8-10.8) K/ul RBC 3.79 L 3.67 L (4.70-6.10) M/uL Hgb 11.3 L 11.1 L (14.0-18.0) g/dl Hct 34.3 L 32.7 L (42.0-52.0) % MCV 90.5 89.1 (80.0-100.0) fL MCH 29.8 30.2 (25.0-34.0) pg MCHC 32.9 33.9 (32.0-36.0) g/dL RDW Std Deviation 46.7 H 45.3 (36.4-46.3) fL RDW Coeff of Peyton 14.2 13.8 (11.5-14.5) % Plt Count 262 223 (130-400) K/uL MPV 9.1 L 8.8 L (9.4-12.4) fL Immature Gran % (Auto) 0.7 1.1 % Neut % (Auto) 80.6 80.5 % Lymph % (Auto) 8.8 8.7 % Major % (Auto) 8.2 8.2 % Eos % (Auto) 1.6 1.4 % Baso % (Auto) 0.1 0.1 % Neut # (Auto) 10.77 H 11.03 H (1.40-6.50) K/uL Lymph # (Auto) 1.17 L 1.19 L (1.20-3.40) K/uL Major # (Auto) 1.09 H 1.13 H (0.11-0.59) K/uL Eos # (Auto) 0.22 0.19 (0.00-0.50) K/uL Baso # (Auto) 0.01 0.01 (0.00-0.20) K/uL Immature Gran # (Auto) 0.10 0.15 (0.01-0.20) K/uL Sodium 136 135 L (136-145) mmol/L Potassium 3.8 3.5 (3.5-5.1) mmol/L Chloride 103 102 (98-107) mmol/L Carbon Dioxide 29 29 (21-32) mmol/L Anion Gap 4 4 (3-11) BUN 14 14 (6-23) mg/dl Creatinine 0.48 L 0.50 L (0.6-1.4) mg/dl Est Cr Clr Drug Dosing 87.0 85.5 ml/min Est GFR ( Amer) 114.8 112.9 ml/min Est GFR (Non-Af Amer) 99.1 97.4 ml/min BUN/Creatinine Ratio 29.2 H 28.0 H (10-20) Glucose 127 H 133 H (70-99(Fasting)) mg/dl Calcium 8.1 L 8.0 L (8.6-10.3) mg/dl Phosphorus 2.4 L 2.4 L (2.5-4.9) mg/dl Magnesium 1.7 (1.7-2.4) mg/dl Total Bilirubin (0.2-1.0) mg/dl AST (13-39) U/L ALT (7-52) U/L Alkaline Phosphatase (34-104) U/L Total Creatine Kinase (30-223) U/L C-Reactive Protein 3.03 H 3.82 H (0-0.5) mg/dl Total Protein (6.0-8.3) gm/dl Albumin (3.4-5.0) gm/dl Globulin (2.5-4.0) gm/dl Albumin/Globulin Ratio (0.9-2) Procalcitonin 0.05 (0-0.5) ng/ml Urine Color Urine Appearance (Clear) Urine pH (4.5-7.5) Ur Specific Kelly (1.000-1.030) Urine Protein (Negative) Urine Glucose (UA) (Negative) Urine Ketones (Negative) Urine Blood (Negative) Urine Nitrite (Negative) Urine Bilirubin (Negative) Urine Urobilinogen (Negative) Ur Leukocyte Esterase (Negative) Urine WBC (Auto) (0-5) /hpf Urine RBC (Auto) (0-2) /hpf U Hyaline Cast (Auto) (0-2) /lpf U Epithel Cells (Auto) (0-2) /hpf Urine Bacteria (Auto) (None Seen) 06/17/23 06/17/23 06/15/23 Range/Units Unknown 06:28 07:06 WBC 12.93 H 11.60 H (4.8-10.8) K/ul RBC 3.91 L 4.00 L (4.70-6.10) M/uL Hgb 11.5 L 11.8 L (14.0-18.0) g/dl Hct 34.9 L 35.7 L (42.0-52.0) % MCV 89.3 89.3 (80.0-100.0) fL MCH 29.4 29.5 (25.0-34.0) pg MCHC 33.0 33.1 (32.0-36.0) g/dL RDW Std Deviation 45.7 45.8 (36.4-46.3) fL RDW Coeff of Peyton 14.0 14.0 (11.5-14.5) % Plt Count 190 142 (130-400) K/uL MPV 9.3 L 9.1 L (9.4-12.4) fL Immature Gran % (Auto) 1.5 2.4 % Neut % (Auto) 80.3 79.5 % Lymph % (Auto) 7.7 5.6 % Major % (Auto) 9.4 11.8 % Eos % (Auto) 0.9 0.6 % Baso % (Auto) 0.2 0.1 % Neut # (Auto) 10.39 H 9.22 H (1.40-6.50) K/uL Lymph # (Auto) 1.00 L 0.65 L (1.20-3.40) K/uL Major # (Auto) 1.21 H 1.37 H (0.11-0.59) K/uL Eos # (Auto) 0.12 0.07 (0.00-0.50) K/uL Baso # (Auto) 0.02 0.01 (0.00-0.20) K/uL Immature Gran # (Auto) 0.19 0.28 H (0.01-0.20) K/uL Sodium 135 L 134 L (136-145) mmol/L Potassium 3.5 3.9 (3.5-5.1) mmol/L Chloride 102 102 (98-107) mmol/L Carbon Dioxide 27 28 (21-32) mmol/L Anion Gap 6 4 (3-11) BUN 14 13 (6-23) mg/dl Creatinine 0.54 L 0.52 L (0.6-1.4) mg/dl Est Cr Clr Drug Dosing 77.7 85.4 ml/min Est GFR ( Amer) 109.4 111.1 ml/min Est GFR (Non-Af Amer) 94.4 95.9 ml/min BUN/Creatinine Ratio 25.9 H 25.0 H (10-20) Glucose 131 H 156 H (70-99(Fasting)) mg/dl Calcium 8.0 L 8.0 L (8.6-10.3) mg/dl Phosphorus (2.5-4.9) mg/dl Magnesium (1.7-2.4) mg/dl Total Bilirubin 0.7 (0.2-1.0) mg/dl AST 21 (13-39) U/L ALT 14 (7-52) U/L Alkaline Phosphatase 53 (34-104) U/L Total Creatine Kinase (30-223) U/L C-Reactive Protein (0-0.5) mg/dl Total Protein 5.5 L (6.0-8.3) gm/dl Albumin 2.8 L (3.4-5.0) gm/dl Globulin 2.7 (2.5-4.0) gm/dl Albumin/Globulin Ratio 1.0 (0.9-2) Procalcitonin (0-0.5) ng/ml Urine Color Yellow Urine Appearance Clear (Clear) Urine pH 6.0 (4.5-7.5) Ur Specific Kelly 1.015 (1.000-1.030) Urine Protein Negative (Negative) Urine Glucose (UA) Negative (Negative) Urine Ketones Negative (Negative) Urine Blood 1+ H (Negative) Urine Nitrite Negative (Negative) Urine Bilirubin Negative (Negative) Urine Urobilinogen Negative (Negative) Ur Leukocyte Esterase Negative (Negative) Urine WBC (Auto) 0-5 (0-5) /hpf Urine RBC (Auto) 11-20 H (0-2) /hpf U Hyaline Cast (Auto) 0-2 (0-2) /lpf U Epithel Cells (Auto) 0-2 (0-2) /hpf Urine Bacteria (Auto) None Seen (None Seen) 06/14/23 Range/Units 04:37 WBC 11.02 H (4.8-10.8) K/ul RBC 3.93 L (4.70-6.10) M/uL Hgb 11.5 L (14.0-18.0) g/dl Hct 35.3 L (42.0-52.0) % MCV 89.8 (80.0-100.0) fL MCH 29.3 (25.0-34.0) pg MCHC 32.6 (32.0-36.0) g/dL RDW Std Deviation 46.0 (36.4-46.3) fL RDW Coeff of Peyton 13.8 (11.5-14.5) % Plt Count 117 L (130-400) K/uL MPV 9.2 L (9.4-12.4) fL Immature Gran % (Auto) 1.9 % Neut % (Auto) 81.8 % Lymph % (Auto) 5.5 % Major % (Auto) 10.3 % Eos % (Auto) 0.3 % Baso % (Auto) 0.2 % Neut # (Auto) 9.01 H (1.40-6.50) K/uL Lymph # (Auto) 0.61 L (1.20-3.40) K/uL Major # (Auto) 1.14 H (0.11-0.59) K/uL Eos # (Auto) 0.03 (0.00-0.50) K/uL Baso # (Auto) 0.02 (0.00-0.20) K/uL Immature Gran # (Auto) 0.21 H (0.01-0.20) K/uL Sodium 133 L (136-145) mmol/L Potassium 3.5 (3.5-5.1) mmol/L Chloride 103 (98-107) mmol/L Carbon Dioxide 27 (21-32) mmol/L Anion Gap 3 (3-11) BUN 13 (6-23) mg/dl Creatinine 0.52 L (0.6-1.4) mg/dl Est Cr Clr Drug Dosing 87.1 ml/min Est GFR ( Amer) 111.1 ml/min Est GFR (Non-Af Amer) 95.9 ml/min BUN/Creatinine Ratio 25.0 H (10-20) Glucose 148 H (70-99(Fasting)) mg/dl Calcium 8.1 L (8.6-10.3) mg/dl Phosphorus (2.5-4.9) mg/dl Magnesium (1.7-2.4) mg/dl Total Bilirubin 0.9 (0.2-1.0) mg/dl AST 34 (13-39) U/L ALT 14 (7-52) U/L Alkaline Phosphatase 50 (34-104) U/L Total Creatine Kinase 329 H (30-223) U/L C-Reactive Protein (0-0.5) mg/dl Total Protein 5.8 L (6.0-8.3) gm/dl Albumin 3.0 L (3.4-5.0) gm/dl Globulin 2.8 (2.5-4.0) gm/dl Albumin/Globulin Ratio 1.1 (0.9-2) Procalcitonin (0-0.5) ng/ml Urine Color Urine Appearance (Clear) Urine pH (4.5-7.5) Ur Specific Kelly (1.000-1.030) Urine Protein (Negative) Urine Glucose (UA) (Negative) Urine Ketones (Negative) Urine Blood (Negative) Urine Nitrite (Negative) Urine Bilirubin (Negative) Urine Urobilinogen (Negative) Ur Leukocyte Esterase (Negative) Urine WBC (Auto) (0-5) /hpf Urine RBC (Auto) (0-2) /hpf U Hyaline Cast (Auto) (0-2) /lpf U Epithel Cells (Auto) (0-2) /hpf Urine Bacteria (Auto) (None Seen) Diagnostic Findings Abdomen/Pelvis CT 06/10/23 11:45 CT OF THE ABDOMEN AND PELVIS WITH CONTRAST CLINICAL HISTORY: found down; AMS COMPARISON STUDY: Pelvis and left hip radiograph March 28, 2023. TECHNIQUE: Following IV administration of 89 mL of Optiray, axial images of the abdomen and pelvis were obtained from the lung bases to the proximal femurs. Images were reviewed in the axial, sagittal, and coronal planes. IV contrast was administered without complication. Automated exposure control was utilized for the study. A dose lowering technique was utilized adhering to the principles of ALARA. FINDINGS: Please note that the chest CT will be reported separately. Alveolar opacities within the lower lungs could reflect pneumonia or aspiration pneumonitis. No pneumatosis, free air or portal venous gas is present. Lateral segment hepatic cyst is present. Several left renal cysts are present. No hydronephrosis. This study is mildly compromised by motion artifact. Spleen, adrenal glands and pancreas are unremarkable. There is no biliary or pancreatic ductal dilatation. A large amount of stool within the rectum is noted. There is colonic diverticulosis without evidence for acute diverticulitis. A Mack balloon within the bladder is noted. There are fiducial markers within the prostate. Left hip arthroplasty is intact. There are no acute fractures within the lumbar spine, pelvis or hips. IMPRESSION: 1. Lower lung airspace opacities suggestive of pneumonia or aspiration pneumonitis. 2. No acute process within the abdomen or pelvis. 3. Large amount of stool within the rectum. 4. Colonic diverticulosis. No evidence for acute diverticulitis. 5. No acute fractures. ACT 112: Negative or not required by law. Electronically signed by: Sree Monterroso M.D. 06/10/2023 12:[address] 06/10/23 11:[address] DOSE: HISTORY: found down; AMS TECHNIQUE: Multiaxial CT images of the cervical spine were performed and reformatted in the sagittal and coronal plane without the use of contrast. A dose lowering technique was utilized adhering to the principles of ALARA. COMPARISON: None. FINDINGS: No fractures. No subluxation. Prevertebral soft tissues and the C1-C2 interval are intact. No pneumothorax. The C4-C5 vertebral bodies are fused. Moderate disc space narrowing at C3-C4. Mild degenerative changes throughout the remaining cervical spine. IMPRESSION: No fractures within the cervical spine. ACT 112: Negative or not required by law. Electronically signed by: Cirilo Suarez M.D. 06/10/2023 1:[address] 06/10/23 11:45 CT SCAN OF THE CHEST WITH IV CONTRAST CLINICAL HISTORY: Change in mental status. Found down. COMPARISON STUDY: Chest x-ray dated 06/10/2023. TECHNIQUE: Following the IV administration of 89 cc of Optiray 320, CT scan of the thorax was performed from the thoracic inlet to the upper abdomen. Images are reviewed in the axial, sagittal, and coronal planes. IV contrast was administered without complication. A dose lowering technique was utilized adhering to the principles of ALARA. The examination is degraded by motion artifact, as well as by streak artifact from the arms which could not be elevated above the abdomen. FINDINGS: Thyroid: Imaged portions of the thyroid gland are normal in size and attenuation. Thoracic aorta: There is atherosclerotic calcification of the thoracic aorta, which is normal in caliber and demonstrates standard 3-vessel arch anatomy. No dissection is seen. Pulmonary vasculature: The pulmonary trunk is normal in caliber. There are no filling defects identified in the central pulmonary vessels to indicate pulmonary embolus. Note that this examination was not protocoled for evaluation of the pulmonary arteries. Heart: The heart is normal in size and without pericardial effusion. The coronary arteries are densely calcified. Lungs and pleural spaces: There is dense airspace consolidation at the left lung base. Mild patchy airspace consolidation is seen in the left upper lobe as well as in the right middle and lower lobes. There is no significant pleural effusion. No pneumothorax is seen. Secretions are noted in the trachea and central airways. Mediastinum: There is no mediastinal hematoma or lymphadenopathy. Ruth: Clear. Axillae: There is no axillary lymphadenopathy. Upper abdomen: There is a small hiatal hernia. A 1.6 cm left lobe hepatic cyst is incidentally noted. A 4 cm cyst arises from the left kidney. Skeletal structures: The skeletal structures are osteopenic. The bony thorax appears intact. There are several spinal hemangiomas. No lytic or blastic bony lesions are seen. 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 IMPRESSION: 1. There is multifocal airspace consolidation as above, greatest at the left lung base. The appearance is typical for pneumonia/aspiration pneumonitis. Clinical correlation will be required and radiographic follow-up to resolution is recommended. Follow-up radiographs should include both PA and lateral views. 2. There is no pleural effusion or pneumothorax. 3. Additional findings as above. ACT 112: Negative or not required by law. Electronically signed by: Madhav Hernandez M.D. 06/10/2023 1:09 PM Chest X-Ray 06/10/23 11:45 SINGLE VIEW CHEST CLINICAL HISTORY: Sepsis FINDINGS: An AP, portable, semierect chest radiograph is compared to study dated 03/04/2023. The examination is degraded by portable technique and patient rotation. The cardiomediastinal silhouette is top normal for projection noting atherosclerotic calcification of the thoracic aorta. Question retrocardiac air space opacities. The right lung is clear. No large pleural effusion or pneumothorax is seen. The skeletal structures are osteopenic. The bony thorax is grossly intact. IMPRESSION: 1. Question retrocardiac airspace opacities. This is not well assessed and clinical correlation required. If there is concern for pneumonia a dedicated PA and lateral examination is recommended. 2. The right lung is clear. ACT 112: Negative or not required by law. Electronically signed by: Madhav Hernandez M.D. 06/10/2023 12:[address] 06/10/23 11:45 CT SCAN OF THE BRAIN WITHOUT IV CONTRAST CLINICAL HISTORY: Change in mental status. COMPARISON STUDY: CT of the brain dated 08/14/2020. MRI of the brain dated 07/01/2021. TECHNIQUE: Unenhanced axial CT scan of the brain is performed from the vertex to the skull base. A dose lowering technique was utilized adhering to the principles of ALARA. CT DOSE: 2346.17 mGy.cm FINDINGS: Brain parenchyma: There is age-related involutional change noting mild subcortical and periventricular microangiopathic disease. There is no hemorrhage, mass effect, or evidence of acute territorial ischemia by CT criteria. 11 mm meningioma along the right convexity is unchanged from prior studies. Rojo-white matter differentiation is preserved. No extra-axial fluid collection is seen. Ventricles, sulci, cisterns: Prominent secondary to involutional change. Intracranial vasculature: There is atherosclerotic calcification of the cavernous carotid and vertebral arteries. Calvarium: The skeletal structures are osteopenic. No depressed calvarial fracture is seen. Soft tissues: Scalp contusions are seen posteriorly at the vertex bilaterally. Sinuses and mastoids: There is mild mucosal thickening ethmoid sinuses. The remaining paranasal sinuses are clear. The mastoid air cells are well pneumatized. Orbits: The bony orbits are grossly intact. There are bilateral ocular lens implants. IMPRESSION: 1. There is no hemorrhage, mass effect, or evidence of acute territorial ischemia by CT criteria. 2. Scalp contusions are seen posteriorly at the vertex. ACT 112: Negative or not required by law. Electronically signed by: Madhav Hernandez M.D. 06/10/2023 12:56 PM Brain MRI 06/11/23 13:14 MRI OF THE BRAIN WITHOUT CONTRAST CLINICAL HISTORY: Altered mental status. r/o stroke COMPARISON STUDY: Head CT June 10, 2023. MRI the brain July 01, 2021. TECHNIQUE: Utilizing a 1.5 Glo magnet and dedicated coil, multiplanar, multiecho imaging of the brain was performed without IV contrast. FINDINGS: There are no foci of restricted diffusion to suggest acute infarct. No acute intracranial hemorrhage, midline shift or mass effect is present. Ventricular system is stable. Basal cisterns are patent. There are no extra- axial collections. Flow-voids for the major intracranial vessels are present. Prominence of extra-axial spaces is unchanged and due to atrophy. Mild white matter T2 hyperintense foci are unchanged and suggest small vessel disease. A 1 cm extra-axial lesion overlying the right frontal lobe is unchanged. This represents a meningioma. The appearance of the brain is unchanged. IMPRESSION: No acute intracranial findings. ACT 112: Negative or not required by law. Electronically signed by: Sree Monterroso M.D. 06/11/2023 6:08 PM Videofluoroscopic Swallow 06/12/23 13:45 MODIFIED BARIUM SWALLOW CLINICAL HISTORY: r/o aspiration COMPARISON STUDY: None. FLUOROSCOPY TIME: 47 seconds. Ka, r: 2.60 mGy. TECHNIQUE: A modified barium swallow was performed in conjunction with Speech Pathology. The patient ingested varying consistencies of barium containing material. Video fluoroscopy was performed. FINDINGS: There were multiple episodes of tracheal aspiration with thin liquids and nectar thick liquids. Premature spillage was noted. Epiglottic inversion was diminished. Moderate residuals within the vallecula and piriform sinuses were noted. IMPRESSION: 1. Impaired swallowing mechanism with multiple episodes of tracheal aspiration with thin liquids and nectar thick liquids. 2. Moderate residuals within the piriform sinuses and vallecula. 3. Full recommendations by Speech pathology to follow. ACT 112: Negative or not required by law. Electronically signed by: Sree Monterroso M.D. 06/12/2023 4:03 PM KUB X-Ray 06/12/23 15:38 SINGLE VIEW ABDOMEN CLINICAL HISTORY: Enteric tube placement. FINDINGS: AP, portable, upright view of the lower chest and upper abdomen is correlated with abdominal CT dated 06/10/2023. An enteric tube has been placed. The tip projects below the diaphragm over the mid to distal stomach. There is no radiographic evidence of bowel obstruction. No intraperitoneal free air is seen below the diaphragm. Residual enteric contrast is noted. There are no abnormal abdominal calcifications. Airspace consolidation is seen at the lung bases. The skeletal structures are osteopenic and appear intact. There is moderate lumbosacral spondylosis IMPRESSION: 1. An enteric tube has been placed as above. 2. No bowel obstruction. 3. Bibasilar airspace consolidation is noted. Electronically signed by: Madhav Hernandez M.D. 06/12/2023 4:23 PM KUB X-Ray 06/14/23 11:16 KUB CLINICAL HISTORY: Constipation. FINDINGS: An AP, portable, supine abdominal radiograph is compared to study dated 06/12/2023. Correlation is made with abdominal CT dated 06/10/2023. An enteric tube is unchanged in position. There is no bowel obstruction. Residual enteric contrast is noted in the left colon. There is minimal colonic fecal retention. A rectal temperature probe is in place. Metallic clips project over the prostate. No abnormal abdominal calcifications are seen. There are pelvic phleboliths. The skeletal structures are osteopenic and appear intact. There is moderate to advanced lumbosacral spondylosis. A left hip arthroplasty is in place. IMPRESSION: No acute abnormality is identified. Electronically signed by: Madhav Hernandez M.D. 06/14/2023 12:02 PM Chest X-Ray 06/15/23 14:27 XR chest 1V portable CLINICAL HISTORY: NG tube placement COMPARISON STUDY: Chest radiograph and chest CT June 10, 2023. FINDINGS: The tip of the nasogastric/feeding tube projects over the pylorus. There is no pneumothorax. Suspected small bilateral pleural effusions. Extensive perihilar and bibasilar opacities have progressed. There is mild interstitial thickening. Cardiomediastinal silhouette is stable. IMPRESSION: 1. Tip of nasogastric/feeding tube projects over the pylorus. 2. Significant increase in bibasilar perihilar opacities suggestive of pneumonia or aspiration pneumonitis. 3. Suspected small bilateral pleural effusions. 4. Interstitial thickening. This may reflect mild superimposed pulmonary edema. ACT 112: Negative or not required by law. Electronically signed by: Sree Monterroso M.D. 06/15/2023 3:17 PM KUB X-Ray 06/15/23 20:30 KUB HISTORY: Confirm placement of NG tube COMPARISON: None. FINDINGS: The bowel gas pattern is unremarkable. There are no dilated loops of small bowel to suggest an obstruction. Nasogastric tube terminates in the proximal stomach. Small left pleural effusion and left basilar densities. No pneumoperitoneum or pneumatosis. IMPRESSION: Nasogastric tube terminates in the proximal stomach. ACT 112: Negative or not required by law. Electronically signed by: Cirilo Suarez M.D. 06/16/2023 7:38 AM Chest X-Ray 06/18/23 09:19 XR chest 1V portable HISTORY: 88 years-old Male recheck PNA acute shortness of breath COMPARISON: 06/15/2023 TECHNIQUE: AP view of the chest FINDINGS: Distal tip of feeding tube projects over the gastric body. Cardiac silhouette is enlarged. Pulmonary vascular congestion with interstitial coarsening. Mild bibasilar and left midlung airspace opacities have slightly improved. Small pleural effusions. No pneumothorax. Bones appear grossly intact. IMPRESSION: 1. Cardiomegaly with pulmonary vascular congestion. 2. Small pleural effusions with mild improvement of the bibasilar and left midlung airspace opacities. 3. Distal tip of feeding tube projects over the gastric body. ACT 112: Negative or not required by law. The above report was generated using voice recognition software. It may contain grammatical, syntax or spelling errors. Electronically signed by: Adonis Monson M.D. 06/18/2023 10:04 AM PG Care Time/CCT Total # of Minutes Spent Total Time Spent with Patient: Total time spent is greater than 50% in coordination of care (as documented) at patient's floor/unit and/or counseling patient: I spent 75 minutes overall addressing this case: 15 min in medical data review/discussion with referring provider(s) and/or preparation for the visit 20 min in direct interaction with the patient/exam 20 min in Advance Care Planning/Goals of Care discussions as detailed above in note (must be >16min) 10 min in subsequent review and synthesis of assessment and plan 10 min communicating with other providers regarding the patient's case: primary team Advanced Care Planning 21853 Advanced Care Planning 30 [place] [address] IN/OBS CONSULT LVL 5,80M Patient Type New History Comprehensive Exam Comprehensive Medical Decision Making High Complexity Diagnoses Swallowing dysfunction R13.10 Dyspnea and respiratory abnormalities R06.00; R06.89 Generalized weakness R53.1 Tremor R25.1 Advanced care planning/counseling discussion Z71.89 Palliative care by specialist Z51.5 Fall, subsequent encounter [id number] Encounter type: subsequent encounter Additional Codes Advanced Care Planning - 19826 Advanced Care Planning 30 Min: 60901 Advanced Care Planning 30 Min ([id number])
--- NOTE | 2023-06-20 17:21 | Hospitalist Progress Note ---
Date of Service June 20, 2023 Assessment & Plan (1) Swallowing dysfunction: Plan: Patient failed bedside swallow study on 06/10, then failed video swallow study on 06/11. Last known food consumption was 06/06 -Discussed with LINE WALKER likely combination of Parkinson's but likely exacerbated by weakness from current infection. Recommended supplemental nutrition -Will place NG tube 06/12, and start tube feeds. Discussed this with his son and he is agreeable -Consult to dietitian placed -Oral care every 4 hours 06/15: Discussed with LINE WALKER, making improvements until today, feels like will have a better picture by Friday 06/16: Patient again not making improvements, LINE WALKER reports worse than day prior more unlikely that patient is going to make a full recovery. - will check UA for other possible source of confusion 06/17: patient again not making improvements with speech therapy, recommendations given for permissive aspiration if family and patient willing to accept. - discussed information with patient and son Pepito (separately) hesitant to give up too early. Have checked UA and chest x-ray and labs, no indication for increased confusion besides hospital delirium - were agreeable to palliative care consult, will continue tube feeds for now - did ask physical therapy to see the patient to determine how weak he is after being in bed for 8 days 06/18: Patient cognitive status continues to improve, asked LINE WALKER to see pt - Patient continues to aspirate, but was able to participate in therapy and follow commands better, LINE WALKER will continue to follow - Palliative plans to see patient 06/19 - Pepito updated stating dad has strong will to live, especially if rest of body is able. Discussed guarded prognosis for return of swallowing function 06/19 LINE WALKER reports patient progressing with speech therapy, able to follow commands - Seen by Palliative, but with progression not wanting hospice/comfort measures at this time - [facility] is able to accept with [facility] - continues to progress with PT/OT (2) Sepsis: Plan: -Presented to the ED after being found down by police during wellness visit requested by home health nurse. Last know well from family 06/06 he was running errands, recently admited to [facility] -Noted to be hypothermic at 34C, tachycardic at 111, hypoxic in the 80's on RA --> was on Karen hugger and supplemental oxygen - Lactate 3.6 on admission, down to 1.7 after fluids (received sepsis bolus) - CT A/P: no acute process, large amount of stool in rectum - no BM reported this admission, suppository given 06/12 - bowels now moving leukocytosis of 17 with neutrophil predominance of 14, with source being multifocal pneumonia likely with aspiration - completed course of Zosyn and doxycycline - Blood cultures: Negative, finalized. - Resp biofire neg -Patient was hypotensive at 100/47 after 1L NSS and is on chronic prednisone 5mg daily for inflammatory arthritis - received hydrocortisone 100mg x1, and 50mg x4 - will transition to hydrocortisone 50mg qAM --- dose decreased 06/17 to 20mg qAM to be closer to chronic dose Resolved, steroids however continue D/c underwood today (3) Acute respiratory failure with hypoxia: Plan: -Was found to be hypoxic in the s on RA by EMS - initially requiring HFNC -Initial VBG with pH of 7.25, pCO2 of 59, and pO2 of 23 - CT chest: multifocal airspace conslidations typical for pneumina/aspiration pneumonitis. no effusion or pneumothorax - Completed Zosyn Resolved (4) Altered mental status: Plan: -His differential is broad at this time including metabolic encephalopathy from infection, hypothermia, hypoxia, dehydration, possible CVA/TIA, progression of his known neurologic disease -CT of the head/brain was negative for acute intracranial findings - MRI brain ordered: No acute findings, no stroke. Meningioma unchanged Worsening beginning of the week, accompanied by worsening speech/swallowing function - seems to be waxing and waning -Remains on antibiotics for pneumonia -UA without infection - chest x-ray shows improving pneumonia Mental status improving 06/17 and 06/18 PT/OT (5) Elevated CK: Plan: -Initial CK elevated at 3122 -Likely due to muscle breakdown from prolonged period of time on the ground -Renal and liver function are stable Resolved, IV fluids D/C (6) TIA (transient ischemic attack): Plan: -Previous TIA in January 2010 -S/P BL carotid endarterectomies in July of 2020 -Normally on aspirin 81 mg BID and 75 mg Daily of Plavix - restarted 06/12 via NG tube (7) HTN (hypertension): Plan: -Hold Valsartan -Metoprolol resumed 06/12 (8) Elevated troponin: Plan: -Initial high sen trop elevated at 43 --> 52 on 2 hour repeat -No acute ECG changes -Likely due to demand due to his acute illness and elevated CK (9) Pressure injury of back, stage 1: Plan: -Mild erythema and skin breakdown of the thoracic back and sacrum -No current skin openings or sings of acute infection -Turn and position q2h -low air loss mattress (10) Inflammatory arthropathy: Plan: -Normally on 5 mg Prednisone daily -Unsure of last dose at this time - recieved stress dose steroids Continue on IV eqivalent Hydrocortisone until able to resume PO Plan Dispo: continued inpatient stay, plan for [facility] tomorrow with core safe DVT proh: Lovenox Pepito updated by phone Admission and Anticipated Discharge Date Admission Date: June 10, 2023 Subjective Patient seen just after working with therapy and had a bowel movement. Overall feeling good and in good spirits, motivated to get better Denied pain reports secretions have decreased Review of Systems Review of Systems: All systems reviewed & are unremarkable except as noted in Subjective Physical Exam Physical Exam: General: NAD, A&O x 3, very pleasant and appears improved from prior days VS as above Resp: normal respiratory effort, no adventitious sounds CV: RRR, no murmur, Abd: soft, nontender, no hepatosplenomegaly Extremities: Moves all extremities, no edema. no resting tremor but tremor with movement : underwood draining yellow urine Results & Data Results & Data Vital Signs (Past 12 Hours) Vital Signs Temp Pulse Pulse Resp BP Pulse Ox O2 Del Method 06/20/23 16:04 36.4 C L 79 18 179/76 H 96 Room Air 06/20/23 15:33 72 06/20/23 12:46 72 06/20/23 10:35 36.4 C L 69 18 131/71 97 Room Air 06/20/23 08:08 36.8 C 82 17 153/73 H 95 Room Air PG Care Time/CCT Total # of Minutes Spent Total Time Spent with Patient: Total time spent is greater than 50% in coordination of care (as documented) at patient's floor/unit and/or counseling patient: Coding Level of Care Code 54880 SUB INP/OBS CARE 2/35MIN Diagnoses Swallowing dysfunction R13.10 Sepsis A41.9 Acute respiratory failure with hypoxia J96.01 Altered mental status R40.1 Altered mental status type: stupor Elevated CK R74.8 TIA (transient ischemic attack) G45.9 HTN (hypertension) I10 Elevated troponin R79.89 Pressure injury of back, stage 1 L89.101 Inflammatory arthropathy M19.90 (4) Altered mental status Altered mental status type: stupor Qualified Code(s): R40.1 - Stupor
[2023-06-21 07:53] VITALS: RESP 18; TEMP 97.9
--- NOTE | 2023-06-21 10:33 | XRay Report ---
KUB CLINICAL HISTORY: coresafe placement COMPARISON STUDY: KUB June 15, 2023. FINDINGS: Tip of the feeding tube projects over the proximal stomach. Bowel gas pattern is normal. Le ft hip arthroplasty is incidentally noted. Radiodense material within the left colon and rectum is saul gaytan from prior modified barium swallow. IMPRESSION: Tip of feeding tube projects over the proximal stomach. ACT 112: Negative or not required by law. Electronically signed by: Sree Monterroso M.D. 06/21/2023 10:32 AM
[2023-06-21 11:25] VITALS: BP 161/63; PULSE 72; O2SAT 95
--- NOTE | 2023-06-21 11:51 | Discharge Summary ---
Discharge Summary Date of Service June 21, 2023 Notes For Next Care Provider Patient presented after being found down - was hypothermic, hypoxic and confused, treated for aspiration pneumonia and was weaned down to room air. Patient had difficulty swallowing with aspiration - failed VSS, NG tube was placed. Patient with initial improvement with POKER SUPERVISOR then 06/15 - 06/17 unexplained set back with confused. However after becoming more alert and oriented able to follow commands - able to make progress with POKER SUPERVISOR and working with PT and OT. Plan to discharge to [facility] with coresafe in place, and out patient VSS. sinemet dosing had to be reverted to IR dosing (recently changed on 05/28) to accomidate NG tube - recommend neurology follow up after discharge from [facility] to determine next dosing pattern \ Has completed course of IV abx for aspiration pneumonia. Medication Changes From Visit Many medications changed forms to accommodate NG emperic thiamine treatment started Admission HPI Per Admitting Provider Sincere is a 88 yo male with PMHx moderate idiopathic Parkinsons, S/P left hip replacement with Dr. Rodriges on 03/28/23, non-obstructive CAD, HLD, previous TIA in January 2010, July 2020 s/p B/L endarterectomies, HTN, inflammatory arthritis, and prostate cancer who presented to the [facility] ED via EMS on 06/10/23 after Police found him on the ground, confused, during a well check visit. Per the ED staff, the patient's home health nurse was concerned for his well-being as she had not heard from or seen him in approximately 2 weeks. He was noted to alert but confused, hypoxic in the 80's on RA. Unsure how long he was down for but possibly the last 24 hours. On arrival to the ED he was still hypoxic at 89% on 15L NRB, tachycardic at 112, and hypothermic at 34C. Labs were significant for a leukocytosis of 16 with neutrophil predominance of 14, VBG pH of 7.25 with pCO2 of 59 and pO2 of 23, initial lactate of 3.6 --> 2.8 on repeat, AG of 12 with bicarb WNL, glucose WNL, total bili of 2.2 with AST of 2.2 but ALT/Alk phos WNL, CK of 3122, high sen trop of 43, procal of 0.59, and UA negative for signs of infection. CT of the head/brain shows posterior scalp contusion but was read as negative for acute intracranial findings. CT of the cervical spine was negative for acute findings. CT of the chest with IV con shows multifocal pneumonia with possible aspiration and negative for other acute findings such as PE or pneumothorax. And CT of the abd/pelvis with con showed a large amount of stool in the rectum but was otherwise negative for acute findings in the abd/pelvis. The patient was given 1L NSS and a dose of Zosyn prior to admission. The ED staff did speak with the Patient's son who is currently in [place] but will be traveling to [facility]. At this time the patient's son would like him to be full code until he arrives. The patient's is reportedly admitted at [facility]. At the time of the exam the patient was sitting in bed and alert but appears confused. He is mumbling with most of his speech incoherent. He is unable to give meaningful history at this time. Please refer to Dr. Max's attestation for any changes to the treatment plan Principal Dx & Hospital Course #1 = Principal Diagnosis (1) Swallowing dysfunction: Patient failed bedside swallow study on 06/10, then failed video swallow study on 06/11. Last known food consumption was 06/06 -Discussed with POKER SUPERVISOR likely combination of Parkinson's but likely exacerbated by weakness from current infection. Recommended supplemental nutrition -Will place NG tube 06/12, and start tube feeds. - 06/13 and 06/14 patient start making improvements - 06/15 - 06/17 declined with increase confusion, workup done no new infectious process found - afternoon of 06/17 patient more alert and oriented and able to participate in therapy - At this time continues to progress - was seen by palliative care - no plans for deescelation of care at this time, but will follow with outpatient with underlying parkinsons - Coresafe replaced 06/20 - Discharge to [facility] with [facility] - plan for outpatient VSS (2) Sepsis: -Presented to the ED after being found down by police during wellness visit requested by home health nurse. Last know well from family 06/06 he was running errands, recently admitted to [facility]. -Noted to be hypothermic at 34C, tachycardic at 111, hypoxic in the 80's on RA --> was on Karen hugger and supplemental oxygen - Lactate 3.6 on admission, down to 1.7 after fluids (received sepsis bolus) - CT A/P: no acute process, large amount of stool in rectum --> bowel movements improving after suppository and initation of tube feeds - Treated for aspiration pneumonia with zosyn and doxycycline. Blood cultures negative. Resp biofire negative. Received stress dose steroids with hydrocortisone. - maintained on chronic prednisone (5mg) equivalent Resolved (3) Acute respiratory failure with hypoxia: -Was found to be hypoxic in the 80's on RA by EMS - initially requiring HFNC -Initial VBG with pH of 7.25, pCO2 of 59, and pO2 of 23 - CT chest: multifocal airspace conslidations typical for pneumina/aspiration pneumonitis. no effusion or pneumothorax Resolved (4) Altered mental status: -His differential is broad at this time including metabolic encephalopathy from infection, hypothermia, hypoxia, dehydration, possible CVA/TIA, progression of his known neurologic disease -CT of the head/brain was negative for acute intracranial findings - MRI brain ordered: No acute findings, no stroke. Meningioma unchanged - started on empiric B1 replacment - recieved IV while inpatient Improved. (5) Elevated CK: -Initial CK elevated at 3122 -Likely due to muscle breakdown from prolonged period of time on the ground -Renal and liver function are stable Resolved, IV fluids D/C (6) TIA (transient ischemic attack): -Previous TIA in January 2010 -S/P BL carotid endarterectomies in July of 2020 -Normally on aspirin 81 mg BID and 75 mg Daily of Plavix - continue at discharge (7) HTN (hypertension): -continue Valsartan -Metoprolol resumed 06/12 (8) Elevated troponin: -Initial high sen trop elevated at 43 --> 52 on 2 hour repeat -No acute ECG changes -Likely due to demand due to his acute illness and elevated CK (9) Pressure injury of back, stage 1: -Mild erythema and skin breakdown of the thoracic back and sacrum -No current skin openings or sings of acute infection -Turn and position q2h -low air loss mattress (10) Inflammatory arthropathy: -Normally on 5 mg Prednisone daily -Unsure of last dose at this time - recieved stress dose steroids Continue on IV eqivalent Hydrocortisone until able to resume PO Plan Dispo:discharge to [facility] today with NG tube in place Discharge Exam General: NAD, A&O x 3, very pleasant VS as above HEENT- NG tube removed after misplaced overnight, will replace before discharge Resp: normal respiratory effort, no adventitious sounds CV: RRR, no murmur, Abd: soft, nontender, no hepatosplenomegaly Extremities: Moves all extremities, no edema. no resting tremor but tremor with movement Updated Medication List Medication Instructions Recorded Confirmed Type psyllium seed (sugar) oral powder 1.5 tsp PO DAILY 09/16/18 06/10/23 History (Metamucil (sugar) oral powder) nitroglycerin 0.4 mg sublingual 0.4 mg sublingual Q5M PRN chest 12/19/20 06/10/23 Rx tablet pain #1 tab omega-3 fatty acids 1,000 mg 2,000 mg PO QAM 09/21/22 06/10/23 History capsule vitamins A,C,G-dcke-atfzdx 2,148 1 tab PO QAM 09/21/22 06/10/23 History mcg-113 mg-45 mg-17.4 mg tablet (PreserVision AREDS) acetaminophen 325 mg capsule 325 mg PO QID PRN Pain 10/03/22 06/10/23 History (Tylenol) clopidogrel 75 mg tablet 75 mg PO QAM #90 tabs 11/26/22 06/10/23 Rx atorvastatin 40 mg tablet 40 mg PO QAM 90 days #90 tabs 12/17/22 06/10/23 Rx denosumab 60 mg/mL subcutaneous 60 mg subcut UD 01/06/23 06/10/23 History syringe (Prolia) metoprolol tartrate 25 mg tablet 12.5 mg (1/2 x 25 mg) PO BID #90 01/28/23 06/10/23 Rx tabs prednisone 5 mg tablet 5 mg PO QAM 02/27/23 06/10/23 History valsartan 40 mg tablet 40 mg PO QAM 02/27/23 06/10/23 History aspirin 81 mg tablet,delayed 81 mg PO BID #84 tabs 03/29/23 06/10/23 Rx release (Adult Aspirin Regimen) tramadol 50 mg tablet 50 mg PO Q6H PRN pain #30 tabs 03/30/23 06/10/23 Rx tramadol 50 mg tablet 50 mg PO Q6H PRN pain #30 tabs 04/18/23 06/10/23 Rx carbidopa ER 50 mg-levodopa 200 mg 1 tab PO TID 90 days #270 tabs 05/29/23 06/10/23 Rx tablet,extended release Hospital Stay Data Consultations 06/10/23 13:27 ED Decision to Admit Stat 06/18/23 14:37 Consult Palliative Care Routine Diagnostic Imagining Performed Abdomen/Pelvis CT 06/10/23 11:45 CT OF THE ABDOMEN AND PELVIS WITH CONTRAST CLINICAL HISTORY: found down; AMS COMPARISON STUDY: Pelvis and left hip radiograph March 28, 2023. TECHNIQUE: Following IV administration of 89 mL of Optiray, axial images of the abdomen and pelvis were obtained from the lung bases to the proximal femurs. Images were reviewed in the axial, sagittal, and coronal planes. IV contrast was administered without complication. Automated exposure control was utilized for the study. A dose lowering technique was utilized adhering to the principles of ALARA. FINDINGS: Please note that the chest CT will be reported separately. Alveolar opacities within the lower lungs could reflect pneumonia or aspiration pneumonitis. No pneumatosis, free air or portal venous gas is present. Lateral segment hepatic cyst is present. Several left renal cysts are present. No hydronephrosis. This study is mildly compromised by motion artifact. Spleen, adrenal glands and pancreas are unremarkable. There is no biliary or pancreatic ductal dilatation. A large amount of stool within the rectum is noted. There is colonic diverticulosis without evidence for acute diverticulitis. A Mack balloon within the bladder is noted. There are fiducial markers within the prostate. Left hip arthroplasty is intact. There are no acute fractures within the lumbar spine, pelvis or hips. IMPRESSION: 1. Lower lung airspace opacities suggestive of pneumonia or aspiration pneumonitis. 2. No acute process within the abdomen or pelvis. 3. Large amount of stool within the rectum. 4. Colonic diverticulosis. No evidence for acute diverticulitis. 5. No acute fractures. ACT 112: Negative or not required by law. Electronically signed by: Sree Monterroso M.D. 06/10/2023 12:[address] 06/10/23 11:[address] DOSE: HISTORY: found down; AMS TECHNIQUE: Multiaxial CT images of the cervical spine were performed and reformatted in the sagittal and coronal plane without the use of contrast. A dose lowering technique was utilized adhering to the principles of ALARA. COMPARISON: None. FINDINGS: No fractures. No subluxation. Prevertebral soft tissues and the C1-C2 interval are intact. No pneumothorax. The C4-C5 vertebral bodies are fused. Moderate disc space narrowing at C3-C4. Mild degenerative changes throughout the remaining cervical spine. IMPRESSION: No fractures within the cervical spine. ACT 112: Negative or not required by law. Electronically signed by: Cirilo Suarez M.D. 06/10/2023 1:[address] 06/10/23 11:45 CT SCAN OF THE CHEST WITH IV CONTRAST CLINICAL HISTORY: Change in mental status. Found down. COMPARISON STUDY: Chest x-ray dated 06/10/2023. TECHNIQUE: Following the IV administration of 89 cc of Optiray 320, CT scan of the thorax was performed from the thoracic inlet to the upper abdomen. Images are reviewed in the axial, sagittal, and coronal planes. IV contrast was administered without complication. A dose lowering technique was utilized adhering to the principles of ALARA. The examination is degraded by motion artifact, as well as by streak artifact from the arms which could not be elevated above the abdomen. FINDINGS: Thyroid: Imaged portions of the thyroid gland are normal in size and attenuation. Thoracic aorta: There is atherosclerotic calcification of the thoracic aorta, which is normal in caliber and demonstrates standard 3-vessel arch anatomy. No dissection is seen. Pulmonary vasculature: The pulmonary trunk is normal in caliber. There are no filling defects identified in the central pulmonary vessels to indicate pulmonary embolus. Note that this examination was not protocoled for evaluation of the pulmonary arteries. Heart: The heart is normal in size and without pericardial effusion. The jeter ry arteries are densely calcified. Lungs and pleural spaces: There is dense airspace consolidation at the left lung base. Mild patchy airspace consolidation is seen in the left upper lobe as well as in the right middle and lower lobes. There is no significant pleural effusion. No pneumothorax is seen. Secretions are noted in the trachea and central airways. Mediastinum: There is no mediastinal hematoma or lymphadenopathy. Ruth: Clear. Axillae: There is no axillary lymphadenopathy. Upper abdomen: There is a small hiatal hernia. A 1.6 cm left lobe hepatic cyst is incidentally noted. A 4 cm cyst arises from the left kidney. Skeletal structures: The skeletal structures are osteopenic. The bony thorax appears intact. There are several spinal hemangiomas. No lytic or blastic bony lesions are seen. 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 IMPRESSION: 1. There is multifocal airspace consolidation as above, greatest at the left lung base. The appearance is typical for pneumonia/aspiration pneumonitis. Clinical correlation will be required and radiographic follow-up to resolution is recommended. Follow-up radiographs should include both PA and lateral views. 2. There is no pleural effusion or pneumothorax. 3. Additional findings as above. ACT 112: Negative or not required by law. Electronically signed by: Madhav Hernandez M.D. 06/10/2023 1:09 PM Chest X-Ray 06/10/23 11:45 SINGLE VIEW CHEST CLINICAL HISTORY: Sepsis FINDINGS: An AP, portable, semierect chest radiograph is compared to study dated 03/04/2023. The examination is degraded by portable technique and patient rotation. The cardiomediastinal silhouette is top normal for projection noting atherosclerotic calcification of the thoracic aorta. Question retrocardiac air space opacities. The right lung is clear. No large pleural effusion or pneumothorax is seen. The skeletal structures are osteopenic. The bony thorax is grossly intact. IMPRESSION: 1. Question retrocardiac airspace opacities. This is not well assessed and clinical correlation required. If there is concern for pneumonia a dedicated PA and lateral examination is recommended. 2. The right lung is clear. ACT 112: Negative or not required by law. Electronically signed by: Madhav Hernandez M.D. 06/10/2023 12:[address] 06/10/23 11:45 CT SCAN OF THE BRAIN WITHOUT IV CONTRAST CLINICAL HISTORY: Change in mental status. COMPARISON STUDY: CT of the brain dated 08/14/2020. MRI of the brain dated 07/01/2021. TECHNIQUE: Unenhanced axial CT scan of the brain is performed from the vertex to the skull base. A dose lowering technique was utilized adhering to the principles of ALARA. CT DOSE: 2346.17 mGy.cm FINDINGS: Brain parenchyma: There is age-related involutional change noting mild subcortical and periventricular microangiopathic disease. There is no hemorrhage, mass effect, or evidence of acute territorial ischemia by CT criteria. 11 mm meningioma along the right convexity is unchanged from prior studies. Rojo-white matter differentiation is preserved. No extra-axial fluid collection is seen. Ventricles, sulci, cisterns: Prominent secondary to involutional change. Intracranial vasculature: There is atherosclerotic calcification of the cavernous carotid and vertebral arteries. Calvarium: The skeletal structures are osteopenic. No depressed calvarial fracture is seen. Soft tissues: Scalp contusions are seen posteriorly at the vertex bilaterally. Sinuses and mastoids: There is mild mucosal thickening ethmoid sinuses. The remaining paranasal sinuses are clear. The mastoid air cells are well pneumatized. Orbits: The bony orbits are grossly intact. There are bilateral ocular lens implants. IMPRESSION: 1. There is no hemorrhage, mass effect, or evidence of acute territorial ischemia by CT criteria. 2. Scalp contusions are seen posteriorly at the vertex. ACT 112: Negative or not required by law. Electronically signed by: Madhav Hernandez M.D. 06/10/2023 12:56 PM Brain MRI 06/11/23 13:14 MRI OF THE BRAIN WITHOUT CONTRAST CLINICAL HISTORY: Altered mental status. r/o stroke COMPARISON STUDY: Head CT June 10, 2023. MRI the brain July 01, 2021. TECHNIQUE: Utilizing a 1.5 Glo magnet and dedicated coil, multiplanar, multiecho imaging of the brain was performed without IV contrast. FINDINGS: There are no foci of restricted diffusion to suggest acute infarct. No acute intracranial hemorrhage, midline shift or mass effect is present. Ventricular system is stable. Basal cisterns are patent. There are no extra- axial collections. Flow-voids for the major intracranial vessels are present. Prominence of extra-axial spaces is unchanged and due to atrophy. Mild white matter T2 hyperintense foci are unchanged and suggest small vessel disease. A 1 cm extra-axial lesion overlying the right frontal lobe is unchanged. This represents a meningioma. The appearance of the brain is unchanged. IMPRESSION: No acute intracranial findings. ACT 112: Negative or not required by law. Electronically signed by: Sree Monterroso M.D. 06/11/2023 6:08 PM Videofluoroscopic Swallow 06/12/23 13:45 MODIFIED BARIUM SWALLOW CLINICAL HISTORY: r/o aspiration COMPARISON STUDY: None. FLUOROSCOPY TIME: 47 seconds. Ka, r: 2.60 mGy. TECHNIQUE: A modified barium swallow was performed in conjunction with Speech Pathology. The patient ingested varying consistencies of barium containing material. Video fluoroscopy was performed. FINDINGS: There were multiple episodes of tracheal aspiration with thin liquids and nectar thick liquids. Premature spillage was noted. Epiglottic inversion was diminished. Moderate residuals within the vallecula and piriform sinuses were noted. IMPRESSION: 1. Impaired swallowing mechanism with multiple episodes of tracheal aspiration with thin liquids and nectar thick liquids. 2. Moderate residuals within the piriform sinuses and vallecula. 3. Full recommendations by Speech pathology to follow. ACT 112: Negative or not required by law. Electronically signed by: Sree Monterroso M.D. 06/12/2023 4:03 PM KUB X-Ray 06/12/23 15:38 SINGLE VIEW ABDOMEN CLINICAL HISTORY: Enteric tube placement. FINDINGS: AP, portable, upright view of the lower chest and upper abdomen is correlated with abdominal CT dated 06/10/2023. An enteric tube has been placed. The tip projects below the diaphragm over the mid to distal stomach. There is no radiographic evidence of bowel obstruction. No intraperitoneal free air is seen below the diaphragm. Residual enteric contrast is noted. There are no abnormal abdominal calcifications. Airspace consolidation is seen at the lung bases. The skeletal structures are osteopenic and appear intact. There is moderate lumbosacral spondylosis IMPRESSION: 1. An enteric tube has been placed as above. 2. No bowel obstruction. 3. Bibasilar airspace consolidation is noted. Electronically signed by: Madhav Hernandez M.D. 06/12/2023 4:23 PM KUB X-Ray 06/14/23 11:16 KUB CLINICAL HISTORY: Constipation. FINDINGS: An AP, portable, supine abdominal radiograph is compared to study dated 06/12/2023. Correlation is made with abdominal CT dated 06/10/2023. An enteric tube is unchanged in position. There is no bowel obstruction. Residual enteric contrast is noted in the left colon. There is minimal colonic fecal retention. A rectal temperature probe is in place. Metallic clips project over the prostate. No abnormal abdominal calcifications are seen. There are pelvic phleboliths. The skeletal structures are osteopenic and appear intact. There is moderate to advanced lumbosacral spondylosis. A left hip arthroplasty is in place. IMPRESSION: No acute abnormality is identified. Electronically signed by: Madhav Hernandez M.D. 06/14/2023 12:02 PM Chest X-Ray 06/15/23 14:27 XR chest 1V portable CLINICAL HISTORY: NG tube placement COMPARISON STUDY: Chest radiograph and chest CT June 10, 2023. FINDINGS: The tip of the nasogastric/feeding tube projects over the pylorus. There is no pneumothorax. Suspected small bilateral pleural effusions. Extensive perihilar and bibasilar opacities have progressed. There is mild interstitial thickening. Cardiomediastinal silhouette is stable. IMPRESSION: 1. Tip of nasogastric/feeding tube projects over the pylorus. 2. Significant increase in bibasilar perihilar opacities suggestive of pneumonia or aspiration pneumonitis. 3. Suspected small bilateral pleural effusions. 4. Interstitial thickening. This may reflect mild superimposed pulmonary edema. ACT 112: Negative or not required by law. Electronically signed by: Sree Monterroso M.D. 06/15/2023 3:17 PM KUB X-Ray 06/15/23 20:30 KUB HISTORY: Confirm placement of NG tube COMPARISON: None. FINDINGS: The bowel gas pattern is unremarkable. There are no dilated loops of small bowel to suggest an obstruction. Nasogastric tube terminates in the prox imal stomach. Small left pleural effusion and left basilar densities. No pneumoperitoneum or pneumatosis. IMPRESSION: Nasogastric tube terminates in the proximal stomach. ACT 112: Negative or not required by law. Electronically signed by: Cirilo Suarez M.D. 06/16/2023 7:38 AM Chest X-Ray 06/18/23 09:19 XR chest 1V portable HISTORY: 88 years-old Male recheck PNA acute shortness of breath COMPARISON: 06/15/2023 TECHNIQUE: AP view of the chest FINDINGS: Distal tip of feeding tube projects over the gastric body. Cardiac silhouette is enlarged. Pulmonary vascular congestion with interstitial coarsening. Mild bibasilar and left midlung airspace opacities have slightly improved. Small pleural effusions. No pneumothorax. Bones appear grossly intact. IMPRESSION: 1. Cardiomegaly with pulmonary vascular congestion. 2. Small pleural effusions with mild improvement of the bibasilar and left midlung airspace opacities. 3. Distal tip of feeding tube projects over the gastric body. ACT 112: Negative or not required by law. The above report was generated using voice recognition software. It may contain grammatical, syntax or spelling errors. Electronically signed by: Adonis Monson M.D. 06/18/2023 10:04 AM [facility] X-Ray 06/21/23 09:32 KUB CLINICAL HISTORY: coresafe placement COMPARISON STUDY: KUB June 15, 2023. FINDINGS: Tip of the feeding tube projects over the proximal stomach. Bowel gas pattern is normal. Left hip arthroplasty is incidentally noted. Radiodense material within the left colon and rectum is likely from prior modified barium swallow. IMPRESSION: Tip of feeding tube projects over the proximal stomach. ACT 112: Negative or not required by law. Electronically signed by: Sree Monterroso M.D. 06/21/2023 10:32 AM Pending Results Patient Have Any Pending Studies at Discharge: No Discharge Instructions Given to Patient (Per Discharging Provider) Mr. Light, You were hospitalized after being found down at home. Upon presentation to the hospital, you were found to have pneumonia and confusion with difficulty swallowing. Over time we were able to treat your pneumonia and wean off any supplemental oxygen and your confusion has improved. You are still having difficulties with swallowing and for that reason we are temporarily keeping the feeding tube in your nose. You will continue to work with speech therapy at [facility] to eventually have this removed. While you were on the NG tube we had to convert back to your old - 4 times a day dosing of Sinemet. It will likely be beneficial to follow up with neurology once you [facility] [facility] proceed with [facility] Sinemet dosing. Please follow up with your PCP within 7 days after discharge from [facility]. For [facility]: - Sinemet dosing on admission was 50/200 ER TID, transitioned to IR 25-100 QID (which was just changed at his neurology visit on 05/28) to accommodate NG tube - will have to decide which dosing to remain on after tolerating PO - Patient receiving Peptamen 1.5 at 4ml/hr with free water flushes of 150ml every 4 hours. - Was receiving 20mg hydrocortisone to replace PO prednisone (after stress dose steroids) - if unable to give prednisone, would consider alternative as prednisone is chronic for inflammatory arthritis - started on empiric IV thiamine. Recommend PO 100mg daily when able to take PO Total Time Total Time Spent Total Time Spent (In Minutes): Time spend day of discharge 40 minutes including direct patient care, medication reconciliation, documentation, review of labs and images, and coordination of care. Coding Level of Care Code 63501 INP/OBS DISCH >30 MIN Diagnoses Swallowing dysfunction R13.10 Sepsis A41.9 Acute respiratory failure with hypoxia J96.01 Altered mental status R40.1 Altered mental status type: stupor Elevated CK R74.8 TIA (transient ischemic attack) G45.9 HTN (hypertension) I10 Elevated troponin R79.89 Pressure injury of back, stage 1 L89.101 Inflammatory arthropathy M19.90
== END 2023-06-21 14:17 | DRG 871 ==
LOC: ED 11:40 → EDINP 14:16 → SUATTDRO 14:16 → 1E 16:03 → 2S 06-15 00:06
DX: E78.00 Pure hypercholesterolemia, unspecified; G93.41 Metabolic encephalopathy; Z79.52 Long term (current) use of systemic steroids; R13.10 Dysphagia, unspecified; Z86.73 Personal history of transient ischemic attack (TIA), and cerebral infarction without residual deficits; Z79.82 Long term (current) use of aspirin; G20.A1 Parkinson's disease without dyskinesia, without mention of fluctuations; F05 Delirium due to known physiological condition; C61 Malignant neoplasm of prostate; J96.01 Acute respiratory failure with hypoxia; J69.0 Pneumonitis due to inhalation of food and vomit; N40.0 Benign prostatic hyperplasia without lower urinary tract symptoms; Z79.02 Long term (current) use of antithrombotics/antiplatelets; A41.9 Sepsis, unspecified organism; Z11.52 Encounter for screening for COVID-19; I25.10 Atherosclerotic heart disease of native coronary artery without angina pectoris; Z79.899 Other long term (current) drug therapy; L89.151 Pressure ulcer of sacral region, stage 1; R77.8 Other specified abnormalities of plasma proteins; L89.101 Pressure ulcer of unspecified part of back, stage 1; M06.4 Inflammatory polyarthropathy; I10 Essential (primary) hypertension